=== PATIENT | female | born 1935 | race Caucasian/White ===

== ENCOUNTER 2020-07-26 15:40 | Emergency (ER) | payer MEDICARE, BC, SELFPAY ==
[2020-07-26 15:41] VITALS: BP 140/69; PULSE 85; RESP 18; TEMP 36.4; O2SAT 100
[2020-07-26 16:59] VITALS: BP 120/71; PULSE 76; RESP 20; O2SAT 98
[2020-07-26 17:05] LABS: Basophils Absolute Auto 0.1 K/mm3 (0.0-0.1); Basophils Percent Auto 0.8 % (0.2-1.2); Eosinophils Absolute Auto 0.3 K/mm3 (0-0.3); Eosinophils Percent Auto 4.5 % (0-4.4); Hematocrit 33.3 % (37.0-47.0); Hemoglobin 11.2 g/dL (12.0-15.0); Immature Granulocyte Absolute 0.02 K/mm3 (0.00-0.031); Immature Granulocyte Percent A 0.3 % (0-0.5); Lymphocytes Absolute Auto 1.88 K/mm3 (0.9-3.2); Lymphocytes Percent Auto 29.4 % (18.3-44.2); Mean Corpuscular HGB Conc 33.6 g/dl (32-36); Mean Corpuscular Hemoglobin 30.8 pg (26-34); Mean Corpuscular Volume 91.5 fl (80-100); Mean Platelet Volume 9.1 fl (7.4-10.4); Monocytes Absolute Auto 0.7 K/mm3 (0.1-0.6); Monocytes Percent Auto 11.1 % (2.6-8.5); Neutrophils Absolute Auto 3.4 K/mm3 (1.3-6.7); Neutrophils Percent Auto 53.9 % (45.5-73.1); Platelet Count Result 209 k/mm3 (150-375); Red Blood Count 3.64 M/mm3 (4.2-5.4); Red Cell Distribution Width 12.9 % (11.5-14.5); White Blood Count 6.4 K/mm3 (4.5-10.0)
[2020-07-26 17:15] LABS: INR 1.1; Prothrombin Time 13.5 Seconds (11.1-14.7)
[2020-07-26 17:17] LABS: Alanine Aminotransferase 12 U/L (4-35); Alkaline Phosphatase 44 U/L (38-126); Anion Gap 8 mmol/L (8-16); Aspartate Amino Transferase 20 U/L (14-36); Bilirubin,Total 0.1 mg/dL (0.2-1.3); Blood Urea Nitrogen 26 mg/dL (7-17); Calcium 9.3 mg/dL (8.4-10.2); Carbon Dioxide 27 mmol/L (22-30); Chloride 102 mmol/L (98-107); Estimated CRCL calculation 36 ml/min; Estimated Glomerular Filt Rate 43; Glucose 107 mg/dL (65-105); Potassium 4.4 mmol/L (3.4-5.0); Sodium 137 mmol/L (137-145)
--- NOTE | 2020-07-26 17:49 | ED.GENADULT ---
HPI - General Adult General Chief complaint: Wound/Laceration Stated complaint: RECTAL BLEEDING Time Seen by Provider: 07/26/20 15:53 Source: patient Mode of arrival: ambulatory Limitations: no limitations History of Present Illness HPI narrative: 84-year-old with no major medical problems here with complaints of rectal pain for past 1 week. Patient states that she has been doing Epson salt sitz bath which gives her some relief but however pain got worse this morning so she decided to come to the ER. She denies any fever or chills. Denies any blood in the stool. No history of any abdominal pain. Onset (ago): week(s) (1) Location: buttocks (left) Radiation: non-radiation Severity: moderate Quality: constant Pain Consistency: constant Exacerbating factors: none Associated symptoms: denies other symptoms Related Data Allergies Allergy/AdvReac Type Severity Reaction Status Date / Time chlorpheniramine Allergy Mild Unknown Unverified 07/26/20 16:58 codeine Allergy Mild Unknown Unverified 07/26/20 16:58 phenylephrine Allergy Mild Unknown Unverified 07/26/20 16:58 Review of Systems Review of Systems: All systems reviewed & are unremarkable except as noted in HPI and below Constitutional: Constitutional: Reports no additional constitutional complaints Eyes: Eyes: Reports as per HPI ENT: Reports system reviewed and no additional complaints, except as documented Cardiovascular: Cardiovascular: Reports no additional cardiovascular complaints Respiratory: Respiratory: Reports no additional respiratory complaints Gastrointestinal: Gastrointestinal: Reports as per HPI Musculoskeletal: Musculoskeletal: Reports no additional musculoskeletal complaints PMFSH Past Medical History Medical History H/O fracture of humerus H/O fracture of radius Social History Social History Gender identity (if verbalized by the patient): Female Exam Narrative: Exam Narrative: GENERAL: Well-appearing, well-nourished, and in no acute distress. HEAD: Normocephalic, atraumatic. EYES: PERRLA and EOMI. ENT: Nares clear, no rhinorrhea or epistaxis. Mucous membranes moist. NECK: Supple. CHEST: Clear to auscultation. No respiratory distress. HEART: Regular rate and rhythm. No murmur heard. Normal peripheral pulses. ABDOMEN: Soft, nontender, nondistended, normal active bowel sounds. Rectal A small hard swelling noted on the medial aspect of the buttock , no drainage EXTREMITIES: Normal range of motion. No edema. SKIN: Warm, dry, no rash. NEURO: No focal deficits. Alert and oriented x3. PSYCH: Normal mood and affect. Course Vital Signs Vital signs: Vital Signs Temperature 36.4 C 07/26/20 15:41 Pulse Rate 85 07/26/20 15:41 Respiratory Rate 18 07/26/20 15:41 Blood Pressure 140/69 07/26/20 15:41 Pulse Oximetry 100 07/26/20 15:41 Temperature 36.4 C 07/26/20 15:41 Pulse Rate 76 07/26/20 16:59 Respiratory Rate 20 07/26/20 16:59 Blood Pressure 120/71 07/26/20 16:59 Pulse Oximetry 98 07/26/20 16:59 Medical Decision Making MDM Narrative Medical decision making narrative: informed pt about her findings , advised her to continue sitz bath , take antibiotic as prescribed. Differential Diagnosis Differential Diagnosis: Gluteal abscess, cellulitis, thrombosed hemorrhoid Vital Signs Vital Signs: Vital Signs Temperature 36.4 C 07/26/20 15:41 Pulse Rate 85 07/26/20 15:41 Respiratory Rate 18 07/26/20 15:41 Blood Pressure 140/69 07/26/20 15:41 Pulse Oximetry 100 07/26/20 15:41 Temperature 36.4 C 07/26/20 15:41 Pulse Rate 76 07/26/20 16:59 Respiratory Rate 20 07/26/20 16:59 Blood Pressure 120/71 07/26/20 16:59 Pulse Oximetry 98 07/26/20 16:59 Lab Data Result diagrams: 07/26/20 16:57 07/26/20 16:57 Labs: Lab Results 07/26/20
[2020-07-26 18:36] VITALS: BP 122/72; PULSE 70; RESP 20; O2SAT 99
== END 2020-07-26 18:38 | disposition home or self-care (01) ==
PROVIDERS: Emergency Provider Family Medicine
DX: L03.317 Cellulitis of buttock (principal); L02.31 Cutaneous abscess of buttock
CPT/HCPCS: 36415; 80053; 85025; 85610; 99283

== ENCOUNTER 2020-08-29 14:04 | Emergency (ER) | payer MEDICARE, BC, SELFPAY ==
--- NOTE | ~2020-08-29 | US_ITS ---
EXAMINATION: US venous doppler LE RT EXAM DATE: 08/29/2020 14:35 INDICATION: Right leg swelling. TECHNIQUE: Multiple grayscale, color flow and Doppler images of the right lower extremity deep venous system were obtained and reviewed. There is no prior study for comparison. FINDINGS: The right common femoral, femoral and profunda veins demonstrate normal color flow, respira tory variation, augmentation and compressibility. Compressibility, color flow confirmed within the r ight popliteal, posterior tibial, peroneal, and greater saphenous veins. IMPRESSION: 1. No right lower extremity deep venous thrombosis. Reviewed, dictated and finalized at location A.
[2020-08-29 14:10] VITALS: BP 152/74; PULSE 100; RESP 18; TEMP 36.4; O2SAT 100
--- NOTE | 2020-08-29 14:52 | ED.GENADULT ---
HPI - General Adult General Chief complaint: Extremity Injury, Lower Stated complaint: ankle swelling/hx dvt Time Seen by Provider: 08/29/20 14:14 Source: patient Mode of arrival: ambulatory Limitations: no limitations History of Present Illness HPI narrative: Patient is a 85-year-old presents with right leg pain since noting aching pain with slight swelling with history of DVT denies injury or trauma has not taken anything for symptoms presents in no distress Related Data Home Medications Medication Instructions Recorded Confirmed lisinopril 10 mg tablet 10 mg PO DAILY 07/29/20 07/30/20 rosuvastatin 5 mg tablet 5 mg PO DAILY 07/29/20 07/30/20 Allergies Allergy/AdvReac Type Severity Reaction Status Date / Time chlorpheniramine Allergy Mild Unknown Verified 08/29/20 14:15 codeine Allergy Mild Unknown Verified 08/29/20 14:15 phenylephrine Allergy Mild Unknown Verified 08/29/20 14:15 Review of Systems Review of Systems: All systems reviewed & are unremarkable except as noted in HPI and below PMFSH Past Medical History Medical History H/O fracture of humerus H/O fracture of radius History of blood clots History of kidney stones Hyperlipidemia Hypertension Surgical History Surgical History History of appendectomy History of hysterectomy Social History Social History Smoking status: Never smoker Alcohol intake: never 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 HEAD: Normocephalic, atraumatic. EYES: PERRLA and EOMI. ENT: Nares clear, no rhinorrhea or epistaxis. Mucous membranes moist. CHEST: Clear to auscultation. No respiratory distress. No wheezes rales or rhonchi HEART: Regular rate and rhythm. No murmur heard. EXTREMITIES: Normal range of motion. No edema. SKIN: Warm, dry, no rash. NEURO: No focal deficits. Alert and oriented x3. Cranial nerves II through XII grossly intact. Neurovascularly intact PSYCH: Normal mood and affect. Course Course Emergency Course: Patient in the room in no distress aware of case findings treatment plan Vital Signs Vital signs: Vital Signs Temperature 97.5 F L 08/29/20 14:10 Pulse Rate 100 08/29/20 14:10 Respiratory Rate 18 08/29/20 14:10 Blood Pressure 152/74 H 08/29/20 14:10 Pulse Oximetry 100 08/29/20 14:10 Temperature 97.5 F L 08/29/20 14:10 Pulse Rate 100 08/29/20 14:10 Respiratory Rate 18 08/29/20 14:10 Blood Pressure 152/74 H 08/29/20 14:10 Pulse Oximetry 100 08/29/20 14:10 Medical Decision Making MDM Narrative Medical decision making narrative: Patients injury or pain is consistent with musculoskeletal etiology. No signs of neurological or vascular compromise on exam. Compartments and tisues are soft without signs of compartment syndrome. Pain is felt appropriate for further evaluation on an outpatient basis. Vital Signs Vital Signs: Vital Signs Temperature 97.5 F L 08/29/20 14:10 Pulse Rate 100 08/29/20 14:10 Respiratory Rate 18 08/29/20 14:10 Blood Pressure 152/74 H 08/29/20 14:10 Pulse Oximetry 100 08/29/20 14:10 Temperature 97.5 F L 08/29/20 14:10 Pulse Rate 100 08/29/20 14:10 Respiratory Rate 18 08/29/20 14:10 Blood Pressure 152/74 H 08/29/20 14:10 Pulse Oximetry 100 08/29/20 14:10 Discharge Plan Discharge Clinical Impression: Leg pain, right Patient Disposition: Home, Self-Care Condition: Stable Instructions: Antibiotic Form, Leg Pain (ED) Additional Instructions: Follow up with your primary care doctor in 5-7 days for re-evaluation. Go to ER for worsening pain, vision changes, nausea/vomiting, fever/chill
[2020-08-29 15:15] VITALS: BP 148/68; PULSE 99; RESP 20; O2SAT 100
== END 2020-08-29 15:16 | disposition home or self-care (01) ==
PROVIDERS: Emergency Provider Emergency Medicine; PCP Emergency Medicine
DX: M79.604 Pain in right leg (principal); Z86.718 Personal history of other venous thrombosis and embolism; Z87.442 Personal history of urinary calculi; E78.5 Hyperlipidemia, unspecified; I10 Essential (primary) hypertension
CPT/HCPCS: 93971; 99284

== ENCOUNTER 2021-03-24 13:13 | Outpatient (CLI) | payer MEDICARE, BC, SELFPAY ==
--- NOTE | ~2021-03-24 | US_ITS ---
EXAMINATION: US soft tissue UE LT DATE: 03/24/2021 13:46 INDICATION: Left arm mass TECHNIQUE: Multiple grayscale and Doppler ultrasound images of the region of concern at the medial le ft upper arm were obtained. COMPARISON: None FINDINGS/IMPRESSION: Normal appearance to the subcutaneous fat in the region of concern. No discrete mass or abnormal flui d collections identified. Reviewed, dictated and finalized at location A.
== END 2021-03-24 13:14 | disposition home or self-care (01) ==
PROVIDERS: PCP Emergency Medicine; Visit Provider Emergency Medicine
DX: R22.32 Localized swelling, mass and lump, left upper limb (principal)
CPT/HCPCS: 76882

== ENCOUNTER 2021-04-22 11:00 | Outpatient (RCR) | payer MEDICARE, BC, SELFPAY ==
--- NOTE | 2021-03-29 11:52 | PTOPEVAL ---
PHYSICAL THERAPY EVALUATION Thank you for referring Gianna Amaral to [facility].? Gianna was evaluated for the dx of imbalance. The patient is scheduled to be seen for therapy?2 x/week for 4 weeks. Please review, sign, date and return this plan of care KIRTI. I agree with and certify that the following plan of care is medically necessary. Referring Physician Date Referring Provider: Dr. Gonzalo Mendiola MD *PT Outpatient Evaluation Start: 03/29/21 10:37 Freq: Status: Active Protocol: Document 03/29/21 10:37 MLV (Rec: 03/29/21 11:42 [id number]) Therapy Assessment Status Assessment Status Assessment Status Evaluation Evaluation Information Problem Diagnosis imbalance;falls Onset 1-1.5 years Additional Evaluation Detail The patient reports being active, walking for exercise regularly, prior to changes in her balance. The patient has fallen a few times, with fractures as a consequence over the last 1- 1.5 year. The patient is not exercising due to fear of falling and wants to improve her balance. The patient has right knee OA and needs a TKA, which caused one of her falls. The patient is planning to have her knee replaced soon but wanted to get a little more balanced before the surgery. Previous Treatments Previous Treatments For This Problem had PT after 1st fall about 1 year ago. Pain Assessment Timing of Pain Assessment Timing of Pain Assessment Assessment Pain Scale Pain Scale Used Numeric (1 - 10) Self Report Pain Assessment Right Posterior Knee(s) Reported Pain Level 0 Pain Frequency Chronic Greatest Pain Intensity 9 Pain Aggravating Factors Walking,Weight Bearing/ Standing Pain Behaviors Limping Pain Score Pain Score 0: Self Report Interventions Used Interventions Used By Clinicians Education,Exercise Pain Relief Interventions Used By Inactivity/Rest,Lying Supine, Patient Position Change Cervical and Lumbar ROM Lumbar ROM Reason Not Measured WFL/Left,WFL/Right Lumbar Flexion Active Mid Zarate Query Text:Hands to: Lower Extremity Range of Motion General Lower Extremity Range of Motion Reason Not Measured WFL/Left Gross Lower
--- NOTE | 2021-04-28 09:22 | PCPTNOTE ---
Patient called & cancelled scheduled appointment this date due to increased knee pain today. Patient rescheduled.
--- NOTE | 2021-06-04 10:31 | PCPTNOTE ---
PHYSICAL THERAPY DISCHARGE Attending Provider: Dr. Gonzalo Mendiola MD Patient:Gianna Amaral Date of :1935 Patient has not returned for any further treatments since 04/22/2021, therefore she will be discharged at this time. Patient?s initial visit was on 03/29/2021 10:30 and she had a total of 8 visits. The goals have been partially met. Thank you for referring this patient to [facility]. Please review, sign, date and return this discharge summary KIRTI. I have been updated about the patient's current status and I agree with discharge from the above service at this time. Referring Physician Date
== END 2021-06-10 16:55 | disposition home or self-care (01) ==
LOC: ANHPT 11:00
PROVIDERS: PCP Emergency Medicine
DX: R26.89 Other abnormalities of gait and mobility (principal)
CPT/HCPCS: 97110; 97162

== ENCOUNTER 2021-04-29 09:23 | Emergency (ER) | payer MEDICARE, BC, SELFPAY ==
--- NOTE | ~2021-04-29 | XR_ITS ---
EXAMINATION: XR knee LT 3V DATE: 04/29/2021 11:23 INDICATION: Left knee pain and swelling. TECHNIQUE: 3 views of left knee were obtained. COMPARISON: None. FINDINGS: Bone alignment is normal. No fracture. There is mild osteoarthritis of patellofemoral rico rtment. No knee joint effusion. IMPRESSION: 1. Mild left knee osteoarthritis. Reviewed, dictated and finalized at location A.
--- NOTE | ~2021-04-29 | US_ITS ---
EXAMINATION: US venous doppler [facility] EXAM DATE: 04/29/2021 10:06 INDICATION: Left leg pain. History of DVT. TECHNIQUE: Multiple grayscale, color flow and Doppler images of the left lower extremity deep venous system were obtained and reviewed. Comparison is made to prior examination from 08/05/2019. FINDINGS: The left common femoral, femoral and profunda veins demonstrate normal color flow, respirat ory variation, augmentation and compressibility. Compressibility, color flow confirmed within the le ft popliteal, posterior tibial, peroneal, and greater saphenous veins. There is a Peguero's cyst measu ring 3.8 x 0.8 x 2.7 cm. IMPRESSION: 1. No left lower extremity deep venous thrombosis. 2. 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 Reviewed, dictated and finalized at location B.
[2021-04-29 09:25] VITALS: BP 151/70; PULSE 85; RESP 20; TEMP 36.2; O2SAT 99
--- NOTE | 2021-04-29 09:45 | PC.NURSE ---
Pt off floor at US prior to rooming in ED
--- NOTE | 2021-04-29 10:55 | ED.EXTPRO ---
HPI - Extremity Problem General Chief complaint: Extremity Problem,Nontraumatic Stated complaint: left leg pain Time Seen by Provider: 04/29/21 09:41 Source: patient Mode of arrival: ambulatory Limitations: no limitations History of Present Illness HPI Narrative: Patient is an 85-year-old female who presents complaining of left knee pain and swelling. Patient reports pain started approximately 2 days ago. She denies new numbness or tingling in lower extremity, she denies back pain. She reports pain started suddenly. Reports hx of DVT in RLE. She denies taking otc po meds, reports using topical creams without relief. She denies all other complaints at this time. MD Complaint: joint paint Related Data Home Medications Medication Instructions Recorded Confirmed lisinopril 10 mg tablet 10 mg PO DAILY 07/29/20 07/30/20 rosuvastatin 5 mg tablet 5 mg PO DAILY 07/29/20 07/30/20 Allergies Allergy/AdvReac Type Severity Reaction Status Date / Time chlorpheniramine Allergy Mild Unknown Verified 08/29/20 14:15 codeine Allergy Mild Unknown Verified 08/29/20 14:15 phenylephrine Allergy Mild Unknown Verified 08/29/20 14:15 Review of Systems Review of Systems: Narrative: CONSTITUTIONAL: Denies fever, chills, or sweats. EYES: Denies visual changes, redness, or discharge. ENT: Denies rhinorrhea, congestion, sore throat, or otalgia. CARDIOVASCULAR: Denies chest pain, palpitations, or edema. RESPIRATORY: Denies cough or dyspnea. GASTROINTESTINAL: Denies abdominal pain, nausea, vomiting, or diarrhea. GENITOURINARY: Denies dysuria or hematuria. SKIN: Denies rash or itching. MUSCULOSKELETAL: Reports pain to left knee and leg NEUROLOGIC: Denies headache, numbness, dizziness, or weakness. PSYCHIATRIC: Denies anxiety or depression. 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 Please see nursing chart for further information. There is no relevant family history pertinent to the presenting complaint. Exam Narrative: Exam Narrative: GENERAL: Well-appearing, well-nourished, and in no acute distress. HEAD: Normocephalic, atraumatic. EYES: EOMI. No redness or drainage. ENT: Mucous membranes pink and moist. CHEST: No respiratory distress. Clear to auscultation. HEART: Regular rate and rhythm. No murmur appreciated. Normal peripheral pulses. EXTREMITIES: Normal range of motion. Mild edema noted to left knee, tenderness outpatient to posterior knee, no erythema or warmth noted SKIN: Warm, dry, no rash. NEURO: No focal deficits. Alert and oriented x3. Gait steady. PSYCH: Normal affect. No signs of depression or anxiety. Course Vital Signs Vital signs: Vital Signs Temperature 36.2 C L 04/29/21 09:25 Pulse Rate 85 04/29/21 09:25 Respiratory Rate 20 04/29/21 09:25 Blood Pressure 151/70 H 04/29/21 09:25 Pulse Oximetry 99 04/29/21 09:25 Temperature 36.2 C L 04/29/21 09:25 Pulse Rate 85 04/29/21 09:25 Respiratory Rate 20 04/29/21 09:25
--- NOTE | 2021-04-29 11:10 | PC.NURSE ---
Pt off floor to XR via WC
--- NOTE | 2021-04-29 11:25 | PC.NURSE ---
c/o months of L posterior knee/thigh pain worse x1 day couldn't sleep last night, the pain was too much , has been using icy-hot and Aspercreme with mild relief. Denies recent falls or trauma the last significant fall I had was Oct 2020 . BLE appear equal in size, soft calves. 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 Denies SOB, non-labored respirations, 99% RA
[2021-04-29 12:10] VITALS: BP 102/78; PULSE 78; RESP 14; O2SAT 96
== END 2021-04-29 12:24 | disposition home or self-care (01) ==
PROVIDERS: Emergency Provider Nurse Practitioner
DX: M71.22 Synovial cyst of popliteal space [Baker], left knee (principal); E78.5 Hyperlipidemia, unspecified; I10 Essential (primary) hypertension; Z86.718 Personal history of other venous thrombosis and embolism; Z87.442 Personal history of urinary calculi; M17.12 Unilateral primary osteoarthritis, left knee
CPT/HCPCS: 73562; 93971; 99284

== ENCOUNTER 2021-05-24 13:33 | Outpatient (CLI) | payer MEDICARE, BC, SELFPAY ==
--- NOTE | ~2021-05-24 | DEXA_ITS ---
Bone Density Report Name: Gianna Amaral Age: 85 Sex: Female Ethnicity: White Date of : 1935 Indication: postmenopausal; height loss; prior fracture; hysterectomy; rheumatoid arthritis; Referring Provider: Naldo Toribio Study: Bone densitometry was performed. Exam Date: May 24, 2021 Accession number: [id number] Bone Density: Region BMD T-score Z-score Classification AP Spine (L1-L4) 0.938 -1.0 1.8 Normal Femoral Neck (Left) 0.685 -1.5 1.0 Osteopenia Total Hip (Left) 0.880 -0.5 1.8 Normal Total Hip Bilateral Avg 0.852 -0.8 1.6 Normal Femoral Neck (Right) 0.675 -1.6 0.9 Osteopenia Total Hip (Right) 0.822 -1.0 1.3 Normal World Health Organization criteria for BMD impression classify patients as: Normal (T-score at or above -1.0), Osteopenia (T-score between -1.0 and -2.5), or Osteoporosis (T-score at or below -2.5). 10-year Fracture Risk(1): Major Osteoporotic Fracture 24% Hip Fracture 6.2% Reported Risk Factors: [place] (), Neck BMD=0.675, BMI=32.0, previous fracture, rheumatoid arthritis (1) FRAX(R) Version 3.08. Fracture probability calculated for an untreated patient. Fracture probability may be lower if the patient has received treatment. Clinical Information Provided by Patient: Has had a low trauma fracture Has rheumatoid arthritis Has the following medical conditions: Hysterectomy Patient maximum height was 66 No regular weight bearing exercise Drinks caffeinated beverages Onset of menses at age 15 Number of children 5 Impression: The patient has low bone mass, based on the Right Femoral Neck T-score. The patient has an estimated ten-year risk of hip fracture of 6.2% and an estimated ten-year risk of major fracture of 24%, based on the WHO FRAX algorithm. The patient has risk factors, including: previous fracture. Discussion: BONE DENSITY IS LOW AT ONE OR MORE SKELETAL SITES. THE PATIENT'S BMD AND CLINICAL RISK FACTORS CONTRIBUTE TO THIS PATIENT'S HIGH RISK OF FRACTURE. This patient's lowest T-score is low at one or more skeletal sites. It meets the World Health Organization's (WHO) criteria for ?low bone mass? (T-score between -1.0 and -2.5). The patient's 10-year risk of hip fracture and 10 year risk of a major osteoporotic fracture as calculated by FRAX exceeds the threshold where pharmacological therapy is recommended by the National Osteoporosis Foundation (NOF). However, all treatment decisions require clinical judgment and consideration of individual patient factors, including patient preferences, comorbidities, previous drug use, risk factors not captured in the FRAX model (e.g., frailty, falls, vitamin D deficiency, increased bone turnover, interval significant decline in bone density) and possible under or overestimation of fracture risk by FRAX. The patient should fol
== END 2021-05-24 13:34 | disposition home or self-care (01) ==
LOC: ANHIMG 13:38
PROVIDERS: Visit Provider Emergency Medicine
DX: Z78.0 Asymptomatic menopausal state (principal); M85.89 Other specified disorders of bone density and structure, multiple sites
CPT/HCPCS: 77080

== ENCOUNTER 2021-06-01 10:50 | Emergency (ER) | payer MEDICARE, BC, SELFPAY ==
[2021-06-01 10:55] VITALS: BP 146/71; PULSE 87; RESP 12; TEMP 36.9; O2SAT 98
--- NOTE | 2021-06-01 11:14 | ED.LOWEXIN ---
HPI - Extremity Injury (Lower) General Chief Complaint: Extremity Problem,Nontraumatic Stated Complaint: lt leg pain/redness Source: patient Mode of arrival: ambulatory Limitations: no limitations History of Present Illness HPI Narrative: 85-year-old female presents to [facility] with complaints of area of erythema, swelling and warmth to her left leg. Patient reports that she had her veins to her left lower leg injected approximately 6 days ago. Patient reports that is too long of a drive to follow-up with her vein doctor and decided to come here for evaluation. Patient reports that she has a history of blood clots. Patient denies fever, body aches, chills, nausea, vomiting, diarrhea, chest pain or shortness of breath. Patient reports that she has been applying cool compress to the area which does improve the pain Other symptoms: none Treatments prior to arrival: cold therapy Related Data Home Medications Medication Instructions Recorded Confirmed lisinopril 10 mg tablet 10 mg PO DAILY 07/29/20 07/30/20 rosuvastatin 5 mg tablet 5 mg PO DAILY 07/29/20 07/30/20 Allergies Allergy/AdvReac Type Severity Reaction Status Date / Time chlorpheniramine Allergy Mild Unknown Verified 08/29/20 14:15 codeine Allergy Mild Unknown Verified 08/29/20 14:15 phenylephrine Allergy Mild Unknown Verified 08/29/20 14:15 Review of Systems Constitutional: Constitutional: Denies chills, Denies fatigue, Denies fever(s) and Denies weakness Cardiovascular: Cardiovascular: Denies chest pain, Denies rapid heart rate and Denies slow heart rate Respiratory: Respiratory: Denies cough, Denies dyspnea and Denies wheezing Gastrointestinal: Gastrointestinal: Denies abdominal pain, Denies diarrhea, Denies nausea and Denies vomiting Musculoskeletal: Musculoskeletal: Denies back pain Comments: Redness, pain and swelling to left lower leg Neurologic: Denies dizziness FOR[facility]LY [facility] Past Medical History Medical History (Updated 06/01/21 @ 11:19 by Maria Elena Joyce APRN) H/O fracture of humerus H/O fracture of radius History of blood clots History of kidney stones Hyperlipidemia Hypertension Surgical History Surgical History History of appendectomy History of hysterectomy Family History Family History Mother Polio Sibling , brother Sleep apnea Sibling , Sister Heart disease, Onset Age: 90 after having heart surgery Social History Social History Smoking status: Never smoker Alcohol intake: never 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 There is no relevant family history pertinent to the presenting complaint. Exam Const: General: no acute distress Nutritional Appearance: well nourished Orientation/consciousness: patient oriented x3 Resp: Effort & Inspection: normal respiratory effort Auscultation: clear to auscultation bilaterally Cardio: Rate: regular rate Rhythm: regular rhythm Skin: Wounds: no wounds Neuro: General: patient oriented x3 and moves all extremities Extrem: General: no pedal edema Other: There is an 8 cm area of erythema, warmth and mild swelling noted to left upper welsh just below left knee. There are no open wounds, purulent drainage, necrotic tissue or bruising noted. Psych: Appearance: grossly normal Mental Status: mental status grossly normal Affect: normal affect Attitude: cooperative Thought content: Yes Normal thought content present Course Vital Signs Vital signs: Vital Signs Temperature 36.9 C 06/01/21 10:55 Pulse Rate 87 06/01/21 10:55 Respiratory Rate 12 06/01/21 10:55 Blood Pressure 146
== END 2021-06-01 11:40 | disposition short-term general hospital (02) ==
PROVIDERS: Emergency Provider Nurse Practitioner Family
DX: M79.662 Pain in left lower leg (principal); E78.5 Hyperlipidemia, unspecified; I10 Essential (primary) hypertension; Z86.2 Personal history of diseases of the blood and blood-forming organs and certain disorders involving the immune mechanism
CPT/HCPCS: 99215; G0463

== ENCOUNTER 2021-06-01 11:46 | Emergency (ER) | payer MEDICARE, BC, SELFPAY ==
--- NOTE | ~2021-06-01 | US_ITS ---
EXAMINATION: US venous doppler [facility] DATE: 06/01/2021 14:52 INDICATION: Left lower limb pain and swelling. TECHNIQUE: Grayscale ultrasound images without and with compression and Doppler ultrasound images of the left lower extremity veins were obtained. COMPARISON: Ultrasound 04/29/2021 FINDINGS: The visualized portions of left common femoral vein, profunda (deep) femoral vein, femoral vein, popl iteal vein, peroneal veins, posterior tibial veins, and greater saphenous vein outflow are patent. Th ere is a large Peguero's cyst. IMPRESSION: 1. No deep venous thrombosis. 2. Worsened large Peguero's cyst. Reviewed, dictated and finalized at location A.
--- NOTE | ~2021-06-01 | XR_ITS ---
EXAMINATION: XR knee LT min 4V DATE: 06/01/2021 12:29 INDICATION: Left knee pain and swelling. TECHNIQUE: 4 views of left knee were obtained. COMPARISON: Left knee radiograph 04/29/2021 FINDINGS: Bone alignment is normal. No fracture. There is mild tricompartmental osteoarthritis. No kn ee joint effusion. IMPRESSION: 1. Mild left knee osteoarthritis. Reviewed, dictated and finalized at location A.
[2021-06-01 11:56] VITALS: BP 139/73; PULSE 84; RESP 18; TEMP 36.1; O2SAT 98
--- NOTE | 2021-06-01 14:10 | ED.EXTPRO ---
HPI - Extremity Problem General Chief complaint: Extremity Problem,Nontraumatic Stated complaint: L Knee red and swollen Time Seen by Provider: 06/01/21 13:37 Source: patient Mode of arrival: ambulatory Limitations: no limitations History of Present Illness HPI Narrative: Patient is an 85-year-old female complaining of left leg pain and swelling, right below the knee started last night. Patient states she had a vein procedure done yesterday and, and last night noticed some swelling and warmth right welsh, upper leg, where she had the injections for her veins none. Patient denies any chest pain, shortness of breath, fever or chills. Related Data Home Medications Medication Instructions Recorded Confirmed lisinopril 10 mg tablet 10 mg PO DAILY 07/29/20 07/30/20 rosuvastatin 5 mg tablet 5 mg PO DAILY 07/29/20 07/30/20 Allergies Allergy/AdvReac Type Severity Reaction Status Date / Time chlorpheniramine Allergy Mild Unknown Verified 06/01/21 12:15 codeine Allergy Mild Unknown Verified 06/01/21 12:15 phenylephrine Allergy Mild Unknown Verified 06/01/21 12:15 Review of Systems Review of Systems: All systems reviewed & are unremarkable except as noted in HPI and below Constitutional: Constitutional: Denies body ache(s), Denies chills, Denies excessive sweating, Denies fatigue, Denies fever(s), Denies headache(s), Denies lethargy, Denies malaise, Denies weakness and Denies weight loss Eyes: Eyes: Denies blurry vision, Denies change in vision and Denies loss of vision ENT: Denies dizziness, Denies ear discharge, Denies headache(s), Denies lip swelling, Denies epistaxis, Denies nasal congestion, Denies neck pain, Denies throat swelling and Denies tongue swelling Cardiovascular: Cardiovascular: Denies chest pain, Denies chest pain at rest, Denies chest pain with activity, Denies diaphoresis, Denies rapid heart rate, Denies edema, Denies irregular heart rhythm, Denies lightheadedness, Denies palpitations, Denies dyspnea and Denies dyspnea on exertion Respiratory: Respiratory: Denies chest congestion, Denies cough, Denies hemoptysis, Denies dyspnea and Denies dyspnea on exertion Gastrointestinal: Gastrointestinal: Denies abdominal pain, Denies melena, Denies hematochezia, Denies diarrhea, Denies nausea, Denies vomiting and Denies hematemesis Musculoskeletal: Musculoskeletal: Denies abnormal gait, Denies deformity, Denies joint swelling, Denies limited range of motion, Denies neck pain and Denies numbness Neurologic: Denies Abnormal speech present, Denies abnormal gait, Denies confusion, Denies dizziness, Denies headache(s), Denies focal weakness, Denies loss of vision, Denies numbness, Denies Other visual disturbances, Denies Sensory deficit (Neuro) and Denies weakness Psychiatric: Psychiatric: Denies confusion, Denies depression, Denies auditory hallucinations, Denies homicidal ideation and Denies suicidal ideation Endocrine: Endocrine: Denies cold intolerance, Denies excessive sweating, Denies fatigue, Denies heat intolerance and Denies palpitations Hematologic/Lymphatic: Hematologic/Lymphatic: Denies easy bleeding and Denies easy bruising Allergic/Immunologic: Allergic/Immunologic: Denies lip swelling, Denies throat swelling and Denies tongue swelling PMFSH Past Medical History Medical History (Updated 06/01/21 @ 16:31 by Gonzalo Chapin MD) H/O fracture of humerus H/O fracture of radius History of blood clots History of kidney stones Hyperlipidemia Hypertension Surgical History Surgical History History of appendectomy History of hysterectomy Family History Family History Mother Polio Sibling , brother Sleep apnea Sibling , Sister Heart disease, Onset Age: 90 after having heart surgery Social History Social History (Reviewed 06/01/21 @ 14:14 by Gonzalo
[2021-06-01 15:16] LABS: Basophils Percent Auto 0.5 % (0.2-1.2); Eosinophils Absolute Auto 0.1 K/mm3 (0-0.3); Hematocrit 36.8 % (37.0-47.0); Hemoglobin 12.2 g/dL (12.0-15.0); Immature Granulocyte Absolute 0.04 K/mm3 (0.00-0.031); Immature Granulocyte Percent A 0.5 % (0-0.5); Lymphocytes Absolute Auto 1.57 K/mm3 (0.9-3.2); Lymphocytes Percent Auto 20.2 % (18.3-44.2); Mean Corpuscular HGB Conc 33.2 g/dl (32-36); Mean Corpuscular Hemoglobin 30.7 pg (26-34); Mean Corpuscular Volume 92.5 fl (80-100); Mean Platelet Volume 8.8 fl (7.4-10.4); Monocytes Absolute Auto 0.6 K/mm3 (0.1-0.6); Monocytes Percent Auto 7.5 % (2.6-8.5); Neutrophils Absolute Auto 5.5 K/mm3 (1.3-6.7); Neutrophils Percent Auto 70.3 % (45.5-73.1); Platelet Count Result 243 k/mm3 (150-375); Red Blood Count 3.98 M/mm3 (4.2-5.4); Red Cell Distribution Width 12.6 % (11.5-14.5); White Blood Count 7.8 K/mm3 (4.5-10.0)
[2021-06-01 15:24] LABS: Anion Gap 7 mmol/L (8-16); Blood Urea Nitrogen 27 mg/dL (7-17); Calcium 9.6 mg/dL (8.4-10.2); Carbon Dioxide 31 mmol/L (22-30); Chloride 99 mmol/L (98-107); Estimated CRCL calculation 36 ml/min; Estimated Glomerular Filt Rate 43; Glucose 107 mg/dL (65-105); Potassium 3.9 mmol/L (3.4-5.0); Sodium 137 mmol/L (137-145)
[2021-06-01 16:47] VITALS: BP 136/94; PULSE 85; RESP 18; O2SAT 97
== END 2021-06-01 16:48 | disposition home or self-care (01) ==
PROVIDERS: Emergency Provider Emergency Medicine
DX: M79.662 Pain in left lower leg (principal); E78.5 Hyperlipidemia, unspecified; I10 Essential (primary) hypertension; Z87.442 Personal history of urinary calculi; M17.12 Unilateral primary osteoarthritis, left knee; M71.22 Synovial cyst of popliteal space [Baker], left knee
CPT/HCPCS: 36415; 73564; 80048; 85025; 93971; 99284

== ENCOUNTER 2021-09-24 07:04 | Emergency (ER) | payer MEDICARE, BC, SELFPAY ==
--- NOTE | ~2021-09-24 | CT_ITS ---
EXAMINATION: CT brain wo con INDICATION: Hypertension and headache COMPARISON: None TECHNIQUE: Standard unenhanced head CT. The dose-length product (DLP) was 529.67 mGy-cm. The mA was a djusted according to patient size. Iterative reconstruction technique was employed. FINDINGS: There is no acute intraparenchymal hemorrhage. No evidence of mass lesion. No evidence of a cute infarction. There is mild periventricular and subcortical hypodensity probably related to small vessel ischemic disease. There is mild prominence of the sulci and ventricles related to cerebral atr ophy. Intracranial calcified cerebral atherosclerosis is noted. There are no extra-axial collections. There is no mass effect or midline shift. Changes in the globes are likely from ocular lens surgery. The visualized sinuses and mastoid air cells are well aerated. IMPRESSION: 1. No acute intracranial abnormality. 2. Age related findings. Reviewed, dictated and finalized at location A.
[2021-09-24] MEDS: ACETAMINOPHEN 500 MG TABLET 1000 MG PO (07:51)
[2021-09-24] MEDS: SODIUM CHLORIDE 0.9% IV 1,000 ML 999 ML IV CONT (07:51)
[2021-09-24 07:53] VITALS: BP 139/66; PULSE 71; RESP 20; TEMP 36.8; O2SAT 97
--- NOTE | 2021-09-24 08:38 | ED.HA ---
HPI - Headache General Chief Complaint: Headache Stated Complaint: H/A, HTN Time Seen by Provider: 09/24/21 07:21 Source: patient History of Present Illness HPI Narrative: Patient presents with headache. Patient reports she has headaches when her blood pressure gets high. Reports she woke up with a mild headache her blood pressure was systolics of 160s. She took some home vinegar solution which she normally does when her blood pressure is elevated which helps her symptoms however this morning it did not work so she came to the ER for evaluation. She reports paresthesias to her head denies any changes in vision, focal weakness or numbness. She denies any fevers or neck pain. She denies any nausea or vomiting. Her pain is constant no radiation no clear aggravating or alleviating factors. Related Data Home Medications Medication Instructions Recorded Confirmed lisinopril 10 mg tablet 10 mg PO DAILY 07/29/20 07/30/20 rosuvastatin 5 mg tablet 5 mg PO DAILY 07/29/20 07/30/20 Allergies Allergy/AdvReac Type Severity Reaction Status Date / Time chlorpheniramine Allergy Mild Unknown Verified 09/24/21 07:56 codeine Allergy Mild Unknown Verified 09/24/21 07:56 phenylephrine Allergy Mild Unknown Verified 09/24/21 07:56 Review of Systems Review of Systems: CONSTITUTIONAL: Denies fever, chills, or sweats. EYES: Denies visual changes, redness, or discharge. ENT: Denies rhinorrhea, congestion, sore throat, or otalgia. CARDIOVASCULAR: Denies chest pain, palpitations, or edema. RESPIRATORY: Denies cough or dyspnea. GASTROINTESTINAL: Denies abdominal pain, nausea, vomiting, or diarrhea. GENITOURINARY: Denies dysuria or hematuria. SKIN: Denies rash or itching. MUSCULOSKELETAL: Denies back pain, joint pain, or myalgia. NEUROLOGIC: Denies numbness, dizziness, or weakness. PSYCHIATRIC: Denies anxiety or depression. 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 HEAD: Normocephalic, atraumatic. EYES: PERRLA and EOMI. ENT: Nares clear, no rhinorrhea or epistaxis. Mucous membranes moist. NECK: Supple. No masses. No JVD EXTREMITIES: Normal range of motion. No edema. SKIN: Warm, dry, no rash. NEURO: Cranial nerves II through XII are intact patient has 5 out of 5 strength in all extremities sensation intact to light touch in all extremities alert and oriented x3. PSYCH: Normal mood and affect. Course Reevaluation(s) Reevaluation #1: Patient ports feeling much improved results reviewed with patient. Patient declined supportive therapies as her symptoms improved without intervention. Patient is appropriate for continued outpatient monitoring and follow-up with her primary care doctor. Date: 09/24/21 Time: 08:40 Vital Signs Vital signs: Vital Signs Temperature 36.8 C 09/24/21 07:53 Pulse Rate 71 09/24/21 07:53 Respiratory Rate 20 09/24/21 07:53 Blood Pressure 139/66 09/24/21 07:53 Pulse Oximetry 97 09/24/21 07:53 Temperature 36.8 C
== END 2021-09-24 09:04 | disposition home or self-care (01) ==
PROVIDERS: Emergency Provider Emergency Medicine
DX: R51.9 Headache, unspecified (principal); I10 Essential (primary) hypertension; E78.5 Hyperlipidemia, unspecified; Z87.442 Personal history of urinary calculi
CPT/HCPCS: 70450; 96360; 99284; A9270; J7030

== ENCOUNTER 2021-09-27 09:58 | Outpatient (RCR) | payer MEDICARE, BC, SELFPAY ==
--- NOTE | 2021-09-27 12:54 | PTOPEVAL ---
PHYSICAL THERAPY EVALUATION Thank you for referring Gianna Amaral to [facility].? Gianna was evaluated for the dx of right hip pain/chronic knee pain. The patient is scheduled to be seen for therapy?2 x/week for 4 weeks. Please review, sign, date and return this plan of care KIRTI. I agree with and certify that the following plan of care is medically necessary. Referring Physician Date Attending Provider: Marky Cobian, *PT Outpatient Evaluation Start: 09/27/21 10:09 Freq: Status: Active Protocol: Document 09/27/21 10:09 MLV (Rec: 09/27/21 10:53 MLV [id number]) Therapy Assessment Status Assessment Status Assessment Status Evaluation Evaluation Information Problem Diagnosis right hip pain, chronic knee swelling/pain Onset 08/19/2021 Cause fall Additional Evaluation Detail The patient saw the MD due to having swelling at his knees. The pt reports needing knee replacements but her heart is not stable enough to have surgery. The patient has had multiple falls and the last fall was bad and she hurt her hip. The patient is having pain at the right groin. The patient's goal is to get relief of the right hip pain as she was prior to her last fall. Diagnostic Tests X-Rays For This Problem Yes: right hip not fractured from fall. Pain Assessment Timing of Pain Assessment Timing of Pain Assessment Assessment Pain Scale Pain Scale Used Numeric (1 - 10) Self Report Pain Assessment Right Hip(s) Reported Pain Level 7 Pain Description Aching,Tightness Pain Frequency Acute,Continuous Other Pain Description lateral hip pain and groin Lowest Pain Intensity 5 Greatest Pain Intensity 9 Pain Aggravating Factors Sitting,Walking,Weight Bearing /Standing Other Pain Aggravating Factors right sidelying Pain Score Pain Score 7: Self Report Interventions Used Interventions Used By Clinicians Education Pain Relief Interventions Used By Ice,Inactivity/Rest,Position Patient Change Lower Extremity Range of Motion General Lower Extremity Range of Motion Reason Not Measured WNL/Left,WFL/Right Gross Lower Extremity Range of Motion pain with right hip IR and Comments extension (jr
--- NOTE | 2021-09-29 10:49 | PCPTNOTE ---
Patient called and spoke with table and desk finisher stating to has to cancel appointment due to just being discharged from hospital for a brain aneurysm.
--- NOTE | 2021-10-01 13:31 | PCPTNOTE ---
PHYSICAL THERAPY DISCHARGE Attending Provider: Marky Cobian, Patient:Gianna Amaral Date of :1935 Patient has not returned for any further treatments since 09/27/2021, due to hospitalization then an MD recommendation to stop therapy now. She will be discharged at this time. Patient?s initial visit was on 09/27/2021 10:00 and she had a total of 1 visit. The goals have not been met due to early discharge. Thank you for referring this patient to [facility]. Please review, sign, date and return this discharge summary KIRTI. I have been updated about the patient's current status and I agree with discharge from the above service at this time. Referring Physician Date
== END 2021-10-01 15:42 | disposition home or self-care (01) ==
LOC: ANHPT 09:58
PROVIDERS: Visit Provider Orthopaedic Surgery Adult Reconstructive Orthopaedic Surgery
DX: M25.562 Pain in left knee (principal); M25.551 Pain in right hip; G89.29 Other chronic pain
CPT/HCPCS: 97014; 97162; G0283

== ENCOUNTER 2021-09-28 06:00 | Emergency (ER) | payer MEDICARE, BC, SELFPAY ==
[2021-09-28] VITALS (8 sets, daily range): BP systolic 100–148; BP diastolic 57–74; PULSE 61–77; RESP 15–20; TEMP 36.6–36.8; O2SAT 98–100
--- NOTE | ~2021-09-28 | CT_ITS ---
EXAMINATION: CTA brain carotid EXAM DATE: 09/28/2021 11:07 INDICATION: Blurry vision, dizziness. Aneurysm. TECHNIQUE: Spiral CTA of the carotid arteries was performed with intravenous injection 100 cc of Om nipaque 350. Axial, coronal, sagittal reformatted images reviewed. Additional reformatted images cre ated on dedicated 3-D workstation. NASCET comparable standard used to assess the degree of arterial stenosis. Spiral CT angiogram cerebral arteries performed with the same intravenous injection of con trast. Source images of the brain CTA transferred to dedicated workstation for 3-D rotational image c reation. The dose-length product (DLP) for this examination was 984.79 mGy-cm. The exposure was t ailored according to patient size, and iterative reconstruction (ASIR) was used as additional dose re duction technique. Correlation is made to head CT earlier same date. FINDINGS: There is mild bilateral carotid bulb arterial sclerosis with 0% stenosis bilaterally. The l eft vertebral artery is dominant. There is fusiform dilation of the basilar artery tip up to 6 mm, an d also dilated origins to the posterior cerebral arteries arising from this. Mild bilateral carotid s iphon arterial sclerosis There is no carotid or vertebral basilar arterial dissection or fibromuscula r dysplasia. There is symmetric cerebral artery arborization. The sagittal, transverse and sigmoid si nuses enhance normally, no venous sinus thrombosis. Internal cerebral veins also enhance normally. Incidental Findings: Bilateral cataract surgery. Cervical spondylosis. Chronic brain findings better seen on noncontrast head CT. IMPRESSION: 1. 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 2. Bilateral carotid bulb 0% stenosis. Reviewed, dictated and finalized at location A. IMPRESSION: 1. Dilated basilar tip and origins to the posterior cerebral arteries, appeara nce more consistent with fusiform infundibulum rather than treatable saccular a neurysm. 2. Bilateral carotid bulb 0% stenosis.
--- NOTE | ~2021-09-28 | XR_ITS ---
EXAMINATION: XR chest 1V DATE: 09/28/2021 06:43 INDICATION: Shortness of breath TECHNIQUE: frontal view of the chest was obtained. COMPARISON: Chest radiograph dated 01/11/[address] dated 11/09/2018 FINDINGS: Opacities at the left lung base which partially silhouettes the left hemidiaphragm. On prior CT this appears to correspond to a left paracardial fat pad and adjacent lingular atelectasis. No other airsp viki opacities, pulmonary edema, pleural effusion or pneumothorax. The cardiomediastinal silhouette is normal. Mild lower thoracic levoscoliosis with moderate spondylosis. Old healed fracture deformity a t the proximal left humerus. IMPRESSION: 1. Opacities at the left lower lung zone which appear to correspond to a paracardial fat pad and theresa cent lingular atelectasis/scarring on prior CT. Reviewed, dictated and finalized at location A. IMPRESSION: 1. Opacities at the left lower lung zone which appear to correspond to a paraca rdial fat pad and adjacent lingular atelectasis/scarring on prior CT.
--- NOTE | ~2021-09-28 | XR_ITS ---
EXAMINATION: XR lumbar puncture diagnostic EXAM DATE: 09/28/2021 14:16 INDICATION: eval for xanthochromia. Abnormal head CT. Episodic headaches. TECHNIQUE: Informed consent was obtained from the patient for doing this procedure. I discussed bene fits and risks including bleeding, infection, backache and headache. Alternatives also discussed. Rad iologist Tobias Dempsey M.D. performed the procedure with date of pulsed dose reduction fluoroscopy, wit h fluoroscopic time of 0.1 minutes The DAP for this procedure was 0.3 Gycm2. A total of 10 images obtained for the exam. A timeout procedure was performed. The back was prepped in standard sterile fashion with Betadine. L4-5 entry site was chosen under fluoroscopic guidance and infiltrated with 1% lidocaine. The thecal sac was then accessed from a left paracentral approach using a 3.5 22G needle. Opening pressure determined to be 13 mmHg which is normal. Upon entry, small amount of yellow fluid w as present in the needle hub suspected to be Betadine. A total of 7 mL of clear cerebral spinal fluid were then drained and placed in 4 consecutive vials which were labeled and sent to lab for analysis. There were no immediate complications. IMPRESSION: Status post fluoroscopic guided lumbar puncture. 7 mL clear CSF sent to lab for analysis. Reviewed, dictated and finalized at location A. IMPRESSION: Status post fluoroscopic guided lumbar puncture. 7 mL clear CSF sen t to lab for analysis.
--- NOTE | ~2021-09-28 | CT_ITS ---
EXAMINATION: CT brain wo con DATE: 09/28/2021 06:37 INDICATION: Dizziness TECHNIQUE: Computed tomography (CT) of the head was performed without intravenous contrast. Sagittal and coronal reconstructions were performed. The mA was adjusted according to patient size. Iterative reconstruction technique was employed. The dose-length product was 605.33 mGy-cm. COMPARISON: head CT dated 09/24/2021 FINDINGS: Unchanged small old lacunar infarcts at the bilateral basal ganglia. No acute intracranial hemorrhage , acute infarction or abnormal extra axial fluid collection. There is mild scattered white matter hyp oattenuation consistent with chronic small vessel ischemic disease. Symmetric prominence of the sulci consistent with mild age-appropriate diffuse cerebral volume loss. Ventricles are normal and symmetr ic. No mass/mass effect. Changes of bilateral intraocular lens replacement. The orbits and paranasal sinuses are normal. The right mastoid is developmentally hypopneumatized. Intracranial calcified cere bral atherosclerosis is noted. 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 IMPRESSION: 1. No acute intracranial process. 2. Small old lacunar infarcts at the bilateral basal ganglia. 3. Age-related changes including mild diffuse volume loss and mild scattered white matter hypoattenua tion consistent with chronic small vessel ischemic disease. 4. 7 mm diameter fusiform aneurysm extending between the tip the basilar artery and origin of the lef t posterior cerebral artery. Reviewed, dictated and finalized at location A. IMPRESSION: 1. No acute intracranial process. 2. Small old lacunar infarcts at the bilateral basal ganglia. 3. Age-related changes including mild diffuse volume loss and mild scattered wh ite matter hypoattenuation consistent with chronic small vessel ischemic diseas e. 4. 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
--- NOTE | 2021-09-28 06:26 | ECG_ITS ---
Measurements Intervals [place] Rate: 65 P: 23 SD: 170 QRS: -28 QRSD: 133 T: 60 QT: 442 QTc: 461 Interpretive Statements SINUS RHYTHM LEFT BUNDLE BRANCH BLOCK ABNORMAL ECG Electronically Signed On 09-28-2021 7:56:23 CDT by Hany Santacruz D.O.
--- NOTE | 2021-09-28 06:32 | PC.NURSE ---
pt to ct
[2021-09-28 07:08] LABS: Alanine Aminotransferase 14 U/L (4-35); Albumin Level 4.4 g/dL (3.5-5.1); Alkaline Phosphatase 43 U/L (38-126); Anion Gap 7 mmol/L (8-16); Aspartate Amino Transferase 22 U/L (14-36); Bilirubin,Total 0.5 mg/dL (0.2-1.3); Blood Urea Nitrogen 27 mg/dL (7-17); Calcium 9.8 mg/dL (8.4-10.2); Carbon Dioxide 27 mmol/L (22-30); Chloride 100 mmol/L (98-107); Estimated CRCL calculation 42 ml/min; Estimated Glomerular Filt Rate 53; Glucose 111 mg/dL (65-110); Lipase 224 U/L (23-300); Magnesium 2.1 mg/dL (1.6-2.3); Potassium 4.9 mmol/L (3.4-5.0); Sodium 134 mmol/L (137-145)
--- NOTE | 2021-09-28 07:19 | ED.DIZZY ---
HPI - Dizziness General Chief Complaint: Dizziness Stated Complaint: dizzy, blurred vision Time Seen by Provider: 09/28/21 06:29 Source: patient and EMS Mode of arrival: EMS Limitations: no limitations History of Present Illness HPI Narrative: Patient is an 86 yo female with a history of hypertension, hyperlipidemia presenting to the emergency department for evaluation of an episode of dizziness which has since resolved. Patient states that she sat up from bed, felt as if the room was spinning, felt like her vision was blurry, and was able to locate a phone to call EMS. No fall or injury. No focal weakness or numbness. No chest pain, palpitations or shortness of breath. Patient feels fine currently. Denies any current dizziness. States that has never occurred in the past. She does not feel weak. She denies any chest pain, shortness of breath. She denies recent illnesses, states she has been adequately hydrating. Denies any recent medication changes. Per chart review, patient seen recently at this facility for headache with negative CT head. Patient discharged home after feeling improved in the ER. Patient currently feels well and is requesting some orange juice. Related Data Home Medications Medication Instructions Recorded Confirmed lisinopril 10 mg tablet 10 mg PO DAILY 07/29/20 09/28/21 rosuvastatin 5 mg tablet 5 mg PO DAILY 07/29/20 09/28/21 Allergies Allergy/AdvReac Type Severity Reaction Status Date / Time chlorpheniramine Allergy Mild Unknown Verified 09/28/21 06:20 codeine Allergy Mild Unknown Verified 09/28/21 06:20 phenylephrine Allergy Mild Unknown Verified 09/28/21 06:20 Review of Systems Review of Systems: CONSTITUTIONAL: Denies fever, chills, or sweats. EYES: Denies visual changes, redness, or discharge. ENT: Denies rhinorrhea, congestion, sore throat, or otalgia. CARDIOVASCULAR: Denies chest pain, palpitations, or edema. RESPIRATORY: Denies cough or dyspnea. GASTROINTESTINAL: Denies abdominal pain, nausea, vomiting, or diarrhea. GENITOURINARY: Denies dysuria or hematuria. SKIN: Denies rash or itching. MUSCULOSKELETAL: Denies back pain, joint pain, or myalgia. NEUROLOGIC: Denies headache, numbness, or weakness. Dizziness resolved. 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 EYES: PERRLA and EOMI. ENT: Nares clear, no rhinorrhea or epistaxis. Mucous membranes moist. NECK: Supple. CHEST: No respiratory distress, breathing even and non labored HEART: Regular rate, sinus rhythm ABDOMEN:Non distended, non tender EXTREMITIES: Normal range of motion. No edema. SKIN: Warm, dry, no rash. NEURO:No focal deficits. Alert and oriented x3. Finger to nose intact bilaterally. EOMs intact without nystagmus. No facial droop/asymmetry noted bilaterally. Grimace intact. Intact sensation in face. Hearing intact bilaterally. Shoulder shrug intact. Strength 5/5 bilateral upper extremities. Strength 5/5 bilateral lower extremities. Reflexes 2+ patellar. Heel to welsh intact bilaterally. Ambulatory exam deferred
[2021-09-28 07:20] LABS: Troponin I < 0.012 ng/mL (0.000-0.034)
[2021-09-28 07:33] LABS: Basophils Absolute Auto 0.1 K/mm3 (0.0-0.1); Basophils Percent Auto 0.9 % (0.2-1.2); Eosinophils Absolute Auto 0.1 K/mm3 (0-0.3); Eosinophils Percent Auto 2.1 % (0-4.4); Hematocrit 38.6 % (37.0-47.0); Hemoglobin 12.8 g/dL (12.0-15.0); Immature Granulocyte Absolute 0.06 K/mm3 (0.00-0.031); Immature Granulocyte Percent A 0.9 % (0-0.5); Lymphocytes Absolute Auto 1.81 K/mm3 (0.9-3.2); Lymphocytes Percent Auto 26.5 % (18.3-44.2); Mean Corpuscular HGB Conc 33.2 g/dl (32-36); Mean Corpuscular Hemoglobin 31.2 pg (26-34); Mean Corpuscular Volume 94.1 fl (80-100); Mean Platelet Volume 9.3 fl (7.4-10.4); Monocytes Absolute Auto 0.6 K/mm3 (0.1-0.6); Monocytes Percent Auto 8.2 % (2.6-8.5); Neutrophils Absolute Auto 4.2 K/mm3 (1.3-6.7); Neutrophils Percent Auto 61.4 % (45.5-73.1); Platelet Count Result 285 k/mm3 (150-375); Red Cell Distribution Width 12.8 % (11.5-14.5); White Blood Count 6.8 K/mm3 (4.5-10.0)
[2021-09-28] MEDS: SODIUM CHLORIDE 0.9% IV 1,000 ML 999 ML IV CONT (07:45)
[2021-09-28 07:56] LABS: Prothrombin Time 12.7 Seconds (11.1-14.7)
[2021-09-28 07:57] LABS: Partial Thromboplastin Time 23.9 SECONDS (22.3-36.8)
--- NOTE | 2021-09-28 08:03 | PC.NURSE ---
Pt alerted certified legal secretary specialist she needed to use the restroom, went to patients room with bed phillip, pt repeatedly refused a bed phillip, tech went to find a bedside commode, we offered to assist pt with getting to the commode, pt refused help, I informed her that she came in to the ER d/t dizziness and wanted to insure she was not dizzy or could fall, pt repeatedly wanted to use the restroom alone,pt was put on the bedside commode and I badged out of computer, pt ordered me to get out and informed her I will give her privacy. After pt used bedside commode she began to yell and state that she wet her pants. Trying to soothe patient I informed her I would find her scrub pants she could change in. Pt continued to yell at this nurse, I then apologized and proceeded to ensure her we will keep a bedside commode for her to use
--- NOTE | 2021-09-28 08:05 | PC.NURSE ---
Yakelin Nursing Executive informed that pt is upset she urinated on her pants and helped me find pt blue scrubs to put on patient
[2021-09-28 08:18] LABS: Add Urine Microscopic? NO; Appearance Urine Clear (Clear); Bilirubin Urine Negative (Negative); Blood Urine Negative (Negative); Color Urine Straw (Yellow); Glucose Urine UA Negative (Negative); Ketones Urine Negative (Negative); Leukocyte Esterase Ur Negative LEU/UL (Negative); Nitrate Urine Negative (Negative); Protein Urine Negative (Negative); Specific Grav Ur 1.009 (1.001-1.035); Urobilinogen Urine Negative mg/dL (<2.0)
--- NOTE | 2021-09-28 08:19 | PC.NURSE ---
Arrived in patients room to assist her back in bed and asked if she needed anything and does she feel a little better since she is all cleaned up, pt states I don't feel better about you and I don't want you in here . I informed pt Carrie cortes she had an accident she stated you are a lazy nurse and made me pee my pants and I opened the pts room door, and she stopped verbally assaulting this nurse. I gave call light at bedside and informed her to call us if she need assistance
--- NOTE | 2021-09-28 08:38 | PC.NURSE ---
Pt asks Nayana MCGARRY if we could contact her son Brian to inform him that she is at the hospital, attempted to call x1 from phone number on file, son did not answer will attempt again shortly
--- NOTE | 2021-09-28 08:48 | PC.NURSE ---
Updated pt that son did not answer the phone and does not have a voicemail set up, pt states there is not anyone else she wants to call, doctor at bedside
--- NOTE | 2021-09-28 08:51 | PC.NURSE ---
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 Green will look at options
--- NOTE | 2021-09-28 09:11 | PC.NURSE ---
Pt asked if we could call her granddaughter Francia [phone] and provide her with the plan and update since son is not answering
--- NOTE | 2021-09-28 10:32 | PC.NURSE ---
Spoke with granddaughter Francia, updated her on chain of events and plan for patient, Amirah states she will contact Brian update him and tell him to call
--- NOTE | 2021-09-28 11:36 | PC.NURSE ---
Spoke with son Brian he states he is on his way
--- NOTE | 2021-09-28 12:30 | PC.NURSE ---
Dr. Carrero spoke with son(Sathya) and updated him on plan at the bedside
[2021-09-28 14:11] LABS: Glucose CSF 60 mg/dL (40-70); Total Protein CSF 68 mg/dL (12-60)
[2021-09-28 15:28] LABS: Appearance CSF Clear (Clear); CSF source CSF; Color CSF Colorless (Colorless); Nucleated Cell CSF 32 /uL (0-5); Red Blood Cell CSF 0 (0-2)
[2021-09-28 15:42] LABS: Lymphocytes CSF 40 % (40-80); Monocytes CSF 60 % (15-45); Neutrophils CSF 0 % (0-6)
--- NOTE | 2021-09-28 16:59 | PC.NURSE ---
Pt educated on how to follow up with [facility], pt shows understanding, helped pt to bedside commode,
== END 2021-09-28 16:58 | disposition home or self-care (01) ==
PROVIDERS: Emergency Medicine; Emergency Provider Emergency Medicine
DX: R42 Dizziness and giddiness (principal); R93.0 Abnormal findings on diagnostic imaging of skull and head, not elsewhere classified; I10 Essential (primary) hypertension; E78.5 Hyperlipidemia, unspecified; Z87.442 Personal history of urinary calculi; I44.7 Left bundle-branch block, unspecified
CPT/HCPCS: 36415; 62328; 70450; 70496; 70498; 71045; 80053; 81003; 82945; 83690; 83735; 84157; 84484; 85025; 85610; 85730; 87015; 87070; 87116; 87206; 89051; 93005; 96360; 99284; J7030; Q9967

== ENCOUNTER 2021-12-01 11:00 | Outpatient (RCR) | payer MEDICARE, BC, SELFPAY ==
--- NOTE | 2021-11-03 12:13 | PTOPEVAL ---
PHYSICAL THERAPY EVALUATION Thank you for referring Gianna Amaral to [facility].? Gianna was evaluated for the dx dizziness/balance deficits/falls. The patient is scheduled to be seen for therapy?2 x/week for 4 weeks. Please review, sign, date and return this plan of care KIRTI. I agree with and certify that the following plan of care is medically necessary. Referring Physician Date Attending Provider: Anastasia Christiansen, TWIST PACKER *PT Outpatient Evaluation Start: 11/03/21 10:35 Freq: Status: Active Protocol: Document 11/03/21 10:35 MLV (Rec: 11/03/21 11:27 [facility] [id number]) Therapy Assessment Status Assessment Status Assessment Status Evaluation Evaluation Information Problem Diagnosis dizziness, decreased balance/ falls Cause multiple medical comorbidities Additional Evaluation Detail The patient reports dizziness off and on and has had bad falls due to the dizziness. The patient reports both falls occurred while walking. The patient ambulates w/o a device but has a cane and walker to use on occasions. The patient feels she doesn't need anything most of the time. The pt reports only having 1 event with severe dizziness and has not had dizziness since then. The patient reports she is here to help her balance and feels the dizziness is no longer an issue. Subjective Information The patient lives alone and Query Text:As Reported By Patient/ does her housework, cooks, Family drives and shops occasionally. 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
--- NOTE | 2021-11-18 11:53 | PCPTNOTE ---
Patient called and left a message saying she is cancelling her appt for today.
--- NOTE | 2021-12-01 11:40 | PTOPEVAL ---
PHYSICAL THERAPY DISCHARGE 12-01-21 Refer to the clinical summary below, for her status today, compared to the initial evaluation. The goals were achieved. She will be discharged from PT services and is to continue with her home exercises. Thank you for referring Gianna Amaral to [facility].? Please review, sign, date and return this Discharge report KIRTI. I agree with and certify that the following plan of care is medically necessary. Referring Physician Date Attending Provider: Anastasia Christiansen, HURL SHAKER Document 12/01/21 10:55 TRU (Rec: 12/01/21 11:40 TRU [id number]) Assessment Status Discharge Subjective Information Gianna reports: has not had any Query Text:As Reported By Patient/ falls since starting therapy; Family on stairs is doing OK, using both hand rails- am super cautious and am able to take things down stairs, put on step and move it down after 3 steps; has not had any dizziness; likes the home exercises and is doing them without any problems; feels like she is ready for discharge. Pain Assessment Timing of Pain Assessment Timing of Pain Assessment Assessment Pain Scale Pain Scale Used Numeric (1 - 10) Self Report Pain Assessment Right Leg(s) Reported Pain Level 0 Pain Frequency Intermittent Other Pain Description from the fall----lateral R hip and anterior thigh Lowest Pain Intensity 0 Greatest Pain Intensity 8 Pain Score Pain Score 0: Self Report Interventions Used Interventions Used By Clinicians Education Other Alleviating Interventions when starts hurting, get up and move, walk Lower Extremity Muscle Strength Testing General Lower Extremity Strength Gross Lower Extremity Strength single leg standing R and L 1- 2 seconds without UE use sit to stand without use of UE 's; supine: SLR R & L x 20 reps; bridge x 20 reps side lying hip abduction R and L x 20 reps; --------- reviewed HEP; added side lying hip abduction and bridge; reinforced balance of rest/ activity to avoid fatigue and increase risk for falls; Balance Assessment Angel Balance Assessment
== END 2021-12-02 14:27 | disposition home or self-care (01) ==
LOC: ANHPT 11:00
PROVIDERS: Visit Provider Nurse Practitioner Adult Health
DX: R42 Dizziness and giddiness (principal); R26.89 Other abnormalities of gait and mobility
CPT/HCPCS: 97110; 97140; 97162; 97530

== ENCOUNTER 2023-05-11 18:14 | Emergency (ER) | payer MEDICARE, BC, SELFPAY ==
[2023-05-11 18:18] VITALS: BP 156/106; PULSE 89; RESP 18; TEMP 36.6; O2SAT 99
[2023-05-11] MEDS: predniSONE 20 MG TABLET 60 MG PO (19:10)
[2023-05-11] MEDS: diphenhydrAMINE HCl CAP 25 MG CAPSULE 50 MG PO (19:10)
[2023-05-11] MEDS: FAMOTIDINE 20 MG TABLET PO (19:10)
--- NOTE | 2023-05-11 21:15 | ED.ALLEREA ---
HPI - Allergic Reaction General Chief complaint: Allergic Reaction Stated complaint: allergic reaction Time Seen by Provider: 05/11/23 18:37 History of Present Illness HPI narrative: Patient is an 87-year-old female presenting with an allergic reaction. 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 States that she was eating some shrimp today as she enjoys shellfish. States that then she developed a diffuse itchy rash. States it is all over her face and her chest and her arms. States she is struggling to not scratch them. She denies shortness of breath or wheezing. No lip or throat swelling. No difficulty swallowing or speaking. No voice changes. No nausea or vomiting. Denies any pain. Related Data Home Medications Medication Instructions Recorded Confirmed lisinopril 10 mg tablet 10 mg PO DAILY 07/29/20 09/28/21 rosuvastatin 5 mg tablet 5 mg PO DAILY 07/29/20 09/28/21 Allergies Allergy/AdvReac Type Severity Reaction Status Date / Time chlorpheniramine Allergy Mild Unknown Verified 09/28/21 06:20 codeine Allergy Mild Unknown Verified 09/28/21 06:20 phenylephrine Allergy Mild Unknown Verified 09/28/21 06:20 Review of Systems Review of Systems: All systems reviewed & are unremarkable except as noted in HPI and below PMFSH Past Medical History Medical History (Updated 05/12/23 @ 00:00 by Abril Kumar) H/O fracture of humerus H/O fracture of radius History of blood clots History of kidney stones Hyperlipidemia Hypertension Surgical History Surgical History History of appendectomy History of hysterectomy Family History Family History Mother Polio Sibling , brother Sleep apnea Sibling , Sister Heart disease, Onset Age: 90 after having heart surgery Social History Social History Smoking status: Never smoker Alcohol intake: never Occupation/Education: retired 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 EYES: PERRLA and EOMI. ENT: Nares clear, no rhinorrhea or epistaxis. Mucous membranes moist. No lip or oropharyngeal swelling, handling secretions well NECK: Supple. CHEST: Clear to auscultation. No respiratory distress. No wheezing HEART: Regular rate and rhythm. No murmur heard. Normal peripheral pulses. ABDOMEN: Soft, nontender, nondistended EXTREMITIES: Normal range of motion. No edema. SKIN: Warm, dry, diffuse urticarial rash involving the patient's face, chest, arms NEURO: No focal deficits. Alert and oriented x3. PSYCH: Normal mood and affect. Course Vital Signs Vital signs: Vital Signs Temperature 97.8 F 05/11/23 18:18 Pulse Rate 89 05/11/23 18:18 Respiratory Rate 18 05/11/23 18:18 Blood Pressure 156/106 H 05/11/23 18:18 Pulse Oximetry 99 05/11/23 18:18 Oxygen Delivery Room Air 05/11/23 18:18 Temperature 97.8 F 05/11/23 18:18 Pulse Rate 89 05/11/23 18:18 Respiratory Rate 18 05/11/23 18:18 Blood Pressure 156/106 H 05/11/23 18:18 Pulse Oximetry 99 05/11/23 18:18 Oxygen Delivery Room Air 05/11/23 18:18 MDM - Allergic Reaction MDM Narrative Medical decision making narrative: Patient is an 87-year-old female presenting after an allergic reaction to shellfish. She states that she has a known allergy to shellfish but she really likes them. Patient is hypertensive, otherwise vitals are within normal limits. She is saturating 99% on room air. There is no evidence of anaphylaxis. There is no intraoral swelling, pharyngeal swelling, wheezing, shortness of breath,
== END 2023-05-11 22:15 | disposition home or self-care (01) ==
PROVIDERS: Emergency Provider Emergency Medicine
DX: T78.1XXA Other adverse food reactions, not elsewhere classified, initial encounter (principal); L50.0 Allergic urticaria; E78.5 Hyperlipidemia, unspecified; I10 Essential (primary) hypertension; Z91.013 Allergy to seafood; Z87.442 Personal history of urinary calculi
CPT/HCPCS: 99283; A9270; J7512

== ENCOUNTER 2024-01-30 10:08 | Inpatient (IN) | payer MEDICARE, BC, SELFPAY ==
[2024-01-30] VITALS (11 sets, daily range): BP systolic 123–172; BP diastolic 46–72; PULSE 69–90; RESP 12–18; TEMP 36.2–36.3; O2SAT 95–100
--- NOTE | ~2024-01-30 | CT_ITS ---
EXAMINATION: 1. CT facial & cervical spine wo DATE: 01/30/2024 11:15 INDICATION: Fall with altered mental status TECHNIQUE: 1. Computed tomography (CT) of the maxillofacial region and of the cervical spine were performed with out intravenous contrast. Sagittal and coronal reconstructions of both regions were obtained. Automat ed exposure control and iterative reconstruction technique were employed. The dose-length product was 438.63 mGy-cm. COMPARISON: 09/28/2021 FINDINGS: Maxillofacial CT: No maxillofacial fractures. Specifically the nasal bones, mandible, zygomatic arches and ward of the orbits and paranasal sinuses are all intact. Changes of bilateral intraocular lens replacement. Orbi ts are otherwise normal. Mild mucosal thickening in the bilateral ethmoid and sphenoid sinuses. Bilat eral mastoid air cells and middle ear cavities are clear. Cervical spine CT: Normal alignment. Vertebral body heights are normal. No fracture. Moderate disc height loss at C5-C6 and mild disc height loss at C3-C4, C4-C5 and C6-C7. No central canal stenosis. Moderate multilevel c ervical uncovertebral osteoarthritis and moderate to severe lower cervical and upper thoracic predomi nant facet osteoarthritis. This contributes to mild neural foraminal stenosis at multiple levels in t he cervical and upper thoracic spine. Atherosclerotic calcific a cyst at the bilateral carotid bulbs. Cervical soft tissues are otherwise unremarkable. Multinodular goiter, the largest an unchanged 1.5 similar nodule at the inferior left thyroid lobe.. Minimal biapical pleural-parenchymal scarring. IMPRESSION: 1. No acute maxillofacial or cervical osseous abnormality. 2. Moderate cervical spondylosis. 3. Unchanged multinodular goiter. Reviewed, dictated and finalized at location A. ESSORI LEAD TEACHER
--- NOTE | ~2024-01-30 | XR_ITS ---
EXAMINATION: XR chest 2V DATE: 01/30/2024 13:22 INDICATION: Sepsis TECHNIQUE: AP and lateral views of the chest are obtained. COMPARISON: 09/28/2021 FINDINGS: The lungs are free of acute opacities. No pleural effusion or pneumothorax. The cardiomedia stinal silhouette is normal. There is mild thoracic spondylosis. There is an old healed fracture of t he proximal left humerus. IMPRESSION: 1. No acute cardiopulmonary abnormality. Reviewed, dictated and finalized at location L. [employer]BER
--- NOTE | ~2024-01-30 | CT_ITS ---
EXAMINATION: CTA BRAIN/CAROTID DATE: 01/30/2024 13:02 INDICATION: Brain aneurysm presenting with stroke TECHNIQUE: Computed tomographic angiography (CTA) of the head and neck was performed with 100 mL Omni paque-350 intravenous contrast. Multiplanar reconstructions and maximum intensity projection 3D-recon structions of the carotid arteries and of the intracranial arteries were created by the technologist on a separate workstation. Automated exposure control and iterative reconstruction technique were emp loyed.The dose-length product was 975.81 mGy-cm. COMPARISON: Head CT dated 01/30/2024 and brain and carotid CT angiogram dated 09/28/2021 FINDINGS: Carotid arteries: Small amount of nonhemodynamically significant atherosclerotic plaque at the aortic arch and the inno minate and left subclavian arteries arising from the arch. There is tortuosity at the origin of the d ominant left vertebral artery. No evident stenosis along the cervical portions of the bilateral verte bral arteries. There is minimal atherosclerotic plaque with 0% stenosis of the right and left carotid bulbs relative to normal distal artery lumen diameter (NASCET criteria). Minimal peripheral pleural parenchymal scarring at the visualized upper lungs. Cervical soft tissues are unremarkable. Intracranial arteries Left vertebral artery is dominant. There is no hemodynamically significant stenosis in the vertebral, basilar and internal carotid arteries. Unchanged mild fusiform dilation of the tip of the basilar ar zohra and the origin of the bilateral posterior cerebral arteries consistent with basilar tip aneurysm . No other aneurysms identified. Both A1 and P1 segments are patent. Cerebral arterial arborization appears symmetric. IMPRESSION: 1. Interval change in small amount of atherosclerotic plaque with 0% stenosis of the right and left c arotid bulbs relative to normal distal artery lumen diameter (NASCET criteria). 2. Unchanged 7 mm basilar tip aneurysm. Reviewed, dictated and finalized at location A. HER CUTTING MACHINE FEEDER IMPRESSION: 1. Interval change in small amount of atherosclerotic plaque with 0% stenosis o f the right and left carotid bulbs relative to normal distal artery lumen diame ter (NASCET criteria). 2. Unchanged 7 mm basilar tip aneurysm.
--- NOTE | ~2024-01-30 | XR_ITS ---
EXAMINATION: [id number] DATE: 01/31/2024 13:37 INDICATION: Right knee pain and instability TECHNIQUE: AP and crosstable lateral views of the right knee were obtained. COMPARISON: None. FINDINGS: Bone alignment is normal. No fracture. Marginal osteophytes in all 3 compartments of the ri ght knee. On the lateral projection there is severe joint space narrowing and what appears to be the medial compartment which is not appreciated on the nonweightbearing AP images. However also appears t o be some remodeling of the lateral aspect lateral tibial plateau also suggestive of more severe arth ritis in evident on the nonweightbearing imaging. Subarticular cystlike changes suggesting overlying high-grade chondromalacia at the patellar apical ridge. Soft tissues are unremarkable with no right k nee joint effusion. IMPRESSION: 1. No right knee joint effusion or acute osseous or mild to . 2. 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 Evaluation for severity of joint space narrowing limited on the nonweightbearing imaging . Reviewed, dictated and finalized at location A. MANAGER IMPRESSION: 1. No right knee joint effusion or acute osseous or mild to . 2. 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 Evaluation for severity of joint space narro wing limited on the nonweightbearing imaging.
--- NOTE | ~2024-01-30 | CT_ITS ---
EXAMINATION: CT brain wo con DATE: 01/30/2024 11:15 INDICATION: Altered mental status. Fall. TECHNIQUE: Computed tomography (CT) of the head was performed without intravenous contrast. The mA wa s adjusted according to patient size. Iterative reconstruction technique was employed. The dose-lengt h product was 681.00 mGy-cm. COMPARISON: Head CT 09/28/21 FINDINGS: There are scattered areas of low attenuation in the cerebral white matter. There is no intr acranial hemorrhage, acute infarction, or abnormal intracranial mass lesion. The ventricles are millicent l in size. There is mild mucosal thickening in the paranasal sinuses. There are likely changes of ocu lar lens replacement surgeries. The mastoid air cells are normal. There is a 7 mm aneurysm of the bas ilar tip. IMPRESSION: 1. Stable moderate nonspecific cerebral white matter disease, which likely represents chronic small v essel ischemic disease. 2. Stable 7 mm basilar tip aneurysm. Reviewed, dictated and finalized at location E. STANT OPERATOR IMPRESSION: 1. Stable moderate nonspecific cerebral white matter disease, which likely repr esents chronic small vessel ischemic disease. 2. Stable 7 mm basilar tip aneurysm.
--- NOTE | ~2024-01-30 | US_ITS ---
EXAMINATION: US abdomen limited DATE: 01/30/2024 13:20 INDICATION: Elevated liver function tests TECHNIQUE: Multiple grayscale and Doppler ultrasound images of the abdomen were obtained. COMPARISON: None available FINDINGS: Bowel gas obscures visualization of the pancreas. The visualized portions of the pancreas a re unremarkable. The liver is poorly visualized but appears normal with normal echogenicity and echot exture. No surface nodularity. Normal hepatopetal flow in the main portal vein. Changes of cholecyste ctomy are noted. The normal common bile duct measures 3 mm. IMPRESSION: 1. No sonographic correlate for the patient's symptoms, somewhat limited evaluation of the liver. Reviewed, dictated and finalized at location L. EL REGISTERED NURSE ONCOLOGY IMPRESSION: 1. No sonographic correlate for the patient's symptoms, somewhat limited evalua tion of the liver.
--- NOTE | 2024-01-30 10:18 | ECG_ITS ---
Measurements Intervals [place] Rate: 78 P: SC: 0 QRS: -12 QRSD: 133 T: 74 QT: 436 QTc: 500 Interpretive Statements SINUS RHYTHM ATRIAL PREMATURE COMPLEXES LEFT BUNDLE BRANCH BLOCK BASELINE ARTIFACT- I, II, III, AVR, AVL, AVF, V1-V6 ABNORMAL ECG COMPARED TO ECG 09/28/2021 06:52:05 NO SIGNIFICANT CHANGES Electronically Signed On 01-30-2024 10:53:03 CHECK PILOT by Hany Santacruz D.O.
--- NOTE | 2024-01-30 11:35 | PC.NURSE ---
Eva, pt daughter, called to give more information about patient. She can be reached at [phone]
--- NOTE | 2024-01-30 11:50 | ED.AMS ---
HPI - Altered Mental Status General Chief Complaint: Altered Mental Status Stated Complaint: found on floor Time Seen by Provider: 01/30/24 11:29 History of Present Illness HPI narrative: Patient is an 88-year-old female here with altered mental status. She is unsure of what happened or when her last known normal was, Believes she has felt this way for a couple of days. Patient was reportedly found at home by her son lying face down in her laundry room. She denies cough, congestion, fever, chills. She states that her whole body feels very weak and she feels quite tired and dehydrated. She is unsure of her medical history However per chart she has a history of hypertension, hyperlipidemia, prior brain aneurysm. I was able speak with the patient's son who provided more history. He notes that he last saw her on Monday and she was behaving her normal self. When he went to check on her today it seemed like she had been incontinent on the floor with paper placed over it and multiple things look like they had been Rummage through at the house. He also notes that he found a index card in her purse discussing states where it is legal to have physician assisted suicide performed. He denies evidence of self harm in the house. Related Data Home Medications Medication Instructions Recorded Confirmed lisinopril 10 mg tablet 10 mg PO DAILY 07/29/20 09/28/21 rosuvastatin 5 mg tablet 5 mg PO DAILY 07/29/20 09/28/21 Allergies Allergy/AdvReac Type Severity Reaction Status Date / Time chlorpheniramine Allergy Mild Unknown Verified 09/28/21 06:20 codeine Allergy Mild Unknown Verified 09/28/21 06:20 phenylephrine Allergy Mild Unknown Verified 09/28/21 06:20 Review of Systems Review of Systems: ROS unobtainable: Yes unobtainable due to mental status [facility] Past Medical History Medical History (Updated 01/30/24 @ 14:43 by Jovana Lopez MD) H/O fracture of humerus H/O fracture of radius History of blood clots History of kidney stones Hyperlipidemia Hypertension Surgical History Surgical History History of appendectomy History of hysterectomy Family History Family History Mother Polio Sibling , brother Sleep apnea Sibling , Sister Heart disease, Onset Age: 90 after having heart surgery Social History Social History Smoking status: Never smoker Alcohol intake: never Occupation/Education: 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 HEAD: Normocephalic, atraumatic. EYES: PERRLA and EOMI. ENT: Nares clear. Mucous membranes dry. NECK: Supple. CHEST: Clear to auscultation. No respiratory distress. HEART: Regular rate and rhythm. Normal peripheral pulses. ABDOMEN: Soft, nontender, nondistended. EXTREMITIES: Normal range of motion. No edema. SKIN: Warm, dry, no rash. NEURO: No focal deficits. No upper or lower extremity drift appreciated. Alert and oriented x2. PSYCH: Flat affect Course Course Emergency Course: Chart review performed. Patient here after being found by her son face down in her laundry. Patient seen evaluated, appears to be confused, alert and oriented x2. She is unsure of the events that led her to the emergency department. Unsure of her last known normal a this time. CTA ordered, septic orders placed. Anticipate admission. Lab work and imaging reviewed. White blood cell count of 13.1. Renal function appears to be at her baseline. Mildly elevated AST, ALT, bilirubin. Will do right upper quadrant ultrasound. UA consistent with UTI with greater than 100 white blood cells and 4+ malina
[2024-01-30 12:06] LABS: Basophils Percent Auto 0.3 % (0.2-1.2); Eosinophils Percent Auto 0.2 % (0-4.4); Hematocrit 40.9 % (37.0-47.0); Hemoglobin 13.3 g/dL (12.0-15.0); Immature Granulocyte Absolute 0.07 K/mm3 (0.00-0.031); Immature Granulocyte Percent A 0.5 % (0-0.5); Lymphocytes Absolute Auto 1.11 K/mm3 (0.9-3.2); Lymphocytes Percent Auto 8.5 % (18.3-44.2); Mean Corpuscular HGB Conc 32.5 g/dl (32-36); Mean Corpuscular Volume 92.3 fl (80-100); Mean Platelet Volume 9.4 fl (7.4-10.4); Monocytes Absolute Auto 1.1 K/mm3 (0.1-0.6); Monocytes Percent Auto 8.7 % (2.6-8.5); Neutrophils Absolute Auto 10.7 K/mm3 (1.3-6.7); Neutrophils Percent Auto 81.8 % (45.5-73.1); Platelet Count Result 297 k/mm3 (150-375); Red Blood Count 4.43 M/mm3 (4.2-5.4); Red Cell Distribution Width 13.5 % (11.5-14.5); White Blood Count 13.1 K/mm3 (4.5-10.0)
[2024-01-30 12:17] LABS: INR 1.2; Partial Thromboplastin Time 25.4 SECONDS (22.3-36.8); Prothrombin Time 15.7 Seconds (11.1-14.7)
[2024-01-30 12:19] LABS: Alanine Aminotransferase 121 U/L (6-35); Albumin Level 3.8 g/dL (3.5-5.1); Alkaline Phosphatase 53 U/L (38-126); Anion Gap 6 mmol/L (8-16); Aspartate Amino Transferase 218 U/L (14-36); Bilirubin,Total 1.8 mg/dL (0.2-1.3); Blood Urea Nitrogen 72 mg/dL (7-17); Calcium 9.5 mg/dL (8.4-10.2); Carbon Dioxide 27 mmol/L (22-30); Chloride 109 mmol/L (98-107); Estimated CRCL calculation 35 ml/min; Estimated Glomerular Filt Rate 53; Glucose 122 mg/dL (65-110); Potassium 3.6 mmol/L (3.4-5.0); Sodium 142 mmol/L (137-145)
[2024-01-30 13:01] LABS: Appearance Urine Turbid (Clear); Bacteria Urine 4+ /hpf; Bilirubin Urine 1+ (Negative); Blood Urine 3+ (Negative); Color Urine Dark Yellow (Yellow); Glucose Urine UA Negative (Negative); Hyaline Casts Urine Present /lpf; Ketones Urine 1+ mg/dL (Negative); Leukocyte Esterase Ur 2+ LEU/UL (Negative); Mucus Urine Present /lpf; Nitrate Urine Positive (Negative); Non Pathogenic Casts >20; Protein Urine 1+ mg/dL (Negative); RBC Urine 0-2 /hpf (0-2); Specific Grav Ur 1.026 (1.001-1.035); Squamous Epithelial Cell Urine Few /hpf (Few); WBC Urine >100 /hpf
[2024-01-30 13:02] LABS: Add Urine Microscopic? YES
[2024-01-30 14:06] LABS: INR 1.1; Prothrombin Time 15.2 Seconds (11.1-14.7)
[2024-01-30 14:07] LABS: Partial Thromboplastin Time 24.9 SECONDS (22.3-36.8)
[2024-01-30 14:09] LABS: Lactic Acid Reflex 1.2 mmol/L (0.7-2.0)
[2024-01-30 14:28] LABS: CRP 4.3 mg/dL (<1.0)
[2024-01-30 14:32] LABS: Influenza A QL RT-PCR Negative (Negative); Influenza B QL RT-PCR Negative (Negative); RSV RNA, RT-PCR Negative (Negative); SARS-CoV-2 RNA PCR Negative (Negative)
[2024-01-30 14:52] LABS: Creatine Kinase 3662 U/L (30-135)
--- NOTE | 2024-01-30 15:55 | PM.IMHP ---
H&P: HPI History of Present Illness Date/Time: 01/30/24 15:55 Chief Complaint: Altered mental status Narrative: This is an 88-year-old female with a significant past medical history of brain aneurysm, hyperlipidemia, and hypertension who presents to the hospital with chief complaint of altered mental status. Patient is unable to contribute to her history due to her mental status and most of her history was obtained from the EMR. According to the EMR patient was found lying face down in her laundry room by her son who came to check on her. Patient does live alone however son lives nearby and checks on her. She did state that she has felt weak and tired for the past few days. Son stated that he saw her on Monday and she was behaving normally. When he went to check on her today he found that she had been incontinent on the for paper placed over it and multiple things look like they had been Rummage through at the house he also stated that he found an index carbon her purse discussing where it is illegal to have physician assisted suicide performed. He he denied any evidence of self-harm in the house. She denies any fever, chills, nausea, vomiting, diarrhea, chest pain, shortness a breath, abdominal pain. Workup hospital included head CT which shown stable moderate nonspecific cerebral white matter disease, and a stable 7 mm basilar tip aneurysm. Head/cervical spine/facial bone CT without contrast was negative for any acute abnormality, moderate cervical spondylosis, unchanged multinodular goiter. Head and neck CTA was negative for any stenosis in the right and left carotid bulbs, unchanged 7 mm basilar tip aneurysm. Abdomen ultrasound showed normal hepatopetal flow however was very limited. Chest x-ray was negative for any acute cardiopulmonary disease. Initial labs shown a white blood cell count of 13.1 BUN 7220, creatinine 1.0, total bili 1.8, AST 218, ALT 121, total CK 3662, C reactive protein 4.3. His UA was also performed which showed 1+ urine protein, 1+ urine ketones, 3+ urine blood, positive nitrates, 1+ urine bili, 2+ leukocyte greater than 100 urine wbc's, 4+ urine bacteria. Respiratory panel was negative for influenza a and B, RSV, COVID. Blood and urine cultures were obtained and are pending. Patient was given 2.4 L of IV fluids and started on Rocephin in the ED. Review of Systems Review of Systems: All systems reviewed & are unremarkable except as noted in HPI and below Constitutional: Constitutional: Reports as per HPI and Reports no additional constitutional complaints Eyes: Eyes: Reports as per HPI and Reports no additional eye complaints ENT: Reports system reviewed and no additional complaints, except as documented and Reports as per HPI Cardiovascular: Cardiovascular: Reports as per HPI and Reports no additional cardiovascular complaints Respiratory: Respiratory: Reports as per HPI and Reports no additional respiratory complaints Gastrointestinal: Gastrointestinal: Reports as per HPI and Reports no additional gastrointestinal complaints Genitourinary: Genitourinary: Reports no additional female genitourinary complaints and Reports as per HPI Musculoskeletal: Musculoskeletal: Reports no additional musculoskeletal complaints and Reports as per HPI Integumentary/Breasts: Skin/Breast: Reports system reviewed and no additional complaints, except as docu and Reports as per HPI Neurologic: Reports system reviewed and no additional complaints, except as documented and Reports as per HPI Psychiatric: Psychiatric: Reports no additional psychiatric complaints and Reports as per HPI PMFSH Past Medical History Medical History H/O fracture of humerus H/O fracture of radius History of blood clots History of kidney stones Hyperlipidemia Hypertension Surgical History Surgical History History of appendectomy History
--- NOTE | 2024-01-30 16:03 | ADMGEN ---
This patient, Gianna Amaral, was admitted to Medical Room 259-. Patient/family oriented to hospital policies and general routines including ID bracelet, bed and alarms, visiting hours, pain management, procedures, bathroom and other care routines, personal items, smoking policy, room service/diet, and visiting hours. Information on how to activate the Rapid Response Team has been discussed. Patient/Family are encouraged to report perceived risks to care and to ask questions if they do not understand what they are told or what they should do.
[2024-01-30 16:17] LABS: Acetaminophen < 10 ug/mL (10-30); Ethanol < 10 mg/dL (<10); Salicylate < 1.0 mg/dL (2-20)
[2024-01-30] MEDS: LACTATED RINGERS 1,000 ML 100 ML IV CONT (16:40)
--- NOTE | 2024-01-30 18:03 | PC.NURSE ---
On 01/30/24, license pending nurse provided care and completed [employer] documentation on this patient. I have reviewed the license pending nurse documentation and agree with the findings.
[2024-01-31 05:07] VITALS: BP 127/51; PULSE 79; RESP 18; TEMP 36.2; O2SAT 95
[2024-01-31 05:29] LABS: Basophils Absolute Auto 0.1 K/mm3 (0.0-0.1); Basophils Percent Auto 0.7 % (0.2-1.2); Eosinophils Absolute Auto 0.3 K/mm3 (0-0.3); Eosinophils Percent Auto 3.4 % (0-4.4); Hematocrit 34.8 % (37.0-47.0); Hemoglobin 10.8 g/dL (12.0-15.0); Immature Granulocyte Absolute 0.07 K/mm3 (0.00-0.031); Immature Granulocyte Percent A 0.7 % (0-0.5); Lymphocytes Absolute Auto 1.89 K/mm3 (0.9-3.2); Lymphocytes Percent Auto 19.4 % (18.3-44.2); Mean Corpuscular Hemoglobin 30.1 pg (26-34); Mean Corpuscular Volume 96.9 fl (80-100); Mean Platelet Volume 9.6 fl (7.4-10.4); Monocytes Percent Auto 9.8 % (2.6-8.5); Neutrophils Absolute Auto 6.4 K/mm3 (1.3-6.7); Platelet Count Result 221 k/mm3 (150-375); Red Blood Count 3.59 M/mm3 (4.2-5.4); Red Cell Distribution Width 13.8 % (11.5-14.5); White Blood Count 9.7 K/mm3 (4.5-10.0)
[2024-01-31 05:39] LABS: Alanine Aminotransferase 90 U/L (6-35); Albumin Level 2.9 g/dL (3.5-5.1); Alkaline Phosphatase 46 U/L (38-126); Anion Gap 3 mmol/L (8-16); Aspartate Amino Transferase 140 U/L (14-36); Bilirubin,Total 1.1 mg/dL (0.2-1.3); Blood Urea Nitrogen 57 mg/dL (7-17); Calcium 8.7 mg/dL (8.4-10.2); Carbon Dioxide 26 mmol/L (22-30); Chloride 109 mmol/L (98-107); Creatine Kinase 1428 U/L (30-135); Estimated CRCL calculation 38 ml/min; Estimated Glomerular Filt Rate 59; Glucose 100 mg/dL (65-110); Potassium 3.5 mmol/L (3.4-5.0); Sodium 138 mmol/L (137-145)
[2024-01-31] MEDS: LACTATED RINGERS 1,000 ML 100 ML IV CONT ×2 (06:13→20:09)
[2024-01-31 06:50] LABS: Hepatitis B Surface Antigen Negative (Negative)
[2024-01-31 07:08] LABS: Hepatitis C Virus Antibody Negative (Negative)
[2024-01-31 08:00] VITALS: O2SAT 95
[2024-01-31] MEDS: FERROUS SULFATE 325 MG TABLET DR PO (08:17)
[2024-01-31] MEDS: lisinopriL 20 MG TABLET PO (08:17)
[2024-01-31] MEDS: ENOXAPARIN 40 MG/0.4 ML SYRINGE SUB-Q (08:18)
[2024-01-31 08:23] LABS: HAV RESULT Negative (Negative)
[2024-01-31] MEDS: PANTOPRAZOLE SODIUM IV 40 MG VIAL IV PUSH (09:43)
--- NOTE | 2024-01-31 13:11 | P.PNIM_ITS ---
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, and a stable 7 mm basilar tip aneurysm * Head/cervical spine/facial bone CT was not negative for any acute maxil lofacial or cervical osseous abnormality, moderate cervical spondylosis, unchanged multinodular goiter noted * Head and neck CTA was negative for any stenosis, showed an unchanged 7 mm basilar tip aneurysm * PT and OT ordered 01/31/2024: * Continue with current treatment plan * Patient reporting right knee pain, will get x-ray of the right knee today * PT and OT to eval today (2) Acute UTI: Code(s): N39.0 - Urinary tract infection, site not specified Status: Acute Assessment and Plan: 01/30/2024: * UA showing 1+ urine protein, 1+ urine ketone, 3+ urine blood, positive nitrate, 1+ urine bili, 2+ leukocyte, greater than 100 urine wbc's, 4+ urine bacteria. * Urine culture was obtained and is pending * Patient started on Rocephin * WBC 13.1, lactic acid 1.2 01/31/2024: * Continue Rocephin * Urine culture still pending (3) Rhabdomyolysis: Code(s): M62.82 - Rhabdomyolysis Status: Acute Assessment and Plan: 01/30/2024: * Patient was found down by her son in her laundry room, unknown how long she was lying there * Total CK 3662 * We will continue to trend CK * BUN 72, creatinine 1.0, EGFR 53 01/31/2024: * Total CK today 1428 * BUN 57, creatinine 0 point, EGFR 59 (4) Altered mental status: Code(s): R41.82 - Altered mental status, unspecified Status: Acute Assessment and Plan: 01/30/2024: * Likely secondary to urinary tract infection * Currently alert and oriented x2 * Last known well was on Monday per son 01/31/2024: * Currently alert and oriented x 2-3, she is confused on what year and what m onth it is (5) Transaminitis: Code(s): R74.01 - Elevation of levels of liver transaminase levels Status: Acute Assessment and Plan: 01/30/2024: * Total bili 1.8, AST 218, ALT 121 * Will check hepatitis panel in the morning 01/31/2024: * Total bili done 1.1, AST 140, ALT 90 * Continue to trend (6) Total bilirubin, elevated: Code(s): R17 - Unspecified jaundice Status: Acute Assessment and Plan: 01/30/2024: * Total bili 1.8 * Ultrasound of abdomen was limited however shown normal hepatopetal flow in the main portal vein 01/31/2024: * Total bili down to 1.1 (7) Hypertension: Code(s): I10 - Essential (primary) hypertension Status: Chronic Assessment and Plan: 01/30/2024: * Blood pressure ranging 123/52 to 164/64 * Continue lisinopril 01/31/2024: * No change to current treatment plan (8) Hyperlipidemia: Code(s): E78.5 - Hyperlipidemia, unspecified Status: Chronic Assessment and Plan: 01/29/2025: * Hold rosuvastatin due to rhabdomyolysis 01/31/2024: * No change to current treatment plan Time Spent With Patient Time with patient: 25 - 35 minutes Subjective Date/time seen: 01/31/24 13:11 Interval history: 01/30/24: This is an 88-year-old female with a significant past medical history of brain aneurysm, hyperlipidemia, and hypertension who presents to the hospital with aida
--- NOTE | 2024-01-31 13:11 | PM.IMPN ---
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, and a stable 7 mm basilar tip aneurysm Head/cervical spine/facial bone CT was not negative for any acute maxillofacial or cervical osseous abnormality, moderate cervical spondylosis, unchanged multinodular goiter noted Head and neck CTA was negative for any stenosis, showed an unchanged 7 mm basilar tip aneurysm PT and OT ordered 01/31/2024: Continue with current treatment plan Patient reporting right knee pain, will get x-ray of the right knee today PT and OT to eval today (2) Acute UTI: Code(s): N39.0 - Urinary tract infection, site not specified Status: Acute Assessment and Plan: 01/30/2024: UA showing 1+ urine protein, 1+ urine ketone, 3+ urine blood, positive nitrate, 1+ urine bili, 2+ leukocyte, greater than 100 urine wbc's, 4+ urine bacteria. Urine culture was obtained and is pending Patient started on Rocephin WBC 13.1, lactic acid 1.2 01/31/2024: Continue Rocephin Urine culture still pending (3) Rhabdomyolysis: Code(s): M62.82 - Rhabdomyolysis Status: Acute Assessment and Plan: 01/30/2024: Patient was found down by her son in her laundry room, unknown how long she was lying there Total CK 3662 We will continue to trend CK BUN 72, creatinine 1.0, EGFR 53 01/31/2024: Total CK today 1428 BUN 57, creatinine 0 point, EGFR 59 (4) Altered mental status: Code(s): R41.82 - Altered mental status, unspecified Status: Acute Assessment and Plan: 01/30/2024: Likely secondary to urinary tract infection Currently alert and oriented x2 Last known well was on Monday per son 01/31/2024: Currently alert and oriented x 2-3, she is confused on what year and what month it is (5) Transaminitis: Code(s): R74.01 - Elevation of levels of liver transaminase levels Status: Acute Assessment and Plan: 01/30/2024: Total bili 1.8, AST 218, ALT 121 Will check hepatitis panel in the morning 01/31/2024: Total bili done 1.1, AST 140, ALT 90 Continue to trend (6) Total bilirubin, elevated: Code(s): R17 - Unspecified jaundice Status: Acute Assessment and Plan: 01/30/2024: Total bili 1.8 Ultrasound of abdomen was limited however shown normal hepatopetal flow in the main portal vein 01/31/2024: Total bili down to 1.1 (7) Hypertension: Code(s): I10 - Essential (primary) hypertension Status: Chronic Assessment and Plan: 01/30/2024: Blood pressure ranging 123/52 to 164/64 Continue lisinopril 01/31/2024: No change to current treatment plan (8) Hyperlipidemia: Code(s): E78.5 - Hyperlipidemia, unspecified Status: Chronic Assessment and Plan: 01/29/2025: Hold rosuvastatin due to rhabdomyolysis 01/31/2024: No change to current treatment plan Time Spent With Patient Time with patient: 25 - 35 minutes Subjective Date/time seen: 01/31/24 13:11 Interval history: 01/30/24: This is an 88-year-old female with a significant past medical history of brain aneurysm, hyperlipidemia, and hypertension who presents to the hospital with chief complaint of altered mental status.? Patient is unable to contribute to her history due to her mental status and most of her history was obtained from the EMR.? According to the EMR patient was found lying face down in her laundry room by her son who came to check on her.? Patient does live alone however son lives nearby and checks on her.? She did state that she has felt weak and tired for the past few days.? Son stated that he saw her on Monday and she was behaving normally.? When he went to check on her today he found that she had
[2024-01-31 14:07] VITALS: BP 110/52; PULSE 87; RESP 20; TEMP 36.6; O2SAT 98
[2024-01-31 14:24] LABS: Hepatitis B Core IgM Result Negative (Negative)
[2024-01-31 20:34] VITALS: BP 117/44; PULSE 81; RESP 18; TEMP 36.9; O2SAT 95
[2024-02-01 05:30] VITALS: BP 134/54; PULSE 73; RESP 17; TEMP 36.6; O2SAT 97
[2024-02-01 05:52] LABS: Basophils Percent Auto 0.5 % (0.2-1.2); Eosinophils Absolute Auto 0.2 K/mm3 (0-0.3); Eosinophils Percent Auto 3.1 % (0-4.4); Hematocrit 32.4 % (37.0-47.0); Hemoglobin 10.4 g/dL (12.0-15.0); Immature Granulocyte Absolute 0.04 K/mm3 (0.00-0.031); Immature Granulocyte Percent A 0.5 % (0-0.5); Lymphocytes Absolute Auto 1.71 K/mm3 (0.9-3.2); Lymphocytes Percent Auto 21.8 % (18.3-44.2); Mean Corpuscular HGB Conc 32.1 g/dl (32-36); Mean Corpuscular Hemoglobin 29.8 pg (26-34); Mean Corpuscular Volume 92.8 fl (80-100); Mean Platelet Volume 9.6 fl (7.4-10.4); Monocytes Absolute Auto 0.8 K/mm3 (0.1-0.6); Monocytes Percent Auto 10.7 % (2.6-8.5); Neutrophils Percent Auto 63.4 % (45.5-73.1); Platelet Count Result 196 k/mm3 (150-375); Red Blood Count 3.49 M/mm3 (4.2-5.4); Red Cell Distribution Width 13.7 % (11.5-14.5); White Blood Count 7.8 K/mm3 (4.5-10.0)
[2024-02-01 06:12] LABS: Alanine Aminotransferase 76 U/L (6-35); Albumin Level 2.9 g/dL (3.5-5.1); Alkaline Phosphatase 44 U/L (38-126); Anion Gap 3 mmol/L (8-16); Aspartate Amino Transferase 93 U/L (14-36); Bilirubin,Total 0.8 mg/dL (0.2-1.3); Blood Urea Nitrogen 41 mg/dL (7-17); Calcium 8.6 mg/dL (8.4-10.2); Carbon Dioxide 25 mmol/L (22-30); Chloride 108 mmol/L (98-107); Estimated CRCL calculation 35 ml/min; Estimated Glomerular Filt Rate 53; Glucose 113 mg/dL (65-110); Potassium 3.6 mmol/L (3.4-5.0); Sodium 136 mmol/L (137-145)
[2024-02-01] MEDS: LACTATED RINGERS 1,000 ML 100 ML IV CONT (06:45)
--- NOTE | 2024-02-01 07:23 | P.PNIM_ITS ---
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, and a stable 7 mm basilar tip aneurysm * Head/cervical spine/facial bone CT was not negative for any acute maxil lofacial or cervical osseous abnormality, moderate cervical spondylosis, unchanged multinodular goiter noted * Head and neck CTA was negative for any stenosis, showed an unchanged 7 mm basilar tip aneurysm * PT and OT ordered 01/31/2024: * Continue with current treatment plan * Patient reporting right knee pain, will get x-ray of the right knee today * PT and OT to eval today 02/01/24: * Right knee x-ray showing arthritis * PT and OT with SNF placement * Case coordination consulted (2) Acute UTI: Code(s): N39.0 - Urinary tract infection, site not specified Status: Acute Assessment and Plan: 01/30/2024: * UA showing 1+ urine protein, 1+ urine ketone, 3+ urine blood, positive nitrate, 1+ urine bili, 2+ leukocyte, greater than 100 urine wbc's, 4+ urine bacteria. * Urine culture was obtained and is pending * Patient started on Rocephin * WBC 13.1, lactic acid 1.2 01/31/2024: * Continue Rocephin * Urine culture still pending 02/01/24: * Continue Rocephin * Urine culture showing E coli on preliminary read * Blood culture showing no growth to date on preliminary read (3) Rhabdomyolysis: Code(s): M62.82 - Rhabdomyolysis Status: Acute Assessment and Plan: 01/30/2024: * Patient was found down by her son in her laundry room, unknown how long she was lying there * Total CK 3662 * We will continue to trend CK * BUN 72, creatinine 1.0, EGFR 53 01/31/2024: * Total CK today 1428 * BUN 57, creatinine 0.9 , EGFR 59 02/01/24: * Total CK down to 727 * Continue to trend (4) Altered mental status: Code(s): R41.82 - Altered mental status, unspecified Status: Acute Assessment and Plan: 01/30/2024: * Likely secondary to urinary tract infection * Currently alert and oriented x2 * Last known well was on Monday per son 01/31/2024: * Currently alert and oriented x 2-3, she is confused on what year and what month it is 02/01/24: * More confused today and forgetful, alert and oriented 1-2 (5) Transaminitis: Code(s): R74.01 - Elevation of levels of liver transaminase levels Status: Acute Assessment and Plan: 01/30/2024: * Total bili 1.8, AST 218, ALT 121 * Will check hepatitis panel in the morning 01/31/2024: * Total bili done 1.1, AST 140, ALT 90 * Continue to trend 02/01/24: * Total bili 0.8, AST 93, ALT 76 * Continue to trend (6) Hypertension: Code(s): I10 - Essential (primary) hypertension Status: Chronic Assessment and Plan: 01/30/2024: * Blood pressure ranging 123/52 to 164/64 * Continue lisinopril 01/31/2024: * No change to current treatment plan (7) Hyperlipidemia: Code(s): E78.5 - Hyperlipidemia, unspecified Status: Chronic Assessment and Plan: 01/29/2025: * Hold rosuvastatin due to rhabdomyolysis 01/31/2024: * No change to current treatment plan Time Spent With Patient Time with patient: 25 - 35 minutes Subjective Date/time seen: 02/01/24 07:23 Interv
--- NOTE | 2024-02-01 07:23 | PM.IMPN ---
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, and a stable 7 mm basilar tip aneurysm Head/cervical spine/facial bone CT was not negative for any acute maxillofacial or cervical osseous abnormality, moderate cervical spondylosis, unchanged multinodular goiter noted Head and neck CTA was negative for any stenosis, showed an unchanged 7 mm basilar tip aneurysm PT and OT ordered 01/31/2024: Continue with current treatment plan Patient reporting right knee pain, will get x-ray of the right knee today PT and OT to eval today 02/01/24: Right knee x-ray showing arthritis PT and OT with SNF placement Case coordination consulted (2) Acute UTI: Code(s): N39.0 - Urinary tract infection, site not specified Status: Acute Assessment and Plan: 01/30/2024: UA showing 1+ urine protein, 1+ urine ketone, 3+ urine blood, positive nitrate, 1+ urine bili, 2+ leukocyte, greater than 100 urine wbc's, 4+ urine bacteria. Urine culture was obtained and is pending Patient started on Rocephin WBC 13.1, lactic acid 1.2 01/31/2024: Continue Rocephin Urine culture still pending 02/01/24: Continue Rocephin Urine culture showing E coli on preliminary read Blood culture showing no growth to date on preliminary read (3) Rhabdomyolysis: Code(s): M62.82 - Rhabdomyolysis Status: Acute Assessment and Plan: 01/30/2024: Patient was found down by her son in her laundry room, unknown how long she was lying there Total CK 3662 We will continue to trend CK BUN 72, creatinine 1.0, EGFR 53 01/31/2024: Total CK today 1428 BUN 57, creatinine 0.9 , EGFR 59 02/01/24: Total CK down to 727 Continue to trend (4) Altered mental status: Code(s): R41.82 - Altered mental status, unspecified Status: Acute Assessment and Plan: 01/30/2024: Likely secondary to urinary tract infection Currently alert and oriented x2 Last known well was on Monday per son 01/31/2024: Currently alert and oriented x 2-3, she is confused on what year and what month it is 02/01/24: More confused today and forgetful, alert and oriented 1-2 (5) Transaminitis: Code(s): R74.01 - Elevation of levels of liver transaminase levels Status: Acute Assessment and Plan: 01/30/2024: Total bili 1.8, AST 218, ALT 121 Will check hepatitis panel in the morning 01/31/2024: Total bili done 1.1, AST 140, ALT 90 Continue to trend 02/01/24: Total bili 0.8, AST 93, ALT 76 Continue to trend (6) Hypertension: Code(s): I10 - Essential (primary) hypertension Status: Chronic Assessment and Plan: 01/30/2024: Blood pressure ranging 123/52 to 164/64 Continue lisinopril 01/31/2024: No change to current treatment plan (7) Hyperlipidemia: Code(s): E78.5 - Hyperlipidemia, unspecified Status: Chronic Assessment and Plan: 01/29/2025: Hold rosuvastatin due to rhabdomyolysis 01/31/2024: No change to current treatment plan Time Spent With Patient Time with patient: 25 - 35 minutes Subjective Date/time seen: 02/01/24 07:23 Interval history: 01/30/24: This is an 88-year-old female with a significant past medical history of brain aneurysm, hyperlipidemia, and hypertension who presents to the hospital with chief complaint of altered mental status.? Patient is unable to contribute to her history due to her mental status and most of her history was obtained from the EMR.? According to the EMR patient was found lying face down in her laundry room by her son who came to check on her.? Patient does live alone however son lives nearby and checks on her.? She did state that she has felt weak and tired f
[2024-02-01 07:35] LABS: Creatine Kinase 727 U/L (30-135)
[2024-02-01 08:00] VITALS: BP 130/58; PULSE 70; RESP 16; TEMP 36.5; O2SAT 96
[2024-02-01] MEDS: lisinopriL 20 MG TABLET PO (10:49)
[2024-02-01] MEDS: ENOXAPARIN 40 MG/0.4 ML SYRINGE SUB-Q (10:49)
[2024-02-01] MEDS: PANTOPRAZOLE SODIUM IV 40 MG VIAL IV PUSH (10:49)
--- NOTE | 2024-02-01 11:47 | P.CDI_ITS ---
Traumatic CDI Query Clarification Request Documentation in the medical record indicates that this patient has been diagnosed with rhabdomyolysis. (3) Rhabdomyolysis: ?Code(s): M62.82 - Rhabdomyolysis ?Status:?Acute ?Assessment and Plan: 01/30/2024: * Patient was found down by her son in her laundry room, unknown how long she was lying there * Total CK 3662 * We will continue to trend CK * BUN 72, creatinine 1.0, EGFR 53 01/31/2024: * Total CK today 1428 * BUN 57, creatinine 0 point, EGFR 59 Please clarify in the progress notes the type of rhabdomyolysis if known: * Traumatic * Non Traumatic * Unknown
--- NOTE | 2024-02-01 11:47 | WPDCDIQUERY2 ---
CDI Query Clarification Request Documentation in the medical record indicates that this patient has been diagnosed with rhabdomyolysis. (3) Rhabdomyolysis: ?Code(s): M62.82 - Rhabdomyolysis ?Status:?Acute ?Assessment and Plan: 01/30/2024: Patient was found down by her son in her laundry room, unknown how long she was lying there Total CK 3662 We will continue to trend CK BUN 72, creatinine 1.0, EGFR 53 01/31/2024: Total CK today 1428 BUN 57, creatinine 0 point, EGFR 59 Please clarify in the progress notes the type of rhabdomyolysis if known: Traumatic Non Traumatic Unknown
--- NOTE | 2024-02-01 11:57 | P.CDI_ITS ---
CDI Query Clarification Request Documentation in the medical record indicates that this patient has been diagnosed as having the symptoms of ALTERED MENTAL STATUS. Additional findings also documented in the medical record include: * Infection: UTI * Patient started on Rocephin 1 GM Q 24hrs. * 01/30/24 Urine Culture notes > 100,000 E. Coli (2) Acute UTI: ?Code(s): N39.0 - Urinary tract infection, site not specified ?Status:?Acute ?Assessment and Plan: 01/30/2024: * UA showing 1+ urine protein, 1+ urine ketone, 3+ urine blood, positive nitrate, 1+ urine bili, 2+ leukocyte, greater than 100 urine wbc's, 4+ urine bacteria. * Urine culture was obtained and is pending * Patient started on Rocephin * WBC 13.1, lactic acid 1.2 (4) Altered mental status: ?Code(s): R41.82 - Altered mental status, unspecified ?Status:?Acute ?Assessment and Plan: 01/30/2024: * Likely secondary to urinary tract infection * Currently alert and oriented x2 * Last known well was on Monday per son Based on your medical judgement , can you further clarify in the progress notes if theses findings associated with altered mental status are due to a definite or suspected underlying neurologic cause such as: * Metabolic Encephalopathy * Toxic Encephalopathy * Altered Mental status without encephalopathy * Other condition (please specify) * None of the above / Not applicable.
--- NOTE | 2024-02-01 11:57 | WPDCDIQUERY2 ---
CDI Query Clarification Request Documentation in the medical record indicates that this patient has been diagnosed as having the symptoms of ALTERED MENTAL STATUS. Additional findings also documented in the medical record include: Infection: UTI Patient started on Rocephin 1 GM Q 24hrs. 01/30/24 Urine Culture notes > 100,000 E. Coli (2) Acute UTI: ?Code(s): N39.0 - Urinary tract infection, site not specified ?Status:?Acute ?Assessment and Plan: 01/30/2024: UA showing 1+ urine protein, 1+ urine ketone, 3+ urine blood, positive nitrate, 1+ urine bili, 2+ leukocyte, greater than 100 urine wbc's, 4+ urine bacteria. Urine culture was obtained and is pending Patient started on Rocephin WBC 13.1, lactic acid 1.2 (4) Altered mental status: ?Code(s): R41.82 - Altered mental status, unspecified ?Status:?Acute ?Assessment and Plan: 01/30/2024: Likely secondary to urinary tract infection Currently alert and oriented x2 Last known well was on Monday per son Based on your medical judgement , can you further clarify in the progress notes if theses findings associated with altered mental status are due to a definite or suspected underlying neurologic cause such as: Metabolic Encephalopathy Toxic Encephalopathy Altered Mental status without encephalopathy Other condition (please specify) None of the above / Not applicable.
[2024-02-01 14:32] VITALS: O2SAT 94
[2024-02-01 16:00] VITALS: BP 132/60; PULSE 78; RESP 16; TEMP 36.4; O2SAT 95
[2024-02-01 20:15] VITALS: BP 126/53; PULSE 80; RESP 18; TEMP 36.8; O2SAT 94
[2024-02-02 00:15] VITALS: O2SAT 94
--- NOTE | 2024-02-02 01:41 | PC.NURSE ---
Pt has exhibited confusion and disorganized thought processes all night, pt has been exhibiting worsening paranoia and becoming more suspicious of staff. Pt has stated multiple times that hospital staff are working for the [employer] and are stealing from her, pt frequently attempting to leave bed and becoming verbally aggressive towards staff. Order received for one time dose of Haldol 5mg IM
[2024-02-02] MEDS: HALOPERIDOL LACTATE 5 MG/ML VIAL IM (02:23)
[2024-02-02 05:26] LABS: Basophils Percent Auto 0.5 % (0.2-1.2); Eosinophils Absolute Auto 0.2 K/mm3 (0-0.3); Eosinophils Percent Auto 2.5 % (0-4.4); Hematocrit 31.7 % (37.0-47.0); Hemoglobin 10.4 g/dL (12.0-15.0); Immature Granulocyte Absolute 0.05 K/mm3 (0.00-0.031); Immature Granulocyte Percent A 0.6 % (0-0.5); Lymphocytes Absolute Auto 1.39 K/mm3 (0.9-3.2); Lymphocytes Percent Auto 17.4 % (18.3-44.2); Mean Corpuscular HGB Conc 32.8 g/dl (32-36); Mean Corpuscular Hemoglobin 30.2 pg (26-34); Mean Corpuscular Volume 92.2 fl (80-100); Mean Platelet Volume 9.7 fl (7.4-10.4); Monocytes Absolute Auto 0.9 K/mm3 (0.1-0.6); Neutrophils Absolute Auto 5.4 K/mm3 (1.3-6.7); Platelet Count Result 187 k/mm3 (150-375); Red Blood Count 3.44 M/mm3 (4.2-5.4); Red Cell Distribution Width 13.3 % (11.5-14.5)
[2024-02-02 05:40] LABS: Alanine Aminotransferase 73 U/L (6-35); Albumin Level 2.9 g/dL (3.5-5.1); Alkaline Phosphatase 45 U/L (38-126); Anion Gap 3 mmol/L (8-16); Aspartate Amino Transferase 77 U/L (14-36); Bilirubin,Total 0.7 mg/dL (0.2-1.3); Blood Urea Nitrogen 24 mg/dL (7-17); Calcium 8.7 mg/dL (8.4-10.2); Carbon Dioxide 25 mmol/L (22-30); Chloride 108 mmol/L (98-107); Estimated CRCL calculation 43 ml/min; Estimated Glomerular Filt Rate > 60; Glucose 119 mg/dL (65-110); Potassium 3.4 mmol/L (3.4-5.0); Sodium 136 mmol/L (137-145)
[2024-02-02 08:37] VITALS: O2SAT 94
[2024-02-02] MEDS: FERROUS SULFATE 325 MG TABLET DR PO (09:14)
[2024-02-02] MEDS: ENOXAPARIN 40 MG/0.4 ML SYRINGE SUB-Q (09:14)
[2024-02-02] MEDS: lisinopriL 20 MG TABLET PO (09:14)
[2024-02-02] MEDS: PANTOPRAZOLE SODIUM IV 40 MG VIAL IV PUSH (09:14)
--- NOTE | 2024-02-02 10:15 | P.PNIM_ITS ---
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, and a stable 7 mm basilar tip aneurysm * Head/cervical spine/facial bone CT was not negative for any acute maxil lofacial or cervical osseous abnormality, moderate cervical spondylosis, unchanged multinodular goiter noted * Head and neck CTA was negative for any stenosis, showed an unchanged 7 mm basilar tip aneurysm * PT and OT ordered 01/31/2024: * Continue with current treatment plan * Patient reporting right knee pain, will get x-ray of the right knee today * PT and OT to eval today 02/01/24: * Right knee x-ray showing arthritis * PT and OT with SNF placement * Case coordination consulted 02/02/24: * Continue PT and OT * Case coordination working on placement (2) Acute UTI: Code(s): N39.0 - Urinary tract infection, site not specified Status: Acute Assessment and Plan: 01/30/2024: * UA showing 1+ urine protein, 1+ urine ketone, 3+ urine blood, positive nitrate, 1+ urine bili, 2+ leukocyte, greater than 100 urine wbc's, 4+ urine bacteria. * Urine culture was obtained and is pending * Patient started on Rocephin * WBC 13.1, lactic acid 1.2 01/31/2024: * Continue Rocephin * Urine culture still pending 02/01/24: * Continue Rocephin * Urine culture showing E coli on preliminary read * Blood culture showing no growth to date on preliminary read 02/02/24: * Switch to Cefdinir * Culture showing E coli on final read * Blood cultures showing no growth on preliminary read (3) Rhabdomyolysis: Code(s): M62.82 - Rhabdomyolysis Status: Acute Assessment and Plan: 01/30/2024: * Patient was found down by her son in her laundry room, unknown how long she was lying there * Total CK 3662 * We will continue to trend CK * BUN 72, creatinine 1.0, EGFR 53 01/31/2024: * Total CK today 1428 * BUN 57, creatinine 0.9 , EGFR 59 3/7/24: * Total CK down to 727 * Continue to trend 02/02/24: * CK trending downward * Continue to trend (4) Altered mental status: Code(s): R41.82 - Altered mental status, unspecified Status: Acute Assessment and Plan: 01/30/2024: * Likely secondary to urinary tract infection * Currently alert and oriented x2 * Last known well was on Monday per son 01/31/2024: * Currently alert and oriented x 2-3, she is confused on what year and what month it is 02/01/24: * More confused today and forgetful, alert and oriented 1-2 02/02/24: * still very confused and combative with staff, received Haldol last night for agitation. * suspect owning or hospitalized delirium. (5) Transaminitis: Code(s): R74.01 - Elevation of levels of liver transaminase levels Status: Acute Assessment and Plan: 01/30/2024: * Total bili 1.8, AST 218, ALT 121 * Will check hepatitis panel in the morning 01/31/2024: * Total bili done 1.1, AST 140, ALT 90 * Continue to trend 02/01/24: * Total bili 0.8, AST 93, ALT 76 * Continue to trend 02/02/24: * AST 77, ALT 73 * Continue to trend (6) Hypertension: Code(s): I10 - Essential (primary) hypertension Status: Chronic Assessment and Plan: 01/30/2024: * Blood pressure vipin
--- NOTE | 2024-02-02 10:15 | PM.IMPN ---
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, and a stable 7 mm basilar tip aneurysm Head/cervical spine/facial bone CT was not negative for any acute maxillofacial or cervical osseous abnormality, moderate cervical spondylosis, unchanged multinodular goiter noted Head and neck CTA was negative for any stenosis, showed an unchanged 7 mm basilar tip aneurysm PT and OT ordered 01/31/2024: Continue with current treatment plan Patient reporting right knee pain, will get x-ray of the right knee today PT and OT to eval today 02/01/24: Right knee x-ray showing arthritis PT and OT with SNF placement Case coordination consulted 02/02/24: Continue PT and OT Case coordination working on placement (2) Acute UTI: Code(s): N39.0 - Urinary tract infection, site not specified Status: Acute Assessment and Plan: 01/30/2024: UA showing 1+ urine protein, 1+ urine ketone, 3+ urine blood, positive nitrate, 1+ urine bili, 2+ leukocyte, greater than 100 urine wbc's, 4+ urine bacteria. Urine culture was obtained and is pending Patient started on Rocephin WBC 13.1, lactic acid 1.2 01/31/2024: Continue Rocephin Urine culture still pending 02/01/24: Continue Rocephin Urine culture showing E coli on preliminary read Blood culture showing no growth to date on preliminary read 02/02/24: Switch to Cefdinir Culture showing E coli on final read Blood cultures showing no growth on preliminary read (3) Rhabdomyolysis: Code(s): M62.82 - Rhabdomyolysis Status: Acute Assessment and Plan: 01/30/2024: Patient was found down by her son in her laundry room, unknown how long she was lying there Total CK 3662 We will continue to trend CK BUN 72, creatinine 1.0, EGFR 53 01/31/2024: Total CK today 1428 BUN 57, creatinine 0.9 , EGFR 59 02/01/24: Total CK down to 727 Continue to trend 02/02/24: CK trending downward Continue to trend (4) Altered mental status: Code(s): R41.82 - Altered mental status, unspecified Status: Acute Assessment and Plan: 01/30/2024: Likely secondary to urinary tract infection Currently alert and oriented x2 Last known well was on Monday per son 01/31/2024: Currently alert and oriented x 2-3, she is confused on what year and what month it is 02/01/24: More confused today and forgetful, alert and oriented 1-2 02/02/24: still very confused and combative with staff, received Haldol last night for agitation. suspect sundowning or hospitalized delirium. (5) Transaminitis: Code(s): R74.01 - Elevation of levels of liver transaminase levels Status: Acute Assessment and Plan: 01/30/2024: Total bili 1.8, AST 218, ALT 121 Will check hepatitis panel in the morning 01/31/2024: Total bili done 1.1, AST 140, ALT 90 Continue to trend 02/01/24: Total bili 0.8, AST 93, ALT 76 Continue to trend 02/02/24: AST 77, ALT 73 Continue to trend (6) Hypertension: Code(s): I10 - Essential (primary) hypertension Status: Chronic Assessment and Plan: 01/30/2024: Blood pressure ranging 123/52 to 164/64 Continue lisinopril 01/31/2024: No change to current treatment plan (7) Hyperlipidemia: Code(s): E78.5 - Hyperlipidemia, unspecified Status: Chronic Assessment and Plan: 01/29/2025: Hold rosuvastatin due to rhabdomyolysis 01/31/2024: No change to current treatment plan Time Spent With Patient Time with patient: 25 - 35 minutes Subjective Date/time seen: 02/02/24 10:15 Interval history: 01/30/24: This is an 88-year-old female with a significant past medical history of brain aneurysm, hyperlipidemia,
[2024-02-02 11:28] LABS: Creatine Kinase 678 U/L (30-135)
[2024-02-02 13:57] VITALS: BP 131/58; PULSE 87; RESP 18; TEMP 36.9; O2SAT 99
[2024-02-02] MEDS: CEFDINIR 300 MG CAPSULE PO (18:19)
[2024-02-02 23:48] VITALS: O2SAT 96
[2024-02-03] VITALS: BP 146/59; PULSE 83; RESP 16; TEMP 36.8; O2SAT 96
[2024-02-03 03:44] VITALS: BP 151/63; PULSE 82; RESP 16; TEMP 36.4; O2SAT 96
[2024-02-03 05:29] LABS: Basophils Percent Auto 0.6 % (0.2-1.2); Eosinophils Absolute Auto 0.4 K/mm3 (0-0.3); Eosinophils Percent Auto 6.3 % (0-4.4); Hemoglobin 10.6 g/dL (12.0-15.0); Immature Granulocyte Absolute 0.06 K/mm3 (0.00-0.031); Immature Granulocyte Percent A 0.9 % (0-0.5); Lymphocytes Absolute Auto 1.66 K/mm3 (0.9-3.2); Lymphocytes Percent Auto 24.2 % (18.3-44.2); Mean Corpuscular HGB Conc 33.1 g/dl (32-36); Mean Corpuscular Hemoglobin 30.2 pg (26-34); Mean Corpuscular Volume 91.2 fl (80-100); Mean Platelet Volume 9.6 fl (7.4-10.4); Monocytes Absolute Auto 0.7 K/mm3 (0.1-0.6); Monocytes Percent Auto 10.3 % (2.6-8.5); Neutrophils Percent Auto 57.7 % (45.5-73.1); Platelet Count Result 194 k/mm3 (150-375); Red Blood Count 3.51 M/mm3 (4.2-5.4); Red Cell Distribution Width 13.6 % (11.5-14.5); White Blood Count 6.9 K/mm3 (4.5-10.0)
[2024-02-03 05:46] LABS: Alanine Aminotransferase 73 U/L (6-35); Albumin Level 3.1 g/dL (3.5-5.1); Alkaline Phosphatase 49 U/L (38-126); Anion Gap 2 mmol/L (8-16); Aspartate Amino Transferase 63 U/L (14-36); Bilirubin,Total 0.4 mg/dL (0.2-1.3); Blood Urea Nitrogen 24 mg/dL (7-17); Calcium 8.8 mg/dL (8.4-10.2); Carbon Dioxide 28 mmol/L (22-30); Chloride 107 mmol/L (98-107); Estimated CRCL calculation 38 ml/min; Estimated Glomerular Filt Rate 59; Glucose 116 mg/dL (65-110); Potassium 3.5 mmol/L (3.4-5.0); Sodium 137 mmol/L (137-145)
--- NOTE | 2024-02-03 09:14 | P.PNIM_ITS ---
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, and a stable 7 mm basilar tip aneurysm * Head/cervical spine/facial bone CT was not negative for any acute maxil lofacial or cervical osseous abnormality, moderate cervical spondylosis, unchanged multinodular goiter noted * Head and neck CTA was negative for any stenosis, showed an unchanged 7 mm basilar tip aneurysm * PT and OT ordered 01/31/2024: * Continue with current treatment plan * Patient reporting right knee pain, will get x-ray of the right knee today * PT and OT to eval today 02/01/24: * Right knee x-ray showing arthritis * PT and OT with SNF placement * Case coordination consulted 02/02/24: * Continue PT and OT * Case coordination working on placement 02/03/24: * Continue with current treatment plan. (2) Acute UTI: Code(s): N39.0 - Urinary tract infection, site not specified Status: Acute Assessment and Plan: 01/30/2024: * UA showing 1+ urine protein, 1+ urine ketone, 3+ urine blood, positive nitrate, 1+ urine bili, 2+ leukocyte, greater than 100 urine wbc's, 4+ urine bacteria. * Urine culture was obtained and is pending * Patient started on Rocephin * WBC 13.1, lactic acid 1.2 01/31/2024: * Continue Rocephin * Urine culture still pending 02/01/24: * Continue Rocephin * Urine culture showing E coli on preliminary read * Blood culture showing no growth to date on preliminary read 02/02/24: * Switch to Cefdinir * Culture showing E coli on final read * Blood cultures showing no growth on preliminary read 02/03/24: * Continue with current treatment plan * Blood cultures are still showing no growth to date on preliminary (3) Rhabdomyolysis: Code(s): M62.82 - Rhabdomyolysis Status: Acute Assessment and Plan: 01/30/2024: * Patient was found down by her son in her laundry room, unknown how long she was lying there * Total CK 3662 * We will continue to trend CK * BUN 72, creatinine 1.0, EGFR 53 01/31/2024: * Total CK today 1428 * BUN 57, creatinine 0.9 , EGFR 59 02/01/24: * Total CK down to 727 * Continue to trend 02/02/24: * CK trending downward * Continue to trend 02/03/24: * CK 402 this morning * continue to trend (4) Altered mental status: Code(s): R41.82 - Altered mental status, unspecified Status: Acute Assessment and Plan: 01/30/2024: * Likely secondary to urinary tract infection * Currently alert and oriented x2 * Last known well was on Monday per son 01/31/2024: * Currently alert and oriented x 2-3, she is confused on what year and what month it is 02/01/24: * More confused today and forgetful, alert and oriented 1-2 02/02/24: * still very confused and combative with staff, received Haldol last night for agitation. * suspect sundowning or hospitalized delirium. 02/03/24: * (5) Transaminitis: Code(s): R74.01 - Elevation of levels of liver transaminase levels Status: Acute Assessment and Plan: 01/30/2024: * Total bili 1.8, AST 218, ALT 121 * Will check hepatitis panel in the morning 01/31/2024: * Total bili done 1.1, AST 140, ALT 90 * Continue to trend 02/01/24: * Total bili 0.8,
--- NOTE | 2024-02-03 09:14 | PM.IMPN ---
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, and a stable 7 mm basilar tip aneurysm Head/cervical spine/facial bone CT was not negative for any acute maxillofacial or cervical osseous abnormality, moderate cervical spondylosis, unchanged multinodular goiter noted Head and neck CTA was negative for any stenosis, showed an unchanged 7 mm basilar tip aneurysm PT and OT ordered 01/31/2024: Continue with current treatment plan Patient reporting right knee pain, will get x-ray of the right knee today PT and OT to eval today 02/01/24: Right knee x-ray showing arthritis PT and OT with SNF placement Case coordination consulted 02/02/24: Continue PT and OT Case coordination working on placement 02/03/24: Continue with current treatment plan. (2) Acute UTI: Code(s): N39.0 - Urinary tract infection, site not specified Status: Acute Assessment and Plan: 01/30/2024: UA showing 1+ urine protein, 1+ urine ketone, 3+ urine blood, positive nitrate, 1+ urine bili, 2+ leukocyte, greater than 100 urine wbc's, 4+ urine bacteria. Urine culture was obtained and is pending Patient started on Rocephin WBC 13.1, lactic acid 1.2 01/31/2024: Continue Rocephin Urine culture still pending 02/01/24: Continue Rocephin Urine culture showing E coli on preliminary read Blood culture showing no growth to date on preliminary read 02/02/24: Switch to Cefdinir Culture showing E coli on final read Blood cultures showing no growth on preliminary read 02/03/24: Continue with current treatment plan Blood cultures are still showing no growth to date on preliminary (3) Rhabdomyolysis: Code(s): M62.82 - Rhabdomyolysis Status: Acute Assessment and Plan: 01/30/2024: Patient was found down by her son in her laundry room, unknown how long she was lying there Total CK 3662 We will continue to trend CK BUN 72, creatinine 1.0, EGFR 53 01/31/2024: Total CK today 1428 BUN 57, creatinine 0.9 , EGFR 59 02/01/24: Total CK down to 727 Continue to trend 02/02/24: CK trending downward Continue to trend 02/03/24: CK 402 this morning continue to trend (4) Altered mental status: Code(s): R41.82 - Altered mental status, unspecified Status: Acute Assessment and Plan: 01/30/2024: Likely secondary to urinary tract infection Currently alert and oriented x2 Last known well was on Monday per son 01/31/2024: Currently alert and oriented x 2-3, she is confused on what year and what month it is 02/01/24: More confused today and forgetful, alert and oriented 1-2 02/02/24: still very confused and combative with staff, received Haldol last night for agitation. suspect owning or hospitalized delirium. 02/03/24: (5) Transaminitis: Code(s): R74.01 - Elevation of levels of liver transaminase levels Status: Acute Assessment and Plan: 01/30/2024: Total bili 1.8, AST 218, ALT 121 Will check hepatitis panel in the morning 01/31/2024: Total bili done 1.1, AST 140, ALT 90 Continue to trend 02/01/24: Total bili 0.8, AST 93, ALT 76 Continue to trend 02/02/24: AST 77, ALT 73 Continue to trend 02/03/24: AST 63, ALT 73 Continue to trend (6) Hypertension: Code(s): I10 - Essential (primary) hypertension Status: Chronic Assessment and Plan: 01/30/2024: Blood pressure ranging 123/52 to 164/64 Continue lisinopril 01/31/2024: No change to current treatment plan (7) Hyperlipidemia: Code(s): E78.5 - Hyperlipidemia, unspecified Status: Chronic Assessment and Plan: 01/29/2025: Hold rosuvastatin due to rhabdomyolysis 01/31/2024:
[2024-02-03 09:20] VITALS: BP 150/64; PULSE 82; RESP 16; O2SAT 96
[2024-02-03] MEDS: ENOXAPARIN 40 MG/0.4 ML SYRINGE SUB-Q (09:22)
[2024-02-03] MEDS: CEFDINIR 300 MG CAPSULE PO (09:22)
[2024-02-03] MEDS: lisinopriL 20 MG TABLET PO (09:22)
[2024-02-03] MEDS: PANTOPRAZOLE SODIUM IV 40 MG VIAL IV PUSH (09:22)
[2024-02-03 09:55] LABS: Creatine Kinase 402 U/L (30-135)
--- NOTE | 2024-02-03 13:52 | PM.DS ---
DS: Admitting Diagnosis Discharge Date 02/03/24 Admitting Diagnosis Fall Acute UTI Rhabdomyolysis Altered mental status Transaminitis hypertension hyperlipidemia DS: Discharge Diagnosis Discharge Diagnosis (1) Fall: Code(s): W19.XXXA - Unspecified fall, initial encounter Status: Acute (2) Acute UTI: Code(s): N39.0 - Urinary tract infection, site not specified Status: Acute (3) Rhabdomyolysis: Code(s): M62.82 - Rhabdomyolysis Status: Acute (4) Altered mental status: Code(s): R41.82 - Altered mental status, unspecified Status: Acute (5) Transaminitis: Code(s): R74.01 - Elevation of levels of liver transaminase levels Status: Acute (6) Hypertension: Code(s): I10 - Essential (primary) hypertension Status: Chronic (7) Hyperlipidemia: Code(s): E78.5 - Hyperlipidemia, unspecified Status: Chronic DS: Summary Hospital Course Reason for hospitalization: Fall Acute UTI Rhabdomyolysis Altered mental status Transaminitis hypertension hyperlipidemia Hospital Course: 01/30/24: This is an 88-year-old female with a significant past medical history of brain aneurysm, hyperlipidemia, and hypertension who presents to the hospital with chief complaint of altered mental status.? Patient is unable to contribute to her history due to her mental status and most of her history was obtained from the EMR.? According to the EMR patient was found lying face down in her laundry room by her son who came to check on her.? Patient does live alone however son lives nearby and checks on her.? She did state that she has felt weak and tired for the past few days.? Son stated that he saw her on Monday and she was behaving normally.? When he went to check on her today he found that she had been incontinent on the for paper placed over it and multiple things look like they had been Rummage through at the house he also stated that he found an index carbon her purse discussing where it is illegal to have physician assisted suicide performed.? He he denied any evidence of self-harm in the house.? She denies any fever, chills, nausea, vomiting, diarrhea, chest pain, shortness a breath, abdominal pain.? Workup hospital included head CT which shown stable moderate nonspecific cerebral white matter disease, and a stable 7 mm basilar tip aneurysm.? Head/cervical spine/facial bone CT without contrast was negative for any acute abnormality, moderate cervical spondylosis, unchanged multinodular goiter.? Head and neck CTA was negative for any stenosis in the right and left carotid bulbs, unchanged 7 mm basilar tip aneurysm.? Abdomen ultrasound showed normal hepatopetal flow however was very limited.? Chest x-ray was negative for any acute cardiopulmonary disease.? Initial labs shown a white blood cell count of 13.1 BUN 7220, creatinine 1.0, total bili 1.8, AST 218, ALT 121, total CK 3662, C reactive protein 4.3.? His UA was also performed which showed 1+ urine protein, 1+ urine ketones, 3+ urine blood, positive nitrates, 1+ urine bili, 2+ leukocyte greater than 100 urine wbc's, 4+ urine bacteria.? Respiratory panel was negative for influenza a and B, RSV, COVID.? Blood and urine cultures were obtained and are pending.? Patient was given 2.4 L of IV fluids and started on Rocephin in the ED. 01/31/24: On examination today patient is alert and oriented times 2-3, lying in the bed. Son is at the bedside. She denies any new complaints today. Son reports that she has been having trouble with her right knee at home which could contribute to her fall. We will go ahead and get knee x-ray today. Labs today show white blood cell count 9 hemoglobin 10 total bili down to 1.1, AST 140, ALT, total CK 1428. Blood and urine cultures are still pending. 02/01/24: On examination today patient is alert x1-2 sitting up in the chair. She denies any new complaints today. She is a bit more confused and forgetful today. Labs t
[2024-02-03 15:10] VITALS: PULSE 77; RESP 16; TEMP 36.9; O2SAT 95
== END 2024-02-03 16:25 | DRG 690 ==
LOC: ANHED 14:43 → ANH2MED 15:22
PROVIDERS: Nurse Practitioner Acute Care; Nurse Practitioner Family; Admitting Provider Internal Medicine; Emergency Provider Student in an Organized Health Care Education/Training Program; Visit Provider Internal Medicine
DX: N39.0 Urinary tract infection, site not specified (principal); R17 Unspecified jaundice; G93.40 Encephalopathy, unspecified; T79.6XXA Traumatic ischemia of muscle, initial encounter; I10 Essential (primary) hypertension; E78.5 Hyperlipidemia, unspecified; I67.1 Cerebral aneurysm, nonruptured; R74.01 Elevation of levels of liver transaminase levels; M17.11 Unilateral primary osteoarthritis, right knee; B96.20 Unspecified Escherichia coli [E. coli] as the cause of diseases classified elsewhere; W19.XXXA Unspecified fall, initial encounter; Z20.822 Contact with and (suspected) exposure to COVID-19
CPT/HCPCS: 36415; 70450; 70486; 70496; 70498; 71046; 72125; 73560; 76705; 80053; 80074; 80307; 81001; 82550; 83605; 84443; 85025; 85610; 85730; 86140; 87040; 87086; 87186; 87637; 93005; 97110; 97161; 97166; 97530; 97535; 99285; A9270; C9113; J0696; J1630; J1650; J7120; Q9967

== ENCOUNTER 2024-06-16 06:55 | Inpatient (IN) | payer MEDICARE, BC, SELFPAY ==
--- NOTE | ~2024-06-16 | CT_ITS ---
EXAMINATION: CT brain wo con DATE: 06/19/2024 17:33 INDICATION: AMS . TECHNIQUE: Computed tomography (CT) of the head was performed without intravenous contrast. The mA wa s adjusted according to patient size. Iterative reconstruction technique was employed. The dose-lengt h product was 605.33 mGy-cm. COMPARISON: 01/30/2024. FINDINGS: No acute intracranial hemorrhage or extra-axial fluid collection. No hydrocephalus, mass, or herniation. No acute ischemic infarct. Unremarkable dural venous sinus attenuation. No acute osseous abnormality. The aerated spaces are clear. Mild atrophy and chronic white matter change. Atherosclerotic intracranial calcification. Bilateral l ens replacements. Basilar tip aneurysm. IMPRESSION: No acute intracranial process. Reviewed, dictated and finalized at location K.
--- NOTE | ~2024-06-16 | XR_ITS ---
EXAM: XR abdomen/kub 1V DATE: 06/18/2024 17:39 HISTORY: abd pain . COMPARISON: CT abdomen pelvis 01/02/2019. FINDINGS: Cholecystomy clips. Left common iliac stent. Paucity of small bowel gas. Mildly dilated pr oximal large bowel with moderate volume of fecal material in the distal large bowel. Lumbar degenerat cali disc disease. Bilateral hip osteoarthritis. IMPRESSION: Prominent fecal loading in the distal large bowel with mild upstream mild large bowel dil ation, may reflect a component of constipation or fecal impaction. Paucity of small bowel gas limits evaluation for obstruction/ileus. Reviewed, dictated and finalized at location K. IMPRESSION: Prominent fecal loading in the distal large bowel with mild upstrea m mild large bowel dilation, may reflect a component of constipation or fecal i mpaction. Paucity of small bowel gas limits evaluation for obstruction/ileus.
--- NOTE | ~2024-06-16 | XR_ITS ---
XR ankle RT 2V DATE: 06/16/2024 07:50 INDICATION: Fall. Right ankle injury, pain TECHNIQUE: 3 views COMPARISON: None FINDINGS: Linear oblique fracture with mild comminution at the distal fibular shaft with posterior la teral displacement. Transverse laterally displaced fracture at the base of the medial malleolus. Suggestion of posterior malleolar fracture. There is posterolateral dislocation at the tibiotalar joint. Mild plantar and posterior calcaneal enthesopathy. Osteopenia. IMPRESSION: Medial and lateral malleolar fractures, possible posterior malleolar fracture Posterolateral dislocation at the ankle joint Reviewed, dictated and finalized at location A. IMPRESSION: Medial and lateral malleolar fractures, possible posterior malleola r fracture Posterolateral dislocation at the ankle joint
--- NOTE | ~2024-06-16 | XR_ITS ---
XR ankle RT min 3V DATE: 06/16/2024 08:45 INDICATION: Post reduction examination TECHNIQUE: 4 views COMPARISON: 06/16/2024 prereduction right ankle FINDINGS: Soft tissue wrap of the right ankle and lower leg. There is minimal residual lateral displacement of the distal fibular shaft and medial malleolar fract ures, with minimal lateral subluxation at the tibiotalar joint. Subtle slightly superiorly displaced posterior malleolar fracture is suggested. CT examination would be more definitive. IMPRESSION: Minimal residual lateral displacement of the lateral and medial malleolar fractures and m inimal lateral residual tibiotalar subluxation Suspected slightly superiorly displaced subtle posterior malleolar fracture Reviewed, dictated and finalized at location A. IMPRESSION: Minimal residual lateral displacement of the lateral and medial mal leolar fractures and minimal lateral residual tibiotalar subluxation Suspected slightly superiorly displaced subtle posterior malleolar fracture
--- NOTE | ~2024-06-16 | XR_ITS ---
EXAMINATION: XR surgery orthopedic DATE: 06/17/2024 10:19 INDICATION: ORIF right ankle TECHNIQUE: 3 fluoroscopic images of the right ankle were obtained during procedure performed by Dr. Dorothy mitchell. Radiologist was not present for the imaging or procedure. The amount of fluoroscopy time used during this procedure was 2.4 minutes. COMPARISON: 06/16/2024 FINDINGS: Interval open reduction internal fixation of the trimalleolar fracture of the right ankle. The medial malleolar fracture is fixed with a pair of lag screws. The distal fibular fracture is fixed with a r etrograde intramedullary anival with pair of distal interlocking screws. There are also metallic buttons at both medial and lateral margins of a pair of lucent tunnels likely for a tightrope type syndesmot ic fixation. The posterior malleolar fracture remains without fixation. Alignment appears near-anatom ic with a congruent ankle mortise. Joint spaces are relatively preserved. No new fractures identified . IMPRESSION: 1. Near-anatomic alignment post open reduction internal fixation of a trimalleolar fracture of the ri ght ankle. Reviewed, dictated and finalized at location A. IMPRESSION: 1. Near-anatomic alignment post open reduction internal fixation of a trimalleo lar fracture of the right ankle.
[2024-06-16 06:53] VITALS: BP 157/85; PULSE 87; RESP 16; TEMP 36.6; O2SAT 98
--- NOTE | 2024-06-16 07:27 | PC.NURSE ---
Pt refuses care, said she does not want to be here. Pt requested many time to be sent to [facility] where all of doctors are.
--- NOTE | 2024-06-16 07:45 | ED.FALL ---
HPI - Fall General Chief Complaint: Fall Stated Complaint: fall Time Seen by Provider: 06/16/24 07:00 History of Present Illness HPI Narrative: Patient is an 88-year-old female who presents ER with right ankle pain. She had just turned the shower on and was stepping in to clean herself when she slipped and twisted her ankle resulting in what she believes to be a fracture. Denies hitting her head or losing consciousness. No numbness or tingling to the foot. She does have pain at the ankle. There is a superficial scratch but no tunneling wound to the medial right ankle. Related Data Home Medications Medication Instructions Recorded Confirmed lisinopril 10 mg tablet 20 mg PO DAILY 07/29/20 03/07/24 rosuvastatin 5 mg tablet 5 mg PO DAILY 07/29/20 03/07/24 Allergies Allergy/AdvReac Type Severity Reaction Status Date / Time chlorpheniramine Allergy Mild Unknown Verified 06/16/24 06:59 codeine Allergy Mild Unknown Verified 06/16/24 06:59 phenylephrine Allergy Mild Unknown Verified 06/16/24 06:59 shellfish derived Allergy Hives Verified 06/16/24 06:59 Review of Systems Review of Systems: All systems reviewed & are unremarkable except as noted in HPI and below Constitutional: Constitutional: Reports no additional constitutional complaints ENT: Reports system reviewed and no additional complaints, except as documented Cardiovascular: Cardiovascular: Reports no additional cardiovascular complaints Respiratory: Respiratory: Reports no additional respiratory complaints Musculoskeletal: Musculoskeletal: Denies back pain, Reports arthralgias, Reports joint swelling and Denies muscle cramps Neurologic: Reports system reviewed and no additional complaints, except as documented [facility] Past Medical History Medical History (Updated 06/16/24 @ 08:55 by Harry Alarcon MD) H/O fracture of humerus H/O fracture of radius History of blood clots History of kidney stones Hyperlipidemia Hypertension Surgical History Surgical History (Updated 06/16/24 @ 07:47 by Harry Alarcon MD) History of appendectomy History of cholecystectomy History of hysterectomy Family History Family History Mother Polio Sibling , brother Sleep apnea Sibling , Sister Heart disease, Onset Age: 90 after having heart surgery Social History Social History (Reviewed 02/03/24 @ 21:00 by ORI Bryson Smoking status: Never smoker Second hand tobacco smoke exposure: No Alcohol intake: never Substance use: never Substance use type: does not use Do You Feel Safe in your Home?: Yes Lack of Transportation: No Lack of Food: Never True Current Housing: I Have Housing Concerned About Future Housing: No Difficulty Paying Gas/Electric Bills: No Difficulty Paying for Meds: No Currently Unemployed: No Education: Don't Know Difficulty w/ Childcare or Family Care: No Occupation/Education: retired Additional occupation/education comments: [employer] Gender identity (if verbalized by the patient): Female Spiritual care concerns: No Exam Narrative: GENERAL: Well-appearing, well-nourished, and in no acute distress. HEAD: Normocephalic, atraumatic. EYES: PERRL and EOMI. ENT: Mucous membranes moist. CHEST: Clear to auscultation. No respiratory distress. HEART: Regular rate and rhythm. Normal peripheral pulses. ABDOMEN: Soft, nontender, nondistended. EXTREMITIES: And a right ankle deformity with tenderness to palpation. Bruising medially. 1 cm superficial abrasion anterior medially of the ankle. Neurovascular intact. No left lower extremity or upper extremity injury. SKIN: Warm, dry, no rash. NEURO:Alert and oriented x3. PSYCH: Normal mood and affect. Course Course Emergency Course: Patient initially wanting to go to [facility], but after speaking with her felipe
[2024-06-16] MEDS: MORPHINE SULFATE (*CRX) 4 MG/ML INJ IV PUSH (08:25)
[2024-06-16 08:28] VITALS: BP 137/79; PULSE 84; RESP 14; O2SAT 95
[2024-06-16 08:52] LABS: Basophils Absolute Auto 0.1 K/mm3 (0.0-0.1); Basophils Percent Auto 0.5 % (0.2-1.2); Eosinophils Absolute Auto 0.2 K/mm3 (0-0.3); Eosinophils Percent Auto 1.7 % (0-4.4); Hematocrit 36.5 % (37.0-47.0); Hemoglobin 12.3 g/dL (12.0-15.0); Immature Granulocyte Absolute 0.05 K/mm3 (0.00-0.031); Immature Granulocyte Percent A 0.5 % (0-0.5); Lymphocytes Absolute Auto 0.96 K/mm3 (0.9-3.2); Lymphocytes Percent Auto 9.6 % (18.3-44.2); Mean Corpuscular HGB Conc 33.7 g/dl (32-36); Mean Corpuscular Hemoglobin 30.3 pg (26-34); Mean Corpuscular Volume 89.9 fl (80-100); Mean Platelet Volume 8.8 fl (7.4-10.4); Monocytes Absolute Auto 0.6 K/mm3 (0.1-0.6); Monocytes Percent Auto 6.2 % (2.6-8.5); Neutrophils Absolute Auto 8.2 K/mm3 (1.3-6.7); Neutrophils Percent Auto 81.5 % (45.5-73.1); Platelet Count Result 243 k/mm3 (150-375); Red Blood Count 4.06 M/mm3 (4.2-5.4)
[2024-06-16 09:02] LABS: Alanine Aminotransferase 13 U/L (6-35); Albumin Level 3.9 g/dL (3.5-5.1); Alkaline Phosphatase 50 U/L (38-126); Anion Gap 6 mmol/L (4-12); Aspartate Amino Transferase 23 U/L (14-36); Bilirubin,Total 0.5 mg/dL (0.2-1.3); Blood Urea Nitrogen 24 mg/dL (7-17); Calcium 9.2 mg/dL (8.4-10.2); Carbon Dioxide 28 mmol/L (22-30); Chloride 104 mmol/L (98-107); Estimated CRCL calculation 38 ml/min; Estimated Glomerular Filt Rate 53; Glucose 120 mg/dL (65-110); Sodium 138 mmol/L (137-145)
[2024-06-16 09:03] LABS: Partial Thromboplastin Time 25.3 Seconds (22.3-36.8); Prothrombin Time 13.9 Seconds (11.1-14.7)
--- NOTE | 2024-06-16 09:05 | PC.NURSE ---
verbal received by EDP for right leg posterior, stirrup short leg splint.
[2024-06-16 09:59] VITALS: BP 139/59; PULSE 73; RESP 20; O2SAT 97
--- NOTE | 2024-06-16 10:20 | ADMGEN ---
This patient, Gianna Amaral, was admitted to [facility]. Patient/family oriented to hospital policies and general routines including ID bracelet, bed and alarms, visiting hours, pain management, procedures, bathroom and other care routines, personal items, smoking policy, room service/diet, and visiting hours. Information on how to activate the Rapid Response Team has been discussed. Patient/Family are encouraged to report perceived risks to care and to ask questions if they do not understand what they are told or what they should do.
--- NOTE | 2024-06-16 10:35 | PM.CNOR ---
Assessment and Plan Assessment and plan (1) Closed trimalleolar fracture of ankle: Qualifiers: Encounter type: initial encounter Laterality: right Qualified Code(s): S82.851A - Displaced trimalleolar fracture of right lower leg, initial encounter for closed fracture Code(s): S82.853A - Displaced trimalleolar fracture of unspecified lower leg, initial encounter for closed fracture Status: Acute Assessment and Plan: New patient evaluation for chief complaint Fall with right ankle fracture. History, physical exam and radiographs reviewed with the patient And family. Right ankle trimalleolar fracture. Discussed the condition, nature, etiology and course of natural history with the patient and her family. Treatment options including surgical and nonoperative treatment were reviewed. Risks and benefits of each as well as alternatives reviewed. The patient's questions were answered. Conservative treatment ice, compression and elevation. Pain control. Patient and family desire operative treatment. Plan Discussed nonoperative and operative treatment options with the patient as well as her decision maker/family members. Risks and benefits of each as well as alternatives were reviewed. All of the patient's and family's questions were answered. The risks of surgery reviewed including but not limited to: Neurovascular damage, wound complication, infection, blood clot, pulmonary embolus, stroke, myocardial infarction, and anesthetic risks up to and including . Continued pain and possible dysfunction were explained. Specific risks of the procedure including later recurrence of deformity. No guarantees were offered. If hardware used, discussed risk of failure/ breakage and possible need for removal. If complications occur, the patient understands the need for further treatment, possible further surgery. Patient and family verbalize understanding and wish to proceed. PLAN: Open reduction internal fixation right ankle fracture reviewed with daughter once again. She is in agreement with proceeding with surgery for right ankle fracture. History of Present Illness HPI Consult date: 06/17/24 Requesting physician: Harry Alarcon MD Chief complaint: Trimalleolar Ankle Fracture Narrative: 88-year-old woman who lives at home fell getting into the shower this morning. Sustained injury to the right ankle. Found to have fracture dislocation of the right ankle. Closed reduced by emergency room. Admitted for further care. Review of Systems Constitutional: Constitutional: Denies fever(s) Eyes: Eyes: Denies blurry vision ENT: Reports Normal hearing present Cardiovascular: Cardiovascular: Denies chest pain and Denies dyspnea Respiratory: Respiratory: Denies dyspnea and Denies wheezing Gastrointestinal: Gastrointestinal: Denies abdominal pain Genitourinary: Genitourinary: Denies urinary urgency Musculoskeletal: Musculoskeletal: Reports as per HPI and Denies numbness Integumentary/Breasts: Skin/Breast: Denies changing lesions and Denies sores Neurologic: Reports Normal hearing present, Denies behavioral changes, Denies confusion, Denies numbness and Denies convulsions Psychiatric: Psychiatric: Denies behavioral changes, Denies confusion and Denies hallucinations Endocrine: Endocrine: Denies heat intolerance Hematologic/Lymphatic: Hematologic/Lymphatic: Denies easy bleeding Allergic/Immunologic: Allergic/Immunologic: Denies wheezing [facility] Past Medical History Medical History (Updated 06/16/24 @ 12:26 by Filomena Avery, POWER HAIR CLIPPER) H/O fracture of humerus H/O fracture of radius History of blood clots History of kidney stones Hyperlipidemia Hypertension Surgical History Surgical History History of appendectomy History of cholecystectomy History of hysterectomy Family History Family History (Reviewed 06/16/24 @ 12:26 by Filomena Astorga
[2024-06-16 10:36] VITALS: O2SAT 97
[2024-06-16 11:14] VITALS: BMI 28.3
--- NOTE | 2024-06-16 12:09 | PM.IMHP ---
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 The patient presents here via EMS from home for further evaluation of right ankle pain post ground-level fall. She reports that she was in the bathroom getting ready to shower. She was grabbing a towel when she slipped on a wet spot in her bathroom. She then twisted her right ankle. Immediately felt something go wrong in her ankle and had obvious deformity after fall. Fell onto her right hip. Patient was unable to ambulate or bear weight on the right ankle post-fall. Denies head strike or LOC. Denies numbness or tingling to affected foot. Patient is not on anticoagulation. Utilizes an assistive device at baseline - utilizes different levels of canes dependent on where she is and occasionally uses a walker dependent on where she is going. Initial VS at presentation: 97.8? F, HR 87, RR 16, 157/85, and 98% on RA. ED workup showed: No leukocytosis, no anemia, normal coags, significant electrolyte derangements, creatinine 1.0 and GFR 53, glucose 120. XR of the ankle showed a medial and lateral malleolar fractures, possible posterior malleolar fracture, posterior lateral dislocation of the ankle joint. Post reduction showed minimal residual lateral space in the lateral and medial malleolar fractures and minimal lateral residual tibiotalar subluxation and suspected slightly superiorly displaced subtle posterior malleolar fracture. Review of Systems Review of Systems: All systems reviewed & are unremarkable except as noted in HPI and below [facility] Past Medical History Medical History (Updated 06/16/24 @ 12:26 by Filomena Avery APRN) H/O fracture of humerus H/O fracture of radius History of blood clots History of kidney stones Hyperlipidemia Hypertension Surgical History Surgical History History of appendectomy History of cholecystectomy History of hysterectomy Family History Family History Mother Polio Sibling , brother Sleep apnea Sibling , Sister Heart disease, Onset Age: 90 after having heart surgery Social History Social History Smoking status: Never smoker Second hand tobacco smoke exposure: No Alcohol intake: never Substance use: never Substance use type: does not use Do You Feel Safe in your Home?: Yes Lack of Transportation: No Lack of Food: Never True Current Housing: I Have Housing Concerned About Future Housing: No Difficulty Paying Gas/Electric Bills: No Difficulty Paying for Meds: No Currently Unemployed: No Education: Don't Know Difficulty w/ Childcare or Family Care: No Occupation/Education: retired 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 Gender identity (if verbalized by the patient): Female Spiritual care concerns: No Meds Home Medications and Allergies Home Medications Medication Instructions Recorded Confirmed Type rosuvastatin 5 mg tablet 5 mg PO DAILY 07/29/20 06/16/24 History acetaminophen 325 mg tablet 650 mg PO Q6H PRN Mild Pain (1-3) 02/14/24 06/16/24 Rx Or Fever #0 tabs lisinopril 20 mg tablet 20 mg PO DAILY #30 tabs 02/14/24 06/16/24 Rx polyethylene glycol 3350 17 gram 17 g PO QAM PRN Constipation - 1st 02/14/24 06/16/24 Rx oral powder packet (Miralax) Line #0 ea sennosides 8.6 mg-docusate sodium 1 tab PO BID #0 tabs 02/14/24 06/16/24 Rx 50 mg tablet (Senokot-S) mirabegron 50 mg tablet,extended 50 mg PO HS 06/16/24 06/16/24 History release 24 hr (Myrbetriq) Allergies Allergy/AdvReac Type Severity Reaction Status Date / Time chlorpheniramine Allergy Mild Unknown
[2024-06-16] MEDS: SODIUM CHLORIDE 0.9% IV 1,000 ML 75 ML IV CONT (13:10)
[2024-06-16 14:00] VITALS: BP 115/44; PULSE 84; RESP 18; TEMP 36.5; O2SAT 98
[2024-06-16] MEDS: SENNA/DOCUSATE SODIUM TABLET 1 TAB PO (17:41)
[2024-06-16] MEDS: ACETAMINOPHEN 325 MG TABLET 650 MG PO (20:41)
[2024-06-16] MEDS: MIRABEGRON 50 MG ER TABLET PO (20:41)
[2024-06-16 22:00] VITALS: BP 124/76; PULSE 75; RESP 16; TEMP 36.7; O2SAT 94
[2024-06-17] VITALS (13 sets, daily range): BP systolic 109–162; BP diastolic 61–81; PULSE 66–95; RESP 11–20; TEMP 36.4–37.1; O2SAT 93–100
--- NOTE | 2024-06-17 03:14 | PC.NURSE ---
2230- Patient rang call light and asked for help. This RN entered the room patient stated I'm not in the OR room? Where am I? why are you all keeping me here, I am supposed to go to [facility], you people are keeping here, who are you She refused care insisting that this RN was trying to hide what was really going on states I have government clearance and has never been involved in anything like this . When this RN left the room to notify MD of confusion and behaviors, Patient called 911 twice. This RN walked into room during 2nd call, patient states to the power barker operator they are keeping me hostage, please send help, I want to go to [facility] and please call my daughter . The lens gauger and House Sup made aware. MD and DIRECTOR DIGITAL aware, continuing to check on patient, Zyprexa ordered if needed. Patient's son who is listed as contact not answering phone, called 3 times. 2330- Patient yelling Help, help attempted to reorientate. States she has a brain aneurysm and cannot take aspirin Endured patient she was not given aspirin 0010- Patient told this RN she wanted to call her daughter, asked for the number, Patient could not provide it. Patient fidgety and restless, refusing oral medication. From [phone] patient remains awake and insisting upon leaving in the morning. Reorientated to situation and time. Patient remains in bed with alarm on.
--- NOTE | 2024-06-17 06:01 | PC.NURSE ---
Addendum entered by Miracle Koch RN 06/17/24 06:09: Patient refused labs at 0500. 0545- Called daughter Eva at [phone], patient able to speak to her, when this RN went out to desk to place follow up call at 0605 and phone goes to voicemail, unable to speak with daughter about consent for surgery. Original Note: Patient confused, yelling for help, unable to answer orientation questions , does not no hospital name , cannot name president. Charge Nurse, Bruna called in for help because patient is accusing staff of being incompetent, stating she wants to leave, that staff is clling her names, that staff hasn't checked on her all night, that no one has looked at her leg.
[2024-06-17 06:36] LABS: Basophils Percent Auto 0.5 % (0.2-1.2); Eosinophils Absolute Auto 0.2 K/mm3 (0-0.3); Eosinophils Percent Auto 2.7 % (0-4.4); Hematocrit 36.4 % (37.0-47.0); Hemoglobin 12.1 g/dL (12.0-15.0); Immature Granulocyte Absolute 0.04 K/mm3 (0.00-0.031); Immature Granulocyte Percent A 0.5 % (0-0.5); Lymphocytes Absolute Auto 1.71 K/mm3 (0.9-3.2); Lymphocytes Percent Auto 23.5 % (18.3-44.2); Mean Corpuscular HGB Conc 33.2 g/dl (32-36); Mean Corpuscular Hemoglobin 29.8 pg (26-34); Mean Corpuscular Volume 89.7 fl (80-100); Mean Platelet Volume 9.3 fl (7.4-10.4); Monocytes Absolute Auto 0.8 K/mm3 (0.1-0.6); Monocytes Percent Auto 10.3 % (2.6-8.5); Neutrophils Absolute Auto 4.5 K/mm3 (1.3-6.7); Neutrophils Percent Auto 62.5 % (45.5-73.1); Platelet Count Result 237 k/mm3 (150-375); Red Blood Count 4.06 M/mm3 (4.2-5.4); Red Cell Distribution Width 13.1 % (11.5-14.5); White Blood Count 7.3 K/mm3 (4.5-10.0)
[2024-06-17 06:52] LABS: Anion Gap 8 mmol/L (4-12); Blood Urea Nitrogen 18 mg/dL (7-17); Calcium 9.3 mg/dL (8.4-10.2); Carbon Dioxide 26 mmol/L (22-30); Chloride 104 mmol/L (98-107); Estimated CRCL calculation 42 ml/min; Estimated Glomerular Filt Rate 59; Glucose 127 mg/dL (65-110); Potassium 3.5 mmol/L (3.4-5.0); Sodium 138 mmol/L (137-145)
--- NOTE | 2024-06-17 07:58 | WPDHPUPDATE1 ---
History and Physical Update Update Date/Time: 06/17/24 07:58 History and Physical has been reviewed, including an updated exam of the patient. There are NO changes in the patient's condition. Risks, benefits, and alternatives have been discussed and questions answered. Discussed once again with her daughter and reviewed plan for surgery and treatment for ankle fracture. reviewed via telephone this morning 7:45 a.m.. Questions answered. Agrees with proceeding with surgical fixation right ankle fracture. Patient And family agree to proceed with procedure.
[2024-06-17] MEDS: ACETAMINOPHEN 500 MG TABLET 1000 MG PO (08:05)
[2024-06-17] MEDS: LACTATED RINGERS 1,000 ML 30 ML IV CONT ×2 (08:05→10:36)
[2024-06-17] MEDS: KETOROLAC 15 MG/ML VIAL (*BKC) IV PUSH (08:21)
--- NOTE | 2024-06-17 08:28 | WPDANESEPPF ---
Anes - Initial Pre Proc Eval Procedure: Operation Date: 06/17/24 09:00 Proposed Procedures p Open Reduction Internal Fixation Right Ankle - Gregg Henriquez MD Date/Time: 06/17/24 08:28 Surgeon: George Sheldon MD Pre Op Diagnosis: Trimalleolar Ankle Fracture Patient Data Age: 88 Gender: F Height: 1.68 m Weight: 79.5 kg Last Vital Signs Temp 97.5 F L 06/17/24 08:11 Pulse 88 06/17/24 08:11 Resp 16 06/17/24 08:11 BP 162/67 H 06/17/24 08:11 Pulse Ox 96 06/17/24 08:11 O2 Del Method Room Air 06/17/24 08:11 Allergies Allergy/AdvReac Type Severity Reaction Status Date / Time chlorpheniramine Allergy Mild Unknown Verified 06/17/24 08:08 codeine Allergy Mild Unknown Verified 06/17/24 08:08 phenylephrine Allergy Mild Unknown Verified 06/17/24 08:08 shellfish derived Allergy Hives Verified 06/17/24 08:08 Home Medications Medication Instructions Recorded Confirmed Type rosuvastatin 5 mg tablet 5 mg PO DAILY 07/29/20 06/16/24 History acetaminophen 325 mg tablet 650 mg PO Q6H PRN Mild Pain (1-3) 02/14/24 06/16/24 Rx Or Fever #0 tabs lisinopril 20 mg tablet 20 mg PO DAILY #30 tabs 02/14/24 06/16/24 Rx polyethylene glycol 3350 17 gram 17 g PO QAM PRN Constipation - 1st 02/14/24 06/16/24 Rx oral powder packet (Miralax) Line #0 ea sennosides 8.6 mg-docusate sodium 1 tab PO BID #0 tabs 02/14/24 06/16/24 Rx 50 mg tablet (Senokot-S) mirabegron 50 mg tablet,extended 50 mg PO HS 06/16/24 06/16/24 History release 24 hr (Myrbetriq) Laboratory Tests 06/16/24 06/17/24 08:46 06:10 WBC 10.0 K/mm3 7.3 K/mm3 (4.5-10.0) (4.5-10.0) RBC 4.06 L M/mm3 4.06 L M/mm3 (4.2-5.4) (4.2-5.4) Hgb 12.3 g/dL 12.1 g/dL (12.0-15.0) (12.0-15.0) Hct 36.5 L % 36.4 L % (37.0-47.0) (37.0-47.0) MCV 89.9 fl 89.7 fl (80-100) (80-100) MCH 30.3 pg 29.8 pg (26-34) (26-34) MCHC 33.7 g/dl 33.2 g/dl (32-36) (32-36) RDW 13.0 % 13.1 % (11.5-14.5) (11.5-14.5) Plt Count 243 k/mm3 237 k/mm3 (150-375) (150-375) MPV 8.8 fl 9.3 fl (7.4-10.4) (7.4-10.4) Immature Gran % (Auto) 0.5 % 0.5 % (0-0.5) (0-0.5) Neut % (Auto) 81.5 H % 62.5 % (45.5-73.1) (45.5-73.1) Lymph % (Auto) 9.6 L % 23.5 % (18.3-44.2) (18.3-44.2) Clare % (Auto) 6.2 % 10.3 H % (2.6-8.5) (2.6-8.5) Eos % (Auto) 1.7 % 2.7 % (0-4.4) (0-4.4) Baso % (Auto) 0.5 % 0.5 % (0.2-1.2) (0.2-1.2) Lymph # (Auto) 0.96 K/mm3 1.71 K/mm3 (0.9-3.2) (0.9-3.2) Clare # (Auto) 0.6 K/mm3 0.8 H K/mm3 (0.1-0.6) (0.1-0.6) Eos # (Auto) 0.2 K/mm3 0.2 K/mm3 (0-0.3) (0-0.3) Baso # (Auto) 0.1 K/mm3 0.0 K/mm3 (0.0-0.1) (0.0-0.1) Abs Immat Gran (auto) 0.05 H K/mm3 0.04 H K/mm3 (0.00-0.031) (0.00-0.031) Absolute Neuts (auto) 8.2 H K/mm3 4.5 K/mm3 (1.3-6.7) (1.3-6.7) Absolute Nucleated RBC 0.000 K/mm3 0.000 K/mm3 (0.0-0.012) (0.0-0.012) Nucleated RBC % 0.0 % 0.0 % (0.0-0.2) (0.0-0.2) PT 13.9 Seconds (11.1-14.7) INR 1.0 APTT 25.3 Seconds (22.3-36.8) Sodium 138 mmol/L 138 mmol/L (137-145) (137-145) Potassium 4.0 mmol/L 3.5 mmol/L (3.4-5.0) (3.4-5.0) Chloride 104 mmol/L 104 mmol/L (98-107) (98-107) Carbon Dioxide 28 mmol/L 26 mmol/L (22-30) (22-30) Anion Gap 6 mmol/L 8 mmol/L (4-12) (4-12) BUN 24 H mg/dL 18 H mg/dL (7-17) (7-17) Creatinine 1.00 mg/dL 0.90 mg/dL (0.7-1.0) (0.7-1.0) Estim Creat Clear Calc 38 ml/min 42 ml/min Estimated GFR 53 L 59 (59 - ) (59 - ) Glucose 120 H mg/dL 127 H mg/dL (65-110) (65-110) Calcium 9.2 mg/dL 9.3 mg/dL (8.4-10.2) (8.4-10.2) Total Bilirubin 0.5 mg/dL (0.2-1.3) AST 23 U/L (14-36) ALT 13 U/L (6-35) Alkaline Phosphatase 50 U/L (38-126) Total Protein 7.0 g/dL (6.3-8.2) Albumin 3.9 g/dL (3.5-5.1)
[2024-06-17] MEDS: ceFAZolin 2 GM/D5W 50 ML 2 GM/50 ML BAG IVPB (08:57)
[2024-06-17] MEDS: BUPIVACAINE/EPINEPHRINE 0.5% 50 ML VIAL 20 ML INFILTRATE (09:18)
--- NOTE | 2024-06-17 10:59 | W.PM.PROC2 ---
Procedure Note - Detailed Date of Procedure 06/17/24 Pre-op Diagnosis Trimalleolar Ankle Fracture Post-op Diagnosis Same Procedure Performed Open reduction internal fixation of lateral and medial malleolus portion of trimalleolar ankle fracture, open reduction internal fixation distal tib-fib syndesmosis. Surgeon Gregg Henriquez MD Cattle Dealer 1st assistant track coach Anesthesia General Indications 88-year-old woman who fell at home and sustained right ankle fracture dislocation. Presents for operative treatment. Description of Procedure After informed consent, the operative extremity was marked in the preoperative holding area. Patient received intravenous antibiotics. Patient was then taken to the operating room and underwent general anesthesia by the anesthesia team. Positioned supine on the operating room table with a soft bump under the ipsilateral hip. A time-out was performed confirming the patient, site of the surgery, operative plan. Lower extremity then prepped and draped in the usual sterile surgical fashion using ChloraPrep skin solution. Foot and ankle exsanguinated and a thigh tourniquet inflated to 250 mmHg. Longitudinal incision made over the lateral ankle distal fibula with a 15 blade knife. Hemostasis controlled with electrocautery. Full-thickness soft tissue flaps developed and the fascia was incised in line with the skin incision. Fracture identified and cleared with a dental pick, irrigation and rongeur. Fracture reduced and held with bone-holding clamp. Image intensification confirmed reduction of the fracture and the ankle mortise. Fixation achieved with 3.8 mm fibula lock intramedullary fibular nail. Guide anival placed from the distal fibula into the intramedullary canal and verified with image intensification. Reaming done over the guide anival. Nail then placed to the correct depth and secured with the proximal deployment device. 3.0 mm screws used distally to lock the nail into the distal fragment. Good alignment and stability of the fracture noted. Image intensification used to confirm reduction of the fracture and placement of the hardware. Medial side then addressed. Longitudinal incision made with a 15 blade knife over the medial malleolus fracture. Hemostasis controlled with electrocautery. Fascia incised in line with skin incision. Periosteum cleared from the medial malleolus fracture. Medial side of the joint inspected and noted to have mild amount of trauma to the chondral surface. Thorough irrigation of the ankle joint and suctioned out. Fracture reduced and provisionally pinned. Fixation achieved with 4.0 mm partially threaded cancellous screws x2 placed in cannulated screw fashion. Image intensification confirmed reduction of the fracture and placement of the hardware. Stress of the ankle performed And instability of the syndesmosis noted. Indicated for syndesmosis fixation. exposure over the anterior fibula allowed visualization of the syndesmosis. Fibular reduced to the tibia and fixed with the tight rope system. 4.0 mm drill used to drill the fibula and tibia and verified with image intensification. Tight rope devices passed and deployed with good fixation. Image intensification confirmed good all alignment and stability of the ankle mortise and syndesmosis. Posterior malleolus fracture noted to be reduced and stable. Wounds thoroughly irrigated with antibiotic solution. Fascia repaired with 00 Vicryl interrupted suture. Subcutaneous tissue repaired with 000 Monocryl interrupted suture and Skin approximated with rubi. Sterile dressings applied followed by bulky dressing and splint. Patient awoken from anesthesia, extubated and taken to the recovery room in stable condition. All sponge, needle and instrument counts correct at the end of the case. Palpable dorsalis pedis pulse noted prior to dressing. Implants Arthrex fibular locked nail, syndesmosis fixation x2, medial malleolus fixation 4.0 mm screw x2
[2024-06-17 13:03] LABS: Appearance Urine Cloudy (Clear); Bacteria Urine 1+ /hpf; Bilirubin Urine Negative (Negative); Blood Urine 1+ (Negative); Color Urine Yellow (Yellow); Glucose Urine UA Negative (Negative); Ketones Urine Negative (Negative); Leukocyte Esterase Ur 3+ LEU/UL (Negative); Nitrate Urine Positive (Negative); Protein Urine Negative (Negative); Specific Grav Ur 1.012 (1.001-1.035); Squamous Epithelial Cell Urine None Seen /hpf (Few); Urobilinogen Urine 0.2 mg/dL (<2.0); WBC Urine 51-100 /hpf (0-3); pH Urine 7.5 (5.0-9.0)
[2024-06-17 13:04] LABS: Add Urine Microscopic? YES
--- NOTE | 2024-06-17 14:20 | PM.IMPN ---
Progress Note: A&P Assessment and Plan (1) Closed trimalleolar fracture of ankle: Qualifiers: Encounter type: initial encounter Laterality: right Qualified Code(s): S82.851A - Displaced trimalleolar fracture of right lower leg, initial encounter for closed fracture Code(s): S82.853A - Displaced trimalleolar fracture of unspecified lower leg, initial encounter for closed fracture Status: Acute (2) Hypertension: Qualifiers: Hypertension type: primary hypertension Qualified Code(s): I10 - Essential (primary) hypertension Code(s): I10 - Essential (primary) hypertension Status: Chronic Plan H&P via Filomena Avery DRIVER TRAINEE 88 y/o F presents here with fall with PMH of HTN, HLD, kidney stones, dementia, sleep apnea, aneurysm (?? 2021), and heart disease. The patient presents here via EMS from home for further evaluation of right ankle pain post ground-level fall. She reports that she was in the bathroom getting ready to shower. She was grabbing a towel when she slipped on a wet spot in her bathroom. She then twisted her right ankle. Immediately felt something go wrong in her ankle and had obvious deformity after fall. Fell onto her right hip. Patient was unable to ambulate or bear weight on the right ankle post-fall. Denies head strike or LOC. Denies numbness or tingling to affected foot. Patient is not on anticoagulation. Utilizes an assistive device at baseline - utilizes different levels of canes dependent on where she is and occasionally uses a walker dependent on where she is going. Initial VS at presentation: 97.8? F, HR 87, RR 16, 157/85, and 98% on RA. ED workup showed: No leukocytosis, no anemia, normal coags, significant electrolyte derangements, creatinine 1.0 and GFR 53, glucose 120. XR of the ankle showed a medial and lateral malleolar fractures, possible posterior malleolar fracture, posterior lateral dislocation of the ankle joint. Post reduction showed minimal residual lateral space in the lateral and medial malleolar fractures and minimal lateral residual tibiotalar subluxation and suspected slightly superiorly displaced subtle posterior malleolar fracture. ----- s/p repair by Dr. 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 Receive Zyprexa per JAN. patient denies complaints today. Review of Systems Review of Systems: All systems reviewed & are unremarkable except as noted in HPI and below (Subjective) Exam Const: General: comfortable and no acute distress Eyes: Pupils: Equal, round and reactive pupils present Neck: Neck: supple Resp: Effort & Inspection: normal respiratory effort Auscultation: clear to auscultation bilaterally Cardio: Rate: regular rate Rhythm: regular rhythm GI: Inspection: non-distended GI Palp: Yes Soft to palpation and No Tenderness to palpation present (GI) Auscultation: normal bowel sounds Extrem: General: no edema Other: Neurovascular exam intact bilateral feet Objective Data Vital Signs Vital Signs: Vital Signs - 24 hr 06/16/24 22:00 06/16/24 20:00 06/17/24 05:59 Temperature 98.1 F 98.8 F Pulse Rate 75 88 Respiratory Rate 16 18 Blood Pressure 124/76 130/75 Pulse Oximetry 94 96 Oxygen Delivery Room Air Oxygen Flow Rate 06/17/24 08:11 06/17/24 10:36 06/17/24 10:50 Temperature 97.5 F L 97.7 F Pulse Rate 88 66 73 Respiratory Rate 16 11 L 20 Blood Pressure 162/67 H 143/65 H 155/75 H Pulse Oximetry 96 100 100 Oxygen Delivery Room Air Simple Face Mask Simple Face Mask Oxygen Flow Rate 8 8 06/17/24 10:59 06/17/24 11:05 06/17/24 11:20 Temperature Pulse Rate 71 69 Respiratory Rate 18 14 Blood Pressure 125/73 140/62 Pulse Oximetry 93 93 95 Oxygen Delivery Room Air Room Air Juliana
--- NOTE | 2024-06-17 16:03 | PCPTNOTE ---
On 06/17/24, the student, [Cindi Kwon], provided care and completed [facility] documentation on this patient. I have reviewed the student's documentation and agree with the findings.
[2024-06-17] MEDS: SENNA/DOCUSATE SODIUM TABLET 1 TAB PO (17:49)
[2024-06-17] MEDS: MIRABEGRON 50 MG ER TABLET PO (20:48)
[2024-06-17] MEDS: ASPIRIN 81 MG ENTERIC TABLET PO (20:48)
--- NOTE | 2024-06-18 01:28 | PC.NURSE ---
Patient remains confused and uncooperative with sitter at bedside. Patient is throwing broken ankle over side rail trying to climb out of bed. Patient states I need to go get my hair done also that she is going to [employer] to get a fish sandwich . Patient refusing care and yelling at staff. Diversional activities and redirection attempted, patient did fold some towels, then refused. She is refusing to sleep as she needs to go home , she is Setting off bed alarm trying to get up, she is moving sideways in bed and hitting her broken casted ankle against the bed rails or throwing it off the side. Attempted to pad rails, patient removes them. Notified Dr. Gomez, see orders
[2024-06-18] MEDS: OLANZapine 10 MG INJ VIAL 5 MG IM (02:03)
[2024-06-18 05:28] VITALS: BP 149/65; PULSE 82; TEMP 36.5; O2SAT 97
--- NOTE | 2024-06-18 06:13 | PC.NURSE ---
Addendum entered by Miracle Koch RN 06/18/24 06:23: 0130 patient helper removed from bed for safety of staff and patient, attempting to grab and swing at anything with in reach. Original Note: 0115 Patient combative with staff, swinging at this RN and sitter. Patient screaming HELP kicking , biting and hitting at staff. Patient kicking her right ankle with cast against the bed and staff, Medication given to patient and monitored, sitter remains bedside. Post medication admin- Patient talkative but calm. 0530 patient asleep in room, equal rise chest and fall, sitter remains bedside.
[2024-06-18 06:22] LABS: Hematocrit 34.4 % (37.0-47.0); Hemoglobin 11.5 g/dL (12.0-15.0); Mean Corpuscular HGB Conc 33.4 g/dl (32-36); Mean Corpuscular Hemoglobin 29.9 pg (26-34); Mean Corpuscular Volume 89.4 fl (80-100); Mean Platelet Volume 9.4 fl (7.4-10.4); Platelet Count Result 218 k/mm3 (150-375); Red Blood Count 3.85 M/mm3 (4.2-5.4); White Blood Count 8.5 K/mm3 (4.5-10.0)
[2024-06-18 06:35] LABS: Anion Gap 9 mmol/L (4-12); Blood Urea Nitrogen 17 mg/dL (7-17); Carbon Dioxide 28 mmol/L (22-30); Chloride 103 mmol/L (98-107); Estimated CRCL calculation 42 ml/min; Estimated Glomerular Filt Rate 59; Glucose 97 mg/dL (65-110); Potassium 3.5 mmol/L (3.4-5.0); Sodium 140 mmol/L (137-145)
[2024-06-18] MEDS: HYDROcodone/acetaminophen (*CRX) 5-325 MG TABLET 1 TAB PO (06:40)
[2024-06-18 08:00] VITALS: O2SAT 97
--- NOTE | 2024-06-18 08:04 | PCPTNOTE ---
Attempted to see patient for PT, patient unable to be seen at this time. Per RN patient was up all night and is finally sleeping and asked PT to come back later to let patient sleep.
--- NOTE | 2024-06-18 09:32 | PM.PNORT ---
Progress Note: A&P Assessment and Plan (1) Closed trimalleolar fracture of ankle: Qualifiers: Encounter type: initial encounter Laterality: right Qualified Code(s): S82.851A - Displaced trimalleolar fracture of right lower leg, initial encounter for closed fracture Code(s): S82.853A - Displaced trimalleolar fracture of unspecified lower leg, initial encounter for closed fracture Status: Acute Assessment and Plan: POD #1: Open reduction internal fixation of lateral and medial malleolus portion of trimalleolar ankle fracture, open reduction internal fixation distal tib-fib syndesmosis. Continue PT/OT. NWB. Walker. HIGH FALL RISK. Continue pain control. Ice RLE. Protect skin. DVT prophylaxis with Aspirin. . Monitor cast. Keep c/d/i. Bowel Regimen. Dispo: SE vs. SNF pending progress with PT/OT when medically stable 2 week f/u appt scheduled in the outpatient setting. Plan Reviewed history, exam, radiographs and current labs with attending MD and covering surgeon, Dr. Henriquez, who agrees with current plan as indicated above. No further recommendations from Dr. Henriquez at this time. Subjective Subjective Date/Time Seen: 06/18/24 09:32 Post Op day: 1 Interval history: POD #1: Open reduction internal fixation of lateral and medial malleolus portion of trimalleolar ankle fracture, open reduction internal fixation distal tib-fib syndesmosis. Patient resting comfortably. Restless overnight per RN. Patient walking on her cast. Review of Systems Review of Systems: All systems reviewed & are unremarkable except as noted in HPI and below ROS unobtainable: Yes unobtainable due to mental status Exam Const: General: comfortable and no acute distress Resp: Effort & Inspection: normal respiratory effort Cardio: Rate: regular rate Rhythm: regular rhythm GI: GI Palp: Yes Soft to palpation Extrem: Right lower extremity: knee Details: normal to inspection and normal ROM; no tenderness and no swelling, lower leg (cast in place ), ankle (cast in place ) and foot (cast in place) Details: normal capillary refill Objective Data Vital Signs Vital Signs: Vital Signs - 24 hr 06/17/24 10:36 06/17/24 10:50 06/17/24 10:59 Temperature 36.5 C Pulse Rate 66 73 Respiratory Rate 11 L 20 Blood Pressure 143/65 H 155/75 H Pulse Oximetry 100 100 93 Oxygen Delivery Simple Face Mask Simple Face Mask Room Air Oxygen Flow Rate 8 8 06/17/24 11:05 06/17/24 11:20 06/17/24 11:40 Temperature 37.0 C Pulse Rate 71 69 69 Respiratory Rate 18 14 16 Blood Pressure 125/73 140/62 112/77 Pulse Oximetry 93 95 94 Oxygen Delivery Room Air Room Air Oxygen Flow Rate 06/17/24 12:10 06/17/24 14:21 06/17/24 14:00 Temperature 36.8 C 36.6 C Pulse Rate 70 70 Respiratory Rate 16 18 Blood Pressure 132/70 140/81 Pulse Oximetry 93 95 Oxygen Delivery Room Air Oxygen Flow Rate 06/17/24 17:13 06/17/24 19:26 06/17/24 20:00 Temperature 36.6 C 37.1 C Pulse Rate 89 95 95 Respiratory Rate 16 14 14 Blood Pressure 109/69 155/61 H Pulse Oximetry 93 94 94 Oxygen Delivery Room Air Oxygen Flow Rate 06/18/24 05:28 Temperature 36.5 C Pulse Rate 82 Respiratory Rate Blood Pressure 149/65 H Pulse Oximetry 97 Oxygen Delivery Oxygen Flow Rate Intake/Output Intake/Output: Intake & Output 06/15/24 06/16/24 06/17/24 06/18/24 23:59 23:59 23:59 23:59 Intake Total 1388 1010 200 Output Total 400 Balance 1388 610 200 Meds/Results Medications: Active Medications Generic Name Dose Route Start Last Admin Trade Name Freq PRN Reason Stop Dose Admin Acetaminophen 650 mg 06/16/24 09:00 06/16/24 20:41 Acetaminophen 325 Mg Tablet PO 650 mg Q4H PRN Administration Mild Pain (1-3) or Fever Hydrocodone Bitart/Acetaminophen 1 tab 06/16/24 09:00 06/18/24 06:40 Hydrocodone/Acetaminophen (*Crx) 5-325 Mg Tablet PO 1 tab Q4H PRN Administration Pain Rated 4
[2024-06-18] MEDS: SODIUM CHLORIDE 0.9% IV 1,000 ML 75 ML IV CONT (11:24)
--- NOTE | 2024-06-18 11:26 | PM.IMPN ---
Progress Note: A&P Assessment and Plan (1) Closed trimalleolar fracture of ankle: Qualifiers: Encounter type: initial encounter Laterality: right Qualified Code(s): S82.851A - Displaced trimalleolar fracture of right lower leg, initial encounter for closed fracture Code(s): S82.853A - Displaced trimalleolar fracture of unspecified lower leg, initial encounter for closed fracture Status: Acute (2) Hypertension: Qualifiers: Hypertension type: primary hypertension Qualified Code(s): I10 - Essential (primary) hypertension Code(s): I10 - Essential (primary) hypertension Status: Chronic (3) Abnormal urinalysis: Code(s): R82.90 - Unspecified abnormal findings in urine Status: Acute Plan H&P via Filomena Avery DIRECTOR OF PRIMARY 88 y/o F presents here with fall with PMH of HTN, HLD, kidney stones, dementia, sleep apnea, aneurysm (?? 2021), and heart disease. The patient presents here via EMS from home for further evaluation of right ankle pain post ground-level fall. She reports that she was in the bathroom getting ready to shower. She was grabbing a towel when she slipped on a wet spot in her bathroom. She then twisted her right ankle. Immediately felt something go wrong in her ankle and had obvious deformity after fall. Fell onto her right hip. Patient was unable to ambulate or bear weight on the right ankle post-fall. Denies head strike or LOC. Denies numbness or tingling to affected foot. Patient is not on anticoagulation. Utilizes an assistive device at baseline - utilizes different levels of canes dependent on where she is and occasionally uses a walker dependent on where she is going. Initial VS at presentation: 97.8? F, HR 87, RR 16, 157/85, and 98% on RA. ED workup showed: No leukocytosis, no anemia, normal coags, significant electrolyte derangements, creatinine 1.0 and GFR 53, glucose 120. XR of the ankle showed a medial and lateral malleolar fractures, possible posterior malleolar fracture, posterior lateral dislocation of the ankle joint. Post reduction showed minimal residual lateral space in the lateral and medial malleolar fractures and minimal lateral residual tibiotalar subluxation and suspected slightly superiorly displaced subtle posterior malleolar fracture. ----- s/p repair by Dr. Henriquez on 06/17 appreciate ortho recs, aspirin bid PT/OT History of hypertension. Blood pressure at goal. 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 q.day Underlying dementia. Patient had episode of sundowning night of 06/17. Receive Zyprexa 5 mg IM x1. DDX also includes acute toxic encephalopathy from UTI and postanesthesia delirium. Received cefazolin preoperatively. Start ceftriaxone daily 1 g IV on 06/18. Follow-up urine culture -Attempt to minimize nocturnal disturbances (avoid unnecessary lab draws, vital signs, nighttime medications). Promote regular sleep-wake cycle. Provide orienting stimuli including clock, calendar, lights on during the day and off at nighttime, and minimal staff changes. First line treatment to help control behavior disturbances is a sitter (family or staff). Avoid physical restraints as they tend to worsen agitation. However, use if absolutely necessary as second line. Pharmacological prophylaxis only to be used as third line treatment. Narcotics and benzodiazepines are not indicated. Antipsychotics to be used p.r.n. at the discretion of the customer records division supervisor physician at the time of behavioral disturbance. Minimize the use of tubes and drains. Address sensory deficits including vision and hearing. Ensure no bowel or bladder retention and call with concerns. Mobilize as possible, ideally out of bed for meals if able. full code aspirin bid saline lock when eating adequately dispo per ortho Subjective Date/time seen: 06/18/24 11:26 Interval history: Patient received Zyprexa 5 mg IM x1 overnight. This morning she is drowsy. Review of Systems Review of Systems: All syste
[2024-06-18] MEDS: lisinopriL 20 MG TABLET PO (13:04)
[2024-06-18] MEDS: ROSUVASTATIN 5 MG TABLET PO (13:04)
--- NOTE | 2024-06-18 13:31 | PCPTNOTE ---
Attempted to see patient for PT, however patient was very agitated and refused PT. Patient stated please leave me alone, and was asking for her clothes. Attempted to reassure patient and encourage patient for participation. Patient reported she did not want help from this therapist or anyone else in this hospital, and stated again please leave me alone. RN notified.
[2024-06-18] MEDS: ONDANSETRON INJ 4 MG/2 ML VIAL IV PUSH (15:36)
[2024-06-18 15:52] LABS: Glucose Point of Care 130 mg/dl (65-105)
--- NOTE | 2024-06-18 16:46 | PC.NURSE ---
Patient c/o of nausea and became diaphoretic when turing to get on bedpan. She stated that her stomach hurt. Abdomen soft to touch. Zofran given and glucose checked and WNL. BP 113/86, HR 84, 93% on RA resp [address] Gautam notified and new orders recieved.
[2024-06-18 21:56] VITALS: BP 106/70; PULSE 116; RESP 18; O2SAT 95
--- NOTE | 2024-06-19 05:10 | PC.NURSE ---
Patient was axo 1 since technical writer assumed care at 1900. Patient refused scheduled medications and stated numerous times get away from me, all you are doing is drugging me and keeping me away from my family . Patient had several large stools overnight. Food Production Worker and PRESS OPERATOR were able to provide hygiene and clean linens, but patient refused most other care.
[2024-06-19 06:50] VITALS: PULSE 106; RESP 18; TEMP 36.6; O2SAT 94
[2024-06-19] MEDS: SODIUM CHLORIDE 0.9% IV 1,000 ML 75 ML IV CONT (06:57)
--- NOTE | 2024-06-19 09:06 | PCPTNOTE ---
Attempted to see patient for PT, however patient too drowsy to participate with therapy at this time.
[2024-06-19 09:20] VITALS: O2SAT 92
[2024-06-19] MEDS: ROSUVASTATIN 5 MG TABLET PO (09:30)
[2024-06-19] MEDS: ASPIRIN 81 MG ENTERIC TABLET PO ×2 (09:30→20:12)
[2024-06-19] MEDS: SENNA/DOCUSATE SODIUM TABLET 2 TAB PO (09:30)
[2024-06-19] MEDS: lisinopriL 20 MG TABLET PO (09:30)
[2024-06-19 14:00] VITALS: BP 146/124; PULSE 62; RESP 16; TEMP 36.3; O2SAT 95
--- NOTE | 2024-06-19 16:07 | ECG_ITS ---
Test Date: 2024-06-19 16:15:09 Measurements Intervals [place] Rate: 102 P: 23 NC: 146 QRS: -29 QRSD: 123 T: 99 QT: 379 QTc: 494 Interpretive Statements SINUS TACHYCARDIA LEFT BUNDLE BRANCH BLOCK BASELINE ARTIFACT- I, II, III, V3-V4 ABNORMAL ECG No previous ECG available for comparison Electronically Signed On 06-19-2024 18:25:15 CDT by Hany Santacruz D.O.
--- NOTE | 2024-06-19 17:26 | PM.IMPN ---
Progress Note: A&P Assessment and Plan (1) Closed trimalleolar fracture of ankle: Qualifiers: Encounter type: initial encounter Laterality: right Qualified Code(s): S82.851A - Displaced trimalleolar fracture of right lower leg, initial encounter for closed fracture Code(s): S82.853A - Displaced trimalleolar fracture of unspecified lower leg, initial encounter for closed fracture Status: Acute (2) Hypertension: Qualifiers: Hypertension type: primary hypertension Qualified Code(s): I10 - Essential (primary) hypertension Code(s): I10 - Essential (primary) hypertension Status: Chronic (3) Abnormal urinalysis: Code(s): R82.90 - Unspecified abnormal findings in urine Status: Acute (4) 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 2021), PAD s/p iliac stent and heart disease. The patient presents here via EMS from home for further evaluation of right ankle pain post ground-level fall. She reports that she was in the bathroom getting ready to shower. She was grabbing a towel when she slipped on a wet spot in her bathroom. She then twisted her right ankle. Immediately felt something go wrong in her ankle and had obvious deformity after fall. Fell onto her right hip. Patient was unable to ambulate or bear weight on the right ankle post-fall. Denies head strike or LOC. Denies numbness or tingling to affected foot. Patient is not on anticoagulation. Utilizes an assistive device at baseline - utilizes different levels of canes dependent on where she is and occasionally uses a walker dependent on where she is going. Initial VS at presentation: 97.8? F, HR 87, RR 16, 157/85, and 98% on RA. ED workup showed: No leukocytosis, no anemia, normal coags, significant electrolyte derangements, creatinine 1.0 and GFR 53, glucose 120. XR of the ankle showed a medial and lateral malleolar fractures, possible posterior malleolar fracture, posterior lateral dislocation of the ankle joint. Post reduction showed minimal residual lateral space in the lateral and medial malleolar fractures and minimal lateral residual tibiotalar subluxation and suspected slightly superiorly displaced subtle posterior malleolar fracture. ----- s/p repair by Dr. Henriquez on 06/17 She is currently on aspirin b.i.d. for DVT prophylaxis. Continue PT OT. Nonweightbearing. Walker. High fall risk. Continue pain control, ice right lower extremity, protect skin. Monitor cast keep clean dry and intact Bowel regimen Dispo is SE versus SNF when medically stable with 2 week follow-up appointment scheduled in outpatient setting. Concerning the patient's bowel regimen, the patient had not had bowel movement for 2-3 days prior to admission. KUB demonstrated a large stool burden. A soapsuds enema was ordered but just prior to the that being given the patient had 2 large evacuations. Unfortunately, this did not improve the patient's psychosis. Continue Senokot 2 tabs twice per day. History of hypertension. Blood pressure at goal. 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 q.day. Urinalysis abnormal on admission. Urine culture negative. Discontinue ceftriaxone. Patient does not have symptomatology consistent with UTI. Concerning the patient's psychosis/delirium: Talked with the daughter Cathy. Nazario reports the patient has been living on her own but they were planning to move her to assisted living as she has undiagnosed likely dementia. The patient had been forgetting things even hallucinating, thinking her granddaughter was in her house when in fact she was not. The patient has been very cantankerous and slightly aggre
[2024-06-19 19:36] VITALS: BP 106/51; PULSE 89; RESP 20; TEMP 36.1; O2SAT 93
[2024-06-19] MEDS: CITALOPRAM HYDROBROMIDE 10 MG TABLET PO (20:12)
[2024-06-20] MEDS: SODIUM CHLORIDE 0.9% IV 1,000 ML 75 ML IV CONT (01:21)
[2024-06-20 05:47] VITALS: BP 130/58; PULSE 83; RESP 18; TEMP 36.2; O2SAT 95
[2024-06-20 08:40] VITALS: BP 118/57
[2024-06-20] MEDS: CITALOPRAM HYDROBROMIDE 10 MG TABLET PO (08:43)
[2024-06-20] MEDS: ASPIRIN 81 MG ENTERIC TABLET PO (08:43)
[2024-06-20] MEDS: ROSUVASTATIN 5 MG TABLET PO (08:43)
[2024-06-20] MEDS: SENNA/DOCUSATE SODIUM TABLET 2 TAB PO (08:43)
[2024-06-20] MEDS: lisinopriL 20 MG TABLET PO (08:43)
--- NOTE | 2024-06-20 13:42 | PM.DS ---
DS: Admitting Diagnosis Discharge Date 06/20/2024 Admitting Diagnosis Fall DS: Discharge Diagnosis Discharge Diagnosis (1) Closed trimalleolar fracture of ankle: Qualifiers: Encounter type: initial encounter Laterality: right Qualified Code(s): S82.851A - Displaced trimalleolar fracture of right lower leg, initial encounter for closed fracture Code(s): S82.853A - Displaced trimalleolar fracture of unspecified lower leg, initial encounter for closed fracture Status: Acute (2) Hypertension: Qualifiers: Hypertension type: primary hypertension Qualified Code(s): I10 - Essential (primary) hypertension Code(s): I10 - Essential (primary) hypertension Status: Chronic (3) Abnormal urinalysis: Code(s): R82.90 - Unspecified abnormal findings in urine Status: Acute (4) Acute psychosis: Code(s): F23 - Brief psychotic disorder Status: Acute (5) Neurocognitive disorder: Code(s): R41.9 - Unspecified symptoms and signs involving cognitive functions and awareness Status: Acute DS: Summary Hospital Course Hospital Course: 88 y/o F presents here with fall with PMH of HTN, HLD, kidney stones, dementia, sleep apnea, aneurysm (?? 2021), PAD s/p iliac stent and heart disease. The patient presents here via EMS from home for further evaluation of right ankle pain post ground-level fall. She reports that she was in the bathroom getting ready to shower. She was grabbing a towel when she slipped on a wet spot in her bathroom. She then twisted her right ankle. Immediately felt something go wrong in her ankle and had obvious deformity after fall. Fell onto her right hip. Patient was unable to ambulate or bear weight on the right ankle post-fall. Denies head strike or LOC. Denies numbness or tingling to affected foot. Patient is not on anticoagulation. Utilizes an assistive device at baseline - utilizes different levels of canes dependent on where she is and occasionally uses a walker dependent on where she is going. Initial VS at presentation: 97.8? F, HR 87, RR 16, 157/85, and 98% on RA. ED workup showed: No leukocytosis, no anemia, normal coags, significant electrolyte derangements, creatinine 1.0 and GFR 53, glucose 120. XR of the ankle showed a medial and lateral malleolar fractures, possible posterior malleolar fracture, posterior lateral dislocation of the ankle joint. Post reduction showed minimal residual lateral space in the lateral and medial malleolar fractures and minimal lateral residual tibiotalar subluxation and suspected slightly superiorly displaced subtle posterior malleolar fracture. Orthopedics has been consulted since admission and she is s/p repair by Dr. Henriquez on 06/17 She is currently on aspirin b.i.d. for DVT prophylaxis. Continue PT OT. Nonweightbearing. Walker. High fall risk. She will follow-up with Dr. Contreras in 2 weeks Continue pain control, ice right lower extremity, protect skin. Monitor cast keep clean dry and intact Bowel regimen for constipation to continue Post operative confusion/delirium. Possible dementia prior to admission. Reported hallucinations which worsened considering long-term use of med appt back Herann has had etiology which has been stopped. History of stable 7 mm basilar tip aneurysm. MRI been unable to be obtained due to previous iliac stents. Will need neuropsychiatric evaluation as an outpatient basis. CT brain without contrast with no acute findings. SSRI was started with Celexa which will be continued. History of hypertension: Continue lisinopril Disposition: SNF placement Time Spent with Patient Time attestation: Total time spent providing and/or coordinating discharge services: 40 mins DS: Data Imaging Radiologist's impression: ITS Impressions Ankle X-Ray 06/16/24 07:55 IMPRESSION: Medial and lateral malleolar fractures, possible posterior malleolar fracture Posterolateral dislocation at the an
--- NOTE | 2024-06-20 14:11 | PM.PNORT ---
Progress Note: A&P Assessment and Plan (1) Closed trimalleolar fracture of ankle: Qualifiers: Encounter type: initial encounter Laterality: right Qualified Code(s): S82.851A - Displaced trimalleolar fracture of right lower leg, initial encounter for closed fracture Code(s): S82.853A - Displaced trimalleolar fracture of unspecified lower leg, initial encounter for closed fracture Status: Acute Assessment and Plan: POD #3: Open reduction internal fixation of lateral and medial malleolus portion of trimalleolar ankle fracture, open reduction internal fixation distal tib-fib syndesmosis. Continue PT/OT. NWB. Walker. HIGH FALL RISK. Continue pain control. Ice RLE. Protect skin. DVT prophylaxis with Aspirin. . Monitor cast. Keep c/d/i. Bowel Regimen. Dispo: SE pending progress with PT/OT when medically stable 2 week f/u appt scheduled in the outpatient setting. May discharge when cleared. Subjective Subjective Date/Time Seen: 06/20/24 14:11 Post Op day: 3 Principal diagnosis: Right ankle fracture Interval history: patient awake, on side of bed doing therapy. No complaints. Pain well controlled. Exam Const: General: comfortable and no acute distress Resp: Effort & Inspection: normal respiratory effort Cardio: Rate: regular rate Rhythm: regular rhythm GI: GI Palp: Yes Soft to palpation Extrem: Right lower extremity: knee Details: normal to inspection and normal ROM; no tenderness and no swelling, lower leg (cast in place ), ankle (cast in place ) and foot (cast in place) Details: normal capillary refill Objective Data Vital Signs Vital Signs: Vital Signs - 24 hr 06/19/24 19:36 06/19/24 20:00 06/20/24 05:47 Temperature 97 F L 97.1 F L Pulse Rate 89 83 Respiratory Rate 20 18 Blood Pressure 106/51 L 130/58 L Pulse Oximetry 93 95 Oxygen Delivery Room Air 06/20/24 08:40 06/20/24 08:45 Temperature Pulse Rate Respiratory Rate Blood Pressure 118/57 L Pulse Oximetry Oxygen Delivery Room Air Intake/Output Intake/Output: Intake & Output 06/17/24 06/18/24 06/19/24 06/20/24 23:59 23:59 23:59 23:59 Intake Total 9254 693 0923 890 Output Total 400 Balance 612 151 3012 890 Meds/Results Medications: Active Medications Generic Name Dose Route Start Last Admin Trade Name Freq PRN Reason Stop Dose Admin Acetaminophen 650 mg 06/16/24 09:00 06/16/24 20:41 Acetaminophen 325 Mg Tablet PO 650 mg Q4H PRN Administration Mild Pain (1-3) or Fever Aspirin 81 mg 06/17/24 21:00 06/20/24 08:43 Aspirin 81 Mg Enteric Tablet PO 81 mg Q12HR NOEL Administration Citalopram Hydrobromide 10 mg 06/19/24 17:25 06/20/24 08:43 Citalopram Hydrobromide 10 Mg Tablet PO 10 mg QAM NOEL Administration Hydralazine HCl 10 mg 06/16/24 12:32 Hydralazine Hcl 20 Mg/Ml Vial IV PUSH Q8H PRN Blood Pressure - High Ibuprofen 800 mg in 200 mls @ 400 mls/hr 06/17/24 11:28 Caldolor 800 Mg/200 Ml IVPB Q6H PRN Breakthrough Pain Rated 1-3 or NPO Lisinopril 20 mg 06/18/24 09:00 06/20/24 08:43 Lisinopril 20 Mg Tablet PO 20 mg DAILY NOEL Administration Magnesium Hydroxide 30 ml 06/16/24 13:30 Magnesium Hydroxide Susp 30 Ml Udc PO QAM PRN Constipation Naloxone HCl 0.1 mg 06/17/24 11:28 Naloxone Hcl 0.4 Mg/Ml Vial IV PUSH Q2M PRN Opiate Reversal Polyethylene Glycol 17 gm 06/16/24 12:30 Polyethylene Glycol 3350 17 Gm Powd.Pack PO QAM PRN Constipation - 1st Line Rosuvastatin Calcium 5 mg 06/17/24 09:00 06/20/24 08:43 Rosuvastatin 5 Mg Tablet PO 5 mg DAILY NOEL Administration Senna/Docusate Sodium 2 tab 06/19/24 09:00 06/20/24 08:43 Senna/Docusate Sodium Tablet PO 2 tab BID NOEL Administration Radiology Results: ITS Impressions Ankle X-Ray 06/16/24 08:46 IMPRESSION: Minimal residual lateral displacement of the lateral and
[2024-06-20 14:55] LABS: SARS-CoV-2 RNA PCR Negative (Negative)
== END 2024-06-20 14:30 | DRG 493 ==
LOC: ANHED 08:55 → ANH3MED 10:46
PROVIDERS: General Practice; Orthopaedic Surgery; Student in an Organized Health Care Education/Training Program; Admitting Provider Internal Medicine; Emergency Provider Emergency Medicine; Visit Provider Internal Medicine
PROC: 0QSG04Z Reposition Right Tibia with Internal Fixation Device, Open Approach (ICD-10-PCS; principal; 2024-06-17 09:00)
DX: S82.851A Displaced trimalleolar fracture of right lower leg, initial encounter for closed fracture (principal); F23 Brief psychotic disorder; I10 Essential (primary) hypertension; E78.5 Hyperlipidemia, unspecified; R82.90 Unspecified abnormal findings in urine; R41.9 Unspecified symptoms and signs involving cognitive functions and awareness; F03.90 Unspecified dementia, unspecified severity, without behavioral disturbance, psychotic disturbance, mood disturbance, and anxiety; W18.2XXA Fall in (into) shower or empty bathtub, initial encounter; Z11.52 Encounter for screening for COVID-19
CPT/HCPCS: 27818; 36415; 70450; 73600; 73610; 74018; 80048; 80053; 81001; 82948; 83735; 85025; 85027; 85610; 85730; 87086; 87088; 87635; 93005; 96374; 97110; 97161; 97166; 97530; 97535; 99199; 99285; A9270; C1713; C1769; G0378; J0690; J0696; J1100; J1885; J2270; J2359; J2405; J2704; J3010; J7030; J7120

== ENCOUNTER 2025-01-12 03:21 | Emergency (ER) | payer MEDICARE, BC, SELFPAY ==
--- NOTE | ~2025-01-12 | XR_ITS ---
HISTORY: Left hip pain after fall COMPARISON: None TECHNIQUE: 2 views of the left hip along with an AP view of the pelvis FINDINGS: No acute fracture or dislocation is identified. Superior lateral sclerosis of the femoral acetabular joint space is present consistent with osteoarth ritis. Venous stent detected within the left common iliac vein. Mineralization is age-appropriate. IMPRESSION: Degenerative disease without acute fracture or dislocation Reviewed, dictated and finalized at location [facility]
[2025-01-12 03:20] VITALS: BP 131/67; PULSE 78; RESP 16; TEMP 36.9; O2SAT 100
--- OUTSIDE RECORDS SUMMARY | 2025-01-12 03:46 | XMS_ITS | Encounter Summary ---
Author Organization [employer] [facility] Address 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 Gender Identity Not on file Sexual Orientation Not on file documented as of this encounter Plan of Treatment Not on file documented as of this encounter Procedures Procedure Name Priority Date/Time Associated Diagnosis Comments CKMB W/REFLEX CK Routine 08/10/2006 12:1 5 PM CDT TROPONIN (W/REFLEX CKMB/CK) Routine 08/10/2006 12:15 PM CDT CBC WITH DIFFERENTIAL Routine 08/10/2006 12:15 PM CDT CBC WITH DIFFERENTIAL Routine 08/10/2006 12:15 PM CDT PTT Routine 08/10/2006 12:15 PM CDT PROTIME-INR Routine 08/10/2006 12:15 PM CDT PHOSPHORUS Routine 08/10/2006 12:15 PM CDT MAGNESIUM LEVEL Routine 08/10/2006 12:15 PM CDT COMPREHENSIVE METABOLIC PANEL Routine 08/10/2006 12:15 PM CDT documented in this encounter Results * TROPONIN (W/REFLEX CKMB/CK) (08/10/2006 12:15 PM CDT) TROPONIN T <0.01 <=0.03 ng/mL INTERFACE SYSTEM TROPONIN T INTERP Negative INTERFACE SYSTEM 08/10/2006 12:1 5 PM CDT Rafy Albarado MD CHEMISTRY ORDERABLES Final Resul t Performing Organization Address City/[facility]/ZIP Co de Phone Number INTERFACE SYSTEM Refer to clinic/hospital department * CKMB W/REFLEX CK (08/10/2006 12:15 PM CDT) CKMB 3.7 <=3.8 ng/mL INTERFACE SYSTEM CKMB INTERP Negative INTERFAC E SYSTEM 08/10/2006 12:1 5 PM CDT Rafy Albarado MD CHEMISTRY ORDERABLES Final Resul t Performing Organization Address [facility]/ZIP Co de Phone Number INTERFACE SYSTEM Refer to clinic/hospital department * CBC WITH DIFFERENTIAL (08/10/2006 12:15 PM CDT) NEUTROPHILS 62 45 - 70 % INTERFAC E SYSTEM LYMPHOCYTES 25 16 - 45 % INTERFAC E SYSTEM MONOCYTES 9 3 - 13 % INTERFACE SYSTEM EOSINOPHILS 3 0 - 7 % INTERFAC E SYSTEM BASOPHILS 1 0 - 2 % INTERFACE SYSTEM NEUTROPHIL ABSOLUTE 3.07 1.90 - 7.00 K/uL INTERFACE SYSTEM LYMPHOCYTE ABSOLUTE 1.26 0.70 - 4.50 K/uL INTERFACE SYSTEM MONOCYTE ABSOLUTE 0.45 0.10 - 1.30 K/uL INTERFACE SYSTEM EOSINOPHIL ABSOLUTE 0.15 0.00 - 0.70 K/uL INTERFACE SYSTEM BASOPHILS ABSOLUTE 0.04 0.00 - 0.20 K/uL INTERFACE SYSTEM 08/10/2006 12:1 5 PM CDT Rafy Albarado MD HEMATOLOGY ORDERABLES Final Resu lt Performing Organization Address [facility] Phone Number INTERFACE SYSTEM Refer to clinic/hospital department * CBC WITH DIFFERENTIAL (08/10/2006 12:15 PM CDT) WBC 5.0 4.0 - 9.8 K/uL INTERFACE SYSTEM RBC 4.37 3.90 - 4.90 M/uL INTERFACE SYSTEM HEMOGLOBIN 12.9 11.8 - 14.8 g/dL INTERFACE SYSTEM HEMATOCRIT 38.1 35.5 - 44.0 % INTERFACE SYSTEM MCV 87.2 82.0 - 99.0 fL INTERFACE SYSTEM MCH 29.5 27.2 - 32.6 pg INTERFACE SYSTEM MCHC 33.9 31.5 - 35.5 % INTERFACE SYSTEM RDW 13.5 11.5 - 14.5 % INTERFACE SYSTEM RDW-STDEV 43.3 37.1 - 48.7 fL INTERFACE SYSTEM PLATELETS 229 140 - 350 K/uL INTERFACE SYSTEM MPV 9.7 9.3 - 12.4 fL INTERFACE SYSTEM 08/10/2006 12:1 5 PM CDT Rafy Albarado MD HEMATOLOGY ORDERABLES Final Resu lt Performing Organization Address [facility] Number INTERFACE SYSTEM Refer to clinic/hospital department * PHOSPHORUS (08/10/2006 12:15 PM CDT) PHOSPHORUS 4.2 2.5 - 4.5 mg/dL INTERFACE SYSTEM 08/10/2006 12:1 5 PM CDT Rafy Albarado MD CHEMISTRY ORDERABLES Final Resul t Performing Organization Address [facility] Phone Number INTERFACE SYSTEM Refer to clinic/hospital department * MAGNESIUM LEVEL (08/10/2006 12:15 PM CDT) MAGNESIUM 2.1 1.5 - 2.5 mg/dL INTERFACE SYSTEM 08/10/2006 12:1 5 PM CDT Result [facility] Rafy Albarado MD CHEMISTRY ORDERABLES Final Resul t Performing Organization Address City/[facility] Phone Number INTERFACE SYSTEM Refer to clinic/hospital department * (ABNORMAL) COMPREHENSIVE METABOLIC PANEL (08/10/2006 12:15 PM CDT) GLUCOSE 96 65 - 99 mg/dL INTERFACE SYSTEM CREATININE 1.0 0.4 - 1.2 mg/dL INTERFACE SYSTEM CALCIUM 9.0 8.4 - 10.2 mg/dL INTERFACE SYSTEM ALKALINE PHOSPHATASE 74 35 - 104 U/L INTERFACE SYSTEM AST 34(H) 12 - 32 U/L INTERFACE SYSTEM ALT 48(H) 0 - 31 U/L INTERFACE SYSTEM TOTAL PROTEIN 6.8 6.3 - 8.6 g/dL INTERFACE SYSTEM ALBUMIN 3.7 3.4 - 4.8 g/dL INTERFACE SYSTEM BILIRUBIN TOTAL 0.6 0.2 - 1.0 mg/dL INTERFACE SYSTEM BUN 17 6 - 20 mg/dL INTERFACE SYSTEM SODIUM 140 135 - 145 mmol/L INTERFACE SYSTEM POTASSIUM 3.9 3.5 - 4.9 mmol/L INTERFACE SYSTEM CHLORIDE 102 96 - 108 mmol/L INTERFACE SYSTEM CO2 26 22 - 30 mmol/L INTERFACE SYSTEM 08/10/2006 12:1 5 PM CDT Result [facility] Rafy Albarado MD CHEMISTRY ORDERABLES Final Resul t Performing Organization Address [facility] Phone Number INTERFACE SYSTEM Refer to clinic/hospital department * (ABNORMAL) PTT (08/10/2006 12:15 PM CDT) PTT 23.9(L) 24.4 - 36.4 Seconds INTERFACE SYSTEM Comment: PTT Therapeutic Range: Heparin Level PTT (seconds) <0.10 units/mL <53 0.10 - 0.30 units/mL 53 - 67 0.30 - 0.70 units/mL* 67 - 95* 0.70 - 1.00 units/mL 95 - 116 *corresponds to therapeutic range for unfractionated heparin 08/10/2006 12:1 5 PM CDT Result [facility] Rafy Albarado MD HEMATOLOGY ORDERABLES Final Resu lt Performing Organization Address City/State/[facility] Co de Phone Number INTERFACE SYSTEM Refer to clinic/hospital department * PROTIME-INR (08/10/2006 12:15 PM CDT) PROTIME 14.4 12.7 - 15.1 Seconds INTERFACE SYSTEM INR 1.0 0.9 - 1.1 INTERFACE SYSTEM Comment: INR Therapeutic Range: Adult: 2.0 - 3.0 for pulmonary embolism or prophylaxis against venous thrombosis or systemic embolization. 2.0 - 3.0 for patients with tissue heart valves. 2.5 - 3.5 for patients with mechanical heart valves or post MS. Pediatric (12 years and under): 1.5 - 3.0 Although the target range in children is not well established , INR values of 1.5 - 3.0 are recommended for most patients. Higher values have been used in children with prosthetic cardiac valves and hereditary clotting disorders. (<3 days) therapeutic ranges have not been established. 08/10/2006 12:1 5 PM CDT Rafy Albarado MD HEMATOLOGY ORDERABLES Final Resu lt Performing Organization Address City/[facility] Co de Phone Number INTERFACE SYSTEM Refer to clinic/hospital department documented in this encounter Visit Diagnoses Diagnosis Coronary atherosclerosis of unspecified type of vessel, [place] or graft- Primary documented in this encounter Care Teams Pre Sales Network Engineer Relationship Specialty Start Date End Date Brian Day DO PCP - General 03/07/08 documented as of this encounter
--- OUTSIDE RECORDS SUMMARY | 2025-01-12 03:46 | XMS_ITS | Encounter Summary ---
Author Organization [facility] Address 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
--- OUTSIDE RECORDS SUMMARY | 2025-01-12 03:46 | XMS_ITS | Clinical Summary ---
Author Organization [facility] Address [address] [facility] [address] [place] [address] Phone Care Team Providers Care High Pressure Boiler Operator Name Role Phone Unavailable Primary Care Provider Unavailabl e Social History Tobacco Use Types Packs/Day Years Used Date Smoking Tobacco: Never Assessed Comments Unknown Sex and Gender Information Value Date Recorded Sex Assigned at Not on file Legal Sex Female 8:14 AM CDT Gender Identity Not on file Sexual Orientation Not on file Plan of Treatment Health Maintenance Due Date Last Done Comments DEXA Bone Density 1935 Hepatitis C Virus (HCV) Screening 1935 Pneumococcal Immunization (50+ years) (1 of 1 - PCV) 1987 Zoster Immunization (1 of 2) 1987 Respiratory Syncytial Virus (RSV) Immunization (Adult) (1 - 1-dose 75+ series) 2012 Influenza Immunization (#1) 07/28/202406/29, 08/24/2019 SARS-COV-2 Immunization ( season) 2024 10/18/2021, 02/14/2021, 01/24/2021 DTaP/Tdap/Td Immunization Discontinued 03/19/2019 TdaP Immunization Completed 03/19/2019 Hepatitis B Immunization Aged Out No longer eligible based on patient's age to complete this topic Meningococcal Immunization (ACWY) Aged Out No longer eligible based on patient's age to complete this topic Rotavirus Immunization Aged Out No lo nger eligible based on patient's age to complete [place] [address] [place] [address] MEDICARE [facility]
--- OUTSIDE RECORDS SUMMARY | 2025-01-12 03:46 | XMS_ITS | Encounter Summary ---
Author Organization [facility] Address 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
--- OUTSIDE RECORDS SUMMARY | 2025-01-12 03:46 | XMS_ITS | Encounter Summary ---
Author Organization [facility] Address [address] [place] [address] Care Team Providers Care Glue Size Machine Operator Name Role Phone Brian Day DO Primary Care Provider Encounter Details Date Type Department Care Team (Latest Contact Info) Description 01/04/2007 Outpatient Historical HIS [facility] MICHAEL Navarro, Fernie Walden MD NO ADDRESS ON FILE Other and Unspecified Hyperlipidemia (Primary Dx) Social History Tobacco Use Types Packs/Day Years Used Date Smoking Tobacco: Never Assessed Comments Unknown Sex and Gender Information Value Date Recorded Sex Assigned at Not on file Legal Sex Female 3:34 AM INFANTRY UNIT LEADER Gender Identity Not on file Sexual Orientation Not on file documented as of this encounter Plan of Treatment Not on file documented as of this encounter Procedures Procedure Name Priority Date/Time Associated Diagnosis Comments URINALYSIS W/REFLEX MICROSCOPIC Routine 01/04/2007 12:15 PM INFANTRY UNIT LEADER HEPATIC FUNCTION PANEL Routine 01/04/2007 12:15 PM INFANTRY UNIT LEADER LIPID PANEL Routine 01/04/2007 12:15 PM INFANTRY UNIT LEADER documented in this encounter Results * URINALYSIS (01/04/2007 12:15 PM INFANTRY UNIT LEADER) COLOR UA Yellow INTERFACE SYSTEM CLARITY UA Clear Clear INTERFACE SYSTEM SPECIFIC GRAVITY UA 1.020 1.001 - 1.035 INTERFACE SYSTEM PH UA 5.0 5.0 - 8.0 INTERFACE SYSTEM LEUKOCYTE ESTERASE UA Negative Negative INTERFACE SYSTEM NITRITE UA Negative Negative INTERFACE SYSTEM PROTEIN UA Negative Negative INTERFACE SYSTEM GLUCOSE UA Negative Negative INTERFACE SYSTEM KETONES UA Negative Negative INTERFACE SYSTEM UROBILINOGEN UA <1 <=1 mg/dL INTE RFACE SYSTEM BILIRUBIN UA Negative Negative INTERFA CE SYSTEM BLOOD UA Negative Negative INTERFACE SYSTEM 01/04/2007 12:1 5 PM INFANTRY UNIT LEADER Fernie Navarro MD URINE ORDERABLES Edited Performing Organization Address [facility] de Phone Number INTERFACE SYSTEM Refer to clinic/hospital department * HEPATIC FUNCTION PANEL (01/04/2007 12:15 PM INFANTRY UNIT LEADER) ALKALINE PHOSPHATASE 57 35 - 104 U/L INTERFACE SYSTEM AST 24 12 - 32 U/L INTERFACE SYSTEM ALT 26 0 - 31 U/L INTERFACE SYSTEM TOTAL PROTEIN 7.8 6.3 - 8.6 g/dL INTERFACE SYSTEM ALBUMIN 4.3 3.4 - 4.8 g/dL INTERFACE SYSTEM BILIRUBIN TOTAL 0.4 0.2 - 1.0 mg/dL INTERFACE SYSTEM BILIRUBIN DIRECT 0.1 0.0 - 0.3 mg/dL INTERFACE SYSTEM 01/04/2007 12:1 5 PM INFANTRY UNIT LEADER Fernie Navarro MD CHEMISTRY ORDERABLES Edited Performing Organization Address [facility] Phone Number INTERFACE SYSTEM Refer to clinic/hospital department * (ABNORMAL) LIPID PANEL (01/04/2007 12:15 PM INFANTRY UNIT LEADER) CHOLESTEROL 178 100 - 199 mg/dL INTERFACE SYSTEM TRIGLYCERIDE 76 10 - 149 mg/dL INTERFACE SYSTEM HDL 61(H) 40 - 59 mg/dL INTERFACE SYSTEM CHOL/HDL RATIO 2.9 2.0 - 5.0 INTER FACE SYSTEM LDL CALCULATED 102(H) <=99 mg/dL INTERFACE SYSTEM LIPID PANEL COMMENT See Below INTERFACE SYSTEM Comment: The adult ATP and pediatric NCEP classifications for lipids are available on the [facility] Intranet at: [email or web address] Select: Lab Policies and Procedures Select: Reference Ranges - Lipids 01/04/2007 12:1 5 PM INFANTRY UNIT LEADER us Fernie Navarro MD CHEMISTRY ORDERABLES Edited Performing Organization Address City/[facility] Co de Phone Number INTERFACE SYSTEM Refer to clinic/hospital department documented in this encounter Visit Diagnoses Diagnosis Other and unspecified hyperlipidemia- Primary documented in this encounter Care Teams Glue Size Machine Operator Relationship Specialty Start Date End Date Brian Day DO PCP - General 03/07/08 documented as of this encounter
--- OUTSIDE RECORDS SUMMARY | 2025-01-12 03:46 | XMS_ITS | Encounter Summary ---
Author Organization [facility] Address 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
--- OUTSIDE RECORDS SUMMARY | 2025-01-12 03:46 | XMS_ITS | Data Portability ---
Author Organization [facility], [employer] Address [address] [address] Care Team Providers Care Automobile Salesman Name Role Phone TAD VENTURA Freight Trucker BRENDON ESPINAL Sleep Medicine Assessment Encounter Date Assessment Date Assessment LastModified by Organization Details LastModified Time 10/31/2017 10/31/2017 Patient presented for follow up. Studies ordered as below. Discussed plan with patient/careg duong, who expressed understanding . Follow up as noted below. [email or web address] Not available 10/31/2017 16:50:25 07/16/2018 07/16/2018 Patient presented for follow up. Studies ordered as below. Discussed plan with patient/careg duong, who expressed understanding . Follow up as noted below. Not available 07/16/2018 14:15:03 Plan of Treatment Reminders Order Date Submit Date Provider Last Modified By Organization Details Last Modified Time Details Appointments None recorded. Lab CK (creatine kinase), total, serum 2017 018 lcallison [facility], [address], [place], [address], 8 08:41:28 ALT (alanine aminotrans ferase), serum or plasma 2017 018 lcallison [facility], [address], [place], [address], 8 08:41:28 lipid panel, serum 2017 018 lcallison [facility], [address], [place], [address], 8 08:41:28 fecal occult blood, immunoassa y, stool 2017 018 [facility] [employer] [facility] [place], [address], [place], [address], 8 08:41:27 BMP, serum or plasma 2017 018 [employer]caBe[place] [employer] [facility], [address], [place], [address], 8 08:41:28 microalbum in/creatin ine, mass ratio, urine 2017 018 lcaBeijing [employer] [facility], [address], [place], [address], 8 08:41:28 vitamin B12, serum 2017 [address] [facility], [address], [place], [address], 8 11:54:21 BMP, serum or plasma 2017 [address] [facility], [address], [place], [address], 8 11:54:19 microalbum in/creatin ine, mass ratio, urine 2017 [address] [facility], [address], [place], [address], 8 11:54:20 CK (creatine kinase), total, serum 2017 [address] [facility], [address], [place], [address], 8 11:54:20 ALT (alanine aminotrans ferase), serum or plasma 2017 [address] [facility], [address], [place], [address], 8 11:54:19 lipid panel, serum 2017 [address] [facility], [address], [place], [address], 8 11:54:19 HbA1c (hemoglobi n A1c), blood 2017 018 [facility], [address], [place], [address], 8 11:54:21 fecal occult blood, immunoassa y, stool 2017 [address] [facility] [place], [address], [place], [address], 8 15:19:30 vitamin B6 (pyridoxin e), plasma 2017 018 [facility], [address], [place], [address], 8 11:54:21 vitamin B1 (thiamine) , blood 2016 [address] [facility], [address], [place], [address], 7 18:14:34 vitamin B6 (pyridoxin e), plasma 2016 017 [facility], [address], [place], [address], 7 18:14:33 vitamin B12 + folate, serum or blood 2016 017 [facility], [address], [place], [address], 7 18:14:32 CMP, serum or plasma 2016 017 [facility], [address], [place], [address], 7 18:14:30 microalbum in/creatin ine, mass ratio, urine 2016 017 [facility], [address], [place], [address], 7 18:14:31 HSV 1+2 IgG Ab, CSF 2016 017 [facility], [address], [place], [address], 08:46:55 lipid panel, serum 2016 017 [facility], [address], [place], [address], 18:14:29 CK (creatine kinase), total, serum 2016 017 [facility], [address], [place], [address], 18:14:30 CBC w/ auto diff 2016 017 [facility], [address], [place], [address], 7 18:14:31 fecal occult blood, immunoassa y, stool 2016 017 [facility], [address], [place], [address], 7 17:53:25 TSH + free T4, serum 2016 017 [facility], [address], [place], [address], 18:14:33 T3, free, serum or plasma 2016 017 [facility], [address], [place], [address], 18:14:33 vitamin B1 (thiamine) , blood 2016 017 [facility], [address], [place], [address], 7 10:25:32 vitamin B6 (pyridoxin e), plasma 2016 017 [facility], [address], [place], [address], 10:25:32 vitamin B12 + folate, serum or blood 2016 017 [facility], [address], [place], [address], 10:25:32 CMP, serum or plasma [address] [facility] [place], [address], [place], [address], 7 14:28:19 microalbum in/creatin ine, mass ratio, urine 2016 017 [facility], [address], [place], [address], 7 10:25:30 HSV 1+2 IgG Ab, CSF 2016 017 [facility], [address], [place], [address], 7 10:25:31 lipid panel, serum 2016 017 [facility], [address], [place], [address], 7 10:25:30 CK (creatine kinase), total, serum 2016 017 [facility], [address], [place], [address], 7 10:25:31 CBC w/ auto diff 2016 017 [facility], [address], [place], [address], 7 14:17:18 fecal occult blood, immunoassa y, stool 2016 017 [facility], [address], [place], [address], 7 12:49:14 TSH + free T4, serum 2016 017 [facility], [address], [place], [address], 7 10:25:31 T3, free, serum or plasma 2016 017 [employer], [address], [place], [address], 7 10:25:[address] referral 2017 018 irais De MD, [address], [address], 8 08:59:21 gastroente rologist referral 2017 018 ROSA Romo MD, [address] [place], [address], 8 14:25:12 application services manager referral 2017 018 irais Smith DPM, [address] [facility], [address], [place], [address], 8 08:59:[address] referral 2017 018 irais De MD, [address], [place], [address], 8 09:12:[address] referral 2017 018 irais Rodgers MD [facility], [address] [place] [address], [address], 8 09:12:43 gastroente rologist referral 2017 018 ROSA Romo MD, [address] [place], [address], 8 15:30:[address] referral 2016 017 irais De MD, [address], [place], [address], 8 08:57:56 gastroente rologist referral 2016 017 ROSA Romo MD, [address] [place], [address], 7 18:05:[address] referral 2016 017 irais De MD, [address], [place], [address], 7 08:33:[address] referral 2016 017 ELY Ventura MD, [address] [place], [address], 7 10:02:20 gastroente rologist referral 2016 017 ATHENADEON Romo MD, [address] [facility], [place], [address], 7 13:07:06 Procedures None recorded. Surgeries None recorded. Imaging XR, knee, 3 view 2017 018 [facility] (Imaging), [facility] [address], [place], [address], 8 02:59:50 US, doppler, venous - STAT 2017 018 [facility] (Imaging), [facility]0 [facility] [address], [place], [address], 8 08:43:14 XR, ankle 2017 018 [facility] (Imaging), [address] [place] [address] [address], [place], [address], 8 02:59:50 electrocar diogram 2016 017 [facility] [email or web address] [facility], [facility], [address], [place], [address], 7 18:00:11 US, duplex, venous, lower extremity 2016 017 [facility] (Imaging), [address] [place] [address] [address], [place], [address], 7 08:39:49 bone density 2016 017 [facility] [email or web address] [facility], [facility], [address], [place], [address], 7 13:02:42 electrocar diogram 2016 017 [facility] [email or web address] [facility], [facility], [address], [place], [address], 7 16:16:21 US, duplex, venous, lower extremity 2016 017 [facility] ([facility]), [address], [place], [address], 08:38:10 Medication Orders None recorded. Patient TargetsNo targets recorded. Patient Instructions Encounter Date Encounter Id Patient Instructions Last Modified By Organization Details Last Modified Time 09/19/2017 [id number] rosacea: care instructions ELY Not available 09/21/2017 12:46:06 high blood pressure: care instructions ELY Not available 09/21/2017 12:46:16 learning about high blood pressure ELY Not available 09/21/2017 12:46:16 high cholesterol : care instructions ELY Not available 09/21/2017 12:46:03 heart-healthy diet: care instructions ELY Not available 09/21/2017 12:45:58 advised to lose weight ELY Not available 09/21/2017 12:46:02 -- need to get hold of old records from PCP Dr Brian Dietrich in [facility] Not available 09/19/2017 12:53:05 I spent 45 minut e face to face time with this patient (> 50% spent on counseling), explaining the test result and counseling patient on pt's medical conditions. Not available 09/19/2017 12:58:07 10/31/2017 [id number] rosacea: care instructions ELY Not available 11/03/2017 19:09:13 Peripheral Arterial Disease (PAD): Care Instructions ELY Not available 11/03/2017 19:09:25 high blood pressure: care instructions ELY Not available 11/03/2017 19:09:13 learning about high blood pressure ELY Not available 11/03/2017 19:09:13 high cholesterol : care instructions ELY Not available 11/03/2017 19:09:13 heart-healthy diet: care instructions ELY Not available 11/03/2017 19:09:14 advised to lose weight ELY Not available 11/03/2017 19:09:14 04/30/2018 [id number] rosacea: care instructions Not available 04/30/2018 15:18:59 high blood pressure: care instructions Not available 04/30/2018 15:18:59 learning about high blood pressure Not available 04/30/2018 15:18:59 advised to lose weight Not available 04/30/2018 15:18:59 07/16/2018 [id number] rosacea: care instructions Not available 07/16/2018 14:18:36 advised to lose weight Not available 07/16/2018 14:18:36 ankle: exercises Not available 07/16/2018 14:18:36 Reason for Referral Pickling Grader Referral for Sc reening for malignant neoplasm of cervix Referring Physician: Zhanna Stoll, Encounter Date: 09/19/2017 Referring Physician: Zhanna Stoll, Encounter Date: 09/19/2017 Freight Trucker Referral for El ectrocardiogram abnormal Referring Physician: Zhanna Stoll, Encounter Date: 09/19/2017 Pickling Grader Referral for Sc reening for malignant neoplasm of cervix Referring Physician: Zhanna Stoll, Encounter Date: 10/31/2017 Referring Physician: Zhanna Stoll, Encounter Date: 10/31/2017 Pickling Grader Referral for Sc reening for malignant neoplasm of cervix Referring Physician: Zhanna Stoll, Encounter Date: 04/30/2018 Remote Sensing Analyst Referral for Screening for malignant neoplasm of colon Referring Physician: Zhanna Stoll, Encounter Date: 04/30/2018 Referring Physician: Zhanna Stoll, Encounter Date: 04/30/2018 Manager Student Services Referral for Inju ry of ankle Referring Physician: Zhanna Stoll, Encounter Date: 07/16/2018 Pickling Grader Referral for Sc reening for malignant neoplasm of cervix Referring Physician: Zhanna Stoll, Encounter Date: 07/16/2018 Remote Sensing Analyst Referral for Screening for malignant neoplasm of colon Referring Physician: Zhanna Stoll, Encounter Date: 07/16/2018 Results Created Date Observation Date Name Description Value Unit Range Abnormal Flag Note LastModifiedBy Organization Detail LastModifiedTime 11/01/20 17 11/04/2017 fecal occul t blood , stool fecal globin by immunochemis try SEE NOTE FECAL GLOBI N BY IMMUN OCHEM ISTRY MICRO NUMBE R: [id number] TEST STATU S: FINAL SPECI MEN SOURC E: INSUR E (TM) FOBT TEST CARD SPECI MEN QUALI TY: ADEQU ATE RESUL T: Not Detec virgil Not Available [facility] [address], [address], 11/04/2017 14:04:07 11/01/20 17 11/05/2017 lipid panel , serum cholesterol, total 124 mg/dL <200 normal Not Available [address], [address], 11/05/2017 18:14:29 11/01/20 17 11/05/2017 lipid panel , serum HDL cholesterol 50 mg/dL >50 low Not Available [facility] [employer] [address], [address], 11/05/2017 18:14:29 11/01/20 17 11/05/2017 lipid panel , serum triglyceride s 103 mg/dL <150 normal Not Available [facility] [address], [address], 11/05/2017 18:14:29 11/01/20 17 11/05/2017 lipid panel , serum LDL-choleste rol 55 mg/dL _(justus c) normal Refer ence range : <100 Trupti able range <100 mg/dL for patie nts with CHD or diabe kanu and <70 mg/dL for diabe tic patie nts with known heart disea se. LDL-C is now calcu lated using the Sharlene n-Hop kins tho martin, which is a valid ated novel piero lopez accur acy than the Fried amy equat ion in the estim ation of LDL-C . Sharlene martin SS et al. PANKAJ. 2013; 310(1 3): 2061- 2068 (http ://ed ucati on.Qu estDi agnos tics. com/f aq/FA Q164) Not Available [address] [address] [place], [address], 11/05/2017 18:14:29 11/01/20 17 11/05/2017 lipid panel , serum chol/HDLC ratio 2.5 (calc ) <5.0 normal Not Available [address] [address] [place], [address], 11/05/2017 18:14:29 11/01/20 17 11/05/2017 lipid panel , serum non HDL cholesterol 74 mg/dL _(justus c) <130 normal For patie nts with diabe kanu plus 1 major ASCVD risk facto r, treat ing to a non-H DL-C goal of <100 mg/dL (LDL- C of <70 mg/dL ) is consi dered a thera peuti c optio n. Not Available [address] [place], [address], 11/05/2017 18:14:29 11/01/20 17 11/05/2017 CMP, serum or plasm a glucose 124 mg/dL 65-99 high Fasti ng refer ence inter daquan For someo ne witho ut known diabe kanu, a gluco se value betwe en 100 and 125 mg/dL is consi stent with predi abete s and shoul d be confi rmed with a follo w-up test. Not Available [address] [address], [place], [address], 11/05/2017 18:14:30 11/01/20 17 11/05/2017 CMP, serum or plasm a urea nitrogen (BUN) 21 mg/dL 7-25 normal Not Available [address] [address] [place], [address], 11/05/2017 18:14:30 11/01/20 17 11/05/2017 CMP, serum or plasm a creatinine 1.19 mg/dL 0.60-0 .88 high For patie nts >49 years of age, the refer ence limit for Creat inine is appro xiayet yelitza 13% highe r for peopl e ident ified as Afric an-Am dale n. Not Available [address], [address], 11/05/2017 18:14:30 11/01/20 17 11/05/2017 CMP, serum or plasm a eGFR non-afr. pakistani 43 mL/mi n/1.7 3m2 > or = 60 low Not Available [address] [address] [place], [address], 11/05/2017 18:14:30 11/01/20 17 11/05/2017 CMP, serum or plasm a eGFR 50 mL/mi n/1.7 3m2 > or = 60 low Not Available [facility] [address], [address], 11/05/2017 18:14:30 11/01/20 17 11/05/2017 CMP, serum or plasm a BUN/creatini ne ratio 18 (calc ) 6-22 normal Not Available [facility] [address], [address], 11/05/2017 18:14:30 11/01/20 17 11/05/2017 CMP, serum or plasm a sodium 138 mmol/ L 135-14 6 normal Not Available [facility] [address], [address], 11/05/2017 18:14:30 11/01/20 17 11/05/2017 CMP, serum or plasm a potassium 4.6 mmol/ L 3.5-5. 3 normal Not Available [facility] [address], [address], 11/05/2017 18:14:30 11/01/20 17 11/05/2017 CMP, serum or plasm a chloride 104 mmol/ L 98-110 normal Not Available [facility] [address], [address], 11/05/2017 18:14:30 11/01/20 17 11/05/2017 CMP, serum or plasm a carbon dioxide 26 mmol/ L 20-31 normal Not Available [address], [address], 11/05/2017 18:14:30 11/01/20 17 11/05/2017 CMP, serum or plasm a calcium 9.9 mg/dL 8.6-10 .4 normal Not Available [address], [address], 11/05/2017 18:14:30 11/01/20 17 11/05/2017 CMP, serum or plasm a protein, total 7.0 g/dL 6.1-8. 1 normal Not Available [address], [address], 11/05/2017 18:14:30 11/01/20 17 11/05/2017 CMP, serum or plasm a albumin 4.3 g/dL 3.6-5. 1 normal Not Available [address], [address], 11/05/2017 18:14:30 11/01/20 17 11/05/2017 CMP, serum or plasm a globulin 2.7 g/dL_ (calc ) 1.9-3. 7 normal Not Available [address], [address], 11/05/2017 18:14:30 11/01/20 17 11/05/2017 CMP, serum or plasm a albumin/glob ulin ratio 1.6 (calc ) 1.0-2. 5 normal Not Available [address], [address], 11/05/2017 18:14:30 11/01/20 17 11/05/2017 CMP, serum or plasm a bilirubin, total 0.7 mg/dL 0.2-1. 2 normal Not Available [address] [address] [place], [address], 11/05/2017 18:14:30 11/01/20 17 11/05/2017 CMP, serum or plasm a alkaline phosphatase 37 U/L 33-130 normal Not Available [address] [address] [place], [address], 11/05/2017 18:14:30 11/01/20 17 11/05/2017 CMP, serum or plasm a AST 16 U/L 10-35 normal Not Available [address] [address] [place], [address], 11/05/2017 18:14:30 11/01/20 17 11/05/2017 CMP, serum or plasm a ALT 11 U/L 6-29 normal Not Available [address], [address], 11/05/2017 18:14:30 11/01/20 17 11/05/2017 CK (crea dena kinas e), total , serum creatine kinase, total 150 U/L 29-143 high Not Available [address], [address], 11/05/2017 18:14:30 11/01/20 17 11/05/2017 micro album in/cr eatin ine, mass ratio , urine creatinine, random urine 261 mg/dL 20-320 normal Not Available [address] [address] [place], [address], 11/05/2017 18:14:31 11/01/20 17 11/05/2017 micro album in/cr eatin ine, mass ratio , urine microalbumin 1.4 mg/dL see note: normal Refer ence Range : Refer ence Range Not estab lishe d Not Available [address] [address] [place], [address], 11/05/2017 18:14:31 11/01/20 17 11/05/2017 micro album in/cr eatin ine, mass ratio , urine microalbumin /creatinine ratio, random urine 5 mcg/m g_cre at <30 normal The ADA defin es abnor malit ies in album in excre tion as follo ws: Categ ory Resul t (mcg/ mg creat inine ) Maria Isabel l <30 Micro album inuri a 30-29 9 Clini justus album inuri a > OR = 300 The ADA recom mends that at least two of three speci mens colle cted withi n a 3-6 month perio d be abnor mal befor e consi sudhakar g a patie nt to be withi n a diagn ostic categ ory. Not Available [address], [address], 11/05/2017 18:14:31 11/01/20 17 11/05/2017 CBC w/ auto diff white blood cell count 5.0 thous and/u L 3.8-10 .8 normal Not Available [address], [address], 11/05/2017 18:14:31 11/01/20 17 11/05/2017 CBC w/ auto diff red blood cell count 3.90 lani on/uL 3.80-5 .10 normal Not Available [address], [address], 11/05/2017 18:14:31 11/01/20 17 11/05/2017 CBC w/ auto diff hemoglobin 12.2 g/dL 11.7-1 5.5 normal Not Available [facility] [address] [place], [address], 11/05/2017 18:14:31 11/01/20 17 11/05/2017 CBC w/ auto diff hematocrit 36.3 % 35.0-4 5.0 normal Not Available [facility] [address], [address], 11/05/2017 18:14:31 11/01/20 17 11/05/2017 CBC w/ auto diff MCV 93.1 fL 80.0-1 00.0 normal Not Available [address], [address], 11/05/2017 18:14:31 11/01/20 17 11/05/2017 CBC w/ auto diff MCH 31.3 pg 27.0-3 3.0 normal Not Available [address], [address], 11/05/2017 18:14:31 11/01/20 17 11/05/2017 CBC w/ auto diff MCHC 33.6 g/dL 32.0-3 6.0 normal Not Available [address], [address], 11/05/2017 18:14:31 11/01/20 17 11/05/2017 CBC w/ auto diff RDW 12.6 % 11.0-1 5.0 normal Not Available [address], [address], 11/05/2017 18:14:31 11/01/20 17 11/05/2017 CBC w/ auto diff platelet count 262 thous and/u L 140-40 0 normal Not Available [address], [address], 11/05/2017 18:14:31 11/01/20 17 11/05/2017 CBC w/ auto diff MPV 9.5 fL 7.5-12 .5 normal Not Available [address], [address], 11/05/2017 18:14:31 11/01/20 17 11/05/2017 CBC w/ auto diff absolute neutrophils 2980 cells /uL 1500-7 800 normal Not Available [address], [address], 11/05/2017 18:14:31 11/01/20 17 11/05/2017 CBC w/ auto diff absolute lymphocytes 1160 cells /uL 850-39 00 normal Not Available [address] [place], [address], 11/05/2017 18:14:31 11/01/20 17 11/05/2017 CBC w/ auto diff absolute monocytes 405 cells /uL 200-95 0 normal Not Available [address] [place], [address], 11/05/2017 18:14:31 11/01/20 17 11/05/2017 CBC w/ auto diff absolute eosinophils 405 cells /uL 15-500 normal Not Available [address], [address], 11/05/2017 18:14:31 11/01/20 17 11/05/2017 CBC w/ auto diff absolute basophils 50 cells /uL 0-200 normal Not Available [address], [address], 11/05/2017 18:14:31 11/01/20 17 11/05/2017 CBC w/ auto diff neutrophils 59.6 % normal Not Available [address], [address], 11/05/2017 18:14:31 11/01/20 17 11/05/2017 CBC w/ auto diff lymphocytes 23.2 % normal Not Available [address] [place], [address], 11/05/2017 18:14:31 11/01/20 17 11/05/2017 CBC w/ auto diff monocytes 8.1 % normal Not Available [address], [address], 11/05/2017 18:14:31 11/01/20 17 11/05/2017 CBC w/ auto diff eosinophils 8.1 % normal Not Available [address] [address] [place], [address], 11/05/2017 18:14:31 11/01/20 17 11/05/2017 CBC w/ auto diff basophils 1.0 % normal Not Available [address], [address], 11/05/2017 18:14:31 11/01/20 17 11/05/2017 hsv (1+2) igg, serum hsv 1 IgG, type specific Ab 5.59 index high Not Available [facility] [employer] [address] [address] [place], [address], 11/05/2017 18:14:32 11/01/20 17 11/05/2017 hsv (1+2) igg, serum hsv 2 IgG, type specific Ab <0.90 index normal Index Inter preta tion ----- ----- ----- ---- <0.90 Negat cali 0.90- 1.09 Equiv ocal >1.09 Posit cali This assay utili zes recom binan t type- speci fic antig ens to diffe renti ate HSV-1 from HSV-2 infec tions . A posit cali resul t canno t disti nguis h betwe en recen t and past infec tion. If recen t HSV infec tion is suspe cted but the resul ts are negat cali or equiv ocal, the assay shoul d be repea virgil in 4-6 weeks . The perfo rmanc e zuleika cteri stics of the assay have not been estab lishe d for pedia tric popul ation s, immun ocomp romis ed patie nts, or neona adrianne scree genna. Not Available [employer] [address] [address] [place], [address], 11/05/2017 18:14:32 11/01/20 17 11/05/2017 vitam in B12 + folat e, serum or blood vitamin B12 179 pg/mL 200-11 00 low Not Available [employer] [address] [address] [place], [address], 11/05/2017 18:14:32 11/01/20 17 11/05/2017 vitam in B12 + folat e, serum or blood folate, serum >24.0 NG/mL normal Refer ence Range Low: <3.4 Borde rline : 3.4-5 .4 Maria Isabel l: >5.4 Not Available [employer] [address] [address] [place], [address], 11/05/2017 18:14:32 11/01/20 17 11/05/2017 T3, free, serum or plasm a T3, free 3.2 pg/mL 2.3-4. 2 normal Not Available [facility] [address] [address] [place], [address], 11/05/2017 18:14:33 11/01/20 17 11/05/2017 TSH + free T4, serum TSH 2.23 mIU/L 0.40-4 .50 normal Not Available [facility] [place] [address] [place], [address], 11/05/2017 18:14:33 11/01/20 17 11/05/2017 TSH + free T4, serum T4, free 1.1 NG/dL 0.8-1. 8 normal Not Available [facility] [place] [address] [place], [address], 11/05/2017 18:14:33 11/01/20 17 11/05/2017 vitam in B6 (pyri doxin e), plasm a vitamin B6, plasma 32.7 NG/mL 2.1-21 .7 high Vitam in suppl ement ation withi n 24 hours prior to blood draw may affec t the accur acy of resul ts. This test was devel oped and its daniel tical perfo rmanc e zuleika cteri stics have been deter mined by [facility] Reynold Grahami emily Xavier cia. It has not been clear ed or appro janine by the US Food and Drug Admin istra tion. This assay has been valid ated pursu ant to the CLIA regul ation s and is used for clini justus purpo ses. Not Available [facility] [place] [address] [place], [address], 11/05/2017 18:14:33 11/01/20 17 11/05/2017 vitam in B1 (thia mine) , blood vitamin B1 (thiamine), serum/plasma , lc/MS/MS 17 nmol/ L 8-30 Vitam in suppl ement ation withi n 24 hours prior to blood draw may affec t the accur acy of [facility] ts. This test was devel oped and its daniel tical perfo rmanc e zuleika cteri stics have been deter mined by [facility] jaems Xavier cia. It has not been clear ed or appro janine by FDA. This assay has been valid ated pursu ant to the CLIA regul ation s and is used for clini justus purpo ses. Not Available [facility] [place] [address] [place], [address], 11/05/2017 18:14:34 05/02/20 18 05/06/2018 lipid panel , serum cholesterol, total 132 mg/dL <200 normal Not Available [facility] [address] [place], [address], 05/06/2018 11:54:18 05/02/20 18 05/06/2018 lipid panel , serum HDL cholesterol 43 mg/dL >50 low Not Available [facility] [address] [place], [address], 05/06/2018 11:54:18 05/02/2005/06/2018 lipid panel , serum triglyceride s 141 mg/dL <150 normal Not Available [facility] [place] [address] [place], [address], 05/06/2018 11:54:18 05/02/2005/06/2018 lipid panel , serum LDL-choleste rol 67 mg/dL _(justus c) normal Refer ence range : <100 Trupti able range <100 mg/dL for prima ry preve ntion ; <70 mg/dL for patie nts with CHD or diabe tic patie nts with > or = 2 CHD risk facto rs. LDL-C is now calcu lated using the Sharlene n-[facility] kins tho friedman n, which is a valid ated novel piero lopez accur acy than the Fried amy equat ion in the estim ation of LDL-C . Sharlene martin SS et al. PANKAJ. 2013; 310(1 5): 2061- 2068 (http ://ed ucati on.Qu estDi SENSIMEDs. com/f aq/FA Q164) Not Available [facility] [place] [address] [place], [address], 05/06/2018 11:54:18 05/02/20 18 05/06/2018 lipid panel , serum chol/HDLC ratio 3.1 (calc ) <5.0 normal Not Available [facility] [place] [address] [address] [facility] [place], [address], 05/06/2018 11:54:18 05/02/2005/06/2018 lipid panel , serum non HDL cholesterol 89 mg/dL _(justus c) <130 normal For patie nts with diabe kanu plus 1 major ASCVD risk facto r, treat ing to a non-H DL-C goal of <100 mg/dL (LDL- C of <70 mg/dL ) is consi dered a thera peoksana c optio n. Not Available [facility] [place] [address] [place], [address], 05/06/2018 11:54:18 05/02/2005/06/2018 ALT (annette ine amino trans feras e), serum or plasm a ALT 12 U/L 6-29 normal Not Available [facility] [place] [address] [place], [address], 05/06/2018 11:54:19 05/02/20 18 05/06/2018 BMP, serum or plasm a glucose 117 mg/dL 65-99 high Fasti ng refer ence inter daquan For someo ne witho ut known diabe kanu, a gluco se value betwe en 100 and 125 mg/dL is consi stent with predi abete s and shoul d be confi rmed with a follo w-up test. Not Available [facility] [address], [address], 05/06/2018 11:54:19 05/02/20 18 05/06/2018 BMP, serum or plasm a urea nitrogen (BUN) 25 mg/dL 7-25 normal Not Available [facility] [address], [address], 05/06/2018 11:54:19 05/02/2005/06/2018 BMP, serum or plasm a creatinine 1.06 mg/dL 0.60-0 .88 high For patie nts >49 years of age, the refer ence limit for Creat inine is appro ximat yelitza 13% highe r for peopl e ident ified as Afric an-Am dale n. Not Available [facility] [address], [address], 05/06/2018 11:54:19 05/02/2005/06/2018 BMP, serum or plasm a eGFR non-afr. pakistani 50 mL/mi n/1.7 3m2 > or = 60 low Not Available [facility] [place] [address] [place], [address], 05/06/2018 11:54:19 05/02/2005/06/2018 BMP, serum or plasm a eGFR 57 mL/mi n/1.7 3m2 > or = 60 low Not Available [facility] [place] [address] [place], [address], 05/06/2018 11:54:19 05/02/2005/06/2018 BMP, serum or plasm a BUN/creatini ne ratio 24 (calc ) 6-22 high Not Available [facility] [address], [address], 05/06/2018 11:54:19 05/02/20 18 05/06/2018 BMP, serum or plasm a sodium 138 mmol/ L 135-14 6 normal Not Available [address], [address], 05/06/2018 11:54:19 05/02/20 18 05/06/2018 BMP, serum or plasm a potassium 5.0 mmol/ L 3.5-5. 3 normal Not Available [address], [address], 05/06/2018 11:54:19 05/02/20 18 05/06/2018 BMP, serum or plasm a chloride 103 mmol/ L 98-110 normal Not Available [address], [address], 05/06/2018 11:54:19 05/02/20 18 05/06/2018 BMP, serum or plasm a carbon dioxide 26 mmol/ L 20-31 normal Not Available [address], [address], 05/06/2018 11:54:19 05/02/20 18 05/06/2018 BMP, serum or plasm a calcium 9.7 mg/dL 8.6-10 .4 normal Not Available [address], [address], 05/06/2018 11:54:19 05/02/20 18 05/06/2018 CK (crea dena kinas e), total , serum creatine kinase, total 193 U/L 29-143 high Not Available [address], [address], 05/06/2018 11:54:20 05/02/20 18 05/06/2018 micro album in/cr eatin ine, mass ratio , urine creatinine, random urine 41 mg/dL 20-320 normal Not Available [address], [address], 05/06/2018 11:54:20 05/02/20 18 05/06/2018 micro album in/cr eatin ine, mass ratio , urine microalbumin <0.2 mg/dL see note: normal Refer ence Range : Refer ence Range Not estab lishe d Not Available [facility] [address] [address], [place], [address], 05/06/2018 11:54:20 05/02/20 18 05/06/2018 micro album in/cr eatin ine, mass ratio , urine microalbumin /creatinine ratio, random urine NOTE mcg/m g_cre at <30 normal The micro album in value is less than 0.2 mg/dL there fore we are unabl e to calcu late excre tion and/o r creat inine ratio . The ADA defin es abnor malit ies in album in excre tion as follo ws: Categ ory Resul t (mcg/ mg creat inine ) Maria Isabel l <30 Micro album inuri a 30-29 9 Clini justus album inuri a > OR = 300 The ADA recom mends that at least two of three speci mens colle cted withi n a 3-6 month perio d be abnor mal befor e consi sudhakar g a patie nt to be withi n a diagn ostic categ ory. Not Available [facility] [address] [address], [place], [address], 05/06/2018 11:54:20 05/02/20 18 05/06/2018 vitam in B12, serum vitamin B12 1436 pg/mL 200-11 00 high Not Available [facility] [address] [address], [place], [address], 05/06/2018 11:54:21 05/02/20 18 05/06/2018 HbA1c (hemo globi n A1c), blood hemoglobin A1C 5.4 %_of_ total _HGB <5.7 normal For the purpo se of scree genna for the prese nce of diabe kanu: <5.7% Consi stent with the absen ce of diabe kanu 5.7-6 .4% Consi stent with incre ased risk for diabe kanu (pred iabet es) > or =6.5% Consi stent with diabe kanu This assay resul t is consi stent with a decre ased risk of diabe kanu. Curre ntly, no conse nsus exist s jill markham use of hemog lobin A1c for diagn osis of diabe kanu in child manju. Accor ding to Ameri can Diabe kanu Assoc iatio n (ADA) guide lines , hemog lobin A1c <7.0% repre sents optim al contr ol in non-p regna nt diabe tic patie nts. Diffe rent metri cs may apply to speci fic patie nt popul ation s. Stand ards of Medic al Care in Diabe kanu(A DA). Not Available [facility] [address] [place], [address], 05/06/2018 11:54:21 05/02/20 18 05/06/2018 vitam in B6 (pyri doxin e), plasm a vitamin B6, plasma 13.4 NG/mL 2.1-21 .7 Vitam in suppl ement ation withi n 24 hours prior to blood draw may affec t the accur acy of resul ts. This test was devel oped and its daniel tical perfo rmanc e zuleika cteri stics have been deter mined by [facility] emily Xavier cia. It has not been clear ed or appro janine by the US Food and Drug Admin istra tion. This assay has been valid ated pursu ant to the CLIA regul ation s and is used for clini justus purpo ses. Not Available [facility] [address] [place], [address], 05/06/2018 11:54:21 09/19/20 17 06/28/2017 NM, myoca rdial perfu forrest scan No observ ation record ed. Not Available 2016 17:29:14 09/19/20 17 elect katy castrejon am No observ ation record ed. Not Available 2016 17:29:14 07/16/20 18 07/16/2018 US, doppl er, venou s No observ ation record ed. [address] (Imaging) [address] [place] [address] [facility], [place], [address], 07/18/2018 00:48:10 07/17/20 18 07/16/2018 XR, ankle No observ ation record ed. [address] (Imaging) [address] [place] [address] [facility], [place], [address], 07/18/2018 00:48:10 07/17/20 18 07/16/2018 XR, knee, 3 view No observ ation record ed. [address] (Imaging) [address] [place] [address] [facility], [place], [address], 07/18/2018 00:48:10 07/27/20 18 07/27/2018 MAMMO , diagn ostic , bilat eral No observ ation record ed. [address] [facility] [place] [address], [place], [address], 07/27/2018 10:45:24 Result Notes None recorded. Problems Name Problem SNOMED Code Status Onset Date Resolution Date Notes Provider Name and Address Organization Details Recorded Time Hypertensi ve disorder 56754355 Active 2016 Linda casillas [facility] 7 11:45:23 Immunizati on refused Active 2016 Alfreda casillas [facility] 7 18:33:38 Deep venous thrombosis of lower extremity 345331052 Active 2013 -- [facility] Isidoro Chairez MD [address], [place], [address], [place] [facility] 8 15:07:52 History of pulmonary embolus 503125566 Active 2017 -- [facility] Isidoro Chairez MD [address], [place], [address], [facility] 8 15:08:11 Atypical chest pain 912060172 Active 2017 improved- HAd angiogram on 09/27/2017 - was ok wiht mild coronary artery dz Isidoro Chairez MD [address], [place], [address], [facility] 8 11:08:06 Peripheral venous insufficie ncy 71355330 Active 2017 improved swelling and varicose veins Had iliac stent placed 09/2017 Had procedure done in 04/02/2018 showed LLE multiple phlebectom ies with no complicati ons Isidoro Chairez MD [address], [place], [address], [facility] 8 11:09:29 Problem Notes None recorded. Procedures Surgical History Date Name Laterality Status Provider Name and Address Organization Details Recorded Time 11/27/19 17 Date of Last Mammogram completed Linda Johnson [facility] 09/19/2017 11:44:05 09/05/20 01 Colonoscopy completed Isidoro Chairez MD [address], [place], [address], [facility] 09/23/2017 11:55:24 Eye Surgery completed Isidoro Chairez MD [address], [place], [address], [facility] 04/30/2018 15:09:10 Unlisted px vascular surgery completed Isidoro Chairez MD [address], [place], [address], [facility] 04/30/2018 15:06:25 Cholecystectomy completed Isidoro nicholson MD [address], [place], [address], [facility] 04/30/2018 15:00:30 Appendectomy completed Isidoro Chairez MD [address], [place], [address], [facility] 04/30/2018 14:59:19 Tonsillectomy completed Isidoro Chairez MD [address], [place], [address], [facility] 04/30/2018 15:00:49 Orthopedic Surgery completed Isidoro Chairez MD [address], [place], [address], [facility] 04/30/2018 15:05:25 Total Hysterectomy completed Isidoro Chairez MD [address], [place], [address], [facility] 04/30/2018 14:58:35 Cardiac Surgery completed Isidoro nicholson MD [address], [place], [address], [facility] 04/30/2018 15:03:55 Imaging Results Imaging Date Name Status LastModified by Organization Details LastModified Time 06/28/2017 NM, myocardial perfusion scan completed [facility] Information not available 10/31/2017 17:29:14 09/19/2017 electrocardiogram completed [facility] Informa tion not available 10/31/2017 17:29:14 07/16/2018 US, doppler, venous completed [address] (Imaging) [address] [place] [address], [address], 07/18/2018 00:48:10 07/16/2018 XR, ankle completed [address] (Imaging) [address] [place] [address], [address], 07/18/2018 00:48:10 07/16/2018 XR, knee, 3 view completed [address] (Imaging) [address] [place] [address], [address], 07/18/2018 00:48:10 07/27/2018 MAMMO, diagnostic, bilateral completed [address] [place], [address], 07/27/2018 10:45:24 Procedure Notes None recorded. Medical Equipment None Reported. Allergies Allergen ID Allergen Name Allergen Category Reaction Reaction Severity Criticality Documentation Date Start Date Code Code System Note Provider Name and Address Organization Details Recorded Time 1182 crab allergeni c extract food hives rash Not available Not available Not available 09/19/2017 17103 0 [facility] 11:42:41 6309 codeine medicatio n hives rash Not available Not available Not available 09/19/2017 2670 RxNorm Linda casillas [facility] 7 11:42:55 Medications Name Sig Start Date Stop Date Status Note LastModified by Organization Details LastModified Time valacyclo vir 1 gram tablet active Not Available Not Available Not Available lisinopri l 20 mg tablet 11/05 completed pt last filled Lisinopr il 10 mg Rx on 10/04/17 Not Available Not Available Not Available valacyclo vir 500 mg tablet 09/19 completed On 1g Not Available Not Available Not Available cyanocoba wilfred (vit B-12) 1,000 mcg/mL injection solution Inject 1 mL every month by intramus cular route. 2016 active Not Available Not Available Not Avai lable lisinopri l 10 mg tablet active Not Available Not Available Not Available Restasis 0.05 % eye drops in a dropperet te active Not Available Not Available Not Available rosuvasta tin 5 mg tablet Take 1 tablet every day by oral route. active Not Available Not Available No t Available aspirin 11/05 completed -- currentl y on eliquis Not Available Not Available Not Available Prevnar 13 (PF) 0.5 mL intramusc ular syringe active Not Available Not Available Not Available Eliquis 5 mg tablet active Not Available Not Available No t Available Restasis MultiDose 0.05 % eye drops INSTILL 1 DROP INTO AFFECTED EYE(S) BY OPHTHALM IC ROUTE EVERY 12 HOURS active Not Available Not Available No t Available Vitals Date Recorded Body height Body mass index (BMI) Body weight Heart rate Respiratory rate Provider Name and Address Organization Details Last Updated DateTime 09/19/2017 167.64 cm 34.1 kg/m2 68316.99 g 77 /min 16 /min Linda Johnson [facility] 7 11:58:29 Date Recorded Systolic blood pressure Diastolic blood pressure Provider Name and Address Organization Details Last Updated DateTime 09/19/2017 137 mm[Hg] 80 mm[Hg] Isidoro Chairez MD [address], [place], [address] 09/19/2017 12:46:06 Date Recorded Body height Respiratory rate Heart rate Body mass index (BMI) Body weight Provider Name and Address Organization Details Last Updated DateTime 10/31/2017 167.64 cm 16 /min 84 /min 32.9 kg/m2 85602.84 g Linda Alex [facility] 7 16:58:45 Date Recorded Systolic blood pressure Diastolic blood pressure Provider Name and Address Organization Details Last Updated DateTime 10/31/2017 116 mm[Hg] 73 mm[Hg] Isidoro Chairez MD [address], [place], [address] [place] [address] 10/31/2017 17:52:09 Date Recorded Body height Heart rate Respiratory rate Body temperature Body mass index (BMI) Body weight Provider Name and Address Organization Details Last Updated DateTime 8 167.64 cm 71 /min 16 /min 97.2 [degF] 34.1 kg/m2 82925.9 9 g Serena [facility] 8 14:19:55 Date Recorded Systolic blood pressure Diastolic blood pressure Provider Name and Address Organization Details Last Updated DateTime 04/30/2018 129 mm[Hg] 70 mm[Hg] Isidoro Chairez MD [address], [place], [address] [place] [address] 04/30/2018 15:17:10 Date Recorded Body height Respiratory rate Heart rate Provider Name and Address Organization Details Last Updated DateTime 07/16/2018 167.64 cm 16 /min 71 /min [facility] 07/16/2018 13:44:05 Date Recorded Systolic blood pressure Diastolic blood pressure Provider Name and Address Organization Details Last Updated DateTime 07/16/2018 131 mm[Hg] 73 mm[Hg] Isidoro Chairez MD [address], [place], [address] [place] [address] 07/16/2018 14:17:07 Social History Question Answer Notes LastModified by Organizat ion Details LastModified Time Tobacco Smoking Status Never Smoker Linda Alex [facility] 09/19/2017 11:45:59 Do You Have An Advance Directive? No Information not available 09/19/2017 What Is Your Level Of Alcohol Consumption? None Information not available 09/19/2017 What Is Your Level Of Caffeine Consumption? None Information not available 09/19/2017 How Much Tobacco Do You Chew? None Information not available 09/19/2017 What Is Your Code Status? Full Code Information not available 09/19/2017 What Type Of Diet Are You Following? REGULAR Information not available 09/19/2017 Which Illicit Or Recreational Drugs Have You Used? 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 07/16/2018 Information not available 06/19/2019 How Much Tobacco Do You Smoke? No Information not available 09/19/2017 How Many Years Have You Smoked Tobacco? 0 Information not available 09/19/2017 Sex: Unknown Functional Status Question Answer Note LastModified by Organizat ion Details LastModified Time What is your exercise level? Occasional Information not available 09/19/2017 Mental Status None recorded. Family History Relationship Description Onset Age of this Age Resolved Age Notes LastModified by Organization Details LastModified Time Sister Myocardial infarction 78 76 Not available 09/19 12:21:57 Mother Acute poliomyeliti s 52 52 Not available 2016 12:23:06 Notes:-- no FH for DM or can cers Medical History No medical history recorded. Gynecological History Statement/Question Response Date of Last Mammogram 11/27/2016 Date of Last Colonoscopy Obstetrics History GPAL:G 0 P 0 0 0 0 Past Encounters Encounter ID Performer Location Encounter Start Date Encounter Closed Date Diagnosis/Indication Diagnosis SNOMED-CT Code Diagnosis ICD10 Code Diagnosis Note [id number] Isidoro Chairez MD [facility], [facility] [address] [place] [address] 09/19/2017 10:25:16 09/19/2017 13:02:41 Benign essential hypertension 2428671 I10 Hyperlipidemia 58103087 E78.5 Rosacea 612291560 L71.9 -- following w/ Dermatolog ist Nimco Causeyk Herpes simplex 82798054 B00.9 Body mass index 30+ - obesity 142362385 Z68.34 -- will advise weight loss-- pt's BMI today is 34.1 (ideal is between 20-25) Active or passive immunization 188153004 Z23 -- Patient does not want to be shots; but she will let me know if she changes her mind. Screening for malignant neoplasm of colon 150998204 Z12.11 -- Patient reports a last colonoscop y was about 15 years ago around 2001 Screening for malignant neoplasm of breast 229604213 Z12.31 -- Patient reports she had a normal mammogram at [facility] this year Summer 2016 Screening for malignant neoplasm of cervix 715598894 Z12.4 Deep venou s thrombosis of lower extremity 050990395 I82.543 (x 2; last episode was at [facility] around 2013) -- refer to Hematologi st by previous PCP Dr Robles Menopause 205019908 Z78. 0 -- last BONE density was around 2000 & pt reports it was good Antiplatel et agent therapy 856488654 Z79.02 -- currently on otc aspirin 81 mg daily Fatigue 83225963 R53.83 (x since Nov 2016) Electrocar diogram abnormal 082974750 R94.31 (asymptoma tic) -- refer pt to Cardiologi st Dr Ventura [id number] Isidoro Chairez MD [facility], [facility] [address] [facility] [address] [place] [address] 10/31/2017 15:40:03 10/31/2017 18:00:10 Benign essential hypertension 4579866 I10 Hyperlipidemia 08647388 E78.5 Fatigue 57521669 R53.83 (x since Nov 2016) Rosacea 946744383 L71.9 -- following w/ Dermatolog ist Nimco Foster Herpes simplex 75785234 B00.9 Body mass index 30+ - obesity 208732448 Z68.32 -- will advise weight loss; pt lost 7 # since her last visit-- pt's BMI today is 32.9 (ideal is between 20-25) Deep venou s thrombosis of lower extremity 104280277 I82.543 (x 2; last episode was at [facility] around 2013) -- refer to Hematologi st by previous PCP Dr Robles Active or passive immunization 601250154 Z23 -- Patient does not want to be shots; but she will let me know if she changes her mind. Screening for malignant neoplasm of colon 999862214 Z12.11 -- Patient reports a last colonoscop y was about 15 years ago around 2001 Screening for malignant neoplasm of breast 320866995 Z12.31 -- Patient reports she had a normal mammogram at [facility] this year Summer 2016 Screening for malignant neoplasm of cervix 464099606 Z12.4 Menopause 742418114 Z78. 0 -- last BONE density was around 2000 & pt reports it was good-- will schedule DEXA for next visit Antiplatel et agent therapy 707162543 Z79.02 -- currently on Eliquis but Dr Ventura will switch to otc aspirin 325 mg daily in 4-6 weeks (per pt). 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33 -- on CPAP about 7 hours nightly Rosacea 313679563 L71.9 -- following w/ Dermatolog ist Nimco Cristian Herpes simplex 38157599 B00.9 (type 1; dx'd on 11/01/17) Body mass index 30+ - obesity 047544909 Z68.32 -- will advise weight loss; pt gained 7 # since her last visit-- pt's BMI today is 34.1 (ideal is between 20-25) Deep venou s thrombosis of lower extremity 983836004 I82.543 (x 2; last episode was at [facility] around 2013) -- refer to Hematologi st by previous PCP Dr Robles Occlusion of iliac vein [id number] 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 Screening for malignant neoplasm of colon 382190876 Z12.11 -- Patient reports a last colonoscop y was about 15 years ago around 2001 Screening for malignant neoplasm of breast 543998389 Z12.31 -- Patient reports she had a normal mammogram at [facility] this year Summer 2016 Screening for malignant neoplasm of cervix 367759661 Z12.4 Menopause 584810591 Z78. 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 -- Avoid any multi-alex min or any supplement s containing vit B6 (also known as Pyridoxine ). -- Also avoid Liver (from any animal), Wittmann seeds, Pistachios , or Prunes, any Energy drinks which may contain Vit B6 (aka Pyridoxine ).-- recheck lab on within 5 days from 04/30/18 Vitamin B1 2 deficiency (non anemic) 46462867 E53.8 -- schedule nursing visit for Vit B12 injections (1,000 mg IM once a week x 3 weeks). -- also start otc sublingual Vit B12 2,500 mcg every morning (1 tab under tongue for 5 min then swallow).- - recheck lab on within 5 days from 04/30/18 Hyperglycemia 54270913 R 73.9 -- recheck lab on within 5 days from 04/30/18 Renal impairment 0710180 03 N28.9 ^Creatinin e (renal impairment ) -- informed pt to avoid any otc pain meds: like Ibuprofen /motrin /advil /Aleve /Naproxen /etc.-- increase and maintain fluids to over 64 fluid ounces daily; -- recheck lab on within 5 days from 04/30/18 23728 Isidoro Chairez MD [facility] [address] [place] [address] 07/16/2018 11:29:21 07/16/2018 14:23:12 Injury of ankle 801415790 S99.911A (right ankle) -- sprained right ankle last Monday07/13/18 (pt denies falling to the ground). Renal impairment 4358706 03 N28.9 ^Creatinin e (renal impairment ) -- informed pt to avoid any otc pain meds: like Ibuprofen /motrin /advil /Aleve /Naproxen /etc.-- increase and maintain fluids to over 64 fluid ounces daily-- last Cr wa stable at 1.06 on 05/02/18 Hyperglycemia 07337967 R 73.9 -- A1c level of 5.4 on 05/02/18 Hypervitaminosis B6 2381 56548 E67.2 Excess vit B6 can cause nerve damage with neuropathi c sx like numbness and tingling. -- Avoid any multi-alex min or any supplement s containing vit B6 (also known as Pyridoxine ). -- Also avoid Liver (from any animal), Wittmann seeds, Pistachios , or Prunes, any Energy drinks which may contain Vit B6 (aka Pyridoxine ).-- resolved on lab testing on 05/02/18 Vitamin B1 2 deficiency (non anemic) 47053252 E53.8 --last B12 level of 1436 on 05/02/18 Benign ess ential hypertension 2360781 I10 -- last EKG was done on 05/01/[address] Ventura 's office-- recheck lab(s) on 11/01/18 Hyperlipidemia 40190402 E78.5 -- LDL well controlled at 67 on from 05/02/18 Obstructiv e sleep apnea of adult 7225141969 103 G47.33 -- on CPAP about 7 hours nightly (following w/ Dr Brendon Espinal) [place] 103298562 L71.9 -- following w/ Dermatolog ist Nimco Cristian Herpes simplex 19964434 B00.9 (type 1; dx'd on 11/01/17) Body mass index 30+ - obesity 204933137 Z68.32 -- will advise weight loss; pt gained 7 # since her last visit-- pt's BMI today is 34.1 (ideal is between 20-25) Deep venou s thrombosis of lower extremity 208203681 I82.543 (x 2; last episode was at [facility] around 2013)-- referred to Hematologi st & pt saw Dr Phu Rodgers in May 2018-- had vein ablation on 04/02/18 Occlusion of iliac vein 865608127 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 0 -- last BONE density was around 2000 & pt reports it was good-- DEXA scheduled for 05/01/18 Antiplatel et agent therapy 673019781 Z79.02 -- currently on aspirin [address] Ventura Active or passive immunization 200158485 Z23 -- Patient does not want to be shots; but she will let me know if she changes her mind. Screening for malignant neoplasm of colon 940673187 Z12.11 -- Patient reports a last colonoscop y was about 15 years ago around 2001 Screening for malignant neoplasm of breast 186203847 Z12.31 -- Patient reports she had a normal mammogram at [facility] around Aug 2017 Screening for malignant neoplasm of cervix 778797688 Z12.4 Pain in right knee 09020 35857 69257 M25.561 Health Concerns Section Related Observation LastModified by Organization Detai ls LastModified Time None Recorded Concern Status LastModified by Organization Details LastModified Time None Recorded Advance Directives Directive N: Payers Encounter Date Sequence Insurance Name Policy Number Policy Sullivan Covered Member ID Sullivan Member ID Guarantor Name 09/19/2017 2 [place] (PP[place]) [id number] Gianna Be [id number] Gianna Boedeker 10/31/2017 2 [place] 104 Gianna Lcokettyer [id number] Gianna Boedeker 04/30/2018 2 [place] 104 Gianna Lockettyer [id number] Gianna Boedeker 04/30/2018 1 [place] Gianna Lockettyer [id number] Gianna Boedeker 07/16/2018 2 [place] ([place] 104 Gianna Be [id number] Gianna Boedeker 07/16/2018 1 [place] Gianna Lockettyer [id number] Gianna Boedeker Notes Date Note Type Note Provider Name and Address Organization Details Recorded Time 09/19/2017 text/html Transferred care from Dr Robles Patient denies any headache/chest discomfort or pain/diaphoresis/b reathing problems/nausea/vo miting/any angina equivalent symptoms/visual changes Isidoro Chairez MD [address], [place], [address], [facility] 09/19/2017 12:58:16 10/31/2017 text/html Patient denies a ny headache/chest discomfort or pain/diaphoresis/b reathing problems/nausea/vo miting/any angina equivalent symptoms/visual changes Isidoro Chairez MD [address], [place], [address], [facility] 10/31/2017 17:56:10 04/30/2018 text/html Patient denies a ny headache/chest discomfort or pain/diaphoresis/b reathing problems/nausea/vo miting/any angina equivalent symptoms/visual changes Isidoro Chairez MD [address], [place], [address], [facility] 04/30/2018 15:21:08 07/16/2018 text/html Patient denies a ny headache/chest discomfort or pain/diaphoresis/b reathing problems/nausea/vo miting/any angina equivalent symptoms/visual changes Isidoro Chairez MD [address], [place], [address], [facility] 07/16/2018 14:20:58 OBGyn Episode No OBEpisode recorded.
--- OUTSIDE RECORDS SUMMARY | 2025-01-12 03:46 | XMS_ITS | Encounter Summary ---
Author Organization [facility] Address [address] [place] [address] Care Team Providers Care Sock Boarder Name Role Phone ShayBrian Primary Care Provider Encounter Details Date Type Department Care Team (Latest Contact Info) Description 11/08/2006 Outpatient Historical HIS [facility] Navarro, Fernie Walden MD NO ADDRESS ON FILE Edema (Primary Dx) Social History Tobacco Use Types Packs/Day Years Used Date Smoking Tobacco: Never Assessed Comments Unknown Sex and Gender Information Value Date Recorded Sex Assigned at Not on file Legal Sex Female 3:34 AM PIPE CUTTER Gender Identity Not on file Sexual Orientation Not on file documented as of this encounter Plan of Treatment Not on file documented as of this encounter Procedures Procedure Name Priority Date/Time Associated Diagnosis Comments URINALYSIS W/REFLEX MICROSCOPIC Routine 11/08/2006 9:26 AM PIPE CUTTER TSH Routine 11/08/2006 9:16 AM PIPE CUTTER HEPATIC FUNCTION PANEL Routine 11/08/2006 9:16 AM PIPE CUTTER LIPID PANEL Routine 11/08/2006 9:16 AM PIPE CUTTER documented in this encounter Results * (ABNORMAL) URINALYSIS (11/08/2006 9:26 AM PIPE CUTTER) COLOR UA Yellow INTERFACE SYSTEM CLARITY UA Clear Clear INTERFACE SYSTEM SPECIFIC GRAVITY UA 1.022 1.001 - 1.035 INTERFACE SYSTEM PH UA 5.5 5.0 - 8.0 INTERFACE SYSTEM LEUKOCYTE ESTERASE UA Negative Negative INTERFACE SYSTEM NITRITE UA Negative Negative INTERFACE SYSTEM PROTEIN UA Trace(A) Negative INTERFACE SYSTEM GLUCOSE UA Negative Negative INTERFACE SYSTEM KETONES UA Negative Negative INTERFACE SYSTEM UROBILINOGEN UA <1 <=1 mg/dL INTE RFACE SYSTEM BILIRUBIN UA Negative Negative INTERFA CE SYSTEM BLOOD UA Negative Negative INTERFACE SYSTEM WBC UA 1 0 - 5 /HPF INTERFACE SYSTEM RBC UA 2 0 - 4 /HPF INTERFACE SYSTEM EPITHELIAL CELLS, URINE 2-5 /HPF INTERFACE SYSTEM 11/08/2006 9:26 AM PIPE CUTTER Fernie Navarro MD URINE ORDERABLES Final Result Performing Organization Address City/[facility]/ZIP Co de Phone Number INTERFACE SYSTEM Refer to clinic/hospital department * (ABNORMAL) HEPATIC FUNCTION PANEL (11/08/2006 9:16 AM PIPE CUTTER) ALKALINE PHOSPHATASE 56 35 - 104 U/L INTERFACE SYSTEM AST 40(H) 12 - 32 U/L INTERFACE SYSTEM ALT 56(H) 0 - 31 U/L INTERFACE SYSTEM TOTAL PROTEIN 7.3 6.3 - 8.6 g/dL INTERFACE SYSTEM ALBUMIN 3.6 3.4 - 4.8 g/dL INTERFACE SYSTEM BILIRUBIN TOTAL 0.4 0.2 - 1.0 mg/dL INTERFACE SYSTEM BILIRUBIN DIRECT 0.1 0.0 - 0.3 mg/dL INTERFACE SYSTEM 11/08/2006 9:16 AM PIPE CUTTER Fernie Navarro MD CHEMISTRY ORDERABLES Final Re sult Performing Organization Address [facility]/ZIP Co de Phone Number INTERFACE SYSTEM Refer to clinic/hospital department * (ABNORMAL) LIPID PANEL (11/08/2006 9:16 AM PIPE CUTTER) CHOLESTEROL 110 100 - 199 mg/dL INTERFACE SYSTEM TRIGLYCERIDE 99 10 - 149 mg/dL INTERFACE SYSTEM HDL 36(L) 40 - 59 mg/dL INTERFACE SYSTEM CHOL/HDL RATIO 3.1 2.0 - 5.0 INTER FACE SYSTEM LDL CALCULATED 54 <=99 mg/dL INTERFACE SYSTEM LIPID PANEL COMMENT See Below INTERFACE SYSTEM Comment: The adult ATP and pediatric NCEP classifications for lipids are available on the [facility] Intranet at: [email or web address] Select: Lab Policies and Procedures Select: Reference Ranges - Lipids 11/08/2006 9:16 AM PIPE CUTTER us Fernie Navarro MD CHEMISTRY ORDERABLES Final Re marita Performing Organization Address [facility] de Phone Number INTERFACE SYSTEM Refer to clinic/hospital department * TSH (11/08/2006 9:16 AM PIPE CUTTER) TSH 2.53 0.27 - 4.20 uU/mL INTERFACE SYSTEM 11/08/2006 9:16 AM PIPE CUTTER us Fernie Navarro MD CHEMISTRY ORDERABLES Final Re henryt Performing Organization Address [facility] Phone Number INTERFACE SYSTEM Refer to clinic/hospital department documented in this encounter Visit Diagnoses Diagnosis Edema- Primary documented in this encounter Care Teams Sock Boarder Relationship Specialty Start Date End Date Brian Day DO PCP - General 03/07/08 documented as of this encounter
--- OUTSIDE RECORDS SUMMARY | 2025-01-12 03:46 | XMS_ITS | Encounter Summary ---
Author Organization [facility] Address [address] [place] [address] Care Team Providers Care Seam Sewer Name Role Phone Brian Day DO Primary Care Provider Encounter Details Date Type Department Care Team (Late st Contact Info) Description 02/01/2008 Outpatient Historical [facility] Internal Medicine [address] [place] [address] Brian Day DO [address] [place] [phone] Social History Tobacco Use Types Packs/Day Years Used Date Smoking Tobacco: Never Assessed Comments Unknown Sex and Gender Information Value Date Recorded Sex Assigned at Not on file Legal Sex Female 3:34 AM MECHANIC HELPER Gender Identity Not on file Sexual Orientation Not on file documented as of this encounter Last Filed Vital Signs Vital Sign Reading Time Taken Comments Blood Pressure 120/70 02/01/2008 10:15 AM MECHANIC HELPER Pulse - - Temperature - - Respiratory Rate - - Oxygen Saturation - - Inhaled Oxygen Concentration - - Weight 90.7 kg (200 lb) 02/01/2008 10:15 AM MECHANIC HELPER Height - - Body Mass Index - - documented in this encounter Plan of Treatment Not on file documented as of this encounter Visit Diagnoses Not on filedocumented in this encounter Care Teams Seam Sewer Relationship Specialty Start Date End Date Brian Day DO PCP - General 03/07/08 documented as of this encounter
--- OUTSIDE RECORDS SUMMARY | 2025-01-12 03:47 | XMS_ITS | Encounter Summary ---
Author Organization [facility] Address [address] [facility] [facility] Attn: Epic Prelude ADT DERECK AREVALO [address] Care Team Providers Care Roving Teller Name Role Phone Brian Day DO Primary Care Provider Encounter Details Date Type Department Care Team (Late st Contact Info) Description 11/06/1995 Outpatient Historical Fernie Navarro MD NO ADDRESS ON FILE Social History Tobacco Use Types Packs/Day Years Used Date Smoking Tobacco: Never Assessed Comments Unknown Sex and Gender Information Value Date Recorded Sex Assigned at Not on file Legal Sex Female 3:34 AM FURNITURE PACKER Gender Identity Not on file Sexual Orientation Not on file documented as of this encounter Plan of Treatment Not on file documented as of this encounter Visit Diagnoses Not on filedocumented in this encounter Care Teams Roving Teller Relationship Specialty Start Date End Date Brian Day DO PCP - General 03/07/08 documented as of this encounter
--- OUTSIDE RECORDS SUMMARY | 2025-01-12 03:47 | XMS_ITS | Encounter Summary ---
Author Organization [facility] Address [address] [place] [address] Care Team Providers Care Emergency Preparedness Manager Name Role Phone Brian Day DO Primary Care Provider Encounter Details Date Type Department Care Team (Latest Contact Info) Description 10/28/2004 Outpatient Historical HIS [facility] MIC[facility] Navarro, Fernie Walden MD NO ADDRESS ON FILE HYPERLIPIDEMIA NEC/NOS (Primary Dx) Social History Tobacco Use Types Packs/Day Years Used Date Smoking Tobacco: Never Assessed Comments Unknown Sex and Gender Information Value Date Recorded Sex Assigned at Not on file Legal Sex Female 3:34 AM BRANCH MAKER Gender Identity Not on file Sexual Orientation Not on file documented as of this encounter Plan of Treatment Not on file documented as of this encounter Visit Diagnoses Diagnosis Other and unspecified hyperlipidemia- Primary documented in this encounter Care Teams Emergency Preparedness Manager Relationship Specialty Start Date End Date Brian Day DO PCP - General 03/07/08 documented as of this encounter
--- OUTSIDE RECORDS SUMMARY | 2025-01-12 03:47 | XMS_ITS | Encounter Summary ---
Author Organization [facility] Address [address] [place] [address] Care Team Providers Care Fence Erector Supervisor Name Role Phone Brian Day DO Primary Care Provider Encounter Details Date Type Department Care Team (Latest Contact Info) Description 10/04/2002 Outpatient Historical HIS [facility] DIRECT CHILL CASTER Aamir Gonzalez MD NO ADDRESS ON FILE CORON ATHEROSCL [place] CORON VESSEL (Primary Dx) Social History Tobacco Use Types Packs/Day Years Used Date Smoking Tobacco: Never Assessed Comments Unknown Sex and Gender Information Value Date Recorded Sex Assigned at Not on file Legal Sex Female 3:34 AM SCRIPT ARTIST Gender Identity Not on file Sexual Orientation Not on file documented as of this encounter Plan of Treatment Not on file documented as of this encounter Visit Diagnoses Diagnosis Coronary atherosclerosis of [place] coronary artery- Primary documented in this encounter Care Teams Fence Erector Supervisor Relationship Specialty Start Date End Date Brian Day DO PCP - General 03/07/08 documented as of this encounter
--- OUTSIDE RECORDS SUMMARY | 2025-01-12 03:47 | XMS_ITS | Encounter Summary ---
Author Organization [facility] Address [address] [place] [address] Care Team Providers Care Corporate Claims Examiner Name Role Phone Brian Day DO Primary Care Provider Encounter Details Date Type Department Care Team (Late st Contact Info) Description 07/15/2002 Outpatient Historical HIS [facility] Fernie Navarro MD NO ADDRESS ON FILE Social History Tobacco Use Types Packs/Day Years Used Date Smoking Tobacco: Never Assessed Comments Unknown Sex and Gender Information Value Date Recorded Sex Assigned at Not on file Legal Sex Female 3:34 AM RESEARCH ARCHAEOLOGIST Gender Identity Not on file Sexual Orientation Not on file documented as of this encounter Plan of Treatment Not on file documented as of this encounter Visit Diagnoses Not on filedocumented in this encounter Care Teams Corporate Claims Examiner Relationship Specialty Start Date End Date Brian Day DO PCP - General 03/07/08 documented as of this encounter
--- OUTSIDE RECORDS SUMMARY | 2025-01-12 03:47 | XMS_ITS | Encounter Summary ---
Author Organization [facility] Address [address] [place] [address] Care Team Providers Care Marketing Instructor Name Role Phone Brian Day DO Primary Care Provider Encounter Details Date Type Department Care Team (Latest Contact Info) Description 05/07/2004 Outpatient Historical HIS [facility] MIC[facility] Navarro, Fernie Walden MD NO ADDRESS ON FILE SCREENING MAMM-MAILG NEOPL-OTHER (Primary Dx) Social History Tobacco Use Types Packs/Day Years Used Date Smoking Tobacco: Never Assessed Comments Unknown Sex and Gender Information Value Date Recorded Sex Assigned at Not on file Legal Sex Female 3:34 AM COMPLIANCE DIRECTOR Gender Identity Not on file Sexual Orientation Not on file documented as of this encounter Plan of Treatment Not on file documented as of this encounter Visit Diagnoses Diagnosis Other screening mammogram- Primary documented in this encounter Care Teams Marketing Instructor Relationship Specialty Start Date End Date Brian Day DO PCP - General 03/07/08 documented as of this encounter
--- OUTSIDE RECORDS SUMMARY | 2025-01-12 03:47 | XMS_ITS | Encounter Summary ---
Author Organization [facility] Address [address] [place] [address] Care Team Providers Care Pest Control Supervisor Name Role Phone Brian Day DO Primary Care Provider Encounter Details Date Type Department Care Team (Latest Contact Info) Description 05/07/2004 Outpatient Historical HIS [place] [facility] MICHAEL Navarro, Fernie Walden MD NO ADDRESS ON FILE HYPERLIPIDEMIA NEC/NOS (Primary Dx) Social History Tobacco Use Types Packs/Day Years Used Date Smoking Tobacco: Never Assessed Comments Unknown Sex and Gender Information Value Date Recorded Sex Assigned at Not on file Legal Sex Female 3:34 AM SPECIALIST PHYSICIAN Gender Identity Not on file Sexual Orientation Not on file documented as of this encounter Plan of Treatment Not on file documented as of this encounter Visit Diagnoses Diagnosis Other and unspecified hyperlipidemia- Primary documented in this encounter Care Teams Pest Control Supervisor Relationship Specialty Start Date End Date Brian Day DO PCP - General 03/07/08 documented as of this encounter
--- OUTSIDE RECORDS SUMMARY | 2025-01-12 03:47 | XMS_ITS | Encounter Summary ---
Author Organization [facility] Address [address] [place] [address] Care Team Providers Care Data Entry Associate Name Role Phone Brian Day DO Primary Care Provider Encounter Details Date Type Department Care Team (Latest Contact Info) Description 08/08/2005 Outpatient Historical [facility] MICHAEL Navarro, Fernie Walden MD NO ADDRESS ON FILE ABNORMAL WEIGHT GAIN (Primary Dx) Social History Tobacco Use Types Packs/Day Years Used Date Smoking Tobacco: Never Assessed Comments Unknown Sex and Gender Information Value Date Recorded Sex Assigned at Not on file Legal Sex Female 3:34 AM RODENT CONTROL WORKER Gender Identity Not on file Sexual Orientation Not on file documented as of this encounter Plan of Treatment Not on file documented as of this encounter Procedures Procedure Name Priority Date/Time Associated Diagnosis Comments CBC WITH DIFFERENTIAL Routine 08/08/2005 2:55 PM CDT CBC WITH DIFFERENTIAL Routine 08/08/2005 2:55 PM CDT TSH Routine 08/08/2005 2:55 PM CDT COMPREHENSIVE METABOLIC PANEL Routine 08/08/2005 2:55 PM CDT URINALYSIS W/REFLEX MICROSCOPIC Routine 08/08/2005 2:42 PM CDT documented in this encounter Results * CBC WITH DIFFERENTIAL (08/08/2005 2:55 PM CDT) NEUTROPHILS 56 45 - 70 % INTERFAC E SYSTEM LYMPHOCYTES 31 16 - 45 % INTERFAC E SYSTEM MONOCYTES 9 3 - 13 % INTERFACE SYSTEM EOSINOPHILS 4 0 - 7 % INTERFAC E SYSTEM BASOPHILS 1 0 - 2 % INTERFACE SYSTEM NEUTROPHIL ABSOLUTE 3.60 1.90 - 7.00 K/uL INTERFACE SYSTEM LYMPHOCYTE ABSOLUTE 1.98 0.70 - 4.50 K/uL INTERFACE SYSTEM MONOCYTE ABSOLUTE 0.56 0.10 - 1.30 K/uL INTERFACE SYSTEM EOSINOPHIL ABSOLUTE 0.24 0.00 - 0.70 K/uL INTERFACE SYSTEM BASOPHILS ABSOLUTE 0.03 0.00 - 0.20 K/uL INTERFACE SYSTEM 08/08/2005 2:55 PM CDT Fernie Navarro MD HEMATOLOGY ORDERABLES Final R esult Performing Organization Address City/[facility] de Phone Number INTERFACE SYSTEM Refer to clinic/hospital department * CBC WITH DIFFERENTIAL (08/08/2005 2:55 PM CDT) WBC 6.4 4.0 - 9.8 K/uL INTERFACE SYSTEM RBC 4.25 3.90 - 4.90 M/uL INTERFACE SYSTEM HEMOGLOBIN 12.5 11.8 - 14.8 g/dL INTERFACE SYSTEM HEMATOCRIT 37.2 35.5 - 44.0 % INTERFACE SYSTEM MCV 87.5 82.0 - 99.0 fL INTERFACE SYSTEM MCH 29.4 27.2 - 32.6 pg INTERFACE SYSTEM MCHC 33.6 31.5 - 35.5 % INTERFACE SYSTEM RDW 13.6 11.5 - 14.5 % INTERFACE SYSTEM RDW-STDEV 43.4 37.1 - 48.7 fL INTERFACE SYSTEM PLATELETS 232 140 - 350 K/uL INTERFACE SYSTEM MPV 9.4 9.3 - 12.4 fL INTERFACE SYSTEM 08/08/2005 2:55 PM CDT Fernie Navarro MD HEMATOLOGY ORDERABLES Final R esult Performing Organization Address City/[facility] Co de Phone Number INTERFACE SYSTEM Refer to clinic/hospital department * TSH (08/08/2005 2:55 PM CDT) TSH 2.36 0.27 - 4.20 uU/mL INTERFACE SYSTEM 08/08/2005 2:55 PM CDT Fernie Navarro MD CHEMISTRY ORDERABLES Final Re sult Performing Organization Address City/[facility] Co pa Phone Number INTERFACE SYSTEM Refer to clinic/hospital department * COMPREHENSIVE METABOLIC PANEL (08/08/2005 2:55 PM CDT) GLUCOSE 103 65 - 109 mg/dL INTERFACE SYSTEM CREATININE 1.1 0.4 - 1.2 mg/dL INTERFACE SYSTEM CALCIUM 9.0 8.6 - 10.2 mg/dL INTERFACE SYSTEM AST 17 12 - 32 U/L INTERFACE SYSTEM ALKALINE PHOSPHATASE 58 35 - 104 U/L INTERFACE SYSTEM BUN 17 6 - 20 mg/dL INTERFACE SYSTEM BILIRUBIN TOTAL 0.3 0.2 - 1.0 mg/dL INTERFACE SYSTEM ALBUMIN 4.1 3.4 - 4.8 g/dL INTERFACE SYSTEM TOTAL PROTEIN 6.9 6.3 - 8.6 g/dL INTERFACE SYSTEM ALT 14 0 - 31 U/L INTERFACE SYSTEM SODIUM 141 135 - 145 mmol/L INTERFACE SYSTEM POTASSIUM 3.6 3.5 - 4.9 mmol/L INTERFACE SYSTEM CHLORIDE 106 96 - 108 mmol/L INTERFACE SYSTEM CO2 28 22 - 30 mmol/L INTERFACE SYSTEM 08/08/2005 2:55 PM CDT Fernie Navarro MD CHEMISTRY ORDERABLES Final Re sult Performing Organization Address [facility] Phone Number INTERFACE SYSTEM Refer to clinic/hospital department * (ABNORMAL) URINALYSIS (08/08/2005 2:42 PM CDT) COLOR UA Yellow INTERFACE SYSTEM CLARITY UA Clear Clear INTERFACE SYSTEM SPECIFIC GRAVITY UA 1.020 1.001 - 1.035 INTERFACE SYSTEM PH UA 6.0 5.0 - 8.0 INTERFACE SYSTEM LEUKOCYTE ESTERASE UA Negative Negative INTERFACE SYSTEM NITRITE UA Negative Negative INTERFACE SYSTEM PROTEIN UA Negative Negative INTERFACE SYSTEM GLUCOSE UA Negative Negative INTERFACE SYSTEM KETONES UA Negative Negative INTERFACE SYSTEM UROBILINOGEN UA <1 <1 mg/dL INTE RFACE SYSTEM BILIRUBIN UA Negative Negative INTERFA CE SYSTEM BLOOD UA 1+(A) Negative INTERFACE SYSTEM RBC UA 4 0 - 4 /HPF INTERFACE SYSTEM EPITHELIAL CELLS, URINE 0-2 /HPF INTERFACE SYSTEM 08/08/2005 2:42 PM CDT us Fernie Navarro MD URINE ORDERABLES Final Result INTERFACE SYSTEM Refer to clinic/hospital department documented in this encounter Visit Diagnoses Diagnosis Abnormal weight gain- Primary documented in this encounter Care Teams Data Entry Associate Relationship Specialty Start Date End Date Brian Day DO PCP - General 03/07/08 documented as of this encounter
--- OUTSIDE RECORDS SUMMARY | 2025-01-12 03:47 | XMS_ITS | Encounter Summary ---
Author Organization [facility] Address [address] [place] [address] Care Team Providers Care Diesel Truck Driver Name Role Phone Brian Day DO Primary Care Provider Encounter Details Date Type Department Care Team (Latest Contact Info) Description 07/10/2001 Inpatient Historical [facility] PATIENT IN A BED Reynaldo Graham MD NO ADDRESS ON FILE Mickie Peña MD NO ADDRESS ON FILE Other chest pain (Primary Dx) Social History Tobacco Use Types Packs/Day Years Used Date Smoking Tobacco: Never Assessed Comments Unknown Sex and Gender Information Value Date Recorded Sex Assigned at Not on file Legal Sex Female 3:34 AM HERPETOLOGY TEACHER Gender Identity Not on file Sexual Orientation Not on file documented as of this encounter Plan of Treatment Not on file documented as of this encounter Visit Diagnoses Diagnosis Other chest pain- Primary documented in this encounter Care Teams Diesel Truck Driver Relationship Specialty Start Date End Date Brian Day DO PCP - General 03/07/08 documented as of this encounter
--- OUTSIDE RECORDS SUMMARY | 2025-01-12 03:47 | XMS_ITS | Encounter Summary ---
Author Organization [facility] Address [address] [place] [address] Attn: Epic Prelude ADT DERECK AREVALO [address] Care Team Providers Care Firewall Administrator Name Role Phone Brian Day DO Primary Care Provider Encounter Details Date Type Department Care Team (Late st Contact Info) Description 12/07/1991 Outpatient Historical [facility] Juan C HAYWARD MD [address] [place] [id number] Social History Tobacco Use Types Packs/Day Years Used Date Smoking Tobacco: Never Assessed Comments Unknown Sex and Gender Information Value Date Recorded Sex Assigned at Not on file Legal Sex Female 3:34 AM SATURATOR Gender Identity Not on file Sexual Orientation Not on file documented as of this encounter Plan of Treatment Not on file documented as of this encounter Visit Diagnoses Not on filedocumented in this encounter Care Teams Firewall Administrator Relationship Specialty Start Date End Date Brian Day DO PCP - General 03/07/08 documented as of this encounter
--- OUTSIDE RECORDS SUMMARY | 2025-01-12 03:47 | XMS_ITS | Continuity of Care Document ---
Author Organization [facility] Address [address] [place] [address] [address] [place] [address] Phone Care Team Providers Care Farmworker Livestock Name Role Phone Brian Mendez MD, MD Unavailable Unavailab le Allergies, Adverse Reactions, Alerts Substance Reaction Status Criticality codeine Active No Information Medications Medication Instructions Dosage Effective Dates (start - stop) Status Comments Vitamins & Minerals Tab - Active Aspir-81 81 mg Tab take 1 tablet (81MG) by ORAL route every day - Active Vitamin D 50,000 unit Cap take 1 capsule ([id number]) by ORAL route every week - Active Procedures Procedure Date POSTOP FOLLOW-UP VISIT POSTOP FOLLOW-UP VISIT POSTOP FOLLOW-UP VISIT POSTOP FOLLOW-UP VISIT CATARACT SURG W/IOL, 1 STAGE DILATED FUNDUS EVAL DONE PRE-SURG EYE MEASURES DOC'D INTERNAL EYE PHOTOGRAPHY EYE EXAM, NEW PATIENT SPECIAL EYE EXAM, INITIAL SPECIAL EYE EXAM, INITIAL Presbyopia-correct function Presbyopia-correct function Advance Directives Directive Yes / No Effective Date File Name Resuscitation Not Answered N/A N/A Life Support Not Answered N/A N/A Intubation Not Answered N/A N/A Antibiotics Not Answered N/A N/A IV Fluid Support Not Answered N/A N/A Tube Feed Not Answered N/A N/A Other Directive N/A N/A WARNING:The information contained in this section is historical and is provided for information only and does not constitute a legal document or any assurance that the information is still accurate. Please verify the information with the sanders of the legal document before using it for clinical purposes. Encounters Encounter Description Practice Location Reason(s) For Visit Diagnoses Date Provider Providers Copied on Encounter [facility], [address] [place] [address], [id number], tel:[phone] OPH CONSULT RORY WOLF Discomfort and redness (chief complaint) No Information 0 Vanessa Torres. [address] , [address], [place], [id number] , [place]. tel:[phone] Referring Provider: [place], [address] [facility] [address], [place], [address]. tel:[phone] [facility], [address] [place] [address], [id number], tel:[phone] Oph Consult [facility] No Information 0 Vanessa Torres. [address] , [address], [place], [place], [id number] , [place]. tel:[phone] Referring Provider: [place], [address] [facility] [address], [place], [address]. tel:[phone] [facility], [address] [place] [address], [id number], tel:[phone] Oph Consult [facility] No Information 0 Vanessa Torres. [address], [address], [place], [place], [id number] , [place]. tel:[phone] Referring Provider: [place], [address] [facility] [address], [place], [address]. tel:[phone] [facility], [address] [place] [address], [id number], tel:[phone] OPH CONSULT RORY WOLF No Information 0 Vanessa Torres. [address], [address], [place], [place], [id number] , . tel:[phone] [place]erring [place]: [place], [address], [place], [address]. tel:[phone] [facility], [address] [place] [address], [id number], tel:[phone] [facility] [place] No Information 0 Vanessa Torres. [address], [place], [place], [id number] , [place]. [phone] [place]: [place], [address] [address], [place], [address]. tel:[phone] [facility], [address] [place] [address], [id number], tel:[phone] OPH CONSULT [facility] No Information 0 Salvatore Ortiz. [address] , [address], [place], [place], [id number] , [place]. tel:[phone] Referring Provider: [place], [address] [address], [place], [address]. tel:[phone] [facility], [address] [place] [address], [id number], tel:[phone] Oph Consult [facility] No Information 0 Vanessa Torres. [address], [place], [place], [id number] , [place]. tel:[phone] Referring [place]: [place], [address] [address], [place], [address]. tel:[phone] Family History Family Member Type Diagnosis Age At Onset No Information Payers Payer name Insurance type Covered democrat ID Authoriza tion(s) [place]IC[place] OF [place] [id number] [employer] [facility] [id number] Social History Type Description Quantity Date Captured Comments Alcohol Use Details No Caffeine Use Details Tobacco Use Status No Information Smoking Status No Information Sex Female Chief Complaint And Reason For Visit From encounter dated '08/20/2010 13:10'. Discomfort and redness (chief complaint) Plan Of Treatment Date Type Action Status No Information History Of Present Illness Encounter Date Complaint History Of Prese nt Illness No Information Instructions Date Instruction Additional Infor tito Post Op Exam - Pt qu estioned whether or not [facility] had preformed sx, as she said she could hear two male voices on the day of her surgery. [facility] reassured pt that he had indeed preformed her surgery. Pt also complained that she didn't know she had an astigmatism despite the fact that she admitted that [facility] did explain to her before her sx that she was not a [facility] pt due to the astigmatism. Assessments Type Assessment Date No Information
--- OUTSIDE RECORDS SUMMARY | 2025-01-12 03:47 | XMS_ITS | Encounter Summary ---
Author Organization [facility] Address 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
--- OUTSIDE RECORDS SUMMARY | 2025-01-12 03:47 | XMS_ITS | Encounter Summary ---
Author Organization [employer] Address 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
--- OUTSIDE RECORDS SUMMARY | 2025-01-12 03:47 | XMS_ITS | Encounter Summary ---
Author Organization [facility] Address [address] [facility] Attn: Epic Prelude ADT DERECK AREVALO [address] Care Team Providers Care Gerontology Aide Name Role Phone Brian Day DO Primary Care Provider Encounter Details Date Type Department Care Team (Late st Contact Info) Description 06/24/1997 Outpatient Historical Conversion, History Fernie Navarro MD NO ADDRESS ON FILE Social History Tobacco Use Types Packs/Day Years Used Date Smoking Tobacco: Never Assessed Comments Unknown Sex and Gender Information Value Date Recorded Sex Assigned at Not on file Legal Sex Female 3:34 AM OFFC SPEC Gender Identity Not on file Sexual Orientation Not on file documented as of this encounter Plan of Treatment Not on file documented as of this encounter Visit Diagnoses Not on filedocumented in this encounter Care Teams Gerontology Aide Relationship Specialty Start Date End Date Brian Day DO PCP - General 03/07/08 documented as of this encounter
--- OUTSIDE RECORDS SUMMARY | 2025-01-12 03:47 | XMS_ITS | Clinical Summary ---
Author Organization [facility] Address [address] [facility] [place] [address] Phone Care Team Providers Care Podiatric Foot And Ankle Specialist Name Role Phone Brian Day Jessica Primary Care Provider Allergies Active Allergy Reactions Criticality Noted Date Comments Codeine 02/01/2008 Medications 0mega-3 fatty acids-vitamin E (FISH OIL) 1,000 mg Oral Cap Take 1,000 mg by mouth. 1 po qd Active aspirin (TLEMA) 81 mg Oral Tab Take 81 mg by mouth daily. 1 po qhs Active VITAMIN E, BULK, MISCIndications :Back pain,Hip pain by Misc.(Non-Tano g; Combo Route) route. qd Active valacyclovir (VALTREX) 1 g Oral tabletIndicatio ns:Back pain,Hip pain Take 1 Tab by mouth daily. 30 Tab 11 11/11/2011 Active Cholecalciferol , Vitamin D3, (VITAMIN D-3) 5,000 unit Oral Tab Take by mouth. 1 po qd Active Azelaic Acid (FINACEA) 15 % Topical Gel Apply to affected area. As directed Active lisinopril (PRINIVIL) 10 mg Oral tablet Take 10 mg by mouth daily. 1 po qd Active cycloSPORINE (RESTASIS) 0.05 % OP emulsion 1 Drop 2 times daily. As directed Active OTHER Nasal spray Active metroNIDAZOLE (METROGEL) 1 % Topical GlwP Apply to affected area. Active RED YEAST RICE ORAL Take by mouth. Active Active Problems Patient Care Coordination No te Formatting of this note migh t be different from the original. 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 03/20/2013 Malaise and fatigue 11/11/2011 Special screening for malignant neoplasms, colon 11/11/2011 Osteopenia 04/19/2010 Allergic rhinitis 04/13/2010 Edema 04/13/2010 Sleep apnea 12/05/2008 Overview (04/13/2010): On CPAP Hyperlipidemia 12/05/2008 Incontinence 12/05/2008 Vitamin D deficiency GERD (gastroesophageal reflux disease) HTN (hypertension) Resolved Problems Problem Noted Date Diagnosed Date Resolved Date Essential hypertension, benign 02/29/2008 04/13/2010 Chest pain, unspecified 02/29/200805/27 Acute bronchitis 02/01/2008 08/19/2008 Nonspecific abnormal electro cardiogram (ECG) (EKG) 02/01/2008 08/19/2008 Sleep apnea 11/11/2011 Overview (11/11/2011): on cpap Immunizations Immunization Administration Dates Next Due (PNEUMOVAX 23)(50 YRS UP) PN EUMOCOCCAL POLYSACCHARIDE (PPV23) 0.5 ML, IM 11/27/2003 Family History Medical History Relation Name Comments Healthy Father Healthy Mother Relation Name Status Comments Father Mother Social History Tobacco Use Types Packs/Day Years Used Date Smoking Tobacco: Never Alcohol Use Standard Drinks/Week Comments No 0 (1 standard drink = 0.6 oz pur e alcohol) Comments No Sex and Gender Information Value Date Recorded Sex Assigned at Not on file 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 Gender Identity Not on file Sexual Orientation Not on file Last Filed Vital Signs Vital Sign Reading Time Taken Comments Blood Pressure 125/65 07/17/2013 9:22 AM CDT Pulse 106 05/20/2013 11:55 AM CDT Temperature 36.8 C (98.2 F) 04/06/2009 8:43 AM CDT Respiratory Rate - - Oxygen Saturation 95% 09/11/2008 12:37 PM CDT Inhaled Oxygen Concentration - - Weight 90.7 kg (200 lb) 07/17/2013 9:22 AM CDT Height 167.6 cm (5' 6 ) 07/17/2013 9:22 AM CDT Body Mass Index 32.28 07/17/2013 9:22 AM CDT Plan of Treatment Health Maintenance Due Date Last Done Comments DTAP/TDAP/TD VACCINES (1 - Tdap) 1956 ZOSTER VACCINE (1 of 2) 1987 PNEUMOCOCCAL VACCINE 65+ YEA RS (2 of 2 - PCV) 11/27/2004 11/27/2003, 08/06/2000 RSV VACCINE (60+ or ) (1 - 1-dose 75+ series) 2012 INFLUENZA VACCINE (#1) 2024 09/04/2014 OSTEOPOROSIS SCREENING Completed 09/19/2017, 2009 Procedures Procedure Name Priority Date/Time Associated Diagnosis Comments XR DEXA BONE DENSITY AXIAL 1 OR MORE SITES Routine 04/19/2010 9:04 AM CDT Screening for Osteoporosis from Last 3 Months or Most Recently Relevant to Health Maintenance Results * XR DEXA BONE DENSITY AXIAL 1 OR MORE SITES (04/19/2010 9:04 AM CDT) Anatomical Region Laterality Modality Digital Radiogra phy 04/19/2010 9:02 AM CDT Impressions 04/19/2010 9:22 AM CDT IMPRESSION: Lumbar spine: This patient's bone mineral density of the spine is mildly osteopenic but normal for age when compared to the normal range of young adults and present fracture risk is considered to be low. Hips: This patient's bone mineral density of the hip is mildly osteopenic but normal for age when compared to the normal range of young adults and present fracture risk is considered to be very low. Comments: None. Detailed report to follow. Dictated by Dr. Tree Jeong MD [facility] Narrative 04/19/2010 9:22 AM CDT Examination: Bone Density Study (DEXA) Clinical History: 74 year-old postmenopausal female. Evaluate for current bone density. Compared to the prior bone density performed 2005. Findings: Comparison values to prior exams: Lumbar Spine ( L 1-4 ) bone mineral density is 1.05 g/sq cm and corresponds to a T-score of -1.1. The prior spine bone mineral density was 1.08 g/sq cm and represents a decrease of 0.029 g/sq cm or -2.7 %. Left femoral neck bone mineral density is 0.88 g/sq cm and corresponds to a T-score of -1.2. The prior femoral neck bone mineral density was 0.89 g/sq cm and represents a decrease of 0.016 g/sq cm or -1.8 %. Right femoral neck bone mineral density is 0.91 g/sq cm and corresponds to a T-score of -0.9. Average femoral neck bone mineral density is 0.89 g/sq cm and corresponds to a T-score of -1.1. Procedure Note Tree Jeong MD - 04/19/2010 Examination: Bone Density Study (DEXA) Clinical History: 74 year-old postmenopausal female. Evaluate for current bone density. Compared to the prior bone density performed 2005. Findings: Comparison values to prior exams: Lumbar Spine ( L 1-4 ) bone mineral density is 1.05 g/sq cm and corresponds to a T-score of -1.1. The prior spine bone mineral density was 1.08 g/sq cm and represents a decrease of 0.029 g/sq cm or -2.7 %. Left femoral neck bone mineral density is 0.88 g/sq cm and corresponds to a T-score of -1.2. The prior femoral neck bone mineral density was 0.89 g/sq cm and represents a decrease of 0.016 g/sq cm or -1.8 %. Right femoral neck bone mineral density is 0.91 g/sq cm and corresponds to a T-score of -0.9. Average femoral neck bone mineral density is 0.89 g/sq cm and corresponds to a T-score of -1.1. IMPRESSION IMPRESSION: Lumbar spine: This patient's bone mineral density of the spine is mildly osteopenic but normal for age when compared to the normal range of young adults and present fracture risk is considered to be low. Hips: This patient's bone mineral density of the hip is mildly osteopenic but normal for age when compared to the normal range of young adults and present fracture risk is considered to be very low. Comments: None. Detailed report to follow. Dictated by Dr. Tree Jeong MD [facility] Brian Day DO DIAGNOSTIC IMAGING ORD ERABLES Final Result from Last 3 Months or Most Recently Relevant to Health Maintenance Insurance MEDICARE PART A AND B [facility] Care Teams Podiatric Foot And Ankle Specialist Relationship Specialty Start Date End Date Brian Day DO PCP - General 03/07/08
--- OUTSIDE RECORDS SUMMARY | 2025-01-12 03:47 | XMS_ITS | Encounter Summary ---
Author Organization [facility] Address 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
--- OUTSIDE RECORDS SUMMARY | 2025-01-12 03:47 | XMS_ITS | Encounter Summary ---
Author Organization [facility] Address [address] [place] [address] Care Team Providers Care Urology Nurse Name Role Phone Brian Day DO Primary Care Provider Encounter Details Date Type Department Care Team (Late st Contact Info) Description 08/10/2006 Outpatient Historical [facility] [address] [place] [address] Duncan Robert MD [address] [place] [address] Social History Tobacco Use Types Packs/Day Years Used Date Smoking Tobacco: Never Assessed Comments Unknown Sex and Gender Information Value Date Recorded Sex Assigned at Not on file Legal Sex Female 3:34 AM JANITOR Gender Identity Not on file Sexual Orientation Not on file documented as of this encounter Plan of Treatment Not on file documented as of this encounter Visit Diagnoses Not on filedocumented in this encounter Care Teams Urology Nurse Relationship Specialty Start Date End Date Brian Day DO PCP - General 03/07/08 documented as of this encounter
--- OUTSIDE RECORDS SUMMARY | 2025-01-12 03:47 | XMS_ITS | Encounter Summary ---
Author Organization [facility] Address 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
--- OUTSIDE RECORDS SUMMARY | 2025-01-12 03:47 | XMS_ITS | Encounter Summary ---
Author Organization [facility] Address [address] [place] [address] Attn: Epic Prelude ADT DERECK [place]VAL[place] [address] Care Team Providers Care Cereal Supervisor Name Role Phone Brian Day DO Primary Care Provider Encounter Details Date Type Department Care Team (Late st Contact Info) Description 06/16/1989 Outpatient Historical [facility] Juan C HAYWARD MD [address] [place] [id number] Social History Tobacco Use Types Packs/Day Years Used Date Smoking Tobacco: Never Assessed Comments Unknown Sex and Gender Information Value Date Recorded Sex Assigned at Not on file Legal Sex Female 3:34 AM TAX AGENT Gender Identity Not on file Sexual Orientation Not on file documented as of this encounter Plan of Treatment Not on file documented as of this encounter Visit Diagnoses Not on filedocumented in this encounter Care Teams Cereal Supervisor Relationship Specialty Start Date End Date Brian Day DO PCP - General 03/07/08 documented as of this encounter
--- OUTSIDE RECORDS SUMMARY | 2025-01-12 03:47 | XMS_ITS | Encounter Summary ---
Author Organization [facility] Address [address] [place] [address] Care Team Providers Care Fisher Clam Name Role Phone Brian Day DO Primary Care Provider Encounter Details Date Type Department Care Team (Late st Contact Info) Description 07/15/2002 Outpatient Historical [facility] Fernie Navarro MD NO ADDRESS ON FILE Social History Tobacco Use Types Packs/Day Years Used Date Smoking Tobacco: Never Assessed Comments Unknown Sex and Gender Information Value Date Recorded Sex Assigned at Not on file Legal Sex Female 3:34 AM CARE WORKER Gender Identity Not on file Sexual Orientation Not on file documented as of this encounter Plan of Treatment Not on file documented as of this encounter Visit Diagnoses Not on filedocumented in this encounter Care Teams Fisher Clam Relationship Specialty Start Date End Date Brian Day DO PCP - General 03/07/08 documented as of this encounter
--- OUTSIDE RECORDS SUMMARY | 2025-01-12 03:47 | XMS_ITS | Encounter Summary ---
Author Organization [facility] Address 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
--- OUTSIDE RECORDS SUMMARY | 2025-01-12 03:47 | XMS_ITS | Encounter Summary ---
Author Organization [facility] Address 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
--- OUTSIDE RECORDS SUMMARY | 2025-01-12 03:47 | XMS_ITS | Encounter Summary ---
Author Organization [facility] Address 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 Gender Identity Not on file Sexual Orientation Not on file documented as of this encounter Plan of Treatment Not on file documented as of this encounter Procedures Procedure Name Priority Date/Time Associated Diagnosis Comments HEPATIC FUNCTION PANEL Routine 10/25/2005 2:54 PM SPIKE MACHINE OPERATOR LIPID PANEL Routine 10/25/2005 2:54 PM SPIKE MACHINE OPERATOR documented in this encounter Results * HEPATIC FUNCTION PANEL (10/25/2005 2:54 PM SPIKE MACHINE OPERATOR) AST 19 12 - 32 U/L INTERFACE SYSTEM ALKALINE PHOSPHATASE 60 35 - 104 U/L INTERFACE SYSTEM BILIRUBIN TOTAL 0.3 0.2 - 1.0 mg/dL INTERFACE SYSTEM ALBUMIN 4.5 3.4 - 4.8 g/dL INTERFACE SYSTEM TOTAL PROTEIN 7.5 6.3 - 8.6 g/dL INTERFACE SYSTEM ALT 19 0 - 31 U/L INTERFACE SYSTEM BILIRUBIN DIRECT 0.1 0.0 - 0.3 mg/dL INTERFACE SYSTEM 10/25/2005 2:54 PM SPIKE MACHINE OPERATOR Fernie Navarro MD CHEMISTRY ORDERABLES Final Coral kirkland Performing Organization Address City/[facility] Co de Phone Number INTERFACE SYSTEM Refer to clinic/hospital department * (ABNORMAL) LIPID PANEL (10/25/2005 2:54 PM SPIKE MACHINE OPERATOR) LIPID PANEL COMMENT See below INTERFACE SYSTEM Comment: Adult ATP III Classifications: Cholesterol (mg/dL) Triglyceride (mg/dL) Desirable <200 Normal <150 Borderline 200 - 239 Borderline High 150 - 199 High >=240 High 200 - 499 Very High >=500 HDL Cholesterol (mg/dL) LDL (mg/dL) Low (increased risk) <40 Optimal <100 High (reduced risk) >=60 Near or above optimal 100 - 129 Borderline 130 - 159 High 160 - 189 Very High >=190 LDL calculation is not accurate if Triglycerides are greater than 400 mg /dL Pediatric NCEP Classifications: Cholesterol(<20 years),(mg/dL) Triglyceride Desirable <170 Pediatric classification Borderline 170 - 199 not defined. High >=200 HDL (<5 years) LDL (mg/dL) No Reference Range Established Desirable <110 Borderline 110 - 129 High >=130 CHOLESTEROL 204(H) 100 - 199 mg/dL INTERFACE SYSTEM TRIGLYCERIDE 230(H) 10 - 149 mg/dL INTERFACE SYSTEM HDL 63(H) 40 - 59 mg/dL INTERFACE SYSTEM LDL CALCULATED 95 <=99 mg/dL INTERFACE SYSTEM CHOL/HDL RATIO 3.2 2.0 - 5.0 INTER FACE SYSTEM Comment:See interpretive xiao a section for risk classifications. 10/25/2005 2:54 PM SPIKE MACHINE OPERATOR Fernie Navarro MD CHEMISTRY ORDERABLES Final Coral kirkland Performing Organization Address City/[facility] Co de Phone Number INTERFACE SYSTEM Refer to clinic/hospital department documented in this encounter Visit Diagnoses Diagnosis Other and unspecified hyperlipidemia- Primary documented in this encounter Care Teams Pet Adoption Counselor Relationship Specialty Start Date End Date Brian Day DO PCP - General 03/07/08 documented as of this encounter
--- OUTSIDE RECORDS SUMMARY | 2025-01-12 03:47 | XMS_ITS | Encounter Summary ---
Author Organization [facility] Address 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
--- OUTSIDE RECORDS SUMMARY | 2025-01-12 03:47 | XMS_ITS | Encounter Summary ---
Author Organization [facility] Address 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
--- OUTSIDE RECORDS SUMMARY | 2025-01-12 03:47 | XMS_ITS | Encounter Summary ---
Author Organization [facility] Address [address] [place] [address] Care Team Providers Care Director Heart Name Role Phone Brian Day DO Primary Care Provider Encounter Details Date Type Department Care Team (Late st Contact Info) Description 08/23/2005 Outpatient Historical [facility] (Adt Cardiology[facility]) [address] [place] [address] Jonathan Majano Social History Tobacco Use Types Packs/Day Years Used Date Smoking Tobacco: Never Assessed Comments Unknown Sex and Gender Information Value Date Recorded Sex Assigned at Not on file Legal Sex Female 3:34 AM PIPE WELDER Gender Identity Not on file Sexual Orientation Not on file documented as of this encounter Plan of Treatment Not on file documented as of this encounter Visit Diagnoses Not on filedocumented in this encounter Care Teams Director Heart Relationship Specialty Start Date End Date Brian Day DO PCP - General 03/07/08 documented as of this encounter
--- OUTSIDE RECORDS SUMMARY | 2025-01-12 03:47 | XMS_ITS | Encounter Summary ---
Author Organization [facility] Address [address] [place] [address] Care Team Providers Care Automotive Specialty Technician Name Role Phone Brian Day DO Primary Care Provider Encounter Details Date Type Department Care Team (Late st Contact Info) Description 04/22/2004 Outpatient Historical HIS [facility] Fernie Navarro MD NO ADDRESS ON FILE Social History Tobacco Use Types Packs/Day Years Used Date Smoking Tobacco: Never Assessed Comments Unknown Sex and Gender Information Value Date Recorded Sex Assigned at Not on file Legal Sex Female 3:34 AM CORK TIPPER Gender Identity Not on file Sexual Orientation Not on file documented as of this encounter Plan of Treatment Not on file documented as of this encounter Visit Diagnoses Not on filedocumented in this encounter Care Teams Automotive Specialty Technician Relationship Specialty Start Date End Date Brian Day DO PCP - General 03/07/08 documented as of this encounter
--- OUTSIDE RECORDS SUMMARY | 2025-01-12 03:47 | XMS_ITS | Encounter Summary ---
Author Organization [employer] [facility] Address [address] [place] [address] Care Team Providers Care Parent Partner Name Role Phone Brian Day DO Primary Care Provider Encounter Details Date Type Department Care Team (Latest Contact Info) Description 12/13/2001 Outpatient Historical HIS [facility] Fernie Navarro MD NO ADDRESS ON FILE EDEMA (Primary Dx) Social History Tobacco Use Types Packs/Day Years Used Date Smoking Tobacco: Never Assessed Comments Unknown Sex and Gender Information Value Date Recorded Sex Assigned at Not on file Legal Sex Female 3:34 AM COLOR EXPERT Gender Identity Not on file Sexual Orientation Not on file documented as of this encounter Plan of Treatment Not on file documented as of this encounter Visit Diagnoses Diagnosis Edema- Primary documented in this encounter Care Teams Parent Partner Relationship Specialty Start Date End Date Brian Day DO PCP - General 03/07/08 documented as of this encounter
--- OUTSIDE RECORDS SUMMARY | 2025-01-12 03:47 | XMS_ITS | Encounter Summary ---
Author Organization [facility] Address 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
--- OUTSIDE RECORDS SUMMARY | 2025-01-12 03:47 | XMS_ITS | Encounter Summary ---
Author Organization [facility] Address [address] [place] [address] Care Team Providers Care Assistant Professor Of Sociology Name Role Phone Brian Day DO Primary Care Provider Encounter Details Date Type Department Care Team (Late st Contact Info) Description 06/15/2001 Outpatient Historical HIS [facility] MICHAEL Navarro, Fernie Walden MD NO ADDRESS ON FILE Social History Tobacco Use Types Packs/Day Years Used Date Smoking Tobacco: Never Assessed Comments Unknown Sex and Gender Information Value Date Recorded Sex Assigned at Not on file Legal Sex Female 3:34 AM TRAFFIC RATE ANALYST Gender Identity Not on file Sexual Orientation Not on file documented as of this encounter Plan of Treatment Not on file documented as of this encounter Visit Diagnoses Not on filedocumented in this encounter Care Teams Assistant Professor Of Sociology Relationship Specialty Start Date End Date Brian Day DO PCP - General 03/07/08 documented as of this encounter
--- OUTSIDE RECORDS SUMMARY | 2025-01-12 03:47 | XMS_ITS | Encounter Summary ---
Author Organization [facility] Address [address] [place] [address] Care Team Providers Care Finished Yarn Examiner Name Role Phone Brian Day DO Primary Care Provider Encounter Details Date Type Department Care Team (Late st Contact Info) Description 12/13/2001 Outpatient Historical HIS [facility] Fernie Navarro MD NO ADDRESS ON FILE Social History Tobacco Use Types Packs/Day Years Used Date Smoking Tobacco: Never Assessed Comments Unknown Sex and Gender Information Value Date Recorded Sex Assigned at Not on file Legal Sex Female 3:34 AM NATIONAL ACCOUNT MANAGER Gender Identity Not on file Sexual Orientation Not on file documented as of this encounter Plan of Treatment Not on file documented as of this encounter Visit Diagnoses Not on filedocumented in this encounter Care Teams Finished Yarn Examiner Relationship Specialty Start Date End Date Brian Day DO PCP - General 03/07/08 documented as of this encounter
--- OUTSIDE RECORDS SUMMARY | 2025-01-12 03:47 | XMS_ITS | Encounter Summary ---
Author Organization [facility] [facility] Address [address] [place] [address] Care Team Providers Care Improvement Spec Name Role Phone Brian Day DO Primary Care Provider Encounter Details Date Type Department Care Team (Latest Contact Info) Description 12/23/2005 Outpatient Historical HIS [facility] Aamir Gonzalez MD NO ADDRESS ON FILE DIVERTICULOSIS OF COLON W/O BLEED (Primary Dx) Social History Tobacco Use Types Packs/Day Years Used Date Smoking Tobacco: Never Assessed Comments Unknown Sex and Gender Information Value Date Recorded Sex Assigned at Not on file Legal Sex Female 3:34 AM EXHAUST EMISSIONS INSPECTOR Gender Identity Not on file Sexual Orientation Not on file documented as of this encounter Plan of Treatment Not on file documented as of this encounter Visit Diagnoses Diagnosis Diverticulosis of colon (without mention of hemorrhage)- Primary documented in this encounter Care Teams Improvement Spec Relationship Specialty Start Date End Date Brian Day DO PCP - General 03/07/08 documented as of this encounter
--- OUTSIDE RECORDS SUMMARY | 2025-01-12 03:47 | XMS_ITS | Encounter Summary ---
Author Organization [facility] Address [address] Attn: Epic Prelude ADT DERECK AREVALO [address] Care Team Providers Care District Customs Director Name Role Phone Brian Day DO Primary Care Provider Encounter Details Date Type Department Care Team (Late st Contact Info) Description 02/01/1999 Outpatient Historical Fernie Navarro MD NO ADDRESS ON FILE Social History Tobacco Use Types Packs/Day Years Used Date Smoking Tobacco: Never Assessed Comments Unknown Sex and Gender Information Value Date Recorded Sex Assigned at Not on file Legal Sex Female 3:34 AM MOTOR CHECKER Gender Identity Not on file Sexual Orientation Not on file documented as of this encounter Plan of Treatment Not on file documented as of this encounter Visit Diagnoses Not on filedocumented in this encounter Care Teams District Customs Director Relationship Specialty Start Date End Date Brian Day DO PCP - General 03/07/08 documented as of this encounter
--- OUTSIDE RECORDS SUMMARY | 2025-01-12 03:47 | XMS_ITS | Encounter Summary ---
Author Organization [facility] Address [address] [place] [address] Care Team Providers Care Business Solution Analyst Name Role Phone Brian Day DO Primary Care Provider Encounter Details Date Type Department Care Team (Late st Contact Info) Description 06/02/2006 Outpatient Historical HIS [facility] Fernie Navarro MD NO ADDRESS ON FILE Social History Tobacco Use Types Packs/Day Years Used Date Smoking Tobacco: Never Assessed Comments Unknown Sex and Gender Information Value Date Recorded Sex Assigned at Not on file Legal Sex Female 3:34 AM STOCK TRANSFER CLERK Gender Identity Not on file Sexual Orientation Not on file documented as of this encounter Plan of Treatment Not on file documented as of this encounter Visit Diagnoses Not on filedocumented in this encounter Care Teams Business Solution Analyst Relationship Specialty Start Date End Date Brian Day DO PCP - General 03/07/08 documented as of this encounter
--- OUTSIDE RECORDS SUMMARY | 2025-01-12 03:47 | XMS_ITS | Clinical Summary ---
Author Organization [facility] Address [address] [place] [address] Care Team Providers Care Tubular Products Fabricator Name Role Phone Duncan Dobbs MD Primary Care Provider Nayeli Bell NP Unavailable [phone] Allergies Active Allergy Reactions Criticality Noted Date Comments Chlorpheniramine Other (See comments) Low 3 Codeine Angioedema,Hives,Hamlet h,O ther (See comments) Medium 08/27/2019 Reaction: facial swelling, , Crab Swelling,Hives,Other (See comments),Rash Medium 08/07/2023 Phenylephrine Other (See comments) Low 08/07/2023 Medications valACYclovir (VALTREX) 1 gram tablet take 1 Tablet by oral route as needed 0 0 4 Active rosuvastatin (CRESTOR) 5 mg tabletIndications :hyperlipidemia TAKE 1 TABLET BY MOUTH EVERY DAY 90 tablet 1 4 Active cyanocobalamin (Vitamin B-12) 1,000 mcg tabletIndications :Prevention of Vitamin B12 Deficiency Take 1 tablet (1,000 mcg total) by mouth daily 90 tablet 3 4 03/11/20 25 Active cholecalciferol (VITAMIN D-3) 1,000 unit Take 1 tablet/caps ule (1,000 Units total) by mouth daily 4 Active mirabegron ER (Myrbetriq) 50 mg tablet extended release 24 hrIndications:Uri nary Urge Incontinence Take 1 tablet (50 mg total) by mouth nightly 90 tablet 1 4 Active lisinopriL (PRINIVIL,ZESTRIL ) 20 mg tabletIndications :hypertension Take 1 tablet (20 mg total) by mouth daily 30 tablet 11 4 Active apixaban (ELIQUIS) 5 mg tabletIndications :VTE Prophylaxis Take 1 tablet (5 mg total) by mouth 2 (two) times a day 180 tablet 1 4 Active nitrofurantoin monohydrate (MACROBID) 100 mg capsuleIndication s:Urinary Tract/Genitourina ry Infection Take 1 capsule (100 mg total) by mouth 2 (two) times a day 14 capsule 5 Active cyanocobalamin (Vitamin B-12) 1,000 mcg tabletIndications :Prevention of Vitamin B12 Deficiency Take 1 tablet (1,000 mcg total) by mouth daily 90 tablet 4 5 12/23/19 26 Active citalopram (CeleXA) 10 mg tabletIndications :Anxiety Take 1 tablet (10 mg total) by mouth daily 90 tablet 1 4 12/19/19 25 Discontinu ed(Therapy completed) traMADoL (ULTRAM) 50 mg tablet 0 4 12/19/19 25 Discontinu ed(Therapy completed) Active Problems Problem Noted Date Diagnosed Date Urinary tract infection without hematuria 2023 Assessment & Plan (11/12/2024 1:45 PM ASSEMBLY LINE MACHINE OPERATOR): POCT urine with UTI, added Macrobid. Encouraged to use cranberry extract daily and D-Mannose for prevention. Good genital /perineal hygiene, change depends more often. Status post fall 03/11/2024 Assessment & Plan (03/11/2024 12:36 PM CDT): Discussed fall precautions including adequate lighting to the bathroom, creating a clear path, changing positions slowly, getting rid of throw rugs, croatian chi/ working on balance, avoiding alcohol or other substances that can precipitate falling. Recommend Life Alert system. Home PT/ OT recommended. She was given information on [facility] driving assessment. Avoid driving until formal evaluation. Vitamin B12 deficiency 03/11/2024 Assessment & Plan (03/11/2024 12:35 PM CDT): Will check B12 today. Continue vitamin b12 1,000 mcg once daily. 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 Assessment & Plan (07/28/2023 3:26 PM CDT): Follow-up with Neurosurgery. Continue tight blood pressure control. Would touch base with them again prior to any surgical intervention. BMI 22.0-22.9, adult 04/18/2023 Assessment & Plan (12/19/2024 9:57 AM ASSEMBLY LINE MACHINE OPERATOR): BMI Follow-up includes: nutrition counseling, exercise counseling, and education provided. Assessment & Plan (12/09/2024 3:10 PM ASSEMBLY LINE MACHINE OPERATOR): BMI Follow-up includes: nutrition counseling, exercise counseling, and education provided. Assessment & Plan (05/01/2024 2:23 PM CDT): BMI Follow-up includes: nutrition counseling, exercise counseling, and education provided. Assessment & Plan (03/11/2024 9:15 AM CDT): BMI Follow-up includes: nutrition counseling, exercise counseling, and education provided. Assessment & Plan (12/07/2023 8:09 AM ASSEMBLY LINE MACHINE OPERATOR): BMI Follow-up includes: nutrition counseling, exercise counseling, and education provided. Assessment & Plan (10/25/2023 3:20 PM ASSEMBLY LINE MACHINE OPERATOR): BMI Follow-up includes: nutrition counseling, exercise counseling, and education provided. Assessment & Plan (07/26/2023 2:33 PM CDT): BMI Follow-up includes: nutrition counseling, exercise counseling, and education provided. Assessment & Plan (05/04/2023 1:11 PM CDT): BMI Follow-up includes: nutrition counseling, exercise counseling and education provided. Assessment & Plan (04/18/2023 2:13 PM CDT): BMI Follow-up includes: nutrition counseling, exercise counseling and education provided. Encounter for Medicare annual wellness exam 06/29 Assessment & Plan (07/28/2023 3:25 PM CDT): A Medicare Annual Wellness Visit (AWV) was done today as well. The patient filled out a depression screen, functional assessment screen, health risk assessment, and other physicians list. All the elements of this exam were completed as outlined by CMS. The patient was screened for opioid use. Assessment & Plan (07/26/2022 3:19 PM CDT): A Medicare Annual Wellness Visit (AWV) was done today as well. The patient filled out a depression screen, functional assessment screen, health risk assessment, and other physicians list. All the elements of this exam were completed as outlined by CMS. The patient was screened for opioid use. Pseudophakia of both eyes 07/18/2022 Overview (07/18/2022): 2009- phaco/ intraocular lens (IOL) both eyes (OU)- ? surgeon Yag cap both eyes (OU)- ? Surgeon bad outcome- right eye Assessment & Plan (07/18/2022 11:50 AM CDT): 2010- phaco/ intraocular lens (IOL) both eyes (OU)- ? surgeon Yag cap both eyes (OU)- ? Surgeon bad outcome- right eye Feels worse after cataract extraction (cataract extraction (CE),however pt agrees with testing today that right eye (OD) is better than left eye (OS) in current glasses. Some inconsistency with history Subjective visual disturbance of both eyes 07/18 Assessment & Plan (12/07/2023 8:45 AM ASSEMBLY LINE MACHINE OPERATOR): Recurrent symptoms. Identical to symptoms prompting exam by Dr. Dejesus in 2021. Reviewed more recent CTA neck and head. No significant carotid disease. Stable small aneursym. Unclear etiology; question ocular migraine? Recommend repeat eye exam given 2 year duration. Number provided to schedule. Given mild memory impairment and vision changes she is no longer driving and I agree. Assessment & Plan (07/18/2022 11:49 AM CDT): Pt somewhat inconsistent. States the loss of vision is bilateral when it happens and only last seconds. Has chronic dry eye (on restasis). Does not sound like amaurosis. Normal eye exam. Current HTN is out of control. Being adjusted with meds. Keratoconjunctivitis sicca 07/18/2022 Assessment & Plan (07/26/2022 3:18 PM CDT): Follow up with Dr. Dejesus. Doing well with symptomatic treatment. Assessment & Plan (07/18/2022 11:51 AM CDT): On restasis and AFTs Add hot compresses. May be contributory to episodic blurred vision. Abnormality of gait and mobility 05/05/2022 Assessment & Plan (11/12/2024 1:17 PM ASSEMBLY LINE MACHINE OPERATOR): Fall precautions Use walker. She os on anticoagulation which put her at risk. Daughter stated she has 24 hours wound care nurse now Assessment & Plan (04/18/2023 2:45 PM CDT): Stable. Patient has a form from [facility] requesting local owner operator truck driver's assessment. Patient is referred to [facility] occupational therapy or [facility] local owner operator truck driver's evaluation center. Memory difficulties 05/05/2022 Assessment & Plan (05/01/2024 4:10 PM CDT): No longer driving secondary to poor vision. Intermittent short-term memory issues. Is able to take care of home reportedly but does have difficulties eating regular meals. Frequently orders take out. She has been considering assisted living facilities Assessment & Plan (10/26/2023 12:24 PM ASSEMBLY LINE MACHINE OPERATOR): Repeated herself a few times during visit. Screen with [facility] next visit. Likely has symptoms of mild concussion presently Fall 09/16/2021 Assessment & Plan (10/26/2023 12:25 PM ASSEMBLY LINE MACHINE OPERATOR): Slipped [place] and hit left side of face/head. Significant bruising. CT head and neck negative. Pain controlled. Assessment & Plan (09/16/2021 1:43 PM CDT): Recurrent mechanical fall in her garage a few weeks ago. Landed on her pelvis and right hip hit back of head on the floor. Has lingering pain in her right hip and pelvis. Given issues with her current falls over the years will refer for to PT as she has found this helpful for her gait and balance previously. Nocturia more than twice per night 08/10/2021 Assessment & Plan (05/01/2024 4:11 PM CDT): Resume Motegrity. May need to follow-up with urology Chronic pain of left knee 05/18/2021 Primary osteoarthritis of right knee 01/05/2021 Overview (01/05/2021): Added automatically from request for surgery [id number] Poor sleep hygiene 10/13/2020 Vitamin D deficiency 11/14/2019 Assessment & Plan (07/26/2022 3:17 PM CDT): Continue supplementation Open fracture of nasal bones 11/14/2019 GERD (gastroesophageal reflux disease) 9 Fracture of right wrist 11/14/2019 Fracture of bone of left shoulder 11/14/2019 Fall involving ice skates 11/14/2019 Fx humeral neck, left, closed, initial encounter 08/29/2019 Assessment & Plan (08/29/2019 4:59 PM CDT): By report the patient has a comminuted fracture of the left humeral neck. We do not have access to have x-rays at [facility] so the patient plans on retrieving the films hand bring him to the office for review. The patient was placed in a shoulder immobilizer and lieu of the sling. She was encouraged to work on hand stretching exercises and avoid any tight jewelry on her upper extremities. Ice packs may be helpful for her shoulder pain. Closed nondisplaced fracture of head of right ra dius 08/29/2019 Assessment & Plan (08/29/2019 4:58 PM CDT): By report the patient has a nondisplaced fracture of the right radial head. The patient generally was would be treated in a splint for approximately 10 days. Patient plans on obtaining her x-rays for review and will follow through with any other change in her treatment accordingly Arthritis of right knee 07/04/2019 Assessment & Plan (07/28/2023 3:25 PM CDT): Follow-up with orthopedics Assessment & Plan (05/04/2023 4:02 PM CDT): Major life limiting symptom. Will touch base with Dr. Cobian regarding surgical candidacy. Assessment & Plan (07/04/2019 9:22 AM CDT): Patient has moderate arthritic changes of the knee with reactive synovitis. She is a poor candidate for anti-inflammatories being on aspirin and blood thinners. We today. She tolerated the procedure well. Trochanteric bursitis of left hip 07/04/2019 Assessment & Plan (07/04/2019 9:12 AM CDT): Patient's history and clinical exam is consistent with trochanteric bursitis of the left hip. After reviewing the treatment options and not getting response to physical therapy the patient elected undergo cortisone injection. She tolerated the procedure well. She should continue with stretching exercise long-term weight loss would likely be beneficial. Lymphedema of both lower extremities 07/04/2019 Assessment & Plan (07/04/2019 9:23 AM CDT): Patient has moderate lymphedema both lower extremities. She has venous stasis disease as well. She would likely benefit from the use of her support hose as well as intermittent elevation. She currently has no calf tenderness or cords with negative Wade's and no evidence of a deep vein thrombosis Hoarseness 06/27/2019 History of deep vein thrombosis (DVT) of lower e xtremity 01/10/2019 Assessment & Plan (11/12/2024 1:16 PM ASSEMBLY LINE MACHINE OPERATOR): [place] in [place] admitted to rehab for ankle fracture. She is on Apixaban 5 mg bid and most recently got a 90 day supply. I discussed with Dr. Dobbs given the new doppler findings to continue after 3 months. She has a remote h/o PE in 1996, At her age, she is very active per daughter. She has a walker. One fall last month resulting ankle fracture. I advised her to complete current supply of eliquis Atypical chest pain 07/16/2018 Overview (08/07/2023): improved- HAd angiogram on 09/27/2017 - was ok wiht mild coronary artery dz Peripheral venous insufficiency 07/16/2018 Overview (08/07/2023): improved swelling and varicose veins Had iliac stent placed 09/2017 Had procedure done in 04/02/2018 showed LLE multiple phlebectomies with no complications History of pulmonary embolus (PE) 04/30/2018 Overview (08/07/2023): -- 1996 Assessment & Plan (11/12/2024 1:48 PM ASSEMBLY LINE MACHINE OPERATOR): I discussed with Dr. Dobbs ;She has a remote h/o PE in 1996, At her age, she is very active per daughter. She has a walker. One fall last month resulting ankle fracture. I advised her to complete current supply of eliquis. Dyslipidemia 10/29/2017 Immunization contraindicated 09/23/2017 Encounter for other screenin g for malignant neoplasm of breast 09/23/2017 Swelling of lower extremity 03/02/2016 Overview (03/04/2017): Swelling of lower limb Obstructive sleep apnea 10/02/2015 Overview (03/04/2017): Obstructive sleep apnea Assessment & Plan (07/28/2023 3:24 PM CDT): Encourage CPAP use Assessment & Plan (07/26/2022 3:15 PM CDT): Encouraged consistent CPAP use. Fatigue 10/02/2015 Overview (03/04/2017): Fatigue, unspecified type Biological clock disturbance 10/02/2015 Overview (03/04/2017): Circadian dysregulation Repetitive intrusions of sleep 10/02/2015 Overview (03/04/2017): Repetitive intrusions of sleep Hypertension 07/20/2015 Overview (03/04/2017): Hypertension Assessment & Plan (07/28/2023 3:24 PM CDT): Reasonable control, no changes Assessment & Plan (07/26/2022 3:15 PM CDT): Her remains well controlled, no changes were made to the regimen today. Assessment & Plan (09/16/2021 1:43 PM CDT): well controlled and at goal increase exercise, limit salt intake Recommend DASH diet, Mediterranean diet, plant forward diet Continue current regimen Assessment & Plan (09/03/2021 11:48 AM CDT): Well controlled today. She is currently on lisinopril 10 mg. Trial of hydrochlorothiazide resulted in PEDRO LUIS. Repeat BMP next week Sciatica 09/08/2014 Overview (03/04/2017): Sciatica Urinary incontinence 09/08/2014 Overview (03/04/2017): Urinary incontinence Assessment & Plan (11/12/2024 1:47 PM ASSEMBLY LINE MACHINE OPERATOR): Uses depends, changes 3 x day. Has frequency of urine Continue Myrbetriq Assessment & Plan (07/28/2023 3:25 PM CDT): Continue mirabegron Assessment & Plan (09/03/2021 11:48 AM CDT): Following with urology Rosacea 09/08/2014 Overview (03/04/2017): Rosacea Constipation 09/08/2014 Overview (03/04/2017): Constipation Edema 09/08/2014 Overview (03/04/2017): Edema Varicose veins of bilateral lower extremities with other complications 03/20/2013 Assessment & Plan (11/12/2024 1:17 PM ASSEMBLY LINE MACHINE OPERATOR): Recommended to buy compression stockings and keep it on for 12 hours and off for 12 hours, legs elevated as much as possible. Assessment & Plan (09/16/2021 1:44 PM CDT): Elevate legs at night, order for compression stockings given Hyperlipidemia 03/12/2013 Overview (08/07/2023): Hyperlipidemia LDL goal < 100 Assessment & Plan (07/28/2023 3:24 PM CDT): Continue rosuvastatin Assessment & Plan (09/03/2021 11:47 AM CDT): Refilled rosuvastatin Left bundle branch block (LBBB) 10/08/2012 Overview (03/04/2017): Left bundle branch block History of pulmonary embolus (PE) 10/08/2012 Overview (03/03/2017): History of pulmonary embolism Assessment & Plan (09/03/2021 11:47 AM CDT): History of pulmonary embolism greater than 10 years ago. Off anticoagulation. Has had multiple falls in the last few years, notably. Has done some PT for balance Special screening for malignant neoplasms, colon 11/11/2011 Malaise and fatigue 11/11/2011 Osteopenia 04/19/2010 Allergic rhinitis 04/13/2010 Incontinence 12/05/2008 Resolved Problems Problem Noted Date Diagnosed Date Resolved Date Non-compliant behavior 05/05/202207/26 Noncompliance with CPAP treatment 05/05/2022 07/26/2022 Current moderate episode of major depressive disorder without prior episode 05/05/2022 Persistent insomnia 10/02/2015 05/05/20 Overview (03/04/2017): Persistent disorder of initiating or maintaining sleep Deep vein thrombosis (DVT) o f lower extremity ([facility]/HCC) 10/30/2014 09/03/2021 Overview (06/30/2021): Deep vein thrombosis Class 1 obesity due to exces s calories with serious comorbidity and body mass index (BMI) of 30.0 to 30.9 in adult 10/08/2012 04/18/2023 Overview (03/04/2017): Increased BMI (body mass index) Assessment & Plan (07/26/2022 2:45 PM CDT): BMI Follow-up includes: nutrition counseling, exercise counseling and education provided. Assessment & Plan (09/16/2021 1:07 PM CDT): BMI Follow-up includes: nutrition counseling, exercise counseling and education provided. Assessment & Plan (09/03/2021 10:34 AM CDT): BMI Follow-up includes: nutrition counseling, exercise counseling and education provided. Back pain 10/08/2012 11/12/2024 Overview (03/04/2017): Back pain Sore throat 12/08/2011 07/28/2023 Encounters Date Type Department Care Team Description 01/07/2025 11:15 AM ASSEMBLY LINE MACHINE OPERATOR Home Care Visit [address] [place] [address] Nova Jones PTA PT HOME VISIT 01/06/2025 10:00 AM ASSEMBLY LINE MACHINE OPERATOR Home Care Visit [address] [place] [address] Steven Gibson TACTICAL RESPONSE GROUP OFFICER SUPERVISOR [employer] INITIAL EVAL 01/05/2025 Home Care Visit [address] [place] [address] Steven Gibson LCSW CASE COMMUNICATION 12/31/2024 1:30 PM ASSEMBLY LINE MACHINE OPERATOR Home Care Visit [address] [place] [address] Nvoa Jones, TRACKMOBILE OPERATOR PT HOME VISIT 12/31/2024 Home Care Visit [address] [place] [address] Bruna Brewer, PT CARE CONFERENCE 12/27/2024 9:00 AM ASSEMBLY LINE MACHINE OPERATOR Home Care Visit [address] [place] [address] Bruna Brewer, PT PT INITIAL EVALUATION 12/26/2024 Plan of Care Documentation [address] [place] [address] 12/25/2024 12:00 PM ASSEMBLY LINE MACHINE OPERATOR Home Care Visit [address] [place] [address] Maria R Barboza OASIS START OF CARE 12/23/2024 Home Care Visit [address] [address] [address] [place] [address] Leona Durbin, RN TELEPHONE ENCOUNTER 12/23/2024 Telephone [facility] [address] [facility] [address] [place] [address] Duncan Dobbs MD Medical Question/Miscellaneou s 12/22/[address] [address] Mela Lal RN 12/22/2024 Travel 12/21/2024 Home Care Visit [address] [place] [address] Brett Zamora RN SN TRIAGE ENCOUNTER 12/19/2024 3:33 PM ASSEMBLY LINE MACHINE OPERATOR - 12/19/2024 11:59 PM ASSEMBLY LINE MACHINE OPERATOR Hospital Encounter [address] [address] [place] [address] Discharge Disposition: Discharge to home or self care 12/19/2024 10:00 AM ASSEMBLY LINE MACHINE OPERATOR Office Visit [facility] [address] [place] [address] [address] [place] [address] Nayeli Bell NP Medicare annual wellness visit, subsequent (Primary Dx); BMI 22.0-22.9, adult; Primary hypertension; Hyperlipidemia, unspecified hyperlipidemia type; History of pulmonary embolus (PE); Vitamin D deficiency; Vitamin B12 deficiency; Gastroesophageal reflux disease without esophagitis; Mixed stress and urge urinary incontinence; Basilar artery aneurysm (CMS/HCC) (HCC); Memory difficulties; Obstructive sleep apnea; Poor sleep hygiene; Urinary frequency; At risk for falling; Abnormality of gait and mobility; Need for pneumococcal 20-valent conjugate vaccination 12/11/2024 Telephone [facility] [address] [place] [address] [place] [phone] Duncan Dobbs MD Lab Results 12/09/2024 6:05 PM ASSEMBLY LINE MACHINE OPERATOR - 12/09/2024 11:59 PM ASSEMBLY LINE MACHINE OPERATOR Hospital Encounter [address] [place] [address] [address] [facility] [place] [address] Discharge Disposition: Discharge to home or self care 12/09/2024 2:00 PM ASSEMBLY LINE MACHINE OPERATOR Office Visit [facility] [address] [place] [address] [address] [place] [address] Nayeli Bell NP Dysuria (Primary Dx); Needs flu shot; BMI 23.0-23.9, adult 12/09/2024 Nurse Triage [facility] [address] [place] [address] [address] [place] [address] Duncan Dobbs MD 11/12/2024 4:59 PM ASSEMBLY LINE MACHINE OPERATOR - 11/12/2024 11:59 PM ASSEMBLY LINE MACHINE OPERATOR Hospital Encounter [facility] [address] [address] [address] Discharge Disposition: Discharge to home or self care 11/12/2024 11:00 AM ASSEMBLY LINE MACHINE OPERATOR Office Visit [facility] [address] [place] [address] [place] [phone] Salbador Monroe NP Urinary tract infection without hematuria, site unspecified (Primary Dx); Urge incontinence of urine; History of deep vein thrombosis (DVT) of lower extremity; History of pulmonary embolus (PE); Basilar artery aneurysm (CMS/HCC) (HCC); Varicose veins of bilateral lower extremities with other complications; Abnormality of gait and mobility 11/06/2024 Telephone [facility] [address] [facility] [address] [place] [address] Duncan Dobbs MD Med Refill from Last 3 Months Immunizations Immunization Administration Dates Next Due Influenza, Quad, Adjuvantate d, Intramuscular 10/18/2021 Influenza, Quadrivalent, Hig h Dose, Preservative Free, Intrr 10/25/2023,08/27/2022,07/27/2020 Influenza, Trivalent, High D ose, Split, Preservative Free, Intramuscular 12/09/2024,08/24/2019 Influenza, Unspecified 11/27/2022(Deferr ed: Patient Refused),08/27/2021 Pneumococcal Conjugate Pcv20 12/19/2024 Pneumococcal Polysaccharide PPV23 09/05/2018 Tdap 10/20/2023,11/08/2022,03/19/2019 Surgical History Surgery Date Site/Laterality Comments ADENOIDECTOMY Adenoidectomy TONSILLECTOMY Tonsillectomy CATARACT EXTRACTION 11/27/2009 - 11/26/2010 Cataract Surgery TOTAL ABDOMINAL HYSTERECTOMY Hysterectomy, total CATARACT EXTRACTION 11/27/2009 - 11/26/2010 Cataract extraction APPENDECTOMY Appendectomy CARDIAC CATHETERIZATION CHOLECYSTECTOMY OOPHORECTOMY COLONOSCOPY Medical History Medical History Date Comments Hx Other Medical Sleep Apnea, CP AP Hypertension Hypertension Hyperlipidemia Hyperlipidemia Hx Other Medical Arrhythmias Hx Other Medical Pulmonary Embol us Hx Other Medical DVT Hx Other Medical Cataracts Hx Other Medical Back Pain Hx Other Medical 2013 vein stripping with ablation; Comments: LM 09/08/2014 - Hx Other Medical 2013 left cataract s urgery; Comments: LM 09/08/2014 - Hx Other Medical 1996 right knee arth roscopy; Comments[place] [facility] [place] - Hx Other Medical 1996 right LE DVT wi th acute PE and syncope; Comments: LM 09/08/2014 - Hx Other Medical 1978 cholecystectomy ; Comments: LM 09/08/2014 - Hx Other Medical Hx of Pulmonary Embolism; Comments: [facility] 09/30/2015 - Hx Other Medical Shortness of br eath; Comments: [facility] 09/30/2015 - Hx Other Medical Rosacea; Commen ts: [facility] 09/30/2015 - Hx Other Medical Head injury; Co mments: [facility] 09/30/2015 - Hx Other Medical GERD; Comments: [facility] 09/30/2015 - Hx Other Medical Left bundle bra nch block; Comments: [facility] 09/30/2015 - Hx Other Medical Blot clot leg; Comments: [facility] [facility] 10/02/2015 -; Laterality: left Tear film insufficiency Dry eye; Comments: [facility] 10/02/2015 - Herpes labialis Fever blister; C omments: [facility] 10/02/2015 - Herpes simplex Anxiety Arthritis Family History Medical History Relation Name Comments Alzheimer's disease Brother Other Brother sleep problems; Glaucoma Other Macular degeneration Other Skin cancer Other Coronary artery disease Sister 2 Kay nary Artery Bypass Graft; Cause of : Coronary Artery Bypass Graft Melanoma Son 1 Melanoma; Cancer Son 2 Relation Name Status Comments Brother Other Sister 1 Sister 2 Son 1 Son 2 Social History Tobacco Use Types Packs/Day Years Used Date Smoking Tobacco: Never Smokeless Tobacco: Never Tobacco Cessation:Counseling Given: Not Answered Alcohol Use Standard Drinks/Week Comments Yes 0 (1 standard drink = 0.6 oz pur e alcohol) once or twice a year OASIS D0700: Social Isolation Answer Da te Recorded Frequency of experiencing loneliness or isolatio n Never 12/25/2024 OASIS A1250: Transportation Answer Date Recorded Lack of Transportation (Medical) No 12/25/2024 Lack of Transportation (Non-Medical) No 12/25/2024 Patient Unable or Declines to Respond No 12/25/2024 OASIS B1300: Health Literacy Answer Devonte e Recorded Frequency of needing help to read materials from doctor or pharmacy Never 12/25/2024 [facility] Utilities Answer Date Recorded In the past 12 months has th e electric, gas, oil, or water company threatened to shut off services in your home? No 05/06/2024 Social Connection and Isolat ion Panel [NHANES] Answer Date Recorded In a typical week, how many times do you talk on the phone with family, friends, or neighbors? More than three times a week 05/06/2024 How often do you get togethe r with friends or relatives? Twice a week 05/06/2024 How often do you attend chur ch or scientology services? 1 to 4 times per year 05/06/2024 Do you belong to any clubs o r organizations such as mormon groups, unions, fraternal or athletic groups, or school groups? No 05/06/2024 How often do you attend meet ings of the clubs or organizations you belong to? Never 05/06/2024 Are you , , di vorced, , never , or living with a partner? 05/06/2024 AUDIT-C Answer Date Recorded Q1: How often do you have a drink containing alc ohol? Never 04/14/2022 Average Number of Drinks Not on file 022 Q3: How often do you have si x or more drinks on one occasion? Never 04/14/2022 Overall Financial Resource Strain (CARDIA) Answe r Date Recorded How hard is it for you to pa y for the very basics like food, housing, medical care, and heating? Not hard at all 05/06/2024 PHQ-2 Answer Date Recorded PHQ-2 Total Score (If total score is 3 or more points, staff should administer the PHQ-9) 0 12/19/2024 Hunger Vital Sign Answer Date Recorded Within the past 12 months, y ou worried that your food would run out before you got the money to buy more. Never true 05/06/20 24 Within the past 12 months, t he food you bought just didn't last and you didn't have money to get more. Never true 05/06/2024 PRAPARE - Transportation Answer Date Re corded In the past 12 months, has l ack of transportation kept you from medical appointments or from getting medications? No 04/27 In the past 12 months, has l ack of transportation kept you from meetings, work, or from getting things needed for daily living? No 05/06/2024 Housing Stability Vital Sign Answer Devonte e Recorded In the last 12 months, was t here a time when you were not able to pay the mortgage or rent on time? No 05/06/2024 In the past 12 months, how m any times have you moved where you were living? 0 05/06/2024 At any time in the past 12 m [facility], were you homeless or living in a usp (including now)? No 05/06/2024 Personal Safety Answer Date Recorded Have you ever been in or are you currently in a harmful physical or emotional relationship or is someone making you feel afraid or unsafe? Denies 10/20/2023 Comments No Sex and Gender Information Value Date Recorded Sex Assigned at Not on file Legal Sex Female 8:40 AM ASSEMBLY LINE MACHINE OPERATOR Gender Identity Female 10/20/2023 2:21 PM ASSEMBLY LINE MACHINE OPERATOR Sexual Orientation Not on file Obstetrics History Last Filed Vital Signs Vital Sign Reading Time Taken Comments Blood Pressure 110/58 01/07/2025 11:22 AM ASSEMBLY LINE MACHINE OPERATOR Pulse 87 01/07/2025 11:22 AM ASSEMBLY LINE MACHINE OPERATOR Temperature 36.7 C (98 F) 01/07/2025 11:22 AM ASSEMBLY LINE MACHINE OPERATOR Respiratory Rate 18 01/07/2025 11:22 AM ASSEMBLY LINE MACHINE OPERATOR Oxygen Saturation 97% 01/07/2025 11:22 AM ASSEMBLY LINE MACHINE OPERATOR Inhaled Oxygen Concentration - - Weight 66.2 kg (146 lb) 12/25/2024 12:56 PM ASSEMBLY LINE MACHINE OPERATOR Height 167.6 cm (5' 6 ) 12/25/2024 12:56 PM ASSEMBLY LINE MACHINE OPERATOR Body Mass Index 23.57 12/25/2024 12:56 PM ASSEMBLY LINE MACHINE OPERATOR Plan of Treatment Health Maintenance Due Date Last Done Comments Hepatitis B Screening 1953 Zoster Vaccine (1 of 2) 1987 Covid-19 Vaccine (2023-2 5 season) 2024 10/18/2021, 02/14/2021, 01/24/2021 Depression Screening 12/19/2025 12/19/2024, 11/12/2024, 05/01/2024, Additional history exists Fall Risk Assessment 12/19/2025 12/19/2024, 11/12/2024, 05/01/2024, Additional history exists Well Visit 65+ 12/19/2025 12/19/2024, 08/, 07/26/2022 DTaP/Tdap/Td Vaccine (4 - Td or Tdap) 10/20/2033 10/20/2023, 11/08/2022, 03/19/2019 Influenza Vaccine Completed 12/09/2024, , 08/27/2022, Additional history exists Pneumococcal vaccine 65+ Completed 12/19/2024, 08/27 Procedures Procedure Name Priority Date/Time Associated Diagnosis Comments EGFR Routine 12/19/2024 11:09 AM ASSEMBLY LINE MACHINE OPERATOR Medicare annual wellness visit, subsequent Primary hypertension IRON PROFILE W/ IBC Routine 12/19/2024 1 1:09 AM ASSEMBLY LINE MACHINE OPERATOR Medicare annual wellness visit, subsequent VITAMIN B12 Routine 12/19/2024 11:09 AM ASSEMBLY LINE MACHINE OPERATOR Medicare annual wellness visit, subsequent Memory difficulties COMPREHENSIVE METABOLIC PANEL Routine 12/19/2024 11:09 AM ASSEMBLY LINE MACHINE OPERATOR Medicare annual wellness visit, subsequent Primary hypertension VITAMIN D 25 HYDROXY Routine 12/19/2024 11:09 AM ASSEMBLY LINE MACHINE OPERATOR Medicare annual wellness visit, subsequent Vitamin D deficiency LIPID PANEL Routine 12/19/2024 11:09 AM ASSEMBLY LINE MACHINE OPERATOR Medicare annual wellness visit, subsequent Primary hypertension Hyperlipidemia, unspecified hyperlipidemia type THYROID FUNCTION CASCADE Routine 12/19/2024 11:09 AM ASSEMBLY LINE MACHINE OPERATOR Medicare annual wellness visit, subsequent Memory difficulties CBC WITHOUT DIFFERENTIAL Routine 12/19/2024 11:01 AM ASSEMBLY LINE MACHINE OPERATOR Medicare annual wellness visit, subsequent URINALYSIS, MICROSCOPIC ONLY Routine 12/19/2024 10:15 AM [facility] Medicare annual wellness visit, subsequent Urinary frequency URINE CULTURE Routine 12/19/2024 10:15 AM ASSEMBLY LINE MACHINE OPERATOR URINALYSIS AND REFLEX TO MICROSCOPIC AND CULTURE Routine 12/19/2024 10:15 AM ASSEMBLY LINE MACHINE OPERATOR Medicare annual wellness visit, subsequent Urinary frequency URINALYSIS, MICROSCOPIC ONLY Routine 11/12/2024 12:19 PM ASSEMBLY LINE MACHINE OPERATOR Urge incontinence of urine URINE CULTURE Routine 11/12/2024 12:19 PM ASSEMBLY LINE MACHINE OPERATOR URINALYSIS AND REFLEX TO MICROSCOPIC AND CULTURE Routine 11/12/2024 12:19 PM ASSEMBLY LINE MACHINE OPERATOR Urge incontinence of urine POCT URINALYSIS DIPSTICK Routine 11/12/2024 11:20 AM ASSEMBLY LINE MACHINE OPERATOR Urge incontinence of urine from Last 3 Months Results * (ABNORMAL) eGFR (12/19/2024 11:09 AM ASSEMBLY LINE MACHINE OPERATOR) eGFR 49(L) >=60 mL/min/1. 73 m2 Comment: Interpretive Data Reference Interval Normal >/= 90 mL/min/1.73m2 Mildly decreased* 60 - 89 mL/min/1.73m2 Mildly to moderately decreased 45 - 59 mL/min/1.73m2 Moderately to severely decreased 30 - 44 mL/min/1.73m2 Severely decreased 15 - 29 mL/min/1.73m2 Kidney Failure < 15 mL/min/1.73m2 *Relative to young adult level Estimated glomerular filtration rate is determined by the 2020 CKD-EPI equation recommended by the National Kidney Foundation (A Unifying Approach to GFR Estimation: Recommendations of the NKF-ASK Task Force on Reassessing the Inclusion of Race in Diagnosing Kidney Disease, JASN 2020). The CKD-EPI equation should not be used for patients with unstable renal function and has not been validated in children and those over 70. Current interpretive data was last reviewed 2021. Blood 12/19/2024 11:0 9 AM ASSEMBLY LINE MACHINE OPERATOR 12/19/2024 12:42 PM ASSEMBLY LINE MACHINE OPERATOR us Nayeli Bell NP LAB BLOOD ORDERABLES Final Resu lt [facility] [id number] [facility]. [place] [place] [address] * Thyroid Function [place] (12/19/2024 11:09 AM ASSEMBLY LINE MACHINE OPERATOR) Pathologist [facility] TSH 2.71 0.30 - 4.20 mcIUnit/mL Blood 12/19/2024 11:0 9 AM ASSEMBLY LINE MACHINE OPERATOR 12/19/2024 12:42 PM ASSEMBLY LINE MACHINE OPERATOR Nayeli Bell WEB PORTAL DEVELOPER LAB BLOOD ORDERABLES Final Resu lt [facility] [address] [place] [employer] [place] [address] * (ABNORMAL) Iron profile w/ IBC (12/19/2024 11:09 AM ASSEMBLY LINE MACHINE OPERATOR) [facility] Iron 84 35 - 145 mcg/dL Comment:Testing performed by : [facility], [address] [place] [address]., [id number] TIBC 234(L) 250 - 400 mcg/dL [facility] Comment:Testing performed by : [facility], [address] [place] [address]., [id number] Transferrin saturation 36 20 - 50 % [facility] RAMSE[facility] Comment:Testing performed by : [facility], [address] [place] [address]., [id number] Blood 12/19/2024 11:0 9 AM ASSEMBLY LINE MACHINE OPERATOR 12/19/2024 2:41 PM ASSEMBLY LINE MACHINE OPERATOR Nayeli Bell WEB PORTAL DEVELOPER LAB BLOOD ORDERABLES Final Resu lt [facility] [address] [employer]. [facility] [place] [employer] [place] [address] * Vitamin D 25 hydroxy (12/19/2024 11:09 AM ASSEMBLY LINE MACHINE OPERATOR) [facility] Vitamin D 25-OH 59 30 - 80 ng/mL Blood 12/19/2024 11:0 9 AM ASSEMBLY LINE MACHINE OPERATOR 12/19/2024 12:42 PM ASSEMBLY LINE MACHINE OPERATOR Nayeli Valverdeon WEB PORTAL DEVELOPER LAB BLOOD ORDERABLES Final Resu lt Performing Organization Address City/[facility]/ZIP Co de Phone Number [facility] [address] [facility]. [facility] [place] [employer] [place] [address] * Vitamin B12 (12/19/2024 11:09 AM ASSEMBLY LINE MACHINE OPERATOR) Vitamin B12 363 230 - 1,250 pg/mL Comment:Testing performed by : [facility], [address] [place] [address]., [id number] Blood 12/19/2024 11:0 9 AM ASSEMBLY LINE MACHINE OPERATOR 12/19/2024 2:41 PM ASSEMBLY LINE MACHINE OPERATOR [facility] WEB PORTAL DEVELOPER LAB BLOOD ORDERABLES Final Resu lt Performing Organization Address [facility] de Phone Number [facility] [address] [facility]. [facility] [place] [employer] [place] [address] * Lipid panel (12/19/2024 11:09 AM ASSEMBLY LINE MACHINE OPERATOR) Cholesterol 134 30 - 199 mg/dL Comment: Interpretive Data Ages < or = 19 years Acceptable: <170 mg/dL Borderline high: 170-199 mg/dL High: >or= 200 mg/dL Ages > or = 20 years Desirable: <200 mg/dL Borderline high: 200-239 mg/dL High: >or= 240 mg/dL Literature References: 1. Expert Panel on Integrated Guidelines for Cardiovascular Health and Risk Reduction in Children and Adolescents. Pediatrics 2011;128:S213 2. NCEP Expert Panel. Circulation 2004;110:227 Current Interpretive Data was last revised on 2018. Triglycerides 74 <=149 mg/dL [facility] Comment: Interpretive Data Ages < or = 9 years Acceptable: <75 mg/dL Borderline high: 75-99 mg/dL High: >or= 100 mg/dL Ages 10 to 20 years Acceptable: <90 mg/dL Borderline high: 90-129 mg/dL High: >or= 130 mg/dL Ages > or = 20 years Desirable: <150 mg/dL Borderline high: 150-199 mg/dL High: 200-499 mg/dL Very high: >or= 499 mg/dL Literature References: 1. Expert Panel on Integrated Guidelines for Cardiovascular Health and Risk Reduction in Children and Adolescents. Pediatrics 2011;128:S213 2. NCEP Expert Panel. Circulation 2004;110:227 Current Interpretive Data was last revised on 2018. HDL 62 >=40 mg/dL [facility] Comment: Interpretive Data Ages < or = 19 years Acceptable: >45 mg/dL Borderline low: 40-45 mg/dL Low: <40 mg/dL Ages > or = 20 years Desirable: >or= 60 mg/dL Low: <40 mg/dL Literature References: 1. Expert Panel on Integrated Guidelines for Cardiovascular Health and Risk Reduction in Children and Adolescents. Pediatrics 2011;128:S213 2. NCEP Expert Panel. Circulation 2004;110:227 Current Interpretive Data was last revised on 2018. LDL, calculated 57 <=129 mg/dL [facility] Comment: Interpretive Data Ages < or = 19 years Acceptable: <110 mg/dL Borderline high: 110-129 mg/dL High: >or= 130 mg/dL Ages > or = 20 years Optimal: <100 mg/dL Near optimal: 100-129 mg/dL Borderline high: 130-159 mg/dL High: >160 mg/dL Calculated using the Brayden LDL-C estimating equation. This equation was implemented on 2024. Prior to this date LDL-C was estimated using the Friedewald equation. Literature References: 1. Expert Panel on Integrated Guidelines for Cardiovascular Health and Risk Reduction in Children and Adolescents. Pediatrics 2011;128:S213 2. NCEP Expert Panel. Circulation 2004;110:227 3. Brayden Gaxiola et al. PANKAJ Cardiol. 2020 March 27;5(5):540-548. doi: 10.1001/jamacardio.2020.0013 Current Interpretive Data was last revised on 2024. Non-HDL Cholesterol 72 mg/dL [facility] Comment: Interpretive Data Ages < or = 19 years Acceptable: <120 mg/dL Borderline high: 120-144 mg/dL High: >145 mg/dL Ages > or = 20 years When triglycerides are >200 mg/dL, Non-HDL cholesterol is a secondary target of therapy with treatment goals that are 30 mg/dL greater than the LDL cholesterol target. Literature References: 1. Expert Panel on Integrated Guidelines for Cardiovascular Health and Risk Reduction in Children and Adolescents. Pediatrics 2011;128:S213 2. NCEP Expert Panel. Circulation 2004;110:227 Current Interpretive Data was last revised on 2018. Chol/HDL ratio 2 [facility] Blood 12/19/2024 11:0 9 AM ASSEMBLY LINE MACHINE OPERATOR 12/19/2024 12:42 PM ASSEMBLY LINE MACHINE OPERATOR Nayeli Bell WEB PORTAL DEVELOPER LAB BLOOD ORDERABLES Final Resu lt [facility] [address] [facility]. [place] [address] * Comprehensive metabolic panel (12/19/2024 11:09 AM ASSEMBLY LINE MACHINE OPERATOR) Sodium 139 135 - 145 mmol/L Potassium, pl 4.5 3.3 - 4.9 mmol/L [facility] Chloride 102 97 - 110 mmol/L [facility] CO2 28 22 - 32 mmol/L [facility] Anion gap 9 2 - 15 mmol/L [facility] BUN 23 6 - 25 mg/dL [facility] Creatinine 1.10 0.60 - 1.10 mg/dL [facility] Glucose 111 70 - 199 mg/dL [facility] Comment: Interpretive Data Fasting glucose >/= 126 mg/dl is diagnostic for diabetes. Fasting is defined as no caloric intake for at least 8 hours. Fasting glucose between 100 mg/dl to 125 mg/dl is diagnostic of prediabetes. In a patient with classic symptoms of hyperglycemia or hyperglycemic crisis, a random glucose >/= 200 mg/dl is diagnostic for diabetes. In the absence of unequivocal hyperglycemia, results should be confirmed by repeat testing. The classification and Diagnosis of Diabetes Diabetes Care 202; 46: S19-S40. Current interpretive data was last revised 2022. Calcium 10.1 8.5 - 10.3 mg/dL [facility] Bilirubin, total 0.5 0.1 - 1.2 mg/dL [facility] Protein, pl 7.1 6.5 - 8.5 g/dL [facility] Albumin 4.1 3.5 - 5.0 g/dL [facility] Alk phos 48 40 - 130 Units/L [facility] ALT 9 7 - 45 Units/L [facility] AST 17 10 - 45 Units/L [facility] Blood 12/19/2024 11:0 9 AM ASSEMBLY LINE MACHINE OPERATOR 12/19/2024 12:42 PM ASSEMBLY LINE MACHINE OPERATOR Nayeli Bell NP LAB BLOOD ORDERABLES Final Resu lt [facility] [address] [facility]. [place] [place] [address] * (ABNORMAL) CBC without differential (12/19/2024 11:01 AM ASSEMBLY LINE MACHINE OPERATOR) WBC 5.6 3.8 - 9.9 K/cumm Hgb 11.3(L) 11.9 - 15.5 g/dL [facility] Hct 34.2(L) 35.6 - 45.5 % [facility] Plt 245 150 - 400 K/cumm [facility] MPV 9.8 9.1 - 12.3 fL [facility] RBC 3.68(L) 3.90 - 5.20 M/cumm [facility] MCV 92.9 81.3 - 96.4 fL [facility] MCH 30.7 27.1 - 33.3 pg [facility] MCHC 33.0 32.3 - 35.7 g/dL [facility] RDW CV 13.6 11.1 - 14.9 % [facility] RDW SD 47.0 35.7 - 48.1 fL [facility] NRBC abs 0.00 0.00 - 0.01 K/cumm [facility] Blood 12/19/2024 11:0 1 AM ASSEMBLY LINE MACHINE OPERATOR 12/19/2024 12:42 PM ASSEMBLY LINE MACHINE OPERATOR Nayeli Bell NP LAB BLOOD ORDERABLES Final Resu lt Performing Organization Address [facility]/ZIP Co de Phone Number [facility] [phone] [employer]. [place] [address] * (ABNORMAL) Urinalysis reflex to microscopic and culture Urine, clean voided (12/19/2024 10:15 AM ASSEMBLY LINE MACHINE OPERATOR) Color, ur Straw Yellow Clarity, ur Turbid(A) Clear [facility] Specific gravity, ur 1.013 1.003 - 1.030 [facility] pH, urine 7.0 [facility] Comment: Interpretive Data U rine pH is affected by diet, medications, systemic acid-base disturbances, and renal tubular function. pH may affect urinary stone formation. For example, urine pH below 6.0 may help reduce the tendency for calcium phosphate stones and pH greater than 6.0 may reduce the tendency for uric acid stone formation. Source: [facility] [employer] Current Interpretive Data was last revised on 2017 Protein, ur ql Negative Negative [facility] Glucose, ur ql Negative Negative [facility] Ketones, ur Negative Negative [facility] Bilirubin, ur Negative Negative [facility] Blood, ur 1+(A) Negative [facility] Urobilinogen, ur <2.0 <2.0 mg/dL [facility] Nitrite, ur Negative Negative [facility] Leukocyte esterase, ur 4+(A) Negative [facility] UA reflex comment Reflex to microscopic UA will be performed. [facility] Urine, clean voided 12/19/2024 10:15 AM ASSEMBLY LINE MACHINE OPERATOR 12/19/2024 12:42 PM ASSEMBLY LINE MACHINE OPERATOR Nayeli Bell NP LAB MICROBIOLOGY - GENERAL ORDRizwan KLEIN Final Result Performing Organization Address City/[facility] Co de Phone Number [facility] [phone] [employer]. [place] [address] * (ABNORMAL) Urinalysis, microscopic only (12/19/2024 10:15 AM ASSEMBLY LINE MACHINE OPERATOR) WBC, ur >50(A) 0 - 5 /HPF RBC, ur 6-10(A) 0 - 2 /HPF [facility] Epithelial cells, squamous, ur 1-5 0 - 5 /HPF [facility] Bacteria, ur 3+(A) [facility] Mucous, ur Present(A) [facility] Culture Reflex Comment Reflex to urine culture will be performed. [facility] Urine, clean voided 12/19/2024 10:15 AM ASSEMBLY LINE MACHINE OPERATOR 12/19/2024 12:42 PM ASSEMBLY LINE MACHINE OPERATOR Nayeli Bell NP LAB URINE ORDERABLES Final Resu lt Performing Organization Address [facility]/ZIP Co de Phone Number [facility] [address] [employer] [place] [employer] [place] [address] * (ABNORMAL) Urine culture Urine, clean voided (12/19/2024 10:15 AM ASSEMBLY LINE MACHINE OPERATOR) Report Final Report: Greater than or equal to 100,000 colonies/ml of Escherichia coli (.) Comment:Testing performed by : [facility], [address] [place] [address], [place]., [address] Organism [facility] Urine, clean voided 12/19/2024 10:15 AM ASSEMBLY LINE MACHINE OPERATOR 12/19/2024 6:33 PM ASSEMBLY LINE MACHINE OPERATOR Narrative [facility] - 12/21/2024 7:25 AM ASSEMBLY LINE MACHINE OPERATOR Urine culture reflexed based upon urinalysis results. Organism Antibiotic Method Susceptibility Escherichia coli Ampicillin with Sulbactam (SHAW) INTER PRETATION Susceptible Escherichia coli Cefazolin (SHAW) INTERPRETATION Susceptible Escherichia coli Ciprofloxacin (SHAW) INTERPRETATION Susceptible Escherichia coli Gentamicin (SHAW) INTERPRETATION Susceptible Escherichia coli Levofloxacin (SHAW) INTERPRETATION Susceptible Escherichia coli Meropenem (SHAW) INTERPRETATION Susceptible Escherichia coli Nitrofurantoin (SHAW) INTERPRETATION Susceptible Escherichia coli Piperacillin/Tazobactam (SHAW) INTERPR ETATION Susceptible Escherichia coli Trimethoprim with Sulfamethoxazole (SHAW) INTERPRETATION Susceptible Nayeli Bell NP LAB MICROBIOLOGY - GENERAL ORDE RABLES Final Result Performing Organization Address [facility]/ZIP Co de Phone Number [facility] [address] [employer] [facility] [place] [address] * (ABNORMAL) Urinalysis reflex to microscopic and culture Urine (11/12/2024 12:19 PM ASSEMBLY LINE MACHINE OPERATOR) Color, ur Yellow Yellow Clarity, ur Turbid(A) Clear [facility] Specific gravity, ur 1.021 1.003 - 1.030 [facility] pH, urine 6.0 [facility] Comment: Interpretive Data U rine pH is affected by diet, medications, systemic acid-base disturbances, and renal tubular function. pH may affect urinary stone formation. For example, urine pH below 6.0 may help reduce the tendency for calcium phosphate stones and pH greater than 6.0 may reduce the tendency for uric acid stone formation. Source: [facility] Current Interpretive Data was last revised on 2017 Protein, ur ql Trace Negative [facility] Glucose, ur ql Negative Negative [facility] Ketones, ur Negative Negative [facility] Bilirubin, ur Negative Negative [facility] Blood, ur Negative Negative [facility] Urobilinogen, ur <2.0 <2.0 mg/dL [facility] Nitrite, ur Negative Negative [facility] Leukocyte esterase, ur 4+(A) Negative [facility] UA reflex comment Reflex to microscopic UA will be performed. [facility] Urine 11/12/2024 12:1 9 PM ASSEMBLY LINE MACHINE OPERATOR 11/12/2024 4:16 PM ASSEMBLY LINE MACHINE OPERATOR Salbador Monroe NP LAB MICROBIOLOGY - GENERAL ORDER ARIEL Final Result [facility] [address] [facility]. [facility] [place] [address] * (ABNORMAL) Urinalysis, microscopic only (11/12/2024 12:19 PM ASSEMBLY LINE MACHINE OPERATOR) WBC, ur >50(A) 0 - 5 /HPF RBC, ur 11-20(A) 0 - 2 /HPF [facility] Epithelial cells, squamous, ur 21-50(A) 0 - 5 /HPF [facility] Bacteria, ur 1+(A) [facility] Mucous, ur Present(A) [facility] Hyaline casts, ur 11-20(A) 0 - 10 /LPF [facility] Culture Reflex Comment Reflex to urine culture will be performed. [facility] Urine 11/12/2024 12:1 9 PM ASSEMBLY LINE MACHINE OPERATOR 11/12/2024 4:16 PM ASSEMBLY LINE MACHINE OPERATOR Salbador Monroe NP LAB URINE ORDERABLES Final Resul t Performing Organization Address [facility] Co de Phone Number [facility] [address] [place] [address] * (ABNORMAL) Urine culture Urine (11/12/2024 12:19 PM ASSEMBLY LINE MACHINE OPERATOR) Report Final Report: Greater than or equal to 100,000 colonies/ml of Escherichia coli (.) Comment:Testing performed by : [facility], [address] [place] [address], [place]., [address] Organism ESCHERICHIA COLI HORACE DARDENW Urine 11/12/2024 12:1 9 PM ASSEMBLY LINE MACHINE OPERATOR 11/12/2024 8:17 PM ASSEMBLY LINE MACHINE OPERATOR Narrative [facility] - 11/15/2024 7:38 AM ASSEMBLY LINE MACHINE OPERATOR Urine culture reflexed based upon urinalysis results. Organism Antibiotic Method Susceptibility Escherichia coli Ampicillin with Sulbactam (SHAW) INTER PRETATION Susceptible Escherichia coli Cefazolin (SHAW) INTERPRETATION Susceptible Escherichia coli Ciprofloxacin (SHAW) INTERPRETATION Susceptible Escherichia coli Gentamicin (SHAW) INTERPRETATION Susceptible Escherichia coli Levofloxacin (SHAW) INTERPRETATION Susceptible Escherichia coli Meropenem (SHAW) INTERPRETATION Susceptible Escherichia coli Nitrofurantoin (SHAW) INTERPRETATION Susceptible Escherichia coli Piperacillin/Tazobactam (SHAW) INTERPR ETATION Susceptible Escherichia coli Trimethoprim with Sulfamethoxazole (SHAW) INTERPRETATION Susceptible Salbador Monroe NP LAB MICROBIOLOGY - GENERAL ORDER ARIEL Final Result Performing Organization Address [facility]/ZIP Co de Phone Number HORACE WILDE [address] [place] [address] * (ABNORMAL) POCT urinalysis dipstick (11/12/2024 11:20 AM ASSEMBLY LINE MACHINE OPERATOR) Color, Urine, POC Dark Tammi Clarity, ur, POC Cloudy(A) Clear Glucose, ur, POC Negative Negative MG/DL Bilirubin, ur, POC Negative Negative, Small, Moderate, Large Ketones, ur, POC Trace(A) Negative Specific [place], POC 1.020 1.003 - 1.030 Blood, ur, POC Small(A) Negative pH, ur, POC 6.0 5.0 - 8.0 Protein, ur, POC Negative Negative Urobilinogen, urine, POC 0.2 0.2 - 1.0 mg/dL Nitrite, ur, POC Positive(A) Negative Leukocytes, ur, POC Moderate(A) Negative Lot Number [id number] Urine 11/12/2024 11:2 0 AM ASSEMBLY LINE MACHINE OPERATOR Salbador Monroe NP POINT OF CARE TEST ORDERABLES nal Result from Last 3 [place] [address] [facility] MEDICARE [facility] MEDICARE [facility] MEDICARE [facility] FEDERAL Care Teams Tubular Products Fabricator Relationship Specialty Start Date End Date Duncan Dobbs MD PCP - General Internal Medicine 08/25/21 Nayeli Bell NP [address] [address] Nurse Practitioner Internal Medicine 12/20/24
--- OUTSIDE RECORDS SUMMARY | 2025-01-12 03:47 | XMS_ITS | Encounter Summary ---
Author Organization [facility] Address [address] [place] [address] Care Team Providers Care Salesperson Trailers And Motor Homes Name Role Phone Brian Day DO Primary Care Provider Encounter Details Date Type Department Care Team (Latest Contact Info) Description 07/21/2005 Outpatient Historical HIS [facility] MICHAEL Navarro, Fernie Walden MD NO ADDRESS ON FILE HYPERLIPIDEMIA NEC/NOS (Primary Dx) Social History Tobacco Use Types Packs/Day Years Used Date Smoking Tobacco: Never Assessed Comments Unknown Sex and Gender Information Value Date Recorded Sex Assigned at Not on file Legal Sex Female 3:34 AM PRODUCTION 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 Gender Identity Not on file Sexual Orientation Not on file documented as of this encounter Plan of Treatment Not on file documented as of this encounter Procedures Procedure Name Priority Date/Time Associated Diagnosis Comments HEPATIC FUNCTION PANEL Routine 07/21/2005 11:12 AM CDT LIPID PANEL Routine 07/21/2005 11:12 AM CDT documented in this encounter Results * HEPATIC FUNCTION PANEL (07/21/2005 11:12 AM CDT) AST 23 12 - 32 U/L INTERFACE SYSTEM ALKALINE PHOSPHATASE 58 35 - 104 U/L INTERFACE SYSTEM BILIRUBIN TOTAL 0.5 0.2 - 1.0 mg/dL INTERFACE SYSTEM ALBUMIN 4.4 3.4 - 4.8 g/dL INTERFACE SYSTEM TOTAL PROTEIN 7.4 6.3 - 8.6 g/dL INTERFACE SYSTEM ALT 19 0 - 31 U/L INTERFACE SYSTEM BILIRUBIN DIRECT 0.1 0.0 - 0.3 mg/dL INTERFACE SYSTEM 07/21/2005 11:1 2 AM CDT us Fernie Navarro MD CHEMISTRY ORDERABLES Final Re hneryt Performing Organization Address City/[facility]/ZIP Co de Phone Number INTERFACE SYSTEM Refer to clinic/hospital department * (ABNORMAL) LIPID PANEL (07/21/2005 11:12 AM CDT) CHOLESTEROL 141 100 - 199 mg/dL INTERFACE SYSTEM TRIGLYCERIDE 91 10 - 149 mg/dL INTERFACE SYSTEM HDL 60(H) 40 - 59 mg/dL INTERFACE SYSTEM LDL CALCULATED 63 <=99 mg/dL INTERFACE SYSTEM CHOL/HDL RATIO 2.4 2.0 - 5.0 INTER FACE SYSTEM Comment:See interpretive xiao a section for risk classifications. LIPID PANEL COMMENT See below INTERFACE SYSTEM [...] <110 Borderline 110 - 129 High >=130 07/21/2005 11:1 2 AM CDT us Fernie Navarro MD CHEMISTRY ORDERABLES Final Re sult Performing Organization Address City/[facility] Co de Phone Number INTERFACE SYSTEM Refer to clinic/hospital department documented in this encounter Visit Diagnoses Diagnosis Other and unspecified hyperlipidemia- Primary documented in this encounter Care Teams Salesperson Trailers And Motor Homes Relationship Specialty Start Date End Date Brian Day DO PCP - General 03/07/08 documented as of this encounter
--- OUTSIDE RECORDS SUMMARY | 2025-01-12 03:47 | XMS_ITS | Encounter Summary ---
Author Organization [facility] Address 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
--- OUTSIDE RECORDS SUMMARY | 2025-01-12 03:47 | XMS_ITS | Encounter Summary ---
Author Organization [facility] Address [address] [place] [address] Care Team Providers Care Bag Shaker Name Role Phone Brian Day DO Primary Care Provider Encounter Details Date Type Department Care Team (Late st Contact Info) Description 06/25/1999 Outpatient Historical [facility] Natan Pederson MD [address] [address] Lumbago (Primary Dx) Social History Tobacco Use Types Packs/Day Years Used Date Smoking Tobacco: Never Assessed Comments Unknown Sex and Gender Information Value Date Recorded Sex Assigned at Not on file Legal Sex Female 3:34 AM VALIDATION ARCHITECT Gender Identity Not on file Sexual Orientation Not on file documented as of this encounter Plan of Treatment Not on file documented as of this encounter Visit Diagnoses Diagnosis Lumbago- Primary documented in this encounter Care Teams Bag Shaker Relationship Specialty Start Date End Date Brian Day DO PCP - General 03/07/08 documented as of this encounter
--- OUTSIDE RECORDS SUMMARY | 2025-01-12 03:47 | XMS_ITS | Encounter Summary ---
Author Organization [facility] Address [address] [place] [address] Care Team Providers Care Meter Repairer Helper Name Role Phone Duncan Dobbs MD Primary Care Provider Nayeli Bell INDUSTRIAL MAINTENANCE TECH Unavailable [phone] Reason for Visit * Reason Onset Date Comments Medical Question/Miscellaneous 12/23/2024 Encounter Details Date Type Department Care Team (Late st Contact Info) Description 12/23/2024 Telephone [facility] [address] [facility] [address] [place] [address] Duncan Dobbs MD [address] [facility] [address] [place] [address] Medical Question/Miscellaneous Social History Tobacco Use Types Packs/Day Years Used Date Smoking Tobacco: Never Smokeless Tobacco: Never Alcohol Use Standard Drinks/Week Comments Yes 0 [...] materials from doctor or pharmacy Never 12/25/2024 [facility] Utilities Answer Date Recorded In the past 12 months has th e [employer], gas, oil, or water company threatened to [...] often do you attend chur ch or nondenominational services? 1 to 4 times per year 05/06/2024 Do you belong to any clubs o r organizations such as jehovah's witness groups, unions, fraternal or athletic groups, or [...] any time in the past 12 m onths, were you homeless or living in a custodial (including now)? No 05/06/2024 Personal Safety Answer Date Recorded Have you ever been in or are you currently in a harmful physical or emotional relationship or is someone making you feel afraid or unsafe? Denies 10/20/2023 Comments No Sex and Gender Information Value Date Recorded Sex Assigned at Not on file Legal Sex Female 8:40 AM AZURE ARCHITECT Gender Identity Female 10/20/2023 2:21 PM AZURE ARCHITECT Sexual Orientation Not on file documented as of this encounter Miscellaneous Notes * Telephone Encounter - Danni Romo MA - 12/23/2024 11:16 AM CST Called and lvm giving a verbal ok for [facility] Home Care. E ARCHITECT * Telephone Encounter - Juanita Oseguera - 12/23/2024 11:03 AM CST Medical Question/Miscellaneous Caller???s Concern: Vickie [facility] Home care - is needing a Verbal ok for a delayed start day of 12.25.2024 instead of today for Nursing and Physical Therapy. Patient is agreeable to start date of 12.25. Verbal ok is needed Does message need to be routed? Yes-Action Needed E ARCHITECT documented in this encounter Plan of Treatment Not on file documented as of this encounter Visit Diagnoses Not on filedocumented in this encounter Care Teams Meter Repairer Helper Relationship Specialty Start Date End Date Duncan Dobbs MD PCP - General Internal Medicine 08/25/21 Nayeli Bell NP [address] [address] Nurse Practitioner Internal Medicine 12/20/24 documented as of this encounter
--- OUTSIDE RECORDS SUMMARY | 2025-01-12 03:47 | XMS_ITS | Encounter Summary ---
Author Organization [facility] Address [address] [place] [address] Care Team Providers Care Supervisor Quality Control Name Role Phone Brian Day DO Primary Care Provider Encounter Details Date Type Department Care Team (Late st Contact Info) Description 08/08/2005 Outpatient Historical HIS [facility] Fernie Navarro MD NO ADDRESS ON FILE Social History Tobacco Use Types Packs/Day Years Used Date Smoking Tobacco: Never Assessed Comments Unknown Sex and Gender Information Value Date Recorded Sex Assigned at Not on file Legal Sex Female 3:34 AM FLASH OVEN OPERATOR Gender Identity Not on file Sexual Orientation Not on file documented as of this encounter Plan of Treatment Not on file documented as of this encounter Visit Diagnoses Not on filedocumented in this encounter Care Teams Supervisor Quality Control Relationship Specialty Start Date End Date Brian Day DO PCP - General 03/07/08 documented as of this encounter
--- OUTSIDE RECORDS SUMMARY | 2025-01-12 03:47 | XMS_ITS | Encounter Summary ---
Author Organization [facility] Address [address] [place] [address] Care Team Providers Care Gas Leak Inspector Helper Name Role Phone Brian Day DO Primary Care Provider Encounter Details Date Type Department Care Team (Late st Contact Info) Description 06/14/2001 Outpatient Historical HIS [facility] Fernie Navarro MD NO ADDRESS ON FILE Social History Tobacco Use Types Packs/Day Years Used Date Smoking Tobacco: Never Assessed Comments Unknown Sex and Gender Information Value Date Recorded Sex Assigned at Not on file Legal Sex Female 3:34 AM LINUX SUPPORT ENGINEER Gender Identity Not on file Sexual Orientation Not on file documented as of this encounter Plan of Treatment Not on file documented as of this encounter Visit Diagnoses Not on filedocumented in this encounter Care Teams Gas Leak Inspector Helper Relationship Specialty Start Date End Date Brian Day DO PCP - General 03/07/08 documented as of this encounter
--- OUTSIDE RECORDS SUMMARY | 2025-01-12 03:47 | XMS_ITS | Encounter Summary ---
Author Organization [employer] Address [address] [place] [address] Care Team Providers Care Director Of Marketing Operations Name Role Phone Brian Day DO Primary Care Provider Encounter Details Date Type Department Care Team (Latest Contact Info) Description 2005 Outpatient Historical [facility] Fernie Navarro MD NO ADDRESS ON FILE MENOPAUSAL DISORDER NEC (Primary Dx) Social History Tobacco Use Types Packs/Day Years Used Date Smoking Tobacco: Never Assessed Comments Unknown Sex and Gender Information Value Date Recorded Sex Assigned at Not on file Legal Sex Female 3:34 AM PROP SAWYER Gender Identity Not on file Sexual Orientation Not on file documented as of this encounter Plan of Treatment Not on file documented as of this encounter Visit Diagnoses Diagnosis Other specified menopausal and postmenopausal disorder- Primary documented in this encounter Care Teams Director Of Marketing Operations Relationship Specialty Start Date End Date Brian Day DO PCP - General 03/07/08 documented as of this encounter
--- OUTSIDE RECORDS SUMMARY | 2025-01-12 03:47 | XMS_ITS | Encounter Summary ---
Author Organization [place] [facility] Address [address] [place] [address] Care Team Providers Care Section Supervisor Name Role Phone Brian Day DO Primary Care Provider Encounter Details Date Type Department Care Team (Late st Contact Info) Description 08/08/2005 Outpatient Historical HIS [facility] Fernie Navarro MD NO ADDRESS ON FILE Social History Tobacco Use Types Packs/Day Years Used Date Smoking Tobacco: Never Assessed Comments Unknown Sex and Gender Information Value Date Recorded Sex Assigned at Not on file Legal Sex Female 3:34 AM EQUIPMENT PLANNER Gender Identity Not on file Sexual Orientation Not on file documented as of this encounter Plan of Treatment Not on file documented as of this encounter Visit Diagnoses Not on filedocumented in this encounter Care Teams Section Supervisor Relationship Specialty Start Date End Date Brian Day DO PCP - General 03/07/08 documented as of this encounter
--- OUTSIDE RECORDS SUMMARY | 2025-01-12 03:47 | XMS_ITS | Encounter Summary ---
Author Organization [facility] Address [address] [place] [address] Care Team Providers Care Engineering Group Manager Name Role Phone Brian Dya DO Primary Care Provider Encounter Details Date Type Department Care Team (Late st Contact Info) Description 08/28/2001 Outpatient Historical HIS [facility] Lisa Roque MD [address] [facility] [address] [place] [address] Other symptoms involving digestive system(787.99) (Primary Dx) Social History Tobacco Use Types Packs/Day Years Used Date Smoking Tobacco: Never Assessed Comments Unknown Sex and Gender Information Value Date Recorded Sex Assigned at Not on file Legal Sex Female 3:34 AM ORACLE APPLICATION CONSULTANT Gender Identity Not on file Sexual Orientation Not on file documented as of this encounter Plan of Treatment Not on file documented as of this encounter Visit Diagnoses Diagnosis Other symptoms involving digestive system(787.99)- Primary Other symptoms involving digestive system documented in this encounter Care Teams Engineering Group Manager Relationship Specialty Start Date End Date Brian Day DO PCP - General 03/07/08 documented as of this encounter
--- OUTSIDE RECORDS SUMMARY | 2025-01-12 03:47 | XMS_ITS | Encounter Summary ---
Author Organization [employer] Address [address] [place] [address] Care Team Providers Care Director Of Social Media Marketing Name Role Phone Brian Day DO Primary Care Provider Encounter Details Date Type Department Care Team (Latest Contact Info) Description 11/01/2002 Outpatient Historical HIS CARDIOPULMONARY Aamir Gonzalez MD NO ADDRESS ON FILE JOINT PAIN-PELVIS (Primary Dx) Social History Tobacco Use Types Packs/Day Years Used Date Smoking Tobacco: Never Assessed Comments Unknown Sex and Gender Information Value Date Recorded Sex Assigned at Not on file Legal Sex Female 3:34 AM PRIMARY HEALTH CARE NURSE Gender Identity Not on file Sexual Orientation Not on file documented as of this encounter Plan of Treatment Not on file documented as of this encounter Visit Diagnoses Diagnosis Pain in joint, pelvic region and thigh- Primary documented in this encounter Care Teams Director Of Social Media Marketing Relationship Specialty Start Date End Date Brian Day DO PCP - General 03/07/08 documented as of this encounter
--- OUTSIDE RECORDS SUMMARY | 2025-01-12 03:47 | XMS_ITS | Encounter Summary ---
Author Organization [facility] Address [address] [place] [address] Care Team Providers Care In Service Education Teacher Name Role Phone Brian Day DO Primary Care Provider Encounter Details Date Type Department Care Team (Late st Contact Info) Description 08/10/2006 Outpatient Historical [facility] [place] [address] [facility] [place] [address] Rafy Albarado MD [address] [facility] [address] [place] [address] Social History Tobacco Use Types Packs/Day Years Used Date Smoking Tobacco: Never Assessed Comments Unknown Sex and Gender Information Value Date Recorded Sex Assigned at Not on file Legal Sex Female 3:34 AM RESPIRATORY THERAPY AIDE Gender Identity Not on file Sexual Orientation Not on file documented as of this encounter Plan of Treatment Not on file documented as of this encounter Visit Diagnoses Not on filedocumented in this encounter Care Teams In Service Education Teacher Relationship Specialty Start Date End Date Brian Day DO PCP - General 03/07/08 documented as of this encounter
--- OUTSIDE RECORDS SUMMARY | 2025-01-12 03:47 | XMS_ITS | Encounter Summary ---
Author Organization [facility] Address [address] [place] [address] Care Team Providers Care Space Planner Name Role Phone Brian Day DO Primary Care Provider Encounter Details Date Type Department Care Team (Late st Contact Info) Description 04/22/2004 Outpatient Historical HIS [facility] Fernie Navarro MD NO ADDRESS ON FILE Social History Tobacco Use Types Packs/Day Years Used Date Smoking Tobacco: Never Assessed Comments Unknown Sex and Gender Information Value Date Recorded Sex Assigned at Not on file Legal Sex Female 3:34 AM TEXTILE SLITTING MACHINE OPERATOR Gender Identity Not on file Sexual Orientation Not on file documented as of this encounter Plan of Treatment Not on file documented as of this encounter Visit Diagnoses Not on filedocumented in this encounter Care Teams Space Planner Relationship Specialty Start Date End Date Brian Day DO PCP - General 03/07/08 documented as of this encounter
--- OUTSIDE RECORDS SUMMARY | 2025-01-12 03:47 | XMS_ITS | Encounter Summary ---
Author Organization [facility] Address [address] [place] [address] Care Team Providers Care Binder And Box Builder Name Role Phone Brian Day DO Primary Care Provider Encounter Details Date Type Department Care Team (Latest Contact Info) Description 12/05/2008 Outpatient Historical HIS [facility] MICHAEL BLDG Conversion, History Other and Unspecified Hyperlipidemia Social History Tobacco Use Types Packs/Day Years Used Date Smoking Tobacco: Never Alcohol Use Standard Drinks/Week Comments No 0 (1 standard drink = 0.6 oz pur e alcohol) Comments No Sex and Gender Information Value Date Recorded Sex Assigned at Not on file Legal Sex Female 3:34 AM EXTERNAL RELATIONS MANAGER Gender Identity Not on file Sexual Orientation Not on file documented as of this encounter Plan of Treatment Not on file documented as of this encounter Procedures Procedure Name Priority Date/Time Associated Diagnosis Comments LIPID PANEL Routine 12/05/2008 7:14 AM EXTERNAL RELATIONS MANAGER documented in this encounter Results * LIPID PANEL (12/05/2008 7:14 AM EXTERNAL RELATIONS MANAGER) CHOLESTEROL 171 100 - 199 mg/dL [facility] CHOL/HDL RATIO 3.3 2.0 - 5.0 [facility] TRIGLYCERIDE 105 10 - 149 mg/dL [facility] HDL 52 40 - 59 mg/dL [facility] LDL CALCULATED 98 <=99 mg/dL [facility] LIPID PANEL COMMENT See Below [facility] Comment: The adult ATP and pediatric NCEP classifications for lipids are available on the [facility] Intranet at: [email or web address] Select: Lab Policies and Procedures,Current Select: Lipid Panel Interpretation Blood specimen (specimen) 12/05/2008 7:14 AM EXTERNAL RELATIONS MANAGER 12/05/2008 7:39 AM EXTERNAL RELATIONS MANAGER Narrative INTERFACE SYSTEM - 12/05/2008 11:23 AM EXTERNAL RELATIONS MANAGER results to Dr. Jerald Lorenz fax:[phone] results faxed 12/05/08 11:23 AM dl us History Conversion CHEMISTRY ORDERABLES Edited INTERFACE SYSTEM Refer to clinic/hospital department [facility] CLIA# [id number] [address] [place] [address] documented in this encounter Visit Diagnoses Diagnosis Other and unspecified hyperlipidemia documented in this encounter Care Teams Binder And Box Builder Relationship Specialty Start Date End Date Brian Day DO PCP - General 03/07/08 documented as of this encounter
--- OUTSIDE RECORDS SUMMARY | 2025-01-12 03:47 | XMS_ITS | Data Portability ---
Author Organization [place] - [facility] OFFICE Address [address] [place] [address] Care Team Providers Care Network Field Engineer Name Role Phone CHLOE CORTEZ Primary Care Provider [phone] Assessment No assessment recorded. Plan of Treatment Reminders Order Date Submit Date Provider Last Modified By Organization Details Last Modified Time Details Appointments None recorded. Lab None recorded. Referral None recorded. Procedures None recorded. Surgeries None recorded. Imaging electrocar diogram 2017 018 ELY Not available 8 14:25:24 electrocar diogram 2017 018 [email or web address] Not available 8 13:27:48 Medication Orders Xarelto 20 mg tablet 2018 019 INTERFACE [id number], [address] [place], [address], 9 12:19:26 Lasix 20 mg tablet 2017 018 INTERFACE [id number], [address] [place], [address], 8 17:45:41 Patient TargetsNo targets recorded. Patient Instructions Encounter Date Encounter Id Patient Instructions Last Modified By Organization Details Last Modified Time 05/01/2018 [id number] Exercise advised Low cholesterol diet advised Low sodium diet advised. [email or web address] Not available 05/01/2018 11:23:28 08/21/2018 [id number] Weight loss, 10 pounds Exercise advised Low cholesterol diet advised Low sodium diet advised. This document was scribed by Juani [email or web address] Not available 08/21/2018 17:38:00 09/25/2018 [id number] Weight loss 20 pounds Exercise advised Low cholesterol diet advised Low sodium diet advised. Scribed by Bruna COCHRAN-C dior Not available 09/25/2018 13:00:33 11/07/2018 [id number] Exercise advised Low cholesterol diet advised Low sodium diet advised. [email or web address] Not available 11/07/2018 16:14:44 Reason for Referral None Reported. Results Created Date Observation Date Name Description Value Unit Range Abnormal Flag Note LastModifiedBy Organization Detail LastModifiedTime 05/01/20 18 05/01/2018 elect rocar diogr am Result Low voltag e chest leads Probab ly old anteri or myocar dial infarc tion Not Available Mac Iglesias MD [address] [place], [place], [address], 05/01/2018 11:01:33 04/04/20 18 04/02/2018 stab phleb ectom y of varic ose veins , one extre mity (PROC ) No observ ation record ed. [email or web address] Not Available 2017 14:21:58 05/02/20 18 04/15/2018 elect rocar diogr am No observ ation record ed. [email or web address] Not Available 2017 13:40:57 08/22/20 18 08/21/2018 elect rocar diogr am No observ ation record ed. [email or web address] Not Available 2017 06:58:01 08/24/20 18 08/21/2018 elect rocar diogr am No observ ation record ed. [email or web address] Not Available 2017 00:58:13 09/16/20 18 09/12/2018 US, echoc ardio gram No observ ation record ed. [email or web address] Not Available 2017 14:04:00 09/25/20 18 09/25/2018 elect rocar diogr am No observ ation record ed. [email or web address] Not Available 2017 14:24:01 12/12/19 19 12/04/2018 US, doppl er, venou s No observ ation record ed. [email or web address] Not Available 12/12 18:45:21 Result Notes None recorded. Problems Name Problem SNOMED Code Status Onset Date Resolution Date Notes Provider Name and Address Organization Details Recorded Time Essential hypertensio n 48063705 Active 2016 Kelvin Newberry null, [place] - [facility] 7 17:37:43 Electrocard iogram abnormal 799750725 Active 2016 Kristal [place] [facility] 04:16:28 Hyperlipide chava 12445820 Completed 201610/30/2017 Novayara [place] [facility] 7 17:55:54 Fatigue 75863383 Active 2016 Halmelinda MichelleTorey [place] [facility] 7 04:16:53 Rosacea 913671315 Active 2016 Halmelinda MichelleTorey [place] [facility] 7 04:17:01 Body mass index 30+ - obesity 742592460 Active 2016 Halmelinda [place] [facility] 7 04:17:15 Deep venous thrombosis 519269760 Active 2016 Halmelinda Michelle[place] [facility] 04:17:23 Active or passive immunizatio n Active 2016 Kristal [place] [facility] 7 04:17:29 Screening for malignant neoplasm of colon Active 2016 Hala [place] [facility] 7 04:17:46 Screening for malignant neoplasm of breast Active 2016 Kristal [place] [facility] 7 04:17:57 Screening for malignant neoplasm of cervix Active 2016 Hala [place] [facility] 7 04:18:20 Menopause Active 2016 Halmel[place] [facility] 7 04:18:34 Antiplatele t agent therapy Active 2016 Halmelinda [place] [facility] 7 04:19:50 Obstructive sleep apnea syndrome 26327599 Active 2016 Kelvin New[place] [facility] 7 14:39:17 Peripheral venous insufficien cy 34829131 Active 2016 Kelvin Newberry null, [place] - [facility] 7 14:39:32 Dyslipidemi a 990034263 Active 2016 Nova Mi null[place] - [facility] 7 17:56:00 Edema of lower extremity 533072734 Active 2017 Juani Leo null, [place] - [facility] 8 17:25:45 Atypical chest pain 487825141 Active 2017 Kelvin Newberry null, [facility] 8 11:11:53 Varicose veins of lower extremity 79178990 Active 2018 Kristal Lema [facility], [facility] 9 12:24:59 Problem Notes None recorded. Procedures Surgical History None recorded. Imaging Results Imaging Date Name Status LastModified by Organization Details LastModified Time 04/02/2018 stab phlebectomy of varicose veins, one extremity (PROC) completed [email or web address] Information not available 06/13/2018 14:21:58 04/15/2018 electrocardiogram completed [email or web address] Informa tion not available 05/02/2018 13:40:57 08/21/2018 electrocardiogram completed [email or web address] Informa tion not available 08/25/2018 00:58:13 08/21/2018 electrocardiogram completed Informa tion not available 09/30/2018 06:58:01 09/12/2018 US, echocardiogram completed Inform ation not available 09/22/2018 14:04:00 09/25/2018 electrocardiogram completed Informa tion not available 09/25/2018 14:24:01 12/04/2018 US, doppler, venous completed [email or web address] Infor mation not available 12/12/2018 18:45:21 Procedure Notes None recorded. Medical Equipment None Reported. Allergies Allergen ID Allergen Name Allergen Category Reaction Reaction Severity Criticality Documentation Date Start Date Code Code System Note Provider Name and Address Organization Details Recorded Time 7435 chlorphen iramine medicatio n Not available Not available Not available 12/04/2018 2400 RxNorm Kristal casillas, [facility] 9 12:21:16 7436 codeine medicatio n Not available Not available Not available 12/04/2018 2670 [facility] 9 12:21:35 7437 crab allergeni c extract food Not available Not available Not available 12/04/2018 68591 0 RxNorm Kristal casillas, [facility] 9 12:21:47 7438 phenyleph rine medicatio n Not available Not available Not available 12/04/2018 8163 RxNorm Kristal casillas, [facility] 9 12:23:09 Medications Name Sig Start Date Stop Date Status Note LastModified by Organization Details LastModified Time lisinopril 20 mg tablet Take every day by oral route for 90 days. 10/31 completed Not Available Not Available Not Available lisinopril 10 mg tablet TAKE 1 TABLET BY MOUTH EVERY DAY active Not Available Not Available No t Available Valtrex 1 gram tablet Take 1 tablet every 12 hours by oral route as needed. active Not Available Not Available No t Available furosemide 20 mg tablet TAKE 1 TABLET BY MOUTH DAILY 2018 active Not Available Not Available Not Avai lable Restasis 0.05 % eye drops in a dropperette INSTILL 1 DROP INTO AFFECTED EYE(S) BY OPHTHALMI C ROUTE EVERY 12 HOURS active Not Available Not Available No t Available rosuvastati n 5 mg tablet TAKE 1 TABLET BY MOUTH EVERY DAY active Not Available Not Available No t Available Vitamin B-12 1 qd active Not Available Not Available Not Available aspirin 325 mg qd active Not Available Not Av ailable Not Available apple cider vinegar active Not Available Not Available Not Available Prevnar 13 (PF) 0.5 mL intramuscul ar syringe 01/17 completed Not Available Not Available Not Available Xarelto 15 mg tablet active Not Available Not Available No t Available Xarelto 20 mg tablet Take 1 tablet every day by oral route as directed. 2018 active Not Available Not Available Not Avai lable Eliquis 5 mg tablet Take 1 tablet twice a day by oral route as directed. 02/14 completed Not Available Not Available Not Available Soolantra 1 % topical cream APPLY A PEA-SIZED AMOUNT BY TOPICAL ROUTE ONCE DAILY TO COVER AREAS OF FACE WITH THIN LAYER AVOIDING THE EYES AND LIPS active Not Available Not Available No t Available Restasis MultiDose 0.05 % eye drops 02/14 completed Not Available Not Available Not Available Vitals Date Recorded Body height Body mass index (BMI) Body weight Heart rate Oxygen saturation Oxygen saturation in Arterial blood by Pulse oximetry Systolic blood pressure Diastolic blood pressure Provider Name and Address Organization Details Last Updated DateTime 8 167.64 cm 33.2 kg/m2 35972.0 3 g 78 /min 98 % 98 % 130 mm[Hg] 76 mm[Hg] Beth Denneybrandin [facility] 8 11:01:07 Date Recorded Body height Body mass index (BMI) Body weight Heart rate Oxygen saturation Oxygen saturation in Arterial blood by Pulse oximetry Systolic blood pressure Diastolic blood pressure Provider Name and Address Organization Details Last Updated DateTime 8 167.64 cm 33.1 kg/m2 14017.4 4 g 77 /min 98 % 98 % 136 mm[Hg] 74 mm[Hg] Juani Felipa [facility] 8 17:00:25 Date Recorded Body height Body mass index (BMI) Body weight Heart rate Oxygen saturation Oxygen saturation in Arterial blood by Pulse oximetry Systolic blood pressure Diastolic blood pressure Provider Name and Address Organization Details Last Updated DateTime 8 167.64 cm 33.1 kg/m2 01818.4 4 g 87 /min 95 % 95 % 122 mm[Hg] 68 mm[Hg] ABIEL Altman [facility] 8 12:36:23 Date Recorded Body height Body mass index (BMI) Body weight Heart rate Oxygen saturation Oxygen saturation in Arterial blood by Pulse oximetry Systolic blood pressure Diastolic blood pressure Provider Name and Address Organization Details Last Updated DateTime 8 167.64 cm 33.1 kg/m2 78238.4 4 g 99 /min 93 % 93 % 128 mm[Hg] 78 mm[Hg] ABIEL Altman [facility] 8 15:32:58 Date Recorded Body height Body mass index (BMI) Body weight Heart rate Oxygen saturation Oxygen saturation in Arterial blood by Pulse oximetry Systolic blood pressure Diastolic blood pressure Provider Name and Address Organization Details Last Updated DateTime 9 167.64 cm 32.8 kg/m2 01710.2 5 g 80 /min 98 % 98 % 120 mm[Hg] 68 mm[Hg] Catalina Holley [place] - [facility] 9 12:13:45 Social History Question Answer Notes LastModified by Organizat ion Details LastModified Time Tobacco Smoking Status Never Smoker Not Available [employer] 09/29/2020 03:30:42 What Is Your Level Of Alcohol Consumption? None [id number] Information not available 09/29/2020 What Is Your Occupation? Retired [id number] Information not available 09/29/2020 Marital Status [email or web address] Informatio n not available 09/21/2017 What Was The Date Of Your Most Recent Tobacco Screening? 12/04/2018 [id number] Information not available 09/29/2020 How Many Children Do You Have? 5 [id number] Information not available 09/29/2020 How Many Years Have You Smoked Tobacco? 0 [id number] Information not available 09/29/2020 Sex: Unknown Functional Status None recorded. Mental Status None recorded. Family History Nothing Reported. Medical History Condition Response Sleep Apnea Y Hyperlipidemia Y Hypertension Y Gynecological HistoryNo gynecological history recorded. Obstetrics History GPAL:G 0 P 0 0 0 0 Past Encounters Encounter ID Performer Location Encounter Start Date Encounter Closed Date Diagnosis/Indication Diagnosis SNOMED-CT Code Diagnosis ICD10 Code Diagnosis Note [id number] MD [facility] [address] [place] [address] 09/25/2017 09:06:44 09/27/2017 12:16:31 Essential hypertension 93131254 I10 Atypical chest pain 1025 82370 R07.89 Had a positive stress testThe patient will be scheduled for left heart catheteriz ation, with coronary angiogram, and possible PTCA/Stent . The procedure was discussed with the patient, and risks, benefits, and alternativ e options were explained. The patient was given informatio n about heart catheteriz ation and interventi onal procedures . The patient agrees to proceed. Peripheral venous insufficiency 46272145 I87.2 Venous duplex and reflux studyHad Compressio n stockings trial Dyslipidemia 363212610 E 78.5 Needs to keep LDL less than 70, and HDL more than 40 Will get lipid profile results from PCP Benign hypertension 1072 5009 I10 Obstructiv e sleep apnea syndrome 43194344 G47.33 on Cpap [id number] MD [facility] [address] [place] [address] 10/04/2017 14:41:04 10/04/2017 18:00:58 Essential hypertension 41965430 I10 Atypical chest pain 1025 93284 R07.89 Angiogram 09/27/17 WAS ok WITH MILD Coronary Artery Disease Peripheral venous insufficiency 21956619 I87.2 Venous duplex and reflux study WAS VERY ABNORMAL will arrange for venous IVUS and possible stent Had Compressio n stockings trial Dyslipidemia 894256792 E 78.5 Needs to keep LDL less than 70, and HDL more than 40 Will get lipid profile results from PCP On Rosuvastat in Benign hypertension 1072 5009 I10 Obstructiv e sleep apnea syndrome 51207224 G47.33 on Cpap Deep venou s thrombosis 457097551 I82.409 [id number] Mac Iglesias MD [place] [facility] [address] [place] [address] 10/31/2017 10:11:03 10/31/2017 16:37:52 Essential hypertension 09598666 I10 Atypical chest pain 1025 82877 R07.89 Angiogram 09/27/17 WAS ok WITH MILD Coronary Artery Disease Peripheral venous insufficiency 67111442 I87.2 Venous duplex and reflux study WAS VERY ABNORMALPt had Left Iliac Stent placed. Had Compressio n stockings trialFU in a month may still need EVLT Dyslipidemia 094710485 E 78.5 Needs to keep LDL less than 70, and HDL more than 40 Will get lipid profile results from PCP On Rosuvastat in Obstructiv e sleep apnea syndrome 19018631 G47.33 On Cpap, seems to be well controlled now Deep venou s thrombosis 842306024 I82.409 Venous duplex and reflux study FUCompress ion stockings trial MD [facility] [address] [place] [address] 12/06/2017 14:49:25 12/06/2017 16:30:34 Essential hypertension 21179435 I10 Atypical chest pain 1025 15140 R07.89 Angiogram 09/27/17 WAS ok WITH MILD Coronary Artery Disease Peripheral venous insufficiency 80221134 I87.2 Venous duplex and reflux study WAS VERY ABNORMALPt had Left Iliac Stent placed. Had Compressio n stockings trialwill need EVLT Dyslipidemia 208983542 E 78.5 Needs to keep LDL less than 70, and HDL more than 40 Will get lipid profile results from PCP On Rosuvastat in Obstructiv e sleep apnea syndrome 59910816 G47.33 On Cpap, seems to be well controlled now [id number] Mac Iglesias MD [facility] Office [address] [place] [facility] [address] 01/17/2018 15:13:16 01/18/2018 17:36:09 Essential hypertension 27100081 I10 Pt reports taking her BP meds today at 4am Atypical chest pain 1025 86797 R07.89 Angiogram 09/27/17 WAS ok WITH MILD Coronary Artery Disease Peripheral venous insufficiency 91432157 I87.2 Venous duplex and reflux study WAS VERY ABNORMAL Pt had Left Iliac Stent placed.Had Compressio n stockings trialwill need Clarivein to RT and left GSVthen phlebectom y to left groin vein Dyslipidemia 458936049 E 78.5 Needs to keep LDL less than 70, and HDL more than 40 Will get lipid profile results from PCP On Rosuvastat in Obstructiv e sleep apnea syndrome 89790327 G47.33 On Cpap, seems to be well controlled now [id number] Mac Iglesias MD [place] [facility] [address] [place] [address] 01/30/2018 09:17:34 02/13/2018 19:31:39 Essential hypertension 61257369 I10 Pt reports taking her BP meds today at 4am Atypical chest pain 1025 85539 R07.89 Angiogram 09/27/17 WAS ok WITH MILD Coronary Artery Disease Peripheral venous insufficiency 87994931 I87.2 Venous duplex and reflux study WAS VERY ABNORMAL Pt had Left Iliac Stent placed.Had Compressio n stockings trialwill need Clarivein to RT and left GSVthen phlebectom y to left groin vein Dyslipidemia 475005579 E 78.5 Needs to keep LDL less than 70, and HDL more than 40 Will get lipid profile results from PCP On Rosuvastat in Obstructiv e sleep apnea syndrome 91242213 G47.33 On Cpap, seems to be well controlled now [id number] MD [facility] [address] [place] [address] 02/14/2018 13:45:18 02/14/2018 14:45:14 Essential hypertension 44616898 I10 Well controlled on current regimen. She has not taking her BP medication s today. Normally takes between 4 and 5 pm. Atypical chest pain 1025 02767 R07.89 Improved.H ad Angiogram 09/27/17 was ok WITH MILD Coronary Artery Disease Peripheral venous insufficiency 13844929 I87.2 Venous duplex and reflux study WAS VERY ABNORMAL Pt had Left Iliac Stent placed.Had Compressio n stockings trialWill need Clarivein to RT and left GSVthen phlebectom y to left groin vein Dyslipidemia 262304380 E 78.5 Needs to keep LDL less than 70, and HDL more than 40 Will get lipid profile results from PCP On Rosuvastat in Obstructiv e sleep apnea syndrome 17834571 G47.33 On Cpap, seems to be well controlled now [id number] Mac Iglesias MD [place] [facility] [place] [address] 03/13/2018 14:43:55 03/14/2018 10:42:06 Essential hypertension 17402556 I10 Well controlled on current regimen. She has not taking her BP medication s today. Normally takes between 4 and 5 pm. Atypical chest pain 1025 83704 R07.89 Improved.H ad Angiogram 09/27/17 was ok with mild coronary artery disease. Peripheral venous insufficiency 46902851 I87.2 Venous duplex and reflux study WAS VERY ABNORMAL Pt had Left Iliac Stent placed.Had Compressio n stockings trial s/p right leg phlebectom y, will need left side ant veins phlebectom y Dyslipidemia 444310386 E 78.5 Needs to keep LDL less than 70, and HDL more than 40 11/01/17: LDL 55 On Rosuvastat in Obstructiv e sleep apnea syndrome 66961167 G47.33 On Cpap, seems to be well controlled now [id number] Mac Iglesias MD [place] [address] [place] [address] 03/20/2018 09:21:49 03/20/2018 14:37:50 Essential hypertension 90369031 I10 Well controlled on current regimen. Normally takes between 4 and 5 pm. Atypical chest pain 1025 89947 R07.89 Improved. Had Angiogram 09/27/17 was ok with mild coronary artery disease. Peripheral venous insufficiency 54234946 I87.2 Venous duplex and reflux study WAS VERY ABNORMAL Pt had Left Iliac Stent placed.Had Compressio n stockings trial Had Angiogram done in 03/05/18 showed Right lower extremity phlebectom y with no complicati ons Will need left side ant veins phlebectom y. Dyslipidemia 458504291 E 78.5 Needs to keep LDL less than 70, and HDL more than 40 11/01/17: LDL 55 On Rosuvastat in Obstructiv e sleep apnea syndrome 55944874 G47.33 On Cpap, seems to be well controlled now [id number] Mac Iglesias MD [address] [address] 04/10/2018 10:12:12 04/11/2018 10:13:27 Essential hypertension 49545800 I10 Well controlled on current regimen. Normally takes between 4 and 5 pm. Atypical chest pain 1025 29486 R07.89 Improved. Had Angiogram 09/27/17 was ok with mild coronary artery disease. Peripheral venous insufficiency 88083727 I87.2 Improved swelling and varicose veins. Pt had Left Iliac Stent placed 09/2017. Had Compressio n stockings trial Had Angiogram done in 03/05/18 showed Right lower extremity phlebectom y with no complicati ons Had Angiogram done in 04/02/18 showed Left lower extremity multiple phlebectom ies with no complicati ons. Dyslipidemia 946458682 E 78.5 Needs to keep LDL less than 70, and HDL more than 40 11/01/17: LDL 55 On Rosuvastat in. Obstructiv e sleep apnea syndrome 20218065 G47.33 On Cpap, seems to be well controlled now Electrocar diogram abnormal 388675905 R94.31 [id number] Mac Iglesias MD [place] [facility] [place] [address] 05/01/2018 10:20:30 05/02/2018 13:27:48 Essential hypertension 45769336 I10 Well controlled on current regimen. Normally takes between 4 and 5 pm. Atypical chest pain 1025 63318 R07.89 Improved. Had Angiogram 09/27/17 was ok with mild coronary artery disease. Peripheral venous insufficiency 64058742 I87.2 Improved swelling and varicose veins. Pt had Left Iliac Stent placed 09/2017. Had procedure done in 04/02/18 showed Left lower extremity multiple phlebectom ies with no complicati ons. Dyslipidemia 043910603 E 78.5 Needs to keep LDL less than 70, and HDL more than 40 11/01/17: LDL 55 On Rosuvastat in. Obstructiv e sleep apnea syndrome 03051286 G47.33 On Cpap, seems to be well controlled now Electrocar diogram abnormal 322984100 R94.31 [id number] Mac Iglesias MD [place] [facility] [address] [place] [address] 08/21/2018 15:45:39 08/21/2018 17:46:21 Essential hypertension 90267404 I10 Well controlled on current regimen. Normally takes between 4 and 5 pm. Atypical chest pain 1025 66590 R07.89 Improved. Had Angiogram 09/27/17 was ok with mild coronary artery disease. Peripheral venous insufficiency 64931186 I87.2 Improved swelling and varicose veins. Pt had Left Iliac Stent placed 09/2017. Had procedure done in 04/02/18 showed Left lower extremity multiple phlebectom ies with no complicati ons. Dyslipidemia 322149756 E 78.5 Needs to keep LDL less than 70, and HDL more than 40 11/01/17: LDL 55 On Rosuvastat in. Obstructiv e sleep apnea syndrome 45764070 G47.33 On Cpap, seems to be well controlled now Edema of l ower extremity 228219006 R60.0 Increased swelling. Obtain echo to evaluate for structural /functiona l disease. [id number] Mac Iglesias MD [place] [address] [place] [address] 09/25/2018 11:57:08 09/25/2018 13:01:09 Edema of lower extremity 349772688 R60.0 09/12/18 ECHO: LV chamber size is normal. LV wall thickness is mildly increased. There is normal global systolic function and contractil ity. The estimated left ventricle ejection fraction is 60-65%(nor mal). LV relaxation is impaired. Left atrium chamber is mildly dilated. The aortic valve is mildly calcified. There is mild aortic regurgitat ion. There is mild mitral regurgitat ion. There is trivial pulmonic regurgitat ion. Improved on Lasix. Peripheral venous insufficiency 18351545 I87.2 Improved swelling and varicose veins. Pt had Left Iliac Stent placed 09/2017. Had procedure done in 04/02/18 showed Left lower extremity multiple phlebectom ies with no complicati ons. Essential hypertension 41776433 I10 Well controlled on current regimen. Normally takes between 4 and 5 pm. Dyslipidemia 563661603 E 78.5 Needs to keep LDL less than 70, and HDL more than 40 11/01/17: LDL 55 On Rosuvastat in. Obstructiv e sleep apnea syndrome 92849868 G47.33 On Cpap, seems to be well controlled now Atypical chest pain 1025 20555 R07.89 Improved. Had Angiogram 09/27/17 was ok with mild coronary artery disease. [id number] MD [facility] [address] [place] [address] 11/07/2018 14:54:14 11/07/2018 17:00:06 Edema of lower extremity 102785210 R60.0 09/12/18 ECHO: LV chamber size is normal. LV wall thickness is mildly increased. There is normal global systolic function and contractil ity. The estimated left ventricle ejection fraction is 60-65%(nor mal). LV relaxation is impaired. Left atrium chamber is mildly dilated. The aortic valve is mildly calcified. There is mild aortic regurgitat ion. There is mild mitral regurgitat ion. There is trivial pulmonic regurgitat ion. Improved on Lasix. Ok to use extra Lasix PRNVenous duplex FU Peripheral venous insufficiency 16158650 I87.2 Improved swelling and varicose veins. Pt had Left Iliac Stent placed 09/2017. Had procedure done in 04/02/18 showed Left lower extremity multiple phlebectom ies with no complicati ons. Essential hypertension [id number] I10 Well controlled on current regimen. Normally takes between 4 and 5 pm. Dyslipidemia [id number] E 78.5 Needs to keep LDL less than 70, and HDL more than 40 11/01/17: LDL 55 On Rosuvastat in. Obstructiv e sleep apnea syndrome [id number] G47.33 On Cpap, seems to be well controlled now Atypical chest pain 1025 98211 R07.89 Improved. Had Angiogram 09/27/17 was ok with mild coronary artery disease. [id number] Mac Iglesias MD [place] [facility] [place] [address] 12/04/2018 11:42:57 12/04/2018 12:20:06 Edema of lower extremity [id number] R60.0 Duplex done today, negative Peripheral venous insufficiency [id number] I87.2 Improved swelling and varicose veins. Pt had Left Iliac Stent placed 09/2017. Had procedure done in 04/02/18 showed Left lower extremity multiple phlebectom ies with no complicati ons. Essential hypertension [id number] I10 Well controlled on current regimen. Normally takes between 4 and 5 pm. Dyslipidemia [id number] E 78.5 Needs to keep LDL less than 70, and HDL more than 40 11/01/17: LDL 55 On Rosuvastat in. Obstructiv e sleep apnea syndrome 29264138 G47.33 On Cpap, seems to be well controlled now Atypical chest pain 1025 89061 R07.89 Improved. Had Angiogram 09/27/17 was ok with mild coronary artery disease. Deep venou s thrombosis of lower extremity [id number] I82.409 Health Concerns Section Related Observation LastModified by Organization Detai ls LastModified Time None Recorded Concern Status LastModified by Organization Details LastModified Time None Recorded Advance Directives Directive None Recorded Payers Encounter Date Sequence Insurance Name Policy Number Policy Sullivan Covered Member ID Sullivan Member ID Guarantor Name 05/01/2018 2 [place] 104 Gianna Amaral [id number] Gianna Amaral 05/01/2018 1 [place] Gianna Amaral [id number] Gianna Amaral 08/21/2018 2 [place] 104 Gianna Amaral [id number] Gianna Amaral 08/21/2018 [place] Amaral [id number] Gianna Amaral 09/25/2018 2 [place] 104 Gianna Amaral [id number] Gianna Amaral 09/25/2018 1 [place] Gian[place] Amaral [id number] Gianna Amaral 11/07/2018 2 [place] 104 Gianna Amaral [id number] Gianna Amaral 11/07/2018 1 [place] Gianna Amaral [id number] Gianna Amaral 12/04/2018 2 [place] 104 Gianna Amaral [id number] Gianna Amaral 12/04/2018 1 [place] Gianna Amaral [id number] Gianna Amaral Notes Date Note Type Note Provider Name and Address Organization Details Recorded Time 05/01/2018 text/html 04/10/18 CC: Follow-up chest pain 82 year-old woman with history of HTN, STAURT, DVT, PVD, and dyslipidemia presents for follow-up. She had left vein ablation on 04/02/18 without complications. She reports bruising and steristrips are still present. Denies much pain or swelling. Had Angiogram done in 03/05/18 showed right lower extremity phlebectomy with no complications by Dr. Dumont. She now has mild skin tenderness, Varicose veins are gone now No new complaints, feeling well overall. She has been active, walking in her basement. Reports getting more tired than normal. Has been active in the house but not exercising. Denies chest pain. Denies shortness of breath at rest. Reports dyspnea on exertion when walking up and down steps. No orthopnea. No PNDs. Denies heart palpitations. Denies dizziness. Denies syncope or near syncope. Reports ankle or leg edema. No major bleeding events. No reported side effects from medications. Taking medications as prescribed with no missed doses. Had Angiogram done in 03/05/18 showed Right lower extremity phlebectomy with no complications. US, Doppler, Venous 11/28/17 : Negative left-sided venous doppler study Venous mapping, lower extremity 11/28/17: Mild left sided reflux disease noted. Pt recently had a Stent placed to L Iliac Vein 10/25/17. She feels much better now, the leg pain is gone. Had Angiogram done in 04/02/18 showed Left lower extremity multiple phlebectomies with no complications. Had Angiogram on 03/05/18 : Right lower extremity phlebectomy with no complications by Dr. Dumont. Had Angiogram done in 09/27/17 showed No significant obstructive coronary artery disease. One vessel mild coronary artery disease, with distal 40% stenosis. Normal left ventricular size and systolic function. Pt reports wound to right groin is healing well, minimal bruising noted. Had negative venous US doppler done in 09/26/17. She has STUART and she is on Cpap now tolerating medications without difficulty. Results from this visit, or from the past: 03/05/18 :Na 137 ,K 4.1 ,CL 103 ,CO2 25 ,GLU 116 , BUN 27 ,CR 1.1 ,HB 12.2 , HT 35.5TSH 11/01/17: TSH 2.23, T4 1.1 CBC 11/01/17: WBC 5.0, Hgb 12.2, Hct 36.3, Plt 262 01/17/18: ECG: Possible left bundle branch block. Low voltage. Angiogram 04/02/18 : Left lower extremity multiple phlebectomies with no complications. The patient with follow with [facility] office in [place]. Angiogram 03/05/18 : Right lower extremity phlebectomy with no complications. The patient will follow in [facility] office in [place]. Mac Iglesias MD [address] [place], [address], [facility] - [facility] 05/01/2018 11:24:11 08/21/2018 text/html 08/21/18 CC: Follow-up chest pain 83 year-old woman with history of HTN, STUART, DVT, PVD, and dyslipidemia presents for follow-up. She was last in our office 3 months ago. Since then, she is feeling well. She reports worsening leg swelling. She was seen by Dr. Cortez and sent to [facility] and had an outpatient venous doppler which she states showed inconclusive results. She has improvement with elevation. She is not currently on a diuretics. She does not check the BP at home regularly, only when she gets a headache. She had left vein ablation on 04/02/18 without complications. She reports bruising and steristrips are still present. Denies much pain or swelling. Had Angiogram done in 03/05/18 showed right lower extremity phlebectomy with no complications by Dr. Dumont. She now has mild skin tenderness, Varicose veins are gone now She is currently going to physical therapy for her right leg pain which occurred after she fell on her right knee. She has been active, walking in her basement. She has been busy recently and feels fatigued. Has been active in the house but not strenuous exercising. Denies chest pain. Denies shortness of breath at rest. Reports improved dyspnea on exertion when walking up and down steps. No orthopnea. No PNDs. Denies heart palpitations. Denies dizziness. Denies syncope or near syncope. Reports worsening ankle or leg edema. No major bleeding events. No reported side effects from medications. Taking medications as prescribed with no missed doses. Had Right lower extremity phlebectomy with no complications by Dr. Dumont. Had Venous Doppler on 11/28/17 : Negative left-sided venous doppler study Had Venous mapping on lower extremities 11/28/17: Mild left sided reflux disease noted. Pt recently had a Stent placed to L Iliac Vein 10/25/17. She feels much better now, the leg pain is gone. Had Angiogram done in 09/27/17 showed No significant obstructive coronary artery disease. One vessel mild coronary artery disease, with distal 40% stenosis. Normal left ventricular size and systolic function. Pt reports wound to right groin is healing well, minimal bruising noted. 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 Low voltage. Phlebectomy 04/02/18 : Left lower extremity multiple phlebectomies with no complications. The patient with follow with [facility] office in [place]. Angiogram 04/02/18 : Left lower extremity multiple phlebectomies with no complications. The patient with follow with [facility] office in [place]. Angiogram 03/05/18 : Right lower extremity phlebectomy with no complications. The patient will follow in [facility] office in [place]. Mac Iglesias MD [address] [place], [address], [place] - [facility] 08/21/2018 17:46:18 09/25/2018 text/html 09/25/18 CC: leg edema 83 year-old woman with history of HTN, STUART, DVT, PVD, and dyslipidemia presents for follow-up. She reports worsening leg swelling. She was seen by Dr. Cortez and sent to [facility] and had an outpatient venous doppler which she states showed inconclusive results. She has improvement with elevation. She has been taking her blood pressure at home and it has been running well. She had left vein ablation on 04/02/18 without complications. She reports bruising and steri strips are still present. Denies much pain or swelling. Had Angiogram done in 03/05/18 showed right lower extremity phlebectomy with no complications by Dr. Dumont. She now has mild skin tenderness, Varicose veins are gone now Denies chest pain. Denies shortness of breath at rest. Reports improved dyspnea on exertion when walking up and down steps. No orthopnea. No PNDs. Denies heart palpitations. Denies dizziness. Denies syncope or near syncope. Reports worsening ankle or leg edema. No major bleeding events. No reported side effects from medications. Taking medications as prescribed with no missed doses. 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 Low voltage. Phlebectomy 04/02/18 : Left lower extremity multiple phlebectomies with no complications. The patient with follow with [facility] office in [place]. Angiogram 04/02/18 : Left lower extremity multiple phlebectomies with no complications. The patient with follow with [facility] office in [place]. Angiogram 03/05/18 : Right lower extremity phlebectomy with no complications. The patient will follow in [facility] office in [place]. Had Venous Doppler on 11/28/17 : Negative left-sided venous doppler study Had Venous mapping on lower extremities 11/28/17: Mild left sided reflux disease noted. Had Angiogram done in 09/27/17 showed No significant obstructive coronary artery disease. One vessel mild coronary artery disease, with distal 40% stenosis. Normal left ventricular size and systolic function. Pt reports wound to right groin is healing well, minimal bruising noted. 09/12/18 ECHO: LV chamber size is normal. LV wall thickness is mildly increased. There is normal global systolic function and contractility. The estimated left ventricle ejection fraction is 60-65%(normal). LV relaxation is impaired. Left atrium chamber is mildly dilated. The aortic valve is mildly calcified. There is mild aortic regurgitation. There is mild mitral regurgitation. There is trivial pulmonic regurgitation. Mac Iglesias MD [address] [place], [address], [facility] - [facility] 09/25/2018 13:01:07 11/07/2018 text/html 11/07/18 CC: leg edema 83 year-old woman with history of HTN, STUART, DVT, PVD, and dyslipidemia presents for follow-up. She has knee pain and swelling She has been taking her blood pressure at home and it has been running well. She had left vein ablation on 04/02/18 without complications. She reports bruising and steri strips are still present. Denies much pain or swelling. Had Angiogram done in 03/05/18 showed right lower extremity phlebectomy with no complications by Dr. Dumont. She now has mild skin tenderness, Varicose veins are gone now Denies chest pain. Denies shortness of breath at rest. Reports improved dyspnea on exertion when walking up and down steps. No orthopnea. No PNDs. Denies heart palpitations. Denies dizziness. Denies syncope or near syncope. Reports worsening ankle or leg edema. No major bleeding events. No reported side effects from medications. Taking medications as prescribed with no missed doses. Results from this visit, or from the past: 03/05/18 :Na 137 ,K 4.1 ,CL 103 ,CO2 25 ,GLU 116 , BUN 27 ,CR 1.1 ,HB 12.2 , HT 35.5 TSH 11/01/17: TSH 2.23, T4 1.1 11/01/17: Na 138 ,K 4.6 ,CL 104 ,CO2 26 ,GLU 124 ,BUN 21 ,CR 1.19 ,CK 150 ,TC 124 ,TG 103 ,HDL 50 ,LDL 55 ,AST 16,ALT 11 09/25/17 :PTT 28,PT 13.8,INR 1.07. 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 EKG 08/21/18:Low voltage,probably old anterior myocardial infarction. 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 Low voltage. Phlebectomy 04/02/18 : Left lower extremity multiple phlebectomies with no complications. The patient with follow with [facility] office in [place]. Angiogram 04/02/18 : Left lower extremity multiple phlebectomies with no complications. The patient with follow with [facility] office in [place]. Angiogram 03/05/18 : Right lower extremity phlebectomy with no complications. The patient will follow in [facility] office in [place]. Had Venous Doppler on 11/28/17 : Negative left-sided venous doppler study Had Venous mapping on lower extremities 11/28/17: Mild left sided reflux disease noted. Had Angiogram done in 09/27/17 showed No significant obstructive coronary artery disease. One vessel mild coronary artery disease, with distal 40% stenosis. Normal left ventricular size and systolic function. Pt reports wound to right groin is healing well, minimal bruising noted. 09/12/18 ECHO: LV chamber size is normal. LV wall thickness is mildly increased. There is normal global systolic function and contractility. The estimated left ventricle ejection fraction is 60-65%(normal). LV relaxation is impaired. Left atrium chamber is mildly dilated. The aortic valve is mildly calcified. There is mild aortic regurgitation. There is mild mitral regurgitation. There is trivial pulmonic regurgitation. Mac Iglesias MD [address] [place], [address], [facility] - [facility] 11/07/2018 16:15:13 12/04/2018 text/html CC: leg edema 83 year-old woman with history of HTN, STUART, DVT, PVD, and dyslipidemia presents for follow-up. She has knee pain and swelling, had DVT and now on Xarelto, had duplex today, showed no more clots, and Iliac stent is PK She has been taking her blood pressure at home and it has been running well. She had left vein ablation on 04/02/18 without complications. She reports bruising and steri strips are still present. Denies much pain or swelling. Had Angiogram done in 03/05/18 showed right lower extremity phlebectomy with no complications by Dr. Dumont. She now has mild skin tenderness, Varicose veins are gone now Denies chest pain. Denies shortness of breath at rest. Reports improved dyspnea on exertion when walking up and down steps. No orthopnea. No PNDs. Denies heart palpitations. Denies dizziness. Denies syncope or near syncope. Reports worsening ankle or leg edema. No major bleeding events. No reported side effects from medications. Taking medications as prescribed with no missed doses. Results from this visit, or from the past: 03/05/18 :Na 137 ,K 4.1 ,CL 103 ,CO2 25 ,GLU 116 , BUN 27 ,CR 1.1 ,HB 12.2 , HT 35.5 TSH 11/01/17: TSH 2.23, T4 1.1 11/01/17: Na 138 ,K 4.6 ,CL 104 ,CO2 26 ,GLU 124 ,BUN 21 ,CR 1.19 ,CK 150 ,TC 124 ,TG 103 ,HDL 50 ,LDL 55 ,AST 16,ALT 11 09/25/17 :PTT 28,PT 13.8,INR 1.07. 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 EKG 08/21/18:Low voltage,probably old anterior myocardial infarction. 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 Low voltage. Phlebectomy 04/02/18 : Left lower extremity multiple phlebectomies with no complications. The patient with follow with [facility] office in [place]. Angiogram 04/02/18 : Left lower extremity multiple phlebectomies with no complications. The patient with follow with [facility] office in [place]. Angiogram 03/05/18 : Right lower extremity phlebectomy with no complications. The patient will follow in [facility] office in [place]. Had Venous Doppler on 11/28/17 : Negative left-sided venous doppler study Had Venous mapping on lower extremities 11/28/17: Mild left sided reflux disease noted. Had Angiogram done in 09/27/17 showed No significant obstructive coronary artery disease. One vessel mild coronary artery disease, with distal 40% stenosis. Normal left ventricular size and systolic function. Pt reports wound to right groin is healing well, minimal bruising noted. 09/12/18 ECHO: LV chamber size is normal. LV wall thickness is mildly increased. There is normal global systolic function and contractility. The estimated left ventricle ejection fraction is 60-65%(normal). LV relaxation is impaired. Left atrium chamber is mildly dilated. The aortic valve is mildly calcified. There is mild aortic regurgitation. There is mild mitral regurgitation. There is trivial pulmonic regurgitation. Mac Iglesias MD [address] [place], [address], [facility] - [facility] 12/04/2018 12:20:04 OBGyn Episode No OBEpisode recorded.
--- OUTSIDE RECORDS SUMMARY | 2025-01-12 03:47 | XMS_ITS | Encounter Summary ---
Author Organization [facility] Address 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
--- OUTSIDE RECORDS SUMMARY | 2025-01-12 03:47 | XMS_ITS | Encounter Summary ---
Author Organization [facility] Address 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
--- OUTSIDE RECORDS SUMMARY | 2025-01-12 03:47 | XMS_ITS | Encounter Summary ---
Author Organization [facility] Address [address] [place] [address] Care Team Providers Care Metal Riveter Name Role Phone Brian Day DO Primary Care Provider Encounter Details Date Type Department Care Team (Late st Contact Info) Description 11/14/2002 Outpatient Historical 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
--- OUTSIDE RECORDS SUMMARY | 2025-01-12 03:47 | XMS_ITS | Encounter Summary ---
Author Organization [employer] Address 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
--- OUTSIDE RECORDS SUMMARY | 2025-01-12 03:47 | XMS_ITS | Encounter Summary ---
Author Organization [facility] Address 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
--- OUTSIDE RECORDS SUMMARY | 2025-01-12 03:47 | XMS_ITS | Encounter Summary ---
Author Organization [facility] Address 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
--- OUTSIDE RECORDS SUMMARY | 2025-01-12 03:47 | XMS_ITS | Encounter Summary ---
[facility] Organization [facility] Address 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
--- OUTSIDE RECORDS SUMMARY | 2025-01-12 03:47 | XMS_ITS | Encounter Summary ---
Author Organization [facility] Address [address] [place] [address] Care Team Providers Care Barrel Marker Name Role Phone Duncan Dobbs MD Primary Care Provider [phone] Nayeli Bell RELAY SHOP SUPERVISOR Unavailable [phone] Reason for Visit * Reason Onset Date Comments Lab Results 12/11/2024 Encounter Details Date Type Department Care Team (Late st Contact Info) Description 12/11/2024 [facility] [address] [place] [address] [address] [place] [address] Duncan Dobbs MD [address] [place] [id number] Lab Results Social History Tobacco Use Types Packs/Day Years [...] materials from doctor or pharmacy Never 12/25/2024 [facility] Utilities Answer Date Recorded In the past 12 months has e [employer], gas, oil, or water [email or web address] threatened to shut off services in your [...] often do you attend chur ch or spiritism services? 1 to 4 times per year 05/06/2024 Do you belong to any clubs o r organizations such as druze groups, unions, fraternal or athletic groups, or [...] any time in the past 12 m [facility], were you homeless or living in a chcf (including now)? No 05/06/2024 Personal Safety Answer Date Recorded Have you ever been in or are you currently in a harmful physical or emotional relationship or is someone making you feel afraid or unsafe? 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 May return to repeat for persisting sx. ER LABOR * Telephone Encounter - Danni Romo MA - 12/11/2024 9:27 AM CST Lab is calling because they could not results patients urine, she did not have enough in her cup. ER LABOR documented in this encounter Plan of Treatment Not on file documented as of this encounter Visit Diagnoses Not on filedocumented in this encounter Care Teams Barrel Marker Relationship Specialty Start Date End Date Duncan Dobbs MD PCP - General Internal Medicine 08/25/21 Nayeli Bell NP [address] [place] [id number] Nurse Practitioner Internal Medicine 12/20/24 documented as of this encounter
--- OUTSIDE RECORDS SUMMARY | 2025-01-12 03:47 | XMS_ITS | Continuity of Care Document ---
Author Organization [facility] Address [address] [place] [address] [place] [address] Phone Care Team Providers Care Billing Spec Name Role Phone Naveed Blair Unavailable Unavailable Procedures Procedure Date Office/outpatient Visit, Est Office/outpatient Visit, Est IOLMaster Eye Exam Established Pt No Script Eye Exam Established Pt Office/outpatient Visit, Est No Script Office/outpatient Visit, Est Office/outpatient Visit, Est Refraction Visual Functional Status Assessed Advance Directives Directive Yes / No Effective Date File Name No Information Encounters Encounter Description Practice Location Reason(s) For Visit Diagnoses Date Provider Providers Copied on Encounter [place] [facility] [place] [address] [place] [address] [address], [place], [place], [id number], tel:[phone] [facility] No Information 0 Johnnie Lucio. [address] [facility] [place] , [address], [place], [address], [place]. tel:[phone] [place]pat [place] [facility] [address] [place] [address] [address], [place], [place], [id number], tel:[phone] [facility] No Information 4-201 0 Johnnie Lucio. [address] [facility], [address], [place], [address], [place]. tel:[phone] Referring Provider: Naveed Morgan, [address] [facility] [address], [place], [place], [facility]. tel:[phone] [facility] Eye [facility], [address], [place], [place], [id number], [place] tel:[phone] [facility] No Information Oct-2 2-200 9 Becerra OD [address]. [address] [facility] [address] , [address], [place], [place], [facility], [place]. tel:[phone] [facility] Eye [facility], [address] [place] [address] [address], [place], [place], [id number], [place] tel:[phone] [facility] No Information Oct-1 5-200 9 Kilpatrick Shania. [address] [facility] , [address], [place], [facility], . tel:[phone] Office/outpat ient Visit, [facility] Eye [facility], [address] [place] [address] [address], [place], [place], [id number], [place] tel:[phone] [facility] No Information Jd-3 1-200 9 Johnnie Lucio. [facility] , [address], [place], [facility], [place]. tel:[phone] Office/outpat ient Visit, [facility] [address] [place] [address] [address], [place], [place], [id number], [place] tel:[phone] [facility] No Information Aug-2 7-200 8 Johnnie Lucio. [facility] , [address], [place], [facility], [place]. tel:[phone] Office/outpat ient Visit, [facility] Eye [facility], [address], [place], [place], [address], [place] tel:[phone] [facility] No Information Sep-0 7-200 7 Johnnie Lucio. [address] [facility] [address] , [address], [place], [address], [place]. tel:[phone] Family History Family Member Type Diagnosis Age At Onset No Information Payers Payer name Insurance type Covered libertarian ID Authoriza tion(s) Medicare [facility] [id number] BCBS [facility] [id number] Social History Type Description Quantity Date Captured Comments Sex Female Smoking Status No Information Chief Complaint And Reason For Visit No Information Reason For Referral Reason For Referral No Information History Of Present Illness Encounter Date Complaint History Of Prese nt Illness No Information Functional Status Date Functional Assessmen t No Information Instructions Date Instruction Additional Infor mation No Information Assessments Type Assessment Date No Information Patient Care Teams Name Effective Dates (start - stop) Status Members No Information
--- OUTSIDE RECORDS SUMMARY | 2025-01-12 03:47 | XMS_ITS | Encounter Summary ---
Author Organization [facility] Address 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
--- OUTSIDE RECORDS SUMMARY | 2025-01-12 03:47 | XMS_ITS | Encounter Summary ---
Author Organization [facility] Address [address] [place] [address] Care Team Providers Care Database Programmer Name Role Phone Brian Day DO Primary Care Provider Encounter Details Date Type Department Care Team (Latest Contact Info) Description 02/27/2002 Outpatient Historical [facility] MICHAEL B[place], [place] [address] [facility] [address] [place] [address] SCREENING MAMM-MAILG NEOPL-OTHER (Primary Dx) Social History Tobacco Use Types Packs/Day Years Used Date Smoking Tobacco: Never Assessed Comments Unknown Sex and Gender Information Value Date Recorded Sex Assigned at Not on file Legal Sex Female 3:34 AM YARN TWISTER Gender Identity Not on file Sexual Orientation Not on file documented as of this encounter Plan of Treatment Not on file documented as of this encounter Visit Diagnoses Diagnosis Other screening mammogram- Primary documented in this encounter Care Teams Database Programmer Relationship Specialty Start Date End Date Brian Day DO PCP - General 03/07/08 documented as of this encounter
--- OUTSIDE RECORDS SUMMARY | 2025-01-12 03:47 | XMS_ITS | Referral Summary ---
Author Organization [facility] Healthcare Address [address] [place] [address] Care Team Providers Care Silver Plater Name Role Phone Duncan Dobbs MD Primary Care Provider Nayeli Bell NP Unavailable [phone] Encounters Date Type Department Care Team Description 01/07/2025 11:15 AM SENIOR TAX ACCOUNTANT Home Care Visit [address] [place] [address] Nova Jones, NABILA PT HOME VISIT 01/06/2025 10:00 AM SENIOR TAX ACCOUNTANT Home Care Visit [address] [place] [address] Steven Gibson EPIDEMIOLOGY INTERN OEM SALES MANAGER INITIAL EVAL 01/05/2025 Home Care Visit [address] [place] [address] Steven Gibson LCSW CASE COMMUNICATION 12/31/2024 Home Care Visit [address] [place] [address] Bruna Brewer, PT CARE CONFERENCE 12/31/2024 1:30 PM SENIOR TAX ACCOUNTANT Home Care Visit [address] [place] [address] Nova Jones, COMPRESSOR MECHANIC PT HOME VISIT 12/27/2024 9:00 AM SENIOR TAX ACCOUNTANT Home Care Visit [address] [place] [address] Bruna Brewer, PT PT INITIAL EVALUATION 12/26/2024 Plan of Care Documentation [address] [address] [address] [place] [address] 12/25/2024 12:00 PM SENIOR TAX ACCOUNTANT Home Care Visit [address] [address] [address] [place] [address] Maria R Barboza SN OASIS START OF CARE 12/23/2024 Home Care Visit [address] [address] [address] [place] [address] Leona Durbin, RN TELEPHONE ENCOUNTER 12/23/2024 Telephone [facility] [address] [place] [address] [place] [phone] Duncan Dobbs MD Medical Question/Miscellaneou s 12/22/2024 Telephone [facility] [address] [place] [address] Mela Lal RN 12/22/2024 Travel 12/21/2024 Home Care Visit [address] [address] [address] [place] [address] Brett Zamora RN SN TRIAGE ENCOUNTER 12/19/2024 3:33 PM SENIOR TAX ACCOUNTANT - 12/19/2024 11:59 PM SENIOR TAX ACCOUNTANT Hospital Encounter [facility] [address] [place] [address] Discharge Disposition: Discharge to home or self care 12/19/2024 10:00 AM SENIOR TAX ACCOUNTANT Office Visit [facility] [address] [place] [address] [place] [phone] Nayeli Bell NP Medicare annual wellness visit, [...] for pneumococcal 20-valent conjugate vaccination 12/11/2024 Telephone [facility] [address] [place] [phone] Duncan Dobbs MD Lab Results 12/09/2024 6:05 PM SENIOR TAX ACCOUNTANT - 12/09/2024 11:59 PM SENIOR TAX ACCOUNTANT Hospital Encounter [address] [address] Discharge Disposition: Discharge to home or self care 12/09/2024 2:00 PM SENIOR TAX ACCOUNTANT Office Visit [facility] [address] [place] [phone] Nayeli Bell NP Dysuria (Primary Dx); Needs flu shot; BMI 23.0-23.9, adult 12/09/2024 Nurse Triage [facility] [address] [place] [phone] Duncan Dobbs MD 11/12/2024 4:59 PM SENIOR TAX ACCOUNTANT - 11/12/2024 11:59 PM SENIOR TAX ACCOUNTANT Hospital Encounter [address] [address] Discharge Disposition: Discharge to home or self care 11/12/2024 11:00 AM SENIOR TAX ACCOUNTANT Office Visit [facility] [address] [place] [phone] Salbador Monroe NP Urinary tract infection without hematuria, site unspecified (Primary Dx); Urge incontinence of urine; 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 Encouraged to use cranberry extract daily and D-Mannose for prevention. Good genital /perineal hygiene, change depends more often. Status post fall 03/11/2024 Assessment & Plan (03/11/2024 12:36 PM CDT): Discussed fall precautions including adequate lighting to the bathroom, creating a clear path, changing positions slowly, getting rid of throw rugs, aftab chi/ working on balance, avoiding alcohol or other substances that can precipitate falling. Recommend Life Alert system. Home PT/ OT recommended. She was given information on [facility] assessment. Avoid driving until formal evaluation. Vitamin B12 deficiency 03/11/2024 Assessment & Plan (03/11/2024 12:35 PM CDT): Will check B12 today. Continue vitamin b12 1,000 mcg once daily. Basilar artery aneurysm ([facility]/HCC) 07/28/2023 Assessment & Plan (11/12/2024 12:04 PM SENIOR TAX ACCOUNTANT): Followed by [facility] neurosurgeon : CT head a year ago was stable. Assessment & Plan (07/28/2023 3:26 PM CDT): Follow-up with Neurosurgery. Continue tight blood pressure control. Would touch base with them again prior to any surgical intervention. BMI 22.0-22.9, adult 04/18/2023 Assessment & Plan (12/19/2024 9:57 AM SENIOR TAX ACCOUNTANT): BMI Follow-up includes: nutrition counseling, exercise counseling, and education provided. Assessment & Plan (12/09/2024 3:10 PM SENIOR TAX ACCOUNTANT): BMI Follow-up includes: nutrition counseling, exercise counseling, and education provided. Assessment & Plan (05/01/2024 2:23 PM CDT): BMI Follow-up includes: nutrition counseling, exercise counseling, and education provided. Assessment & Plan (03/11/2024 9:15 AM CDT): BMI Follow-up includes: nutrition counseling, exercise counseling, and education provided. Assessment & Plan (12/07/2023 8:09 AM SENIOR TAX ACCOUNTANT): BMI Follow-up includes: nutrition counseling, exercise counseling, and education provided. Assessment & Plan (10/25/2023 3:20 PM SENIOR TAX ACCOUNTANT): BMI Follow-up includes: nutrition counseling, exercise counseling, [...] this exam were completed as outlined by [facility]. The patient was screened for opioid use. Pseudophakia of both eyes 07/18/2022 Overview (07/18/2022): 2010- phaco/ intraocular lens (IOL) both eyes [...] 07/18 Assessment & Plan (12/07/2023 8:45 AM SENIOR TAX ACCOUNTANT): Recurrent symptoms. Identical to symptoms prompting exam [...] 05/05/2022 Assessment & Plan (11/12/2024 1:17 PM SENIOR TAX ACCOUNTANT): Fall precautions Use walker. She os on anticoagulation which put her at risk. 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 Patient is referred to [facility] or [facility] road oiling truck driver's evaluation center. Memory difficulties 05/05/2022 Assessment & Plan (05/01/2024 4:10 PM CDT): No longer driving secondary to poor vision. Intermittent short-term memory issues. Is able to take care of home reportedly but does have difficulties eating regular meals. Frequently orders take out. She has been considering assisted living facilities Assessment & Plan (10/26/2023 12:24 PM SENIOR TAX ACCOUNTANT): Repeated herself a few times during visit. Screen with [facility] next visit. Likely has symptoms of mild concussion presently Fall 09/16/2021 Assessment & Plan (10/26/2023 12:25 PM SENIOR TAX ACCOUNTANT): Slipped off pavement outside court house and [...] (01/05/2021): Added automatically from request for surgery [id number] Poor sleep hygiene 10/13/2020 Vitamin D deficiency [...] not have access to have x-rays at [facility] so the patient plans on retrieving [...] 01/10/2019 Assessment & Plan (11/12/2024 1:16 PM SENIOR TAX ACCOUNTANT): [place]x in the [place] in September while [...] 1996 Assessment & Plan (11/12/2024 1:48 PM SENIOR TAX ACCOUNTANT): I discussed with Dr. Dobbs ;She has [...] incontinence Assessment & Plan (11/12/2024 1:47 PM SENIOR TAX ACCOUNTANT): Uses depends, changes 3 x day. Has frequency of urine Continue Myrbetriq Assessment & Plan (07/28/2023 3:25 PM CDT): Continue mirabegron Assessment & Plan (09/03/2021 11:48 AM CDT): Following with urology Rosacea 09/08/2014 Overview (03/04/2017): Rosacea Constipation 09/08/2014 Overview (03/04/2017): Constipation Edema 09/08/2014 Overview (03/04/2017): Edema Varicose veins of bilateral lower extremities with other complications 03/20/2013 Assessment & Plan (11/12/2024 1:17 PM SENIOR TAX ACCOUNTANT): Recommended to buy compression stockings and keep [...] major depressive disorder without prior episode 05/05/2022 2 Persistent insomnia 10/02/2015 05/05/20 Overview (03/04/2017): Persistent disorder of initiating or maintaining sleep Deep vein thrombosis (DVT) o f lower extremity (CMS/HCC) 10/30/2014 09/03/2021 Overview (06/30/2021): Deep vein thrombosis [...] (03/04/2017): Back pain Sore throat 12/08/2011 07/28/2023 Immunizations Immunization Administration Dates Next Due Influenza, Quad, Adjuvantate d, Intramuscular 10/18/2021 Influenza, Quadrivalent, Hig h Dose, Preservative Free, Intrr 10/25/2023,08/27/2022,07/27/2020 Influenza, Trivalent, High D ose, Split, Preservative Free, Intramuscular 12/09/2024,08/24/2019 Influenza, Unspecified 11/27/2022(Deferr ed: Patient Refused),08/27/2021 Pneumococcal Conjugate Pcv20 12/19/2024 Pneumococcal Polysaccharide PPV23 09/05/2018 Tdap 10/20/2023,11/08/2022,03/19/2019 Social History Tobacco Use Types Packs/Day Years [...] materials from doctor or pharmacy Never 12/25/2024 [facility] Utilities Answer Date Recorded In the [...] often do you attend chur ch or church services? 1 to 4 times per year 05/06/2024 Do you belong to any clubs o r organizations such as baptism groups, unions, fraternal or athletic groups, or [...] any time in the past 12 m [facility], were you homeless or living in a retirement (including now)? No 05/06/2024 Personal Safety Answer Date Recorded Have you ever been in or are you currently in a harmful physical or emotional relationship or is someone making you feel afraid or unsafe? Denies 10/20/2023 Comments No Sex and Gender Information Value Date Recorded Sex Assigned at Not on file Legal Sex Female 8:40 AM SENIOR TAX ACCOUNTANT Gender Identity Female 10/20/2023 2:21 PM SENIOR TAX ACCOUNTANT Sexual Orientation Not on file Last Filed Vital Signs Vital Sign Reading Time Taken Comments Blood Pressure 110/58 01/07/2025 11:22 AM SENIOR TAX ACCOUNTANT Pulse 87 01/07/2025 11:22 AM SENIOR TAX ACCOUNTANT Temperature 36.7 C (98 F) 01/07/2025 11:22 AM SENIOR TAX ACCOUNTANT Respiratory Rate 18 01/07/2025 11:22 AM SENIOR TAX ACCOUNTANT Oxygen Saturation 97% 01/07/2025 11:22 AM SENIOR TAX ACCOUNTANT Inhaled Oxygen Concentration - - Weight 66.2 kg (146 lb) 12/25/2024 12:56 PM SENIOR TAX ACCOUNTANT Height 167.6 cm (5' 6 ) 12/25/2024 12:56 PM SENIOR TAX ACCOUNTANT Body Mass Index 23.57 12/25/2024 12:56 PM SENIOR TAX ACCOUNTANT Plan of Treatment Not on file Procedures Procedure Name Priority Date/Time Associated Diagnosis Comments EGFR Routine 12/19/2024 11:09 AM SENIOR TAX ACCOUNTANT Medicare annual wellness visit, subsequent Primary hypertension IRON PROFILE W/ IBC Routine 12/19/2024 1 1:09 AM SENIOR TAX ACCOUNTANT Medicare annual wellness visit, subsequent VITAMIN B12 Routine 12/19/2024 11:09 AM SENIOR TAX ACCOUNTANT Medicare annual wellness visit, subsequent Memory difficulties COMPREHENSIVE METABOLIC PANEL Routine 12/19/2024 11:09 AM SENIOR TAX ACCOUNTANT Medicare annual wellness visit, subsequent Primary hypertension VITAMIN D 25 HYDROXY Routine 12/19/2024 11:09 AM SENIOR TAX ACCOUNTANT Medicare annual wellness visit, subsequent Vitamin D deficiency LIPID PANEL Routine 12/19/2024 11:09 AM SENIOR TAX ACCOUNTANT Medicare annual wellness visit, subsequent Primary hypertension Hyperlipidemia, unspecified hyperlipidemia type THYROID FUNCTION CASCADE Routine 12/19/2024 11:09 AM SENIOR TAX ACCOUNTANT Medicare annual wellness visit, subsequent Memory difficulties CBC WITHOUT DIFFERENTIAL Routine 12/19/2024 11:01 AM SENIOR TAX ACCOUNTANT Medicare annual wellness visit, subsequent URINALYSIS, MICROSCOPIC ONLY Routine 12/19/2024 10:15 AM SENIOR TAX ACCOUNTANT Medicare annual wellness visit, subsequent Urinary frequency URINE CULTURE Routine 12/19/2024 10:15 AM SENIOR TAX ACCOUNTANT URINALYSIS AND REFLEX TO MICROSCOPIC AND CULTURE Routine 12/19/2024 10:15 AM SENIOR TAX ACCOUNTANT Medicare annual wellness visit, subsequent Urinary frequency URINALYSIS, MICROSCOPIC ONLY Routine 11/12/2024 12:19 PM SENIOR TAX ACCOUNTANT Urge incontinence of urine URINE CULTURE Routine 11/12/2024 12:19 PM SENIOR TAX ACCOUNTANT URINALYSIS AND REFLEX TO MICROSCOPIC AND CULTURE Routine 11/12/2024 12:19 PM SENIOR TAX ACCOUNTANT Urge incontinence of urine POCT URINALYSIS DIPSTICK Routine 11/12/2024 11:20 AM SENIOR TAX ACCOUNTANT Urge incontinence of urine from Last 3 Months Results * (ABNORMAL) eGFR (12/19/2024 11:09 AM SENIOR TAX ACCOUNTANT) eGFR 49(L) >=60 mL/min/1. 73 m2 Comment: [...] reviewed 2021. Blood 12/19/2024 11:0 9 AM SENIOR TAX ACCOUNTANT 12/19/2024 12:42 PM SENIOR TAX ACCOUNTANT Nayeli Bell MARKET INTELLIGENCE CONSULTANT LAB BLOOD ORDERABLES Final Resu lt Performing Organization Address City/[facility]/ZIP Co de Phone Number HORACE BJWCH [address] [address] [facility] [employer] [place], [place] [id number] * Thyroid Function [place] (12/19/2024 11:09 AM SENIOR TAX ACCOUNTANT) TSH 2.71 0.30 - 4.20 mcIUnit/mL Blood 12/19/2024 11:0 9 AM SENIOR TAX ACCOUNTANT 12/19/2024 12:42 PM SENIOR TAX ACCOUNTANT [facility] LAB BLOOD ORDERABLES Final Resu lt Performing Organization Address [facility]/ZIP Co de Phone Number HORAEC BJWCH [address] [address] [facility] [place] [address] * (ABNORMAL) Iron profile w/ IBC (12/19/2024 11:09 AM SENIOR TAX ACCOUNTANT) Iron 84 35 - 145 mcg/dL Comment:Testing performed by : [facility], [address] [place] [address]., [id number] TIBC 234(L) 250 - 400 mcg/dL HORACE RAMSEY Comment:Testing performed by : [facility], [address] [place] [address]., [id number] Transferrin saturation 36 20 - 50 % HORACE RAMSEY Comment:Testing performed by : [facility], [address] [place] [address]., [id number] Blood 12/19/2024 11:0 9 AM SENIOR TAX ACCOUNTANT 12/19/2024 2:41 PM SENIOR TAX ACCOUNTANT Nayeli Bell MARKET INTELLIGENCE CONSULTANT LAB BLOOD ORDERABLES Final Resu lt [facility] [address] [facility] [place] [address] * Vitamin D 25 hydroxy (12/19/2024 11:09 AM SENIOR TAX ACCOUNTANT) Vitamin D 25-OH 59 30 - 80 ng/mL Blood 12/19/2024 11:0 9 AM SENIOR TAX ACCOUNTANT 12/19/2024 12:42 PM SENIOR TAX ACCOUNTANT Nayeli Bell NP LAB BLOOD ORDERABLES Final Resu lt [facility] [address] [facility] [place] [address] * Vitamin B12 (12/19/2024 11:09 AM SENIOR TAX ACCOUNTANT) Vitamin B12 363 230 - 1,250 pg/mL Comment:Testing performed by : [facility], [address] [place] [address]., [id number] Blood 12/19/2024 11:0 9 AM SENIOR TAX ACCOUNTANT 12/19/2024 2:41 PM SENIOR TAX ACCOUNTANT Nayeli Bell MARKET INTELLIGENCE CONSULTANT LAB BLOOD ORDERABLES Final Resu lt [facility] [address] [facility]. Department [place] [address] * Lipid panel (12/19/2024 11:09 AM SENIOR TAX ACCOUNTANT) Cholesterol 134 30 - 199 mg/dL Comment: [...] 3. Brayden Gaxiola et al. PANKAJ Cardiol. 2019March 27;5(5):540-548. doi: 10.1001/jamacardio.2020.0013 Current Interpretive Data was [...] last revised on 2018. Chol/HDL ratio 2 HORACE RAMSEY Blood 12/19/2024 11:0 9 AM SENIOR TAX ACCOUNTANT 12/19/2024 12:42 PM SENIOR TAX ACCOUNTANT Nayeli Bell NP LAB BLOOD ORDERABLES Final Resu lt MAGUIJOSE ADELSOWCH [address] [facility]. Department [place] [address] * Comprehensive metabolic panel (12/19/2024 11:09 AM SENIOR TAX ACCOUNTANT) Sodium 139 135 - 145 mmol/L Potassium, [...] classification and Diagnosis of Diabetes Diabetes Care 2021; 46: S19-S40. Current interpretive data was last [...] BJWCH AST 17 10 - 45 Units/L CERNER BJWCH Blood 12/19/2024 11:0 9 AM SENIOR TAX ACCOUNTANT 12/19/2024 12:42 PM SENIOR TAX ACCOUNTANT us Nayeli Bell NP LAB BLOOD ORDERABLES Final Resu lt HORACE RAMSEY [address] [facility]. Department [place] [address] * (ABNORMAL) CBC without differential (12/19/2024 11:01 AM SENIOR TAX ACCOUNTANT) WBC 5.6 3.8 - 9.9 K/cumm Hgb 11.3(L) 11.9 - 15.5 g/dL [facility] Hct 34.2(L) 35.6 - 45.5 % [facility] Plt 245 150 - 400 K/cumm [facility] MPV 9.8 9.1 - 12.3 fL [facility] RBC 3.68(L) 3.90 - 5.20 M/cumm [facility] MCV 92.9 81.3 - 96.4 fL [facility] MCH 30.7 27.1 - 33.3 pg [facility] MCHC 33.0 32.3 - 35.7 g/dL [facility] RDW CV 13.6 11.1 - 14.9 % [facility] RDW SD 47.0 35.7 - 48.1 fL [facility] NRBC abs 0.00 0.00 - 0.01 K/cumm [facility] Blood 12/19/2024 11:0 1 AM SENIOR TAX ACCOUNTANT 12/19/2024 12:42 PM SENIOR TAX ACCOUNTANT Nayeli Bell NP LAB BLOOD ORDERABLES Final Resu lt HORACE WILDECH [address] [facility]. Department [place] [address] * (ABNORMAL) Urinalysis reflex to microscopic and culture Urine, clean voided (12/19/2024 10:15 AM SENIOR TAX ACCOUNTANT) Pathologist [facility] Color, ur Straw Yellow Clarity, ur Turbid(A) Clear [facility] Specific gravity, ur 1.013 1.003 - 1.030 [facility] pH, urine 7.0 [facility] Comment: Interpretive Data U rine pH is affected by diet, medications, systemic acid-base disturbances, and renal tubular function. pH may affect urinary stone formation. For example, urine pH below 6.0 may help reduce the tendency for calcium phosphate stones and pH greater than 6.0 may reduce the tendency for uric acid stone formation. Source: [facility] Current Interpretive Data was last revised on [...] BJWCH Urine, clean voided 12/19/2024 10:15 AM SENIOR TAX ACCOUNTANT 12/19/2024 12:42 PM SENIOR TAX ACCOUNTANT Nayeli Bell NP LAB MICROBIOLOGY - GENERAL ORDE [facility] Final Result Performing Organization Address [facility] Co de Phone Number HORACE DARDENCH [address] [address] [employer] [place], [place] [id number] * (ABNORMAL) Urinalysis, microscopic only (12/19/2024 10:15 AM SENIOR TAX ACCOUNTANT) WBC, ur >50(A) 0 - 5 /HPF RBC, ur 6-10(A) 0 - 2 /HPF [facility] Epithelial cells, squamous, ur 1-5 0 - 5 /HPF [facility] Bacteria, ur 3+(A) C[facility] Mucous, ur Present(A) CERNER B[facility] Culture Reflex Comment Reflex to urine culture will be performed. CERNER BJW[facility] Urine, clean voided 12/19/2024 10:15 AM SENIOR TAX ACCOUNTANT 12/19/2024 12:42 PM SENIOR TAX ACCOUNTANT Nayeli Bell NP LAB URINE ORDERABLES Final Resu lt Performing Organization Address [facility]/ZIP Co de Phone Number HORACE DARDENCH [address] [address] [facility] [employer] [place], [place] [phone] * (ABNORMAL) Urine culture Urine, clean voided (12/19/2024 10:15 AM SENIOR TAX ACCOUNTANT) Report Final Report: Greater than or equal to 100,000 colonies/ml of Escherichia coli (.) Comment:Testing performed by : [facility], [address] [place] [address]., [id number] Organism ESCHERICHIA COLI HORACE RAMSEY Urine, clean voided 12/19/2024 10:15 AM SENIOR TAX ACCOUNTANT 12/19/2024 6:33 PM SENIOR TAX ACCOUNTANT Narrative HORACE RAMSEY - 12/21/2024 7:25 AM SENIOR TAX ACCOUNTANT Urine culture reflexed based upon urinalysis results. [...] with Sulfamethoxazole (SHAW) INTERPRETATION Susceptible Nayeli Bell MARKET INTELLIGENCE CONSULTANT LAB MICROBIOLOGY - GENERAL ORDRizwan KLEIN Final Result [facility] [address] [facility]. Department [place] [address] * (ABNORMAL) Urinalysis reflex to microscopic and culture Urine (11/12/2024 12:19 PM SENIOR TAX ACCOUNTANT) Color, ur Yellow Yellow Clarity, ur Turbid(A) Clear [facility] Specific gravity, ur 1.021 1.003 - 1.030 [facility] pH, urine 6.0 [facility] Comment: Interpretive Data U rine pH is affected by diet, medications, systemic acid-base disturbances, and renal tubular function. pH may affect urinary stone formation. For example, urine pH below 6.0 may help reduce the tendency for calcium phosphate stones and pH greater than 6.0 may reduce the tendency for uric acid stone formation. Source: [facility] [employer] Current Interpretive Data was last revised on [...] microscopic UA will be performed. CERNER B[facility] Urine 11/12/2024 12:1 9 PM SENIOR TAX ACCOUNTANT 11/12/2024 4:16 PM SENIOR TAX ACCOUNTANT Salbador Monroe NP LAB MICROBIOLOGY - GENERAL ORDER ARIEL Final Result Performing Organization Address [facility] de Phone Number HORACE RAMSEY [address] [facility] [employer] [place], [place] [phone] * (ABNORMAL) Urinalysis, microscopic only (11/12/2024 12:19 PM SENIOR TAX ACCOUNTANT) WBC, ur >50(A) 0 - 5 /HPF [...] CERNER B[facility] Urine 11/12/2024 12:1 9 PM SENIOR TAX ACCOUNTANT 11/12/2024 4:16 PM SENIOR TAX ACCOUNTANT Salbador Monroe NP LAB URINE ORDERABLES Final Resul t Performing Organization Address [facility] de Phone Number HORACE RAMSEY [address] [facility] [employer] [place], [place] [phone] * (ABNORMAL) Urine culture Urine (11/12/2024 12:19 PM SENIOR TAX ACCOUNTANT) Report Final Report: Greater than or equal to 100,000 colonies/ml of Escherichia coli (.) Comment:Testing performed by : [facility], [facility], [place]., [address] Organism ESCHERICHIA COLI HORACE ADELSOAleciaCH Urine 11/12/2024 12:1 9 PM SENIOR TAX ACCOUNTANT 11/12/2024 8:17 PM SENIOR TAX ACCOUNTANT Narrative HORACE DARDENWCH - 11/15/2024 7:38 AM SENIOR TAX ACCOUNTANT Urine culture reflexed based upon urinalysis results. [...] GENERAL ORDER ARIEL Final Result HORACE DARDENCH [address] [facility] Department of Laboratories [place], [place] [phone] * (ABNORMAL) POCT urinalysis dipstick (11/12/2024 11:20 AM SENIOR TAX ACCOUNTANT) Color, Urine, POC Dark Tammi Clarity, ur, POC Cloudy(A) Clear Glucose, ur, POC Negative Negative MG/DL Bilirubin, ur, POC Negative Negative, Small, Moderate, Large Ketones, ur, POC Trace(A) Negative Specific [place], POC 1.020 1.003 - 1.030 Blood, ur, POC Small(A) Negative pH, ur, POC 6.0 5.0 - 8.0 Protein, ur, POC Negative Negative Urobilinogen, urine, POC 0.2 0.2 - 1.0 mg/dL Nitrite, ur, POC Positive(A) Negative Leukocytes, ur, POC Moderate(A) Negative Lot Number [id number] Urine 11/12/2024 11:2 0 AM SENIOR TAX ACCOUNTANT Salbador Monroe NP POINT OF CARE TEST ORDERABLES Fi nal Result from Last 3 Months Insurance MEDICARE [employer] OR MEDICARE [facility] MEDICARE [facility] MEDICARE [facility] Care Teams Silver Plater Relationship Specialty Start Date End Date DobbsDuncan MD PCP - General Internal Medicine 08/25/21 Nayeli Bell NP [address] [place], [place] [id number] Nurse Practitioner Internal Medicine 12/20/24
--- OUTSIDE RECORDS SUMMARY | 2025-01-12 03:48 | XMS_ITS | Referral Summary ---
Author Organization [facility] Address [address] [place] [address] Care Team Providers Care Sap Architect Name Role Phone Naldo Toribio MD Primary Care Provider [phone] Source Comments [facility],non-owned Affiliates and Associated Physician Practices is amultiple site organization consisting of ambulatory clinics and hospital sitesin [place], [place], [place] and [place]. This disclosure is being madepursuant to the Care Everywhere program and may not contain all information available regarding this patient. Last updated 18.[facility] Allergies Active Allergy Reactions Criticality Noted Date Comments Codeine Urticaria Medium 06/18/2021 Medications * Be aware that medications may not be up to date on this document. Alwaysverify current medications with the patient. Medication Sig Dispensed Refills Start Date End Date Status lisinopril (PRINIVIL; ZESTRIL) 10 MG tablet Take 10 mg by mouth once daily 03/31/2021 Active rosuvastatin (CRESTOR) 5 MG tablet Take 5 mg by mouth once daily Active Cyanocobalamin (B-12 PO) Take 1 tablet by mouth once daily 2500 mcg Active Apoaequorin (PREVAGEN PO) Take 1 tablet by mouth once daily Active Multiple Vitamins-Minerals (MEGAVITE FRUITS & VEGGIES PO) Take 1 tablet by mouth once daily Active vitamin D, ergocalciferol, (DRISDOL) 1.25 MG (94770 UT) capsule TAKE 1 CAPSULE BY MOUTH ONE TIME PER WEEK 07/21/2021 Active MYRBETRIQ 25 MG tablet Take 25 mg by mouth once daily 03/30/2021 Active pneumococcal 13-Elvira Conj (PREVNAR 13) vaccine Prevnar 13 (PF) 0.5 mL intramuscular syringe Active rivaroxaban (XARELTO) 15 MG tablet Xarelto 15 mg tablet Acti ve rivaroxaban (XARELTO) 20 MG tablet every 24 hours Active solifenacin (VESICARE) 10 MG tablet Take 10 mg by mouth once daily 08/19/2020 Active valACYclovir (VALTREX) 1 GM tablet every 12 hours Active cycloSPORINE (RESTASIS) 0.05 % ophthalmic suspension Instill 1 (one) drop into both eyes 2 times daily 180 Each 11 12/24/2021 Active Active Problems No known active problems Social History Tobacco Use Types Packs/Day Years Used Date Smoking Tobacco: Never Smokeless Tobacco: Never Tobacco Cessation:Counseling Given: No Alcohol Use Standard Drinks/Week Comments Not Currently 0 (1 standard drink = 0.6 oz pur e alcohol) rarely Sex and Gender Information Value Date Recorded Sex Assigned at Not on file Gender Identity Not on file Sexual Orientation Not on file Last Filed Vital Signs Vital Sign Reading Time Taken Comments Blood Pressure 128/85 08/18/2021 8:52 AM CDT Pulse 93 08/18/2021 8:52 AM CDT Temperature 36.5 C (97.7 F) 08/18/2021 8:52 AM CDT Respiratory Rate - - Oxygen Saturation 96% 08/18/2021 8:52 AM CDT Inhaled Oxygen Concentration - - Weight 88.5 kg (195 lb) 08/18/2021 8:52 AM CDT Height 168.9 cm (5' 6.5 ) 08/18/2021 8:52 AM CDT Body Mass Index 31 08/18/2021 8:52 AM CDT Plan of Treatment Not on file Care Teams Sap Architect Relationship Specialty Start Date End Date Naldo Toribio MD [address] [place] [id number] PCP - General 03/17/21
--- OUTSIDE RECORDS SUMMARY | 2025-01-12 03:48 | XMS_ITS | Clinical Summary ---
Author Organization [facility] Address [address] [place] [address] Care Team Providers Care Precision Market Insights Name Role Phone Unavailable Primary Care Provider Unavailabl e Social History Tobacco Use Types Packs/Day Years Used Date Smoking Tobacco: Never Assessed Comments Unknown Sex and Gender Information Value Date Recorded Sex Assigned at Not on file Legal Sex Female 11:27 AM CDT Gender Identity Not on file Sexual Orientation Not on file Plan of Treatment Health Maintenance Due Date Last Done Comments DTaP, Tdap and Td Vaccines ( 1 - Tdap) 1956 Zoster Vaccines (1 of 2) 1987 Annual Medicare Wellness Visit 2002 Pneumococcal Vaccine: 65+ Ye ars (1 of 1 - PCV) 2002 RSV Immunization or 60+ Years (1 - 1-dose 75+ series) 2012 COVID-19 Vaccine (2023-2 5 season) 2024 Influenza Adult (#1) 2024 Meningococcal B Vaccine Aged Out No l onger eligible based on patient's age to complete this topic Meningococcal Vaccine Aged Out No kyung josefa eligible based on patient's age to complete this topic RSV Immunizations Under 20 Months Aged Out No longer eligible based on patient's age to complete [place] [address] MEDICARE [facility]
--- OUTSIDE RECORDS SUMMARY | 2025-01-12 03:48 | XMS_ITS | Encounter Summary ---
Author Organization [facility] Address [address] [place] [address] Care Team Providers Care Inspector Welded Parts Name Role Phone Brian Day DO Primary Care Provider Encounter Details Date Type Department Care Team (Latest Contact Info) Description 06/23/2008 Outpatient Historical HIS [facility] MICHAEL DUNCANDG Brian Day DO [address] [place] [address] Other and Unspecified Hyperlipidemia Social History Tobacco Use Types Packs/Day Years Used Date Smoking Tobacco: Never Alcohol Use Standard Drinks/Week Comments Not Asked 0 (1 standard drink = 0.6 oz pur e alcohol) Comments No Sex and Gender Information Value Date Recorded Sex Assigned at Not on file 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
--- OUTSIDE RECORDS SUMMARY | 2025-01-12 03:48 | XMS_ITS | Encounter Summary ---
Author Organization [facility] Address 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
--- OUTSIDE RECORDS SUMMARY | 2025-01-12 03:48 | XMS_ITS | Encounter Summary ---
Author Organization [facility] Address 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 [address] [email or web address] Stress Study Patient: Gianna Forbes MRN: Study ID: Gender: Joanna : 1935 Age: 72 years Race: 1 Room: Bed: Height: Study Date: February 08, 2008 Patient status: Outpatient Weight: Access. #: [id number] POC: Ordering: Kali Attending MD: Kali Admitting MD: aKli Study Conclusions: SUMMARY - Stress results : There was no chest pain during stress. The stress ECG was non-diagnostic due to baseline left bundle branch block. IMPRESSIONS - Equivocal study after vasodilation and low level exercise without reproduction of symptoms. Nuclear imaging performed.Report to follow. History and indications - Detection of coronary artery disease. REST ECG - The ECG showed left bundle branch block. Stress results Adenosine protocol HR bpm SBP mmHg DBP mmHg Symptoms ST change Rhythm/conduct Baseline 79 150 90 none none LBBB Infusion 1 96 170 85 none none LBBB Infusion 2 -- -- -- none none same as above Infusion 3 107 145 75 none none same as above Infusion 4 103 175 75 none none same as above Recovery 1 89 160 75 none none same as above STRESS RESULTS - Duration of pharmacologic stress was 4 min. - There was no chest pain during stress. - The stress test was terminated due to protocol completion. - There were no stress arrhythmias or conduction abnormalities. - The stress ECG was non-diagnostic due to baseline left bundle branch block. Prepared and Electronically Authenticated Aamir Gonzalez MD Confirmed February 08, 2008 08:59:23 Procedure Note Provider, Historical - 02/08/2008 [address] [place] [address] [email or web address] Patient: Gianna Forbes MRN: Study ID: Gender: F : 1935 Age: 72 years Race: 1 Room: Bed: Height: Study Date: February 08, 2008 Patient status: Outpatient Weight: Access. #: [id number] POC: Ordering: Kali Attending MD: Kali Admitting MD: Kali Study Conclusions: SUMMARY - Stress results : There was no chest pain during stress. The stressECG was non-diagnostic due to baseline left bundle branch block. IMPRESSIONS - Equivocal study after vasodilation and low level exercise without reproduction of symptoms. Nuclear imaging performed.Report to follow. History and indications - Detection of coronary artery disease. REST ECG - The ECG showed left bundle branch block. Stress results Adenosine protocol HR bpm SBP mmHg DBP mmHg Symptoms ST change Rhythm/conduct Baseline 79 150 90 none none LBBB Infusion 1 96 170 85 none none LBBB Infusion 2 -- -- -- none none same as above Infusion 3 107 145 75 none none same as above Infusion 4 103 175 75 none none same as above Recovery 1 89 160 75 none none same as above STRESS RESULTS - Duration of pharmacologic stress was 4 min. - There was no chest pain during stress. - The stress test was terminated due to protocol completion. - There were no stress arrhythmias or conduction abnormalities. - The stress ECG was non-diagnostic due to baseline left bundle branch block. Prepared and Electronically Authenticated Aamir Gonzalez MD Confirmed February 08, 2008 08:59:23 us Brian Yanez DO US ORDERABLES Final Result INTERFACE SYSTEM Refer to clinic/hospital department * NM MYOCARDIAL PERFUSION EF (02/08/2008 7:30 AM CDT) 02/08/2008 7:30 AM CDT Narrative INTERFACE SYSTEM - 02/08/2008 6:05 PM CDT [facility] [address] [place], [place] [address] Admit Date: 02/08/2008 GIANNA FORBES Sex: F Admit Prov: BRIAN YANEZ Date: 1935 Primary Care Prov: BRIAN YANEZ CMRN: [id number] Room: [facility] SSN: [id number] IMAGING SERVICES Ordering Prov: N/A Accession Number: [id number] Interpretation Date of Procedure: 02/08/2008 Procedure Type: 1 Day Adenosine Stress Myocardial Perfusion Study Clinical Indications: 72-year-old female with shortness of breath. She has an abnormal ECG with left bundle-branch block. Prior cardiac catheterizations in 2000, 2001 and 2005 have not demonstrated severe obstructive coronary artery disease. Medications: No cardiovascular medications Pharmacologic Stress Procedure: The patient performed a chemical stress test with low level exercise using 51 mg IV adenosine at a rate of 140 ug/mg/min for 4 minutes. The blood pressure was 169 / 105 at baseline and 176 / 78 at peak infusion, demonstrating a normal response to adenosine. The patient developed no symptoms during the procedure. ECG: Normal sinus rhythm. Left bundle-branch block. ECG assessment for myocardial ischemia during the adenosine infusion is indeterminate due to left bundle-branch block. There were no arrhythmias. Nuclear Imaging Protocol: Myocardial perfusion imaging was performed at rest approximately 60 minutes following the intravenous injection of 11 mCi TC99m tetrofosmin. At 2 minutes of adenosine infusion, the patient was injected intravenously with 42 mCi TC99m tetrofosmin and infusion was continued for 2 more minutes. Gated post-stress tomographic imaging was performed approximately 60 minutes later in same manner. SPECT reconstruction was performed in the short, vertical long and horizontal axis views in both rest and stress image sets. Findings: There is a small size, mild intensity perfusion defect in the mid and apical anteroseptal segments on stress imaging. This defect normalizes rest imaging. Gated SPECT examination reveals normal left ventricular cavity size. There is normal left ventricular wall motion. LVEF 65 %. Impression: 1. Mildly abnormal myocardial perfusion study. Small size, mild intensity, reversible perfusion defect in the mid and apical anteroseptal segments suggesting a region of myocardial ischemia. The specificity of reversible septal perfusion defects for myocardial ischemia is reduced in the presence of left bundle-branch block. 2. Normal gated SPECT examination. Normal left ventricular wall motion. LVEF 65 %. 3. ECG assessment for myocardial ischemia during adenosine infusion is indeterminate due to left bundle-branch block. 4. The overall quality of the study is good. 5. No prior study available for comparison. Recommendations: Clinical correlation . Dictated by: OSMIN ROBERT 02/08/2008 17:53 Electronically signed by: OSMIN ROBERT 02/08/2008 18:05 Procedure Note Osmin Robert MD - 02/08/2008 [facility] [address] [place], [place] [address] Admit Date: 02/08/2008 GIANAN FORBES Sex: F Admit Prov: BRIAN YANEZ Date: 1935 Primary Care Prov: BRIAN YANEZ CMRN: [id number] Room: [facility] SSN: [id number] IMAGING SERVICES Ordering Prov: N/A Interpretation Date of Procedure: 02/08/2008 Procedure Type: 1 Day Adenosine Stress Myocardial Perfusion Study Clinical Indications: 72-year-old female with shortness of breath.She has an abnormal ECG with left bundle-branch block. Prior cardiac catheterizations in 2000, 2001 and 2005 have not demonstratedsevere obstructive coronary artery disease. Medications: No cardiovascular medications Pharmacologic Stress Procedure: The patient performed a chemical stress test with low level exerciseusing 51 mg IV adenosine at a rate of 140 ug/mg/min for 4 minutes. Theblood pressure was 169 / 105 at baseline and 176 / 78 at peak infusion, demonstrating a normal response to adenosine. The patient developedno symptoms during the procedure. ECG: Normal sinus rhythm. Left bundle-branch block. ECG assessment for myocardial ischemia during the adenosine infusion is indeterminatedue to left bundle-branch block. There were no arrhythmias. Nuclear Imaging Protocol: Myocardial perfusion imaging was performed at rest approximately 60minutes following the intravenous injection of 11 mCi TC99m tetrofosmin. At2 minutes of adenosine infusion, the patient was injected intravenouslywith 42 mCi TC99m tetrofosmin and infusion was continued for 2 moreminutes. Gated post-stress tomographic imaging was performed [id number] minutes later in same manner. SPECT reconstruction was performed inthe short, vertical long and horizontal axis views in both rest andstress image sets. Findings: There is a small size, mild intensity perfusion defect in the midand apical anteroseptal segments on stress imaging. This defectnormalizes rest imaging. Gated SPECT examination reveals normal left ventricularcavity size. There is normal left ventricular wall motion. LVEF 65 %. Impression: 1. Mildly abnormal myocardial perfusion study. Small size, mildintensity, reversible perfusion defect in the mid and apical anteroseptalsegments suggesting a region of myocardial ischemia. The specificity ofreversible septal perfusion defects for myocardial ischemia is reduced in thepresence of left bundle-branch block. 2. Normal gated SPECT examination. Normal left ventricular wallmotion. LVEF 65 %. 3. ECG assessment for myocardial ischemia during adenosine infusionis indeterminate due to left bundle-branch block. 4. The overall quality of the study is good. 5. No prior study available for comparison. Recommendations: Clinical correlation . Dictated by: OSMIN ROBERT 02/08/2008 17:53 Electronically signed by: OSMIN ROBERT 02/08/2008 18:05 Brian Yanez DO RI ORDERABLES Final Result Performing Organization Address City/State/[facility] Co de Phone Number INTERFACE SYSTEM Refer to clinic/hospital department documented in this encounter Visit Diagnoses Diagnosis Nonspecific abnormal electrocardiogram (ECG) (EKG) documented in this encounter Care Teams Ground Support Agent Relationship Specialty Start Date End Date Brian Yanez DO PCP - General 03/07/08 documented as of this encounter
--- OUTSIDE RECORDS SUMMARY | 2025-01-12 03:48 | XMS_ITS | Encounter Summary ---
Author Organization [facility] Address [address] [place] [address] Care Team Providers Care Track Laborer Name Role Phone Brian Day DO Primary Care Provider Encounter Details Date Type Department Care Team (Late st Contact Info) Description 02/29/2008 Outpatient Historical [facility] Internal Medicine [address] [place] [address] Brian Day DO [address] [place] [address] Social History Tobacco Use Types Packs/Day Years Used Date Smoking Tobacco: Never Assessed Comments Unknown Sex and Gender Information Value Date Recorded Sex Assigned at Not on file 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
--- OUTSIDE RECORDS SUMMARY | 2025-01-12 03:48 | XMS_ITS | Encounter Summary ---
Author Organization [facility] Address [address] [place] [address] Phone Care Team Providers Care Assembler Movement Name Role Phone Reina Robles MD Primary Care Provider Isidoro Chairez MD Primary Care Provider No, Physician Primary Care Provider Isidoro Chairez MD Unavailable Digna, Physician Primary Care Provider Naldo Toribio MD Primary Care Provider Jonathan Brown MD Unavailable Densiha Membreno MD Primary Care Provider Maxwell Nieves MD Primary Care Provider Naldo Toribio MD Primary Care Provider Digna, Physician Primary Care Provider [phone] Duncan Dobbs MD Primary Care Provider Lilia Rae CMA Unavailable Kayla SchofieldW Unavailable Nayeli Bell NP Unavailable [phone] Encounter Details Date Type Department Care Team (Latest Contact Info) Description 09/25/2017 Orders Only [facility] Scanning, Provider Social History Tobacco Use Types Packs/Day Years Used Date Smoking Tobacco: Never Smokeless Tobacco: Never Alcohol Use Standard Drinks/Week Comments Yes 0 (1 standard drink = 0.6 oz pur e alcohol) Comments Unknown Sex and Gender Information Value Date Recorded Sex Assigned at Not on file 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 Female 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 Gender Identity Female 10/20/2023 2:21 PM MASTER OCEAN YACHT Sexual Orientation Not on file documented as of this encounter Plan of Treatment Not on file documented as of this encounter Procedures Procedure Name Priority Date/Time Associated Diagnosis Comments SCAN - LABS 09/25/2017 documented in this encounter Results * SCAN - LABS (09/25/2017) us Provider Scanning Final Result documented in this encounter Visit Diagnoses Not on filedocumented in this encounter Care Teams Assembler Movement Relationship Specialty Start Date End Date Reina Robles MD [address] [place] [address] PCP - General 06/21/17 06/17/18 Isidoro Chairez MD [address] [facility] [address] [place] [address] PCP - General Internal Medicine 06/18/18 07/02/18 No, Physician PCP - General 07/03/18 11/07/18 No, Physician PCP - General 11/08/18 01/15/19 Naldo Toribio MD PCP - General Emergency Medicine 01/16/19 09/19/19 Denisha Membreno MD [address] [facility] [address] [place] [address] PCP - General Geriatric Medicine 09/20/19 10/14/19 Maxwell Nieves MD [address] [facility] [address] [facility] [address] [place] [address] PCP - General Family Medicine 10/15/19 01/06/20 Naldo Toribio MD [address] [facility] [address] [place] [address] PCP - General Emergency Medicine 01/07/20 02/08/21 No, Physician PCP - General 02/09/21 08/24/21 Duncan Dobbs MD PCP - General Internal Medicine 08/25/21 Isidoro Chairez MD [address] [facility] [address] [place] [address] Internal Medicine 07/03/18 01/20/19 Jonathan Brown MD Medical Oncologist/Boulevard Glassware Replacer Hematology and Oncology 06/11/19 02/08/21 Lilia Rae, [facility] [address] [facility] [address] [place] [address] ACO Care Paving Inspector 02/24/23 02/27/23 Kayla Schofield, [facility] [address] [facility] [place] [address] Vocational Psychologist 05/06/24 06/13/24 Nayeli Bell NP [address] [facility] [address] [place] [address] Nurse Practitioner Internal Medicine 12/20/24 documented as of this encounter
--- OUTSIDE RECORDS SUMMARY | 2025-01-12 03:48 | XMS_ITS | Patient Health Summary ---
Author Organization [facility] Address [address] [place] [address] Care Team Providers Care Home Health Caregiver Name Role Phone Naldo Toribio MD Primary Care Provider [phone] Note from [facility],non-owned Affiliates and Associated Physician Practices is amultiple site organization consisting of ambulatory clinics and hospital sitesin [place], [place], [place] and [place]. This disclosure is being madepursuant to the Care Everywhere program and may not contain all information available regarding this patient. Last updated 18.[facility] Allergies * Codeine(Urticaria) -Medium Criticality Medications * Be aware that medications may not be up to date on this document. Alwaysverify current medications with the patient. * lisinopril (PRINIVIL; ZESTRIL) 10 MG tablet(Started 03/31/2021) Take 10 mg by mouth once daily * rosuvastatin (CRESTOR) 5 MG tablet Take 5 mg by mouth once daily * Cyanocobalamin (B-12 PO) Take 1 tablet by mouth once daily 2500 mcg * Apoaequorin (PREVAGEN PO) Take 1 tablet by mouth once daily * Multiple Vitamins-Minerals (MEGAVITE FRUITS & VEGGIES PO) Take 1 tablet by mouth once daily * vitamin D, ergocalciferol, (DRISDOL) 1.25 MG (93603 UT) capsule(Started 07/21/2021) TAKE 1 CAPSULE BY MOUTH ONE TIME PER WEEK * MYRBETRIQ 25 MG tablet(Started 03/30/2021) Take 25 mg by mouth once daily * pneumococcal 13-Elvira Conj (PREVNAR 13) vaccine Prevnar 13 (PF) 0.5 mL intramuscular syringe * rivaroxaban (XARELTO) 15 MG tablet Xarelto 15 mg tablet * rivaroxaban (XARELTO) 20 MG tablet every 24 hours * solifenacin (VESICARE) 10 MG tablet(Started 08/19/2020) Take 10 mg by mouth once daily * valACYclovir (VALTREX) 1 GM tablet every 12 hours * cycloSPORINE (RESTASIS) 0.05 % ophthalmic suspension(Started 12/24/2021) Instill 1 (one) drop into both eyes 2 times daily 11 refills by 12/24/2022 Active Problems No known active problems Social [...] Mass Index 31 08/18/2021 8:52 AM CDT Procedures * OPH VISUAL FIELD TEST [facility](Performed 02/08/2023) Performed for Subjective visual disturbance * DERMATOPATHOLOGY(Performed 09/21/2022) * CULTURE URINE(Performed 08/24/2021) Performed for Urinary incontinence, unspecified type * PATHOLOGY/CYTOLOGY REPORT ORDER(Performed 08/20/2021) * URINALYSIS AUTO - POINT OF CARE (AMB) [facility](Performed 08/18/2021) Performed for Urinary incontinence, unspecified type * DE MSR PVR U&/BLADD CAPCTY US NON(Performed 08/18/2021) Performed for Urinary incontinence, unspecified type * OPH OCT TEST [facility](Performed 06/18/2021) Performed for Blurred vision, bilateral Results * Visual Castro (02/08/2023 2:49 PM CDT) Anatomical Region Laterality Modality Other 02/08/2023 2:49 PM CDT Rolando Colon OD OPHTHALMOLOGY SERVIC ES ORDERABLES * DERMATOPATHOLOGY (09/21/2022 12:00 AM CDT) Case Report Dermatopathology Report Case: [id number] Authorizing Provider: Grady Foster MD Collected: 09/21/2022 12:00 AM Ordering Location: [facility] DermPath Lab Received: 09/22/2022 09:03 AM Pathologist: Yaquelin Clancy MD Specimen: Skin, left breast 1:11 PM CDT DERMATOPATHOLOGY LABORATORY Final Diagnosis Specimen A. SKIN, left breast: EPIDERMOID CYST WITH SCAR (L72.0) NOT PRESENT AT SAMPLED MARGIN 1:11 PM CDT DERMATOPATHOLOGY LABORATORY Clinical History Previously Inflamed Cyst. Please Check Margins. Path# [id number] 1:11 PM CDT DERMATOPATHOLOGY LABORATORY Gross Description Specimen A: Received is one formalin filled container labeled with the patient's name and designated left breast. The specimen consists of a non-oriented ellipse of skin measuring [id number] and it is inked. The epidermal surface is unremarkable. The margin is inked green. The 12 o'clock and 6 o'clock tips are submitted in cassette 1. The remainder of the ellipse is serially sectioned and submitted in cassette 2. Jar 0. 1:11 PM CDT DERMATOPATHOLOGY LABORATORY Microscopic Description Specimen A. SKIN, left breast: Within the dermis, there is a space lined by epithelium that resembles normal epidermis and the infundibular portion of the hair follicle. There are fibroblasts and collagen bundles oriented parallel to one another. This lesion is not present at the sampled margin of the specimen. 1:11 PM CDT DERMATOPATHOLOGY LABORATORY Disclaimer An external and internal positive and negative controls are appropriate for the histochemical, immunohistochemical and immunofluorescence stain(s) in this case (if any), except where stated explicitly. The performance characteristics of the stain(s) cited in this report were developed and its performance characteristic determined by the Dermatopathology Laboratory at [facility], directed by Dr. Ana Agosto. These tests need not be, and therefore are not, approved by the [place] Food and Drug Administration. The tests are used for clinical purposes. Billing Codes Specimen Charges Stain Charges 62463 1 2 1:11 PM CDT DERMATOPATHOLOGY LABORATORY Embedded Images 2 1:11 PM CDT DERMATOPATHOLOGY LABORATORY Pathology/Cytolog y TISSUE SPECIMEN FROM SKIN / Unknown 09/21/2022 09/22/2022 9:03 AM CDT Grady Foster MD LAB - PATHOLOGY/CYTO LOGY ORDERABLES DERMATOPATHOLOGY LABORATORY [facility] - Department of Dermatology [address], [address] [phone] * (ABNORMAL) CULTURE URINE (08/24/2021 4:00 PM CDT) Culture Urine >100,000 CFU/mL Escherichia coli(A) SHAW 08/26/2021 12:31 AM CDT [facility] MICRO[facility]OLOG[facility] Urine URINE SPECIMEN OBTAINED BY CLEAN CATCH PROCEDURE / Unknown Collection / Unknown 08/24/2021 4:00 PM CDT 08/24/2021 4:41 PM CDT Narrative Organism Antibiotic Method Susceptibility Escherichia coli Amikacin SHAW <=2 ug/mL: Susceptible Escherichia coli Ampicillin SHAW <=2 ug/mL: Susceptible Escherichia coli Ampicillin-sulbactam SHAW <=2 ug/mL: Susceptible Escherichia coli Cefazolin SHAW <=4 ug/mL: Susceptible Escherichia coli Cefepime SHAW <=1 ug/mL: Susceptible Escherichia coli Ceftriaxone SHAW <=1 ug/mL: Susceptible Escherichia coli Ciprofloxacin SHAW <=0.25 ug/mL: Susceptible Escherichia coli Extended-Spectrum Beta-Lactamase SHAW NEG ug/mL: Neg Escherichia coli Gentamicin SHAW <=1 ug/mL: Susceptible Escherichia coli Meropenem SHAW <=0.25 ug/mL: Susceptible Escherichia coli Nitrofurantoin SHAW <=16 ug/mL: Susceptible Escherichia coli Piperacillin-tazobactam SHAW <=4 ug/mL: Susceptible Escherichia coli Tobramycin SHAW <=1 ug/mL: Susceptible Escherichia coli Trimethoprim-sulfame thoxaz ole SHAW <=20 ug/mL: Susceptible Comment: Interpretive criteria are for cefazolin when cefazolin is used for therapy of uncomplicated UTI due to E. coli, K. pneumoniae, and P. mirabilis. May also be used to predict results for the oral agents cefaclor, cefdinir, cefpodoxime, cefprozil, cefuroxime, cephalexin, and lorcarbef when used to treat uncomplicated UTI due to E. coli, K. pneumoniae, and P. mirabilis. Brianna Buckner DO LAB - MICROBIOLOGY ORDERABLES [facility] MICRO[facility] [address] [place] [address], [facility] [phone] * PATHOLOGY/CYTOLOGY REPORT ORDER (08/20/2021) 08/20/2021 Narrative 08/20/2021 Ordered by an unspecified provider. Scanned Document LAB - PATHOLOGY/CYTO LOGY ORDERABLES * URINALYSIS AUTO - POINT OF CARE (AMB) [facility] (08/18/2021 10:41 AM CDT) Glucose UA neg Bilirubin UA POCT neg Ketones UA POCT neg Specific Imperial UA 1.010 Blood Urine POCT 25 Scot/uL pH UA 6.0 Protein UA neg Urobilinogen UA 0.2 mg/dL Nitrite UA neg WBC UA neg Urine URINE / Unknown 08/18/2021 1 0:41 AM CDT Brianna Buckner DO LAB - POINT OF CAR E ORDERABLES * DE MSR PVR U&/BLADD CAPCTY US NON (08/18/2021 8:59 AM CDT) Narrative Roc Osorio RN - 08/18/2021 8:59 AM CDT Roc Osorio RN 08/23/2021 9:39 PM PVR= 133 mL. Brianna Buckner DO PROCEDURE/MINOR GOULD RGICAL ORDERABLES * OPH OCT TEST [facility] (06/18/2021 8:39 AM CDT) Anatomical Region Laterality Modality Other 06/18/2021 8:39 AM CDT Jeovany Reagan MD OPHTHALMOLO GY SERVICES ORDERABLES Care Teams Home Health Caregiver Relationship Specialty Start Date End Date Naldo Toribio MD [address] [facility] [facility] [address] [place] [address] PCP - General 03/17/21
--- OUTSIDE RECORDS SUMMARY | 2025-01-12 03:48 | XMS_ITS | Encounter Summary ---
Author Organization [facility] Address [address] [place] [address] Care Team Providers Care Tubing Mill Operator Name Role Phone Brian Day DO Primary Care Provider Encounter Details Date Type Department Care Team (Latest Contact Info) Description 06/24/1999 Outpatient Historical [facility] Darrell Parada MD [address] [place] [address] Lumbago (Primary Dx) Social History Tobacco Use Types Packs/Day Years Used Date Smoking Tobacco: Never Assessed Comments Unknown Sex and Gender Information Value Date Recorded Sex Assigned at Not on file Legal Sex Female 3:34 AM MANAGEMENT ACCOUNTS MANAGER Gender Identity Not on file Sexual Orientation Not on file documented as of this encounter Plan of Treatment Not on file documented as of this encounter Visit Diagnoses Diagnosis Lumbago- Primary documented in this encounter Care Teams Tubing Mill Operator Relationship Specialty Start Date End Date Brian Day DO PCP - General 03/07/08 documented as of this encounter
--- OUTSIDE RECORDS SUMMARY | 2025-01-12 03:48 | XMS_ITS | Encounter Summary ---
Author Organization [facility] Address 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
--- OUTSIDE RECORDS SUMMARY | 2025-01-12 03:48 | XMS_ITS | Encounter Summary ---
Author Organization [id number] Address [address] [place] [address] Care Team Providers Care Repair Armature Winder Helper Name Role Phone Brian Day DO Primary Care Provider Encounter Details Date Type Department Care Team (Late st Contact Info) Description 02/29/2008 Outpatient Historical [facility] [address] [place] [address] Brian Day DO [address] [place] [id number] Social History Tobacco Use Types Packs/Day Years Used Date Smoking Tobacco: Never Assessed Comments Unknown Sex and Gender Information Value Date Recorded Sex Assigned at Not on file Legal Sex Female 3:34 AM HELPER COORDINATOR Gender Identity Not on file Sexual Orientation Not on file documented as of this encounter Plan of Treatment Not on file documented as of this encounter Visit Diagnoses Not on filedocumented in this encounter Care Teams Repair Armature Winder Helper Relationship Specialty Start Date End Date Brian Day DO PCP - General 03/07/08 documented as of this encounter
--- OUTSIDE RECORDS SUMMARY | 2025-01-12 03:48 | XMS_ITS | Encounter Summary ---
Author Organization [facility] Address [address] [place] [address] Phone Care Team Providers Care Mri Supervisor Name Role Phone No, Physician Primary Care Provider Isidoro Chairez MD Unavailable Digna, Physician Primary Care Provider Naldo Toribio MD Primary Care Provider Jonathan Brown MD Unavailable [phone] Denisha Membreno MD Primary Care Provider Maxwell Nieves MD Primary Care Provider Naldo Toribio MD Primary Care Provider Digna, Physician Primary Care Provider [phone] Duncan Dobbs MD Primary Care Provider Lilia Rae CMA Unavailable Kayla SchofieldW Unavailable Nayeli Bell NP Unavailable [phone] Encounter Details Date Type Department Care Team (Latest Contact Info) Description 09/12/2018 Orders Only [facility] Scanning, Provider Social History Tobacco Use Types Packs/Day Years Used Date Smoking Tobacco: Never Smokeless Tobacco: Never Alcohol Use Standard Drinks/Week Comments Yes 0 (1 standard drink = 0.6 oz pur e alcohol) Comments Unknown Sex and Gender Information Value Date Recorded Sex Assigned at Not on file Legal Sex Female 8:40 AM BOARD ATTENDANT Gender Identity Female 10/20/2023 2:21 PM BOARD ATTENDANT Sexual Orientation Not on file documented as of this encounter Plan of Treatment Not on file documented as of this encounter Procedures Procedure Name Priority Date/Time Associated Diagnosis Comments CARDIOLOGY DOCUMENT SCAN 09/12/2018 documented in this encounter Results * SCAN - CARDIOLOGY (09/12/2018) Anatomical Region Laterality Modality Other Provider Scanning CV CARDIAC SERVICES PROCEDURES Final Result documented in this encounter Visit Diagnoses Not on filedocumented in this encounter Care Teams Mri Supervisor Relationship Specialty Start Date End Date No, Physician PCP - General 07/03/18 11/07/18 No, Physician PCP - General 11/08/18 01/15/19 Naldo Toribio MD [address] [facility] [address] [place] [address] PCP - General Emergency Medicine 01/16/19 09/19/19 Denisha Membreno MD [address] [place] [address] PCP - General Geriatric Medicine 09/20/19 10/14/19 Maxwell Nieves MD [address] [facility] [address] [place] [address] PCP - General Family Medicine 10/15/19 01/06/20 Naldo Toribio MD [address] [place] [address] PCP - General Emergency Medicine 01/07/20 02/08/21 No, Physician PCP - General 02/09/21 08/24/21 Duncan Dobbs MD PCP - General Internal Medicine 08/25/21 Isidoro Chairez MD [address] [facility] [address] [place] [address] Internal Medicine 07/03/18 01/20/19 Jonathan Brown MD [address] [facility] [address] [place] [address] Medical Oncologist/Lap Hand Tool Hematology and Oncology 06/11/19 02/08/21 Lilia Rae, [facility] [address] [place] [address] ACO Care Supervisor Steel Division 02/24/23 02/27/23 Kayla Schofield, PHILATELIC CONSULTANT [address] [place] [address] Director Of Institutional Research 05/06/24 06/13/24 Nayeli Bell NP [address] [place] [address] Nurse Practitioner Internal Medicine 12/20/24 documented as of this encounter
--- OUTSIDE RECORDS SUMMARY | 2025-01-12 03:48 | XMS_ITS | Encounter Summary ---
Author Organization [facility] Address [address] [facility] [place] [address] Care Team Providers Care Production Painter Name Role Phone Naldo Toribio MD Primary Care Provider [phone] Encounter Details Date Type Department Care Team (Late st Contact Info) Description 09/22/2022 Lab Requisition [facility] DermPath Lab [address] [facility] [place] [address] Grady Foster MD [address] [place] [address] Social History Tobacco Use Types Packs/Day Years Used Date Smoking Tobacco: Never Smokeless Tobacco: Never Alcohol Use Standard Drinks/Week Comments Not Currently [...] Procedure Name Priority Date/Time Associated Diagnosis Comments DERMATOPATHOLOGY Routine 09/21/2022 12:0 0 AM CDT documented in this encounter Results * DERMATOPATHOLOGY (09/21/2022 12:00 AM CDT) Case Report Dermatopathology Report Case: [id number] Authorizing Provider: Grady Foster MD Collected: 09/21/2022 12:00 AM Ordering Location: [facility] DermPath Lab Received: 09/22/2022 09:03 AM Pathologist: Yaquelin Clancy MD Specimen: Skin, left breast 1:11 PM CDT DERMATOPATHOLOGY LABORATORY Final Diagnosis Specimen A. SKIN, left breast: EPIDERMOID CYST WITH SCAR (L72.0) NOT PRESENT AT SAMPLED MARGIN 1:11 PM CDT DERMATOPATHOLOGY LABORATORY Clinical History Previously Inflamed Cyst. Please Check Margins. Path# [id number] 1:11 PM CDT DERMATOPATHOLOGY LABORATORY Gross Description Specimen A: Received is one formalin filled container labeled with the patient's name and designated left breast. The specimen consists of a non-oriented ellipse of skin measuring [id number] and it is inked. The epidermal surface [...] characteristic determined by the Dermatopathology Laboratory at [facility], directed by Dr. Aan Agosto. These tests need not be, and therefore are not, approved by the [place] Food and Drug Administration. The tests are used for clinical purposes. Billing Codes Specimen Charges Stain Charges 72310 1 1:11 PM CDT DERMATOPATHOLOGY LABORATORY Embedded Images 1:11 PM CDT DERMATOPATHOLOGY LABORATORY Pathology/Cytolog y TISSUE SPECIMEN FROM SKIN / Unknown 09/21/2022 09/22/2022 9:03 AM CDT Grady Foster MD LAB - PATHOLOGY/CYTO LOGY ORDERABLES DERMATOPATHOLOGY LABORATORY [facility] - Department of Dermatology [facility] Specialized Medicine [facility] [facility], 3rd Floor [address] [phone] documented in this encounter Visit Diagnoses Not on filedocumented in this encounter Care Teams Production Painter Relationship Specialty Start Date End Date Naldo Toribio MD [address] [place] [address] PCP - General 03/17/21 documented as of this encounter
--- OUTSIDE RECORDS SUMMARY | 2025-01-12 03:48 | XMS_ITS | Clinical Summary ---
Author Organization [facility] [employer] Address [address] [place] [address] Care Team Providers Care Sampling Expert Name Role Phone Naldo Toribio MD Primary Care Provider Source Comments [facility] [employer],non-owned Affiliates and Associated Physician Practices is amultiple site organization consisting of ambulatory clinics and hospital sitesin [place], [place], [place] and [place]. This disclosure is being madepursuant to the Care Everywhere program and may not contain all information available regarding this patient. Last updated 18.[facility] [employer] Allergies Active Allergy Reactions Criticality Noted Date [...] Active vitamin D, ergocalciferol, (DRISDOL) 1.25 MG (02481 UT) capsule TAKE 1 CAPSULE BY MOUTH [...] 08/18/2021 8:52 AM CDT Plan of Treatment Health Maintenance Due Date Last Done Comments BONE DENSITY TESTING 1935 MEDICARE AWV 12 MONTHS 1935 DTAP/TDAP/TD VACCINES (1 - Tdap) 1956 PNEUMOCOCCAL VACCINE 50+ (1 of 1 - PCV) 1987 ZOSTER VACCINE (1 of 2) 1987 Respiratory Syncytial Virus (RSV) Vaccine Pt: or over 60 yrs (1 - 1-dose 75+ series) 2012 COVID-19 VACCINE ( - 2023-2 5 season) 2024 INFLUENZA VACCINE (#1) 2024 DEPRESSION SCREENING 11/27/2024 HEPATITIS B VACCINE Aged Out No longe r eligible based on patient's age to complete this topic HIB VACCINE Aged Out No longer eligi ble based on patient's age to complete this topic HPV VACCINE Aged Out No longer eligi ble based on patient's age to complete this topic MENINGOCOCCAL (Group B) VACCINE Aged Out No longer eligible based on patient's age to complete this topic MENINGOCOCCAL VACCINE Aged Out No kyung josefa eligible based on patient's age to complete this topic Care Teams Sampling Expert Relationship Specialty Start Date End Date Naldo Toribio MD [address] [facility] [address] [place] [address] PCP - General 03/17/21
--- OUTSIDE RECORDS SUMMARY | 2025-01-12 03:48 | XMS_ITS | Encounter Summary ---
Author Organization [facility] Address [address] [place] [address] Phone Care Team Providers Care Food Preparer Name Role Phone Isidoro Chairez MD Unavailable No, Physician Primary Care Provider Naldo Toribio MD Primary Care Provider Jonathan Brown MD Unavailable [phone] Denisha Membreno MD Primary Care Provider Maxwell Nieves MD Primary Care Provider Naldo Toribio MD Primary Care Provider [phone] Digna, Physician Primary Care Provider Duncan Dobbs MD Primary Care Provider Lilia Rae CMA Unavailable Kayla SchofieldW Unavailable Nayeli Bell NP Unavailable [phone] Encounter Details Date Type Department Care Team (Latest Contact Info) Description 12/14/2018 Orders Only [facility] Scanning, Provider Social History Tobacco Use Types Packs/Day Years Used Date Smoking Tobacco: Never Smokeless Tobacco: Never Alcohol Use Standard Drinks/Week Comments Yes 0 (1 standard drink = 0.6 oz pur e alcohol) Comments Unknown Sex and Gender Information Value Date Recorded Sex Assigned at Not on file Legal Sex Female 8:40 AM MURAL ARTIST Gender Identity Female 10/20/2023 2:21 PM MURAL ARTIST Sexual Orientation Not on file documented as of this encounter Plan of Treatment Not on file documented as of this encounter Procedures Procedure Name Priority Date/Time Associated Diagnosis Comments CARDIOLOGY DOCUMENT SCAN 12/14/2018 documented in this encounter Results * SCAN - CARDIOLOGY (12/14/2018) Anatomical Region Laterality Modality Other us Provider Scanning CV CARDIAC SERVICES PROCEDURES Final Result documented in this encounter Visit Diagnoses Not on filedocumented in this encounter Care Teams Food Preparer Relationship Specialty Start Date End Date No, Physician PCP - General 11/08/18 01/15/19 Naldo Toribio MD PCP - General Emergency Medicine 01/16/19 09/19/19 Denisha Membreno MD [address] [facility] [address] [place] [address] PCP - General Geriatric Medicine 09/20/19 10/14/19 Maxwell Nieves MD [address] [facility] [address] [place] [address] PCP - General Family Medicine 10/15/19 01/06/20 Naldo Toribio MD [address] [facility] [address] [place] [address] PCP - General Emergency Medicine 01/07/20 02/08/21 No, Physician PCP - General 02/09/21 08/24/21 Duncan Dobbs MD PCP - General Internal Medicine 08/25/21 Isidoro Chairez MD [address] [facility] [address] [place] [address] Internal Medicine 07/03/18 01/20/19 Jonathan Brown MD Medical Oncologist/Ladle Repairman Hematology and Oncology 06/11/19 02/08/21 Lilia Rae, [facility] [address] [place] [address] ACO Care Poultry Eviscerator 02/24/23 02/27/23 Kayla Schofield, [facility] [address] [place] [address] Mail Order Sorter 05/06/24 06/13/24 Nayeli Bell NP [address] [facility] [address] [place] [address] Nurse Practitioner Internal Medicine 12/20/24 documented as of this encounter
--- OUTSIDE RECORDS SUMMARY | 2025-01-12 03:48 | XMS_ITS | Encounter Summary ---
Author Organization [facility] Address [address] [place] [address] Phone Care Team Providers Care Dry Cleaner Helper Name Role Phone Isidoro Cahirez MD Unavailable No, Physician Primary Care Provider Naldo Toribio MD Primary Care Provider Jonathan Brown MD Unavailable [phone] Denisha Membreno MD Primary Care Provider Maxwell Nieves MD Primary Care Provider Naldo Toribio MD Primary Care Provider [phone] Digna, Physician Primary Care Provider Duncan Dobbs MD Primary Care Provider Lilia Rae CMA Unavailable Kayla SchofieldW Unavailable Nayeli Bell NP Unavailable [phone] Encounter Details Date Type Department Care Team (Latest Contact Info) Description 11/28/2018 Orders Only [facility] Scanning, Provider Social History Tobacco Use Types Packs/Day Years Used Date Smoking Tobacco: Never Smokeless Tobacco: Never Alcohol Use Standard Drinks/Week Comments Yes 0 (1 standard drink = 0.6 oz pur e alcohol) Comments Unknown Sex and Gender Information Value Date Recorded Sex Assigned at Not on file Legal Sex Female 8:40 AM PIGMENT PRESSER Gender Identity Female 10/20/2023 2:21 PM PIGMENT PRESSER Sexual Orientation Not on file documented as of this encounter Plan of Treatment Not on file documented as of this encounter Procedures Procedure Name Priority Date/Time Associated Diagnosis Comments CARDIOLOGY DOCUMENT SCAN 11/28/2018 documented in this encounter Results * SCAN - CARDIOLOGY (11/28/2018) Anatomical Region Laterality Modality Other us Provider Scanning CV CARDIAC SERVICES PROCEDURES Final Result documented in this encounter Visit Diagnoses Not on filedocumented in this encounter Care Teams Dry Cleaner Helper Relationship Specialty Start Date End Date No, Physician PCP - General 11/08/18 01/15/19 Naldo Toribio MD PCP - General Emergency Medicine 01/16/19 09/19/19 Denisha Membreno MD [address] [facility] [address] [place] [address] PCP - General Geriatric Medicine 09/20/19 10/14/19 Maxwell Nieves MD [address] [facility] [address] [place] [address] PCP - General Family Medicine 10/15/19 01/06/20 Naldo Toribio MD [address] [facility] [address] [place] [address] PCP - General Emergency Medicine 01/07/20 02/08/21 No, Physician PCP - General 02/09/21 08/24/21 Duncan Dobbs MD PCP - General Internal Medicine 08/25/21 Isidoro Chairez MD [address] [facility] [address] [place] [address] Internal Medicine 07/03/18 01/20/19 Jonathan Brown MD Medical Oncologist/Software Engineer Backend Hematology and Oncology 06/11/19 02/08/21 Lilia Rae, [facility] [address] [facility] [address] [place] [address] ACO Care Modeling Analyst 02/24/23 02/27/23 Kayla Schofield, [facility] [address] [facility] [place] [address] Stem Sizer 05/06/24 06/13/24 Nayeli Bell NP [address] [facility] [address] [place] [address] Nurse Practitioner Internal Medicine 12/20/24 documented as of this encounter
--- OUTSIDE RECORDS SUMMARY | 2025-01-12 03:48 | XMS_ITS | Encounter Summary ---
Author Organization [facility] Address [address] [place] [address] Phone Care Team Providers Care Appeals Specialist Name Role Phone Reina Robles MD Primary Care Provider Isidoro Chairez MD Primary Care Provider No, Physician Primary Care Provider [phone] Isidoro Chairez MD Unavailable Digna, Physician Primary Care Provider [phone] Naldo Toribio MD Primary Care Provider Jonathan Brown MD Unavailable [phone] Denisha Membreno MD Primary Care Provider Maxwell Nieves MD Primary Care Provider aNldo Toribio MD Primary Care Provider [phone] Digna, Physician Primary Care Provider [phone] Duncan Dobbs MD Primary Care Provider Lilia Rae CMA Unavailable [phone] Kayla SchofieldW Unavailable Nayeli Bell NP Unavailable [phone] Encounter Details Date Type Department Care Team (Latest Contact Info) Description 09/26/2017 Orders Only [facility] Scanning, Provider Social History Tobacco Use Types Packs/Day Years Used Date Smoking Tobacco: Never Smokeless Tobacco: Never Alcohol Use Standard Drinks/Week Comments Yes 0 (1 standard drink = 0.6 oz pur e alcohol) Comments Unknown Sex and Gender Information Value Date Recorded Sex Assigned at Not on file Legal Sex Female 8:40 AM GROOVING 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 TENDER Gender Identity Female 10/20/2023 2:21 PM GROOVING LATHE TENDER Sexual Orientation Not on file documented as of this encounter Plan of Treatment Not on file documented as of this encounter Procedures Procedure Name Priority Date/Time Associated Diagnosis Comments CARDIOLOGY DOCUMENT SCAN 09/26/2017 documented in this encounter Results * SCAN - CARDIOLOGY (09/26/2017) Anatomical Region Laterality Modality Other us Provider Scanning CV CARDIAC SERVICES PROCEDURES Final Result documented in this encounter Visit Diagnoses Not on filedocumented in this encounter Care Teams Appeals Specialist Relationship Specialty Start Date End Date Reina Robles MD [address] [place] [address] PCP - General 06/21/17 06/17/18 Isidoro Chairez MD [address] [facility] [address] [place] [address] PCP - General Internal Medicine 06/18/18 07/02/18 No, Physician PCP - General 07/03/18 11/07/18 No, Physician PCP - General 11/08/18 01/15/19 Naldo Toribio MD PCP - General Emergency Medicine 01/16/19 09/19/19 Denisha Membreno MD [address] [facility] [address] [place] [address] PCP - General Geriatric Medicine 09/20/19 10/14/19 Maxwell Nieves MD [address] [facility] [address] [place] [address] PCP - General Family Medicine 10/15/19 01/06/20 Naldo Toribio MD [address] [place] [address] PCP - General Emergency Medicine 01/07/20 02/08/21 No, Physician PCP - General 02/09/21 08/24/21 Duncan Dobbs MD PCP - General Internal Medicine 08/25/21 Isidoro Chairez MD [address] [facility] [address] [place] [address] Internal Medicine 07/03/18 01/20/19 Jonathan Brown MD Medical Oncologist/Law Reporter Hematology and Oncology 06/11/19 02/08/21 Lilia Rae, [address] [place] [address] ACO Care Creative Arts Therapist 02/24/23 02/27/23 Kayla Schofield, [address] [place] [address] Optometric Tech 05/06/24 06/13/24 Nayeli Bell NP [address] [facility] [address] [place] [address] Nurse Practitioner Internal Medicine 12/20/24 documented as of this encounter
--- OUTSIDE RECORDS SUMMARY | 2025-01-12 03:48 | XMS_ITS | Encounter Summary ---
Author Organization [facility] Address [address] [place] [address] Care Team Providers Care Governor Assembler Hydraulic Name Role Phone Brian Day DO Primary Care Provider Encounter Details Date Type Department Care Team (Late st Contact Info) Description 03/14/2008 Outpatient Historical [facility] Rafy Albarado MD [address] [facility] [address] [place] [address] Precordial Pain Social History Tobacco Use Types Packs/Day Years Used Date Smoking Tobacco: Never Assessed Comments Unknown Sex and Gender Information Value Date Recorded Sex Assigned at Not on file Legal Sex Female 3:34 AM EMERGENCY COMMUNICATIONS OPERATOR Gender Identity Not on file Sexual Orientation Not on file documented as of this encounter Plan of Treatment Not on file documented as of this encounter Visit Diagnoses Diagnosis Precordial pain documented in this encounter Care Teams Governor Assembler Hydraulic Relationship Specialty Start Date End Date Brian Day DO PCP - General 03/07/08 documented as of this encounter
--- OUTSIDE RECORDS SUMMARY | 2025-01-12 03:48 | XMS_ITS | Encounter Summary ---
Author Organization [facility] Address [address] [place] [address] Care Team Providers Care Oracle Specialist Name Role Phone Brian Day DO Primary Care Provider Encounter Details Date Type Department Care Team (Latest Contact Info) Description 02/07/2001 Outpatient Historical HIS [facility] MICHAEL Baca II, [place] [address] [facility] [address] [place] [address] Other screening mammogram (Primary Dx) Social History Tobacco Use Types Packs/Day Years Used Date Smoking Tobacco: Never Assessed Comments Unknown Sex and Gender Information Value Date Recorded Sex Assigned at Not on file Legal Sex Female 3:34 AM DROP FORGE OPERATOR Gender Identity Not on file Sexual Orientation Not on file documented as of this encounter Plan of Treatment Not on file documented as of this encounter Visit Diagnoses Diagnosis Other screening mammogram- Primary documented in this encounter Care Teams Oracle Specialist Relationship Specialty Start Date End Date Brian Day DO PCP - General 03/07/08 documented as of this encounter
--- OUTSIDE RECORDS SUMMARY | 2025-01-12 03:48 | XMS_ITS | Encounter Summary ---
Author Organization [facility] Address [address] [place] [address] Care Team Providers Care Barrel Rifler Broach Name Role Phone Brian Day DO Primary Care Provider Encounter Details Date Type Department Care Team (Latest Contact Info) Description 02/11/2000 Outpatient Historical HIS [facility] MICHAEL Baca II, [place] [address] [facility] [address] [place] [address] Other screening mammogram (Primary Dx) Social History Tobacco Use Types Packs/Day Years Used Date Smoking Tobacco: Never Assessed Comments Unknown Sex and Gender Information Value Date Recorded Sex Assigned at Not on file Legal Sex Female 3:34 AM CNA PER DIEM Gender Identity Not on file Sexual Orientation Not on file documented as of this encounter Plan of Treatment Not on file documented as of this encounter Visit Diagnoses Diagnosis Other screening mammogram- Primary documented in this encounter Care Teams Barrel Rifler Broach Relationship Specialty Start Date End Date Brian Day DO PCP - General 03/07/08 documented as of this encounter
--- OUTSIDE RECORDS SUMMARY | 2025-01-12 03:48 | XMS_ITS | Encounter Summary ---
Author Organization [employer] Address [address] [place] [address] Care Team Providers Care Training Associate Name Role Phone Brian Yanez DO Primary Care Provider Encounter Details Date Type Department Care Team (Late st Contact Info) Description 02/29/2008 Orders Only [facility] Internal Medicine [address] [place] [address] Brian Yanez DO [address] [place] [address] Social History Tobacco Use Types Packs/Day Years Used Date Smoking Tobacco: Never Assessed Comments Unknown Sex and Gender Information Value Date Recorded Sex Assigned at Not on file Legal Sex Female 3:34 AM OFFBEARER Gender Identity Not on file Sexual Orientation Not on file documented as of this encounter Progress Notes * Brian Yanez DO - 05/02/2008 9:16 AM CDT SPECIALIST REFERRAL REQUEST DATE: FEB 29, 2008 Note created by: Lupe Long 10:29 a Patient Name : GIANNA FORBES [address]: [address] [place] [address] [place] [address] D.O.B: 1935 SSN: [id number] Parent/Guardian if applicable: Patient Insurance: MEDICARE Policy#: [id number] Group #: May We Leave Message At That Number : YES, LEAVE MESSAGE. Referring to: ADULT CARDIOLOGY Dr. Rafy Albarado fax: [phone]. PLEASE SCHEDULE FOR: OV. Reason for referral: Abnormal stress thallium (SJ 02/08/2008) and chest pain. PATIENT DIAGNOSIS: . 786.50-CHEST PAIN UNSPECIFIED 794.31-ABNORMAL EKG ORDERING PHYSICIAN : BRIAN YANEZ DO PRIORITY OF REFERRAL: As soon as he is able. The ordering provider is requesting the following document(s) be sent to the specialist. Other documentation to be included (specify type & the date): 02/08/2008 stress test and nuclear stress. 02/01/2008 EKG. OFFICE FOOT MITER OPERATOR & PHONE: Lupe Long FOR SCHEDULING USE ONLY FIRST ATTEMPT Date:MAR 03, 2008 Ondina Rader D 01:04 p Spoke with Patient. L/M on Dr. Albarado's voicemail. Pt will call back w/appt date SECOND ATTEMPT: Date:MAR 04, 2008 Gail Colbert D 09:19 a Spoke with Patient. APPOINTMENT DATE : 03/07/2008 ( @ 8:30 W/ Dr. Albarado) [place] 03/04/08 09:21 am Referral number: Medicare NN FINAL ACTION : Spoke with patient. * Brian Yanez DO - 05/02/2008 9:16 AM CDT WEIGHT: 199lbs NURSE NAME: Erin Bailey ALLERGIES: Allergies are as listed. TOBACCO USE Patient does not currently use tobacco. MEDICATIONS: Medication list current. heart med? 2 po bid CHIEF COMPLAINT f/u on BP HISTORY: HISTORY: 401.1-HYPERTENSION ESSENTIAL BENIGN The patient`s weight is the same. The patient is somewhat compliant with diet. The patient`s exercise is the same. The blood pressure readings taken outside the office since the last visit are as follows: the systolic range has [id number]. The diastolic range has been 60's. 786.50-CHEST PAIN UNSPECIFIED The chest pain is worsening with occasional episodes since the last visit. The patient has shortness of breath. recent stress thal was mildly abnl CURRENT PROBLEM LIST: 466.0 BRONCHITIS ACUTE 794.31 ABNORMAL EKG CURRENT MEDICATION LIST: CALCIUM ALGINATE POWDER, mixes with 2 ozs water qd MINERAL COMPLEX ORAL CAPSULE CONVENTIONAL, powder form qd EYE VITAMINS ORAL CAPSULE CONVENTIONAL, 5 po bid RA WHOLE SOURCE DIETARY ORAL TABLET, 4 po bid NUTRITIONAL SUPPLEMENTS ORAL TABLET, qd FISH OIL ORAL CAPSULE CONVENTIONAL 1000 MG, 2 po bid GINKOBA ORAL TABLET 40 MG, 1 po bid GARRICK OIL OIL, capsules 1 po bid CURRENT ALLERGY LIST: CODEINE COUGH FORMULA CRAB ROS: GENERAL: Normal activity and energy level, no change in appetite. No major weight gain or loss. No malaise, chills, fever, diaphoresis. CARDIAC: MILD CHEST DISCOMFORT NOTED, NOTES MILD CHEST PAIN, MILD DYSPNEA ON EXERTION NOTED. RESPIRATORY: No dyspnea, cough, hemoptysis or wheezing. GI: No abdominal pain, nausea, vomiting, diarrhea, constipation, melena, or hematochezia. SOCIAL HISTORY: TOBACCO USE: Has no significant smoking history. PHYSICAL EXAMINATION: CONSTITUTIONAL: GENERAL APPEARANCE: Healthy appearing patient in no distress. EARS, NOSE, MOUTH AND THROAT: ORAL: Inspection of gums, lips, palate, and teeth normal. No scars, lesions, or masses. Oral mucosaunremarkable with non-inflamed posterior pharynx. NECK/THYROID: Trachea midline. No thyroid enlargement, tenderness, or mass. No supraclavicular or cervical adenopathy. RESPIRATORY: Clear to auscultation and percussion. Normal respiratory effort. CARDIOVASCULAR: CARDIAC: Regular rhythm. No murmurs, rubs, or gallops. ARTERIAL: No aortic bruits. EDEMA/VARICOSITIES OF EXTREMITIES: No edema or varicosities. GASTROINTESTINAL: ABDOMEN: Soft, non-tender, without masses. Bowel sounds active. LIVER/SPLEEN/KIDNEY: No hepatosplenomegaly, tenderness or nodularity. Kidneys not palpable. ASSESSMENT/PLAN: 401.1-HYPERTENSION ESSENTIAL BENIGN ASSESSMENT: The blood pressure has worsened. Will start medication for better control. MEDICATIONS: LISINOPRIL ORAL TABLET 10 MG, 1 po qd, 30 Dispensed, 3 Fills, status: NEW PRESCRIPTION, 02/29/2008. 786.50-CHEST PAIN UNSPECIFIED ASSESSMENT: The chest pain has worsened. Will start medication for better control. ASA 81 mg qd REPEAT VITAL SIGNS: BLOOD PRESSURE: 140/80. Right Arm Sitting RETURN VISIT : 1 month for BP. crs for G Dr Albarado for anbl steress test and cp Electronically Signed by: Brian Yanez DO on Friday, February 29, 2008 documented in this encounter Plan of Treatment Not on file documented as of this encounter Visit Diagnoses Not on filedocumented in this encounter Care Teams Training Associate Relationship Specialty Start Date End Date Brian Yanez DO PCP - General 03/07/08 documented as of this encounter
--- OUTSIDE RECORDS SUMMARY | 2025-01-12 03:48 | XMS_ITS | Encounter Summary ---
Author Organization [facility] Address [address] [place] [address] Care Team Providers Care Human Resources Associate Name Role Phone Brian Day DO Primary Care Provider Encounter Details Date Type Department Care Team (Late st Contact Info) Description 05/19/2000 Outpatient Historical [facility],NON-PATIENT Fernie Navarro MD NO ADDRESS ON FILE Social History Tobacco Use Types Packs/Day Years Used Date Smoking Tobacco: Never Assessed Comments Unknown Sex and Gender Information Value Date Recorded Sex Assigned at Not on file Legal Sex Female 3:34 AM BODY MECHANIC Gender Identity Not on file Sexual Orientation Not on file documented as of this encounter Plan of Treatment Not on file documented as of this encounter Visit Diagnoses Not on filedocumented in this encounter Care Teams Human Resources Associate Relationship Specialty Start Date End Date Brian Day DO PCP - General 03/07/08 documented as of this encounter
--- OUTSIDE RECORDS SUMMARY | 2025-01-12 03:48 | XMS_ITS | Encounter Summary ---
Author Organization [facility] Address [address] [place] [address] Care Team Providers Care Inspector Dials Name Role Phone Brian Day DO Primary Care Provider Encounter Details Date Type Department Care Team (Late st Contact Info) Description 03/03/2008 Outpatient Historical [facility] Internal Medicine [address] [place] [address] Brian Day DO [address] [place] [address] Social History Tobacco Use Types Packs/Day Years Used Date Smoking Tobacco: Never Assessed Comments Unknown Sex and Gender Information Value Date Recorded Sex Assigned at Not on file Legal Sex Female 3:34 AM 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
--- OUTSIDE RECORDS SUMMARY | 2025-01-12 03:48 | XMS_ITS | Encounter Summary ---
Author Organization [facility] Address [address] [place] [address] Care Team Providers Care Washer Carcass Name Role Phone Brian Day DO Primary Care Provider Encounter Details Date Type Department Care Team (Latest Contact Info) Description 03/07/2008 Outpatient Historical [facility] Rafy Albarado MD [address] 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
--- OUTSIDE RECORDS SUMMARY | 2025-01-12 03:48 | XMS_ITS | Encounter Summary ---
Author Organization [facility] Address [address] [place] [address] Care Team Providers Care Residential Sales Executive Name Role Phone Brian Day DO Primary Care Provider Encounter Details Date Type Department Care Team (Latest Contact Info) Description 02/07/2001 Outpatient Historical HIS [facility] MICHAEL Dahl, Duncan Campa MD NO ADDRESS ON FILE Other anaphylactic reaction (Primary Dx) Social History Tobacco Use Types Packs/Day Years Used Date Smoking Tobacco: Never Assessed Comments Unknown Sex and Gender Information Value Date Recorded Sex Assigned at Not on file Legal Sex Female 3:34 AM SKY LINE YARDER Gender Identity Not on file Sexual Orientation Not on file documented as of this encounter Plan of Treatment Not on file documented as of this encounter Visit Diagnoses Diagnosis Other anaphylactic reaction- Primary documented in this encounter Care Teams Residential Sales Executive Relationship Specialty Start Date End Date Brian aDy DO PCP - General 03/07/08 documented as of this encounter
--- OUTSIDE RECORDS SUMMARY | 2025-01-12 03:48 | XMS_ITS | Encounter Summary ---
Author Organization [facility] Address [address] [place] [address] Phone Care Team Providers Care Converting Operator Name Role Phone Reina Robles MD Primary Care Provider [phone] Isidoro Chairez MD Primary Care Provider No, Physician Primary Care Provider [phone] Isidoro Chairez MD Unavailable No, Physician Primary Care Provider Naldo Toribio MD Primary Care Provider Jonathan Brown MD Unavailable Denisha Membreno MD Primary Care Provider Maxwell Nieves MD Primary Care Provider Naldo Toribio MD Primary Care Provider [phone] No, Physician Primary Care Provider Duncan Dobbs MD Primary Care Provider Lilia Rae CMA Unavailable Kayla SchofieldW Unavailable Nayeli Bell NP Unavailable [phone] Encounter Details Date Type Department Care Team (Latest Contact Info) Description 06/28/2017 Orders Only [facility] Scanning, Provider Social History Tobacco Use Types Packs/Day Years Used Date Smoking Tobacco: Never Alcohol Use Standard Drinks/Week Comments Yes 0 (1 standard drink = 0.6 oz pur e alcohol) Comments Unknown Sex and Gender Information Value Date Recorded Sex Assigned at Not on file Legal Sex Female 8:40 AM CASE PLANNER Gender Identity Female 10/20/2023 2:21 PM CASE PLANNER Sexual Orientation Not on file documented as of this encounter Plan of Treatment Not on file documented as of this encounter Procedures Procedure Name Priority Date/Time Associated Diagnosis Comments CARDIOLOGY DOCUMENT SCAN 06/28/2017 documented in this encounter Results * SCAN - CARDIOLOGY (06/28/2017) Anatomical Region Laterality Modality Other us Provider Scanning CV CARDIAC SERVICES PROCEDURES Final Result documented in this encounter Visit Diagnoses Not on filedocumented in this encounter Care Teams Converting Operator Relationship Specialty Start Date End Date Reina Robles MD [address] [place] [address] PCP - General 06/21/17 06/17/18 Isidoro Chairez MD [address] [place] [address] [address] [place] [address] PCP - General Internal Medicine 06/18/18 07/02/18 No, Physician PCP - General 07/03/18 11/07/18 No, Physician PCP - General 11/08/18 01/15/19 Naldo Toribio MD PCP - General Emergency Medicine 01/16/19 09/19/19 Denisha Membreno MD [address] [facility] [address] [place] [address] PCP - General Geriatric Medicine 09/20/19 10/14/19 Maxwell Nieves MD [address] [facility] [address] [facility] [address] [place] [address] PCP - General Family Medicine 10/15/19 01/06/20 Naldo Toribio MD [address] [place] [address] PCP - General Emergency Medicine 01/07/20 02/08/21 No, Physician PCP - General 02/09/21 08/24/21 Duncan Dobbs MD PCP - General Internal Medicine 08/25/21 Isidoro Chairez MD [address] [facility] [address] [place] [address] Internal Medicine 07/03/18 01/20/19 Jonathan Brown MD Medical Oncologist/Agent Contract Clerk Hematology and Oncology 06/11/19 02/08/21 Lilia Rae, [facility] [address] [facility] [address] [place] [address] ACO Care Maintenance Advisor 02/24/23 02/27/23 Kayla Schofield, [facility] [address] [facility] [place] [address] Wood Web Weaving Machine Operator 05/06/24 06/13/24 Nayeli Bell NP [address] [facility] [facility] [address] [place] [address] Nurse Practitioner Internal Medicine 12/20/24 documented as of this encounter
--- OUTSIDE RECORDS SUMMARY | 2025-01-12 03:48 | XMS_ITS | Encounter Summary ---
Author Organization [facility] Address 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 Gender Identity Not on file Sexual Orientation Not on file documented as of this encounter Plan of Treatment Not on file documented as of this encounter Procedures Procedure Name Priority Date/Time Associated Diagnosis Comments CTA CHEST W WO CONTRAST Timed Study 03/18/2008 8:35 AM CDT documented in this encounter Results * CTA CHEST W WO CONTRAST (03/18/2008 8:35 AM CDT) Anatomical Region Laterality Modality Chest Other 03/18/2008 8:35 AM CDT Narrative 03/18/2008 10:00 AM CDT [facility] [address] [place], [place] [address] Admit Date: 03/18/2008 GIANNA FORBES Sex: F Admit Prov: SHIREEN ALBARADO Date: 1935 Primary Care Prov: BRIAN YANEZ CMRN: [id number] Room: [place] [address] SSN: [id number] IMAGING SERVICES Ordering Prov: N/A Accession Number: [id number] Interpretation Coronary CT Angiography (CPT code 0146T) History: 72-year-old female with left bundle-branch block and shortness of breath. Myocardial perfusion imaging 02/08/2008 suggested a questionable zone of ischemia involving the distal anteroseptal wall. Three previous coronary catheterizations for significant only for mild stenosis of the proximal left anterior descending artery. Procedure: The patient was premedicated with 100 mg of oral metoprolol the day before the procedure. 18 gauge intravenous line was placed in the right antecubital vein. An additional 100 mg of oral metoprolol was given prior to the study. The patient's baseline cardiac rhythm was sinus bradycardia. Baseline heart rate was 54 BPM with no ventricular or atrial ectopy noted. 85 cc of Ioversol 320 was administered in a triple phase contrast protocol. Helical, gated contrast CT imaging was performed from the jelena to 2-3 cm below the diaphragm. Images were reconstructed at 75 % of the R-R interval. A limited but full izmcl-jx-auqf contrast CT of the chest was performed for review of noncardiac pathology. Axial data, three- view MPR images and curved vessel reformat views of the coronary arteries were reviewed. Findings: Noncardiac findings on limited full tvzyq-qe-nnpu reconstructed CT: Small pleural plaques are seen in the midposterior right thoracic space. Significant kyphosis of the mid lumbar spine. Small hiatal hernia. Cardiac CT angiographic findings: Pericardium: Normal pericardial thickness with no effusion. Aorta: Normal size and morphology of the visualized portions of the ascending and descending thoracic aorta. Pulmonary Arteries: Normal size and morphology of the pulmonary arterial trunk and left and right PAs. Pulmonary Veins: Normal number, size and morphology of the left and right pulmonary veins. Right Atrium: Normal chamber size with no pathology visualized. Left Atrium: Normal chamber size with no pathology visualized. Right Ventricle: Normal chamber size and wall thickness. Left Ventricle: Normal chamber size and wall thickness. Definitions: Minimal < 20% stenosis Mild 20 - 40% stenosis Moderate 40 - 70% stenosis Severe > 70% stenosis The Right Coronary Artery is dominant. Right Coronary Artery: Normal sized vessel with a maximal luminal diameter of 3.5 mm. There is mild osteal stenosis of the right coronary artery. Small conus branch. Right coronary artery gives rise to 2 small acute marginal branches before giving off the AV gallito branch and the posterior descending artery. No significant atherosclerosis is seen beyond the ostium. Left Main Coronary Artery: Normal sized vessel with a maximal luminal diameter of 5.0 mm. No atherosclerosis in a long left main. Left Anterior Descending Coronary Artery: Normal sized vessel with a maximal luminal diameter of 4.0 mm. Mild soft plaque involving the proximal left anterior descending artery. Two small diagonal branches are seen with minimal atherosclerosis at their origins. A moderate sized third diagonal branch is seen at the takeoff of the second septal laboratory specialist. No significant atherosclerosis in the mid or distal left anterior descending or third diagonal branches. Circumflex Coronary Artery: Normal sized vessel with a maximal luminal diameter of 3.0 mm. Minimal atherosclerosis is seen in the origin of the proximal circumflex. Small first, second and third obtuse marginal branches are seen which are below the limits of CT characterization. A large fourth obtuse marginal branch is free of atherosclerosis. A moderate sized fifth obtuse marginal branch appears free of atherosclerosis. The distal circumflex is a small vessel. Impressions: Noncardiac pathology: No significant pathology identified. Cardiac Anatomy: Normal cardiac chambers, aorta and pulmonary vasculature. Coronary Arteries: Minimal atherosclerosis with that most mild stenosis of the proximal left anterior descending artery and mild ostial right coronary stenosis. Conclusions: No significant atherosclerosis is seen to explain the previously described myocardial perfusion imaging defect from the study dated 02/08/2008 and suggests that this was a false positive finding from breast attenuation. Thank you for this referral. . Dictated by: ORLANDO JEONG 03/18/2008 09:48 Electronically signed by: ORLANDO JEONG 03/18/2008 10:00 Procedure Note Orlando Jeong MD - 03/18/2008 [facility] [address] [place], [place] [address] Admit Date: 03/18/2008 GIANNA FORBES Sex: F Admit Prov: SHIREEN ALBARADO Date: 1935 Primary Care Prov: BRIAN YANEZ CMRN: [id number] Room: [place] [address] SSN: [id number] IMAGING SERVICES Ordering Prov: N/A Interpretation Coronary CT Angiography (CPT code 0146T) History: 72-year-old female with left bundle-branch block andshortness of breath. Myocardial perfusion imaging 02/08/2008 suggested aquestionable zone of ischemia involving the distal anteroseptal wall. Threeprevious coronary catheterizations for significant only for mild stenosis ofthe proximal left anterior descending artery. Procedure: The patient was premedicated with 100 mg of oralmetoprolol the day before the procedure. 18 gauge intravenous line was placed inthe right antecubital vein. An additional 100 mg of oral metoprololwas given prior to the study. The patient's baseline cardiac rhythm wassinus bradycardia. Baseline heart rate was 54 BPM with no ventricular oratrial ectopy noted. 85 cc of Ioversol 320 was administered in a triplephase contrast protocol. Helical, gated contrast CT imaging was performedfrom the jelena to 2-3 cm below the diaphragm. Images were reconstructedat 75 % of the R-R interval. A limited but full krpnl-fd-xpoq contrast CT ofthe chest was performed for review of noncardiac pathology. Axial data,three- view MPR images and curved vessel reformat views of the coronaryarteries were reviewed. Findings: Noncardiac findings on limited full uvtrb-cs-lxct reconstructed CT:Small pleural plaques are seen in the midposterior right thoracic space. Significant kyphosis of the mid lumbar spine. Small hiatal hernia. Cardiac CT angiographic findings: Pericardium: Normal pericardial thickness with no effusion. Aorta: Normal size and morphology of the visualized portions of the ascending and descending thoracic aorta. Pulmonary Arteries: Normal size and morphology of the pulmonaryarterial trunk and left and right PAs. Pulmonary Veins: Normal number, size and morphology of the left andright pulmonary veins. Right Atrium: Normal chamber size with no pathology visualized. Left Atrium: Normal chamber size with no pathology visualized. Right Ventricle: Normal chamber size and wall thickness. Left Ventricle: Normal chamber size and wall thickness. Definitions: Minimal < 20% stenosis Mild 20 - 40% stenosis Moderate 40 - 70% stenosis Severe > 70% stenosis The Right Coronary Artery is dominant. Right Coronary Artery: Normal sized vessel with a maximal luminaldiameter of 3.5 mm. There is mild osteal stenosis of the right coronaryartery. Small conus branch. Right coronary artery gives rise to 2 smallacute marginal branches before giving off the AV gallito branch and theposterior descending artery. No significant atherosclerosis is seen beyondthe ostium. Left Main Coronary Artery: Normal sized vessel with a maximalluminal diameter of 5.0 mm. No atherosclerosis in a long left main. Left Anterior Descending Coronary Artery: Normal sized vessel witha maximal luminal diameter of 4.0 mm. Mild soft plaque involving theproximal left anterior descending artery. Two small diagonal branches are seenwith minimal atherosclerosis at their origins. A moderate sized thirddiagonal branch is seen at the takeoff of the second septal laboratory specialist. No significant atherosclerosis in the mid or distal left anteriordescending or third diagonal branches. Circumflex Coronary Artery: Normal sized vessel with a maximalluminal diameter of 3.0 mm. Minimal atherosclerosis is seen in the origin ofthe proximal circumflex. Small first, second and third obtuse marginalbranches are seen which are below the limits of CT characterization. A largefourth obtuse marginal branch is free of atherosclerosis. A moderate sizedfifth obtuse marginal branch appears free of atherosclerosis. The distal circumflex is a small vessel. Impressions: Noncardiac pathology: No significant pathology identified. Cardiac Anatomy: Normal cardiac chambers, aorta and pulmonaryvasculature. Coronary Arteries: Minimal atherosclerosis with that most mildstenosis of the proximal left anterior descending artery and mild ostial rightcoronary stenosis. Conclusions: No significant atherosclerosis is seen to explain the previously described myocardial perfusion imaging defect from thestudy dated 02/08/2008 and suggests that this was a false positive findingfrom breast attenuation. Thank you for this referral. . Dictated by: ROLANDO JEONG 03/18/2008 09:48 Electronically signed by: ORLANDO JEONG 03/18/2008 10:00 us Shireen Albarado MD CT ORDERABLES Final Result documented in this encounter Visit Diagnoses Not on filedocumented in this encounter Care Teams Cross Tie Cutter Relationship Specialty Start Date End Date Brian Yanez DO PCP - General 03/07/08 documented as of this encounter
--- OUTSIDE RECORDS SUMMARY | 2025-01-12 03:48 | XMS_ITS | Encounter Summary ---
Author Organization [facility] Address [address] [place] [address] Phone Care Team Providers Care Developer Automatic Name Role Phone Isidoro Chairez MD Unavailable No, Physician Primary Care Provider Naldo Toribio MD Primary Care Provider Jonathan Brown MD Unavailable Denisha Mebmreno MD Primary Care Provider Maxwell Nieves MD Primary Care Provider Naldo Toribio MD Primary Care Provider [phone] Digna, Physician Primary Care Provider Duncan Dobbs MD Primary Care Provider Lilia Rae CMA Unavailable Kayla SchofieldW Unavailable [phone] Nayeli Bell NP Unavailable [phone] Encounter Details Date Type Department Care Team (Latest Contact Info) Description 12/04/2018 Orders Only [facility] Scanning, Provider Social History Tobacco Use Types Packs/Day Years Used Date Smoking Tobacco: Never Smokeless Tobacco: Never Alcohol Use Standard Drinks/Week Comments Yes 0 (1 standard drink = 0.6 oz pur e alcohol) Comments Unknown Sex and Gender Information Value Date Recorded Sex Assigned at Not on file 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 Gender Identity Female 10/20/2023 2:21 PM FURNITURE MOVER HELPER Sexual Orientation Not on file documented as of this encounter Plan of Treatment Not on file documented as of this encounter Procedures Procedure Name Priority Date/Time Associated Diagnosis Comments CARDIOLOGY DOCUMENT SCAN 12/04/2018 documented in this encounter Results * SCAN - CARDIOLOGY (12/04/2018) Anatomical Region Laterality Modality Other us Provider Scanning [facility] CARDIAC SERVICES PROCEDURES Final Result documented in this encounter Visit Diagnoses Not on filedocumented in this encounter Care Teams Developer Automatic Relationship Specialty Start Date End Date No, Physician PCP - General 11/08/18 01/15/19 Nalod Toribio MD PCP - General Emergency Medicine 01/16/19 09/19/19 Denisha Membreno MD [address] [facility] [address] [place] [address] PCP - General Geriatric Medicine 09/20/19 10/14/19 Maxwell Nieves MD [address] [facility] [address] [place] [address] PCP - General Family Medicine 10/15/19 01/06/20 Naldo Toribio MD [address] [facility] [address] [place] [address] PCP - General Emergency Medicine 01/07/20 02/08/21 No, Physician PCP - General 02/09/21 08/24/21 Duncan Dobbs MD PCP - General Internal Medicine 08/25/21 Isidoro Chairez MD [address] [facility] [address] [place] [address] Internal Medicine 07/03/18 01/20/19 Jonathan Brown MD Medical Oncologist/Fiber Optics Engineer Hematology and Oncology 06/11/19 02/08/21 Lilia Rae, [facility] [address] [place] [address] ACO Care Rail Loader 02/24/23 02/27/23 Kayla Schofield, [facility] [address] [place] [address] Entrepreneurial Finance Professor 05/06/24 06/13/24 Nayeli Bell NP [address] [facility] [address] [place] [address] Nurse Practitioner Internal Medicine 12/20/24 documented as of this encounter
--- OUTSIDE RECORDS SUMMARY | 2025-01-12 03:48 | XMS_ITS | Encounter Summary ---
Author Organization [facility] Address 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
--- OUTSIDE RECORDS SUMMARY | 2025-01-12 03:48 | XMS_ITS | Encounter Summary ---
Author Organization [facility] Address 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
--- NOTE | 2025-01-12 04:28 | ED_ITS ---
HPI - General Adult General Chief complaint: Extremity Injury, Lower Stated complaint: LEFT HIP PAIN X 3 WEEKS S/P FALL History of Present Illness HPI narrative: This is an 89-year-old female presenting 3 weeks after a fall with a lump over her left greater trochanter. Patient did not seek medical care after the fall. She has been ambulatory since the incident. She came in today because she has a lump and has not gone away. Related Data Home Medications ?Medication ?Instructions ?Recorded ?Confirmed ?Last Taken ?Type rosuvastatin 5 mg tablet 5 mg PO DAILY 07/29/20 10/02/24 09/27/21 History cholecalciferol (vitamin D3) 1,250 1,250 mcg PO WEEKLY 08/06/24 10/02/24 Unknown History mcg (50,000 unit) capsule mecobalamin (vitamin B12) 10,000 mcg subcut WEEKLY 08/06/24 10/02/24 Unknown History mcg solution for injection Allergies Allergy/AdvReac Type Severity Reaction Status Date / Time chlorpheniramine Allergy Mild Unknown Verified 09/17/24 07:45 codeine Allergy Mild Unknown Verified 09/17/24 07:45 phenylephrine Allergy Mild Unknown Verified 09/17/24 07:45 shellfish derived Allergy Hives Verified 09/17/24 07:45 PMFSH Past Medical History Medical History Hyperlipidemia Hypertension History of kidney stones History of blood clots H/O fracture of radius H/O fracture of humerus Surgical History Surgical History History of cholecystectomy History of hysterectomy History of appendectomy Family History Family History Mother Polio Sibling , brother Sleep apnea Sibling , Sister Heart disease, Onset Age: 90 after having heart surgery Social History Social History Smoking status: Never smoker Second hand tobacco smoke exposure: No Alcohol intake: never Substance use: never Substance use type: does not use Do You Feel Safe in your Home?: Yes Lack of Transportation: No Lack of Food: Never True Current Housing: I Have Housing Concerned About Future Housing: No Difficulty Paying Gas/Electric Bills: No Difficulty Paying for Meds: No Currently Unemployed: No Education: Don't Know Difficulty w/ Childcare or Family Care: No Occupation/Education: retired 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 Head: atraumatic. EYES: EOMI, NOSE: Atraumatic NECK: Trachea midline RESPIRATORY: No increased rate of breathing CARDIOVASCULAR: RRR, ABDOMINAL: Non-distended MUSCULOSKELETAl: Focal exam of the left lower extremity revealed no pain with internal-external rotation of the hip. No pain in the knee or in the foot. She does have a palpable mass outside the greater trochanter consistent with hematoma. NEURO: Alert. Moving 4/4 extremities SKIN:: Warm, dry. Normal color PSYCHIATRIC: Normal affect Course Vital Signs Vital signs: Vital Signs Temperature 98.5 F 01/12/25 03:20 Pulse Rate 78 01/12/25 03:20 Respiratory Rate 16 01/12/25 03:20 Blood Pressure 131/67 01/12/25 03:20 Pulse Oximetry 100 01/12/25 03:20 Temperature 98.5 F 01/12/25 03:20 Pulse Rate 78 01/12/25 03:20 Respiratory Rate 16 01/12/25 03:20 Blood Pressure 131/67 01/12/25 03:20 Pulse Oximetry 100 01/12/25 03:20 Medical Decision Making MDM Narrative Medical decision making narrative: -Course: 89-year-old female presenting for a lump in her outer thigh after a fall. X-rays negative for fracture. Findings consistent with hematoma. Patient be discharged. Given return precautions -DDX includes but is not limited to: Hematoma, avulsion of the greater trochanter, hip fracture Vital Signs Vital Signs: Vital Signs Temperature 98.5 F 01/12/25 03:20 Pulse Rate 78 01/12/25 03:20 Respiratory Rate 16 01/12/25 03:20 Blood Pressure 131/67 01/12/25 03:20 Pulse Oximetry 100 01/12/25 03:20 Temperature 98.5 F 01/12/25 03:20 Pulse Rate 78 01/12/25 03:20 Respiratory Rate 16 01/12/25 03:20 Blood Pressure 131/67 01/12/25 03:20 Pulse Oximetry 100 01/12/25 03:20 Discharge Plan Discharge Clinical Impression: Hematoma and contusion Patient Disposition: Home, Self-Care Condition: Stable Instructions: Antibiotic Form, Hematoma (ED) Additional Instructions: You were seen in the lump on your left thigh. This will resolve on its own over time. If you develop fevers or any new symptoms you can return to the ED for re-evaluation. Patient Language: [place] Prescriptions: No Action cholecalciferol (vitamin D3) 1,250 mcg (50,000 unit) capsule 1,250 mcg PO WEEKLY mecobalamin (vitamin B12) 10,000 mcg recon soln subcut WEEKLY rosuvastatin 5 mg tablet 5 mg PO DAILY aspirin 81 mg Tablet,Delayed Release (Dr/Ec) 81 mg PO Q12HR 28 Days Qty: 56 0RF citalopram [Celexa] 20 mg Tablet 10 mg PO QAM Qty: 30 0RF tramadol 50 mg tablet 50 mg PO Q6H PRN (Reason: pain) Qty: 90 0RF acetaminophen 325 mg Tablet 650 mg PO Q6H PRN (Reason: Mild Pain (1-3) Or Fever) Qty: 0 0RF polyethylene glycol 3350 [Miralax] 17 gram Powder In Packet 17 g PO QAM PRN (Reason: Constipation - 1st Line) Qty: 0 0RF lisinopril 20 mg Tablet 20 mg PO DAILY Qty: 30 0RF sennosides-docusate sodium [Senokot-S] 8.6-50 mg Tablet 1 tab PO BID Qty: 0 0RF Follow-up/Referrals: UNKNOWN,DOCTOR [Primary Care Provider] -
== END 2025-01-12 04:50 | disposition home or self-care (01) ==
PROVIDERS: Emergency Provider Emergency Medicine
DX: S70.02XA Contusion of left hip, initial encounter (principal); I10 Essential (primary) hypertension; E78.5 Hyperlipidemia, unspecified; Z87.442 Personal history of urinary calculi; Z90.49 Acquired absence of other specified parts of digestive tract; Z90.710 Acquired absence of both cervix and uterus; W19.XXXA Unspecified fall, initial encounter
CPT/HCPCS: 73502; 99283

== ENCOUNTER 2025-02-24 18:05 | Emergency (ER) | payer MEDICARE, BC, SELFPAY ==
--- NOTE | ~2025-02-24 | CT_ITS ---
History: Fall PROCEDURE: CT cervical spine and facial bones without intravenous contrast. COMPARISON: 01/30/2024 TECHNIQUE: Multiple contiguous axial images of the cervical spine and facial bones were performed without the ad ministration of intravenous contrast. DLP: 605 mGy-cm FINDINGS: Preservation of the normal curvature of the cervical spine is identified. No acute fractures are present within the cervical spine. Biapical scarring. No soft tissue abnormality is appreciated. The airway is patent. No acute fractures are identified within the facial bones. Impression: No acute fracture within the cervical spine or facial bones, as detailed above. Reviewed, dictated and finalized at location A. Impression: No acute fracture within the cervical spine or facial bones, as detailed above.
--- NOTE | ~2025-02-24 | XR_ITS ---
CHEST RADIOGRAPH CLINICAL HISTORY: fall . COMPARISON: 01/30/2024 TECHNIQUE: Single portable view of the chest. FINDINGS The cardiomediastinal silhouette is unremarkable. The lungs are clear. IMPRESSION: No focal infiltrate or effusion. Reviewed, dictated and finalized at location A.
--- NOTE | ~2025-02-24 | CT_ITS ---
History: Fall with head injury. Altered mental status PROCEDURE: CT head without contrast. COMPARISON: 06/19/2024 TECHNIQUE: Axial imaging of the head performed from the skull base to the vertex without IV contrast. Sagittal a nd coronal reformations obtained. DLP: 605 mGy-cm FINDINGS: The ventricles are enlarged. The dilatation of the ventricles is proportional to the degree of sulcal prominence, not uncommon in the senescent brain. 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 There is no mass, mass effect or midline shift. There is no abnormal extra-axial fluid collection or intracranial hemorrhage. Visualized paranasal sinuses are clear. The mastoid air cells are well aerated. No acute displaced fractures within the overlying cranium. Impression: No acute intracranial hemorrhage or suspicious mass effect. Reviewed, dictated and finalized at location A. Impression: No acute intracranial hemorrhage or suspicious mass effect.
--- NOTE | ~2025-02-24 | XR_ITS ---
HISTORY: fall COMPARISON: 01/12/2025 TECHNIQUE: Frontal view of the pelvis is performed FINDINGS: Age-appropriate demineralization is noted. Significant degenerative disease within the visualized portion of the lumbar spine. Superior lateral joint space narrowing and sclerosis is identified within the bilateral femoral aceta bular joint spaces. Number No acute fracture or dislocation is appreciated. Fecal stasis is present . Vascular stent within the left common iliac vein. IMPRESSION: Degenerative disease, without acute fracture or dislocation, as detailed above. Reviewed, dictated and finalized at location A.
[2025-02-24 18:04] VITALS: BP 142/76; PULSE 82; RESP 16; TEMP 36.7; O2SAT 100
--- NOTE | 2025-02-24 18:16 | PC.NURSE ---
Pt declines wearing gown.
--- OUTSIDE RECORDS SUMMARY | 2025-02-24 18:35 | XMS_ITS | Continuity of Care Document ---
Author Organization [facility] Address [address] [place] [address] [address] [place] [address] Phone Care Team Providers Care Driving Teacher Name Role Phone Brian Mendez MD, MD Unavailable Unavailab le Allergies, Adverse Reactions, Alerts Substance Reaction Status Criticality codeine Active No Information Medications Medication Instructions Dosage Effective Dates (start - stop) Status Comments Vitamins & Minerals Tab - Active Aspir-81 81 mg Tab take 1 tablet (81MG) by ORAL route every day - Active Vitamin D 50,000 unit Cap take 1 capsule ([id number]) by ORAL route every week - Active [...] Provider Providers Copied on Encounter [facility], [address] [place] [address], [id number], tel:[phone] OPH CONSULT [facility] No Information 0 Vanessa Torres. [address] [facility], [address] [place] [address], [id number] , [place]. tel:[phone] Referring Provider: [place], [address] [facility] [address], [place], [address]. tel:[phone] [facility], [address] [place] [address], [id number], tel:[phone] Oph Consult [facility] No Information 0 Vanessa Torres. [address] [facility], [address] [place] [address], [id number] , [place]. tel:[phone] Referring Provider: [place], [address] [facility] [address], [place], [address]. tel:[phone] [facility], [address] [place] [address], [id number], tel:[phone] Oph Consult [facility] No Information 0 Vanessa Torres. [address] [facility], [address], [place], [place], [id number] , [place]. tel:[phone] Referring [place]: [place], [address] [facility] [address], [place], [address]. tel:[phone] [facility], [address] [place] [address], [id number], tel:[phone] OPH CONSULT [facility] No Information 0 Vanessa Torres. [address] , [address], [id number] , [place]. tel:[phone] Referring Provider: [place], [address] [facility] [address], [place], [address]. tel:[phone] [facility], [address] [place] [address], [id number], tel:[phone] [facility] [place] No Information 0 Vanessa Torres. [address], [address], [place], [place], [id number] , [place]. tel:[phone] [place]: [place], [address] [facility] [address], [place], [address]. tel:[phone] [facility], [address] [place] [address], [id number], tel:[phone] [facility] No Information 0 Salvatore Ortiz. [address], [address], [place], [place], [id number] , [place]. tel:[phone] Referring [place]: [place], [address] [facility] [address], [place], [address]. tel:[phone] [facility], [address] [place] [address], [id number], tel:[phone] Oph Consult [facility] No Information 0 Vanessa Torres. [address], [address], [place], [place], [id number] , [place]. tel:[phone] Referring [place]: [place], [address] [facility] [address], [place], [address]. tel:[phone] Family History Family Member Type Diagnosis Age At Onset No Information Payers Payer name Insurance type Covered libertarian ID Authoriza tion(s) MEDIC[place] OF [place] MB [id number] [facility] Federal BL [id number] Social History Type Description Quantity Date Captured Comments Alcohol Use Details No Caffeine Use Details Tobacco Use Status No Information Smoking Status No Information Sex Female Chief Complaint And Reason For Visit No [...] astigmatism. Assessments Type Assessment Date No Information Patient Care Teams Name Effective Dates (start - stop) Status Members No Information
--- OUTSIDE RECORDS SUMMARY | 2025-02-24 18:35 | XMS_ITS | Encounter Summary ---
Author Organization [facility] Address 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
--- OUTSIDE RECORDS SUMMARY | 2025-02-24 18:35 | XMS_ITS | Encounter Summary ---
Author Organization [employer] Address 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
--- OUTSIDE RECORDS SUMMARY | 2025-02-24 18:35 | XMS_ITS | Encounter Summary ---
Author Organization [employer] Address [address] [place] [address] Care Team Providers Care Icer Machine Operator Name Role Phone Brian Day [...] on file Legal Sex Female 3:34 AM POT SANDER Gender Identity Not on file Sexual Orientation Not on file documented as of this encounter Plan of Treatment Not on file documented as of this encounter Visit Diagnoses Diagnosis Symptomatic menopausal or female climacteric states- Primary documented in this encounter Care Teams Icer Machine Operator Relationship Specialty Start Date End Date Brian Day DO PCP - General 03/07/08 documented as of this encounter
--- OUTSIDE RECORDS SUMMARY | 2025-02-24 18:35 | XMS_ITS | Encounter Summary ---
Author Organization [facility] Address 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
--- OUTSIDE RECORDS SUMMARY | 2025-02-24 18:35 | XMS_ITS | Encounter Summary ---
Author Organization [facility] Address 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
--- OUTSIDE RECORDS SUMMARY | 2025-02-24 18:35 | XMS_ITS | Encounter Summary ---
Author Organization [facility] Address [address] [place] [address] Care Team Providers Care Cigar Machine Feeder Name Role Phone Brian Day DO Primary Care Provider Encounter Details Date Type Department Care Team (Latest Contact Info) Description 05/16/2003 Outpatient Historical HIS [facility] MICHAEL [place], [place] [address] [facility] [address] [place] [address] SCREENING MAMM-MAILG NEOPL-OTHER (Primary Dx) Social History Tobacco Use Types Packs/Day Years Used Date Smoking Tobacco: Never Assessed Comments Unknown Sex and Gender Information Value Date Recorded Sex Assigned at Not on file Legal Sex Female 3:34 AM MOVEMENT ASSEMBLER Gender Identity Not on file Sexual Orientation Not on file documented as of this encounter Plan of Treatment Not on file documented as of this encounter Visit Diagnoses Diagnosis Other screening mammogram- Primary documented in this encounter Care Teams Cigar Machine Feeder Relationship Specialty Start Date End Date Brian Day DO PCP - General 03/07/08 documented as of this encounter
--- OUTSIDE RECORDS SUMMARY | 2025-02-24 18:35 | XMS_ITS | Encounter Summary ---
Author Organization [facility] Address [address] [place] [address] Care Team Providers Care Sports Statistician Name Role Phone Brian Day DO Primary Care Provider Encounter Details Date Type Department Care Team (Late st Contact Info) Description 08/23/2005 Outpatient Historical [facility] Support Serv. (Adt Cardiology-[facility]) [address] 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
--- OUTSIDE RECORDS SUMMARY | 2025-02-24 18:35 | XMS_ITS | Encounter Summary ---
Author Organization [facility] Address 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
--- OUTSIDE RECORDS SUMMARY | 2025-02-24 18:35 | XMS_ITS | Encounter Summary ---
Author Organization [facility] Address [address] [place] [address] Care Team Providers Care Cherry Dipper Name Role Phone Brian Day DO Primary Care Provider Encounter Details Date Type Department Care Team (Latest Contact Info) Description 07/21/2005 Outpatient Historical HIS [facility] MICHAEL Navarro, Fernie Walden MD NO ADDRESS ON FILE HYPERLIPIDEMIA NEC/NOS (Primary Dx) Social History Tobacco Use Types Packs/Day Years Used Date Smoking Tobacco: Never Assessed Comments Unknown Sex and Gender Information Value Date Recorded Sex Assigned at Not on file Legal Sex Female 3:34 AM RELIEF CHARGE NURSE Gender Identity Not on file Sexual [...] ORDERABLES Final Re henryt Performing Organization Address City/[facility]/ZIP Co de Phone Number INTERFACE SYSTEM Refer [...] ORDERABLES Final Re sult Performing Organization Address City/[facility]/[place] Co de Phone Number INTERFACE SYSTEM Refer to clinic/hospital department documented in this encounter Visit Diagnoses Diagnosis Other and unspecified hyperlipidemia- Primary documented in this encounter Care Teams Cherry Dipper Relationship Specialty Start Date End Date Brian Day DO PCP - General 03/07/08 documented as of this encounter
--- OUTSIDE RECORDS SUMMARY | 2025-02-24 18:35 | XMS_ITS | Encounter Summary ---
Author Organization [facility] Address [address] [place] [address] Care Team Providers Care Infection Control Coordinator Name Role Phone Brian Day DO Primary Care Provider Encounter Details Date Type Department Care Team (Late st Contact Info) Description 08/08/2005 Outpatient Historical HIS [facility] INTERNISTS Fernie Navarro MD NO ADDRESS ON FILE Social History Tobacco Use Types Packs/Day Years Used Date Smoking Tobacco: Never Assessed Comments Unknown Sex and Gender Information Value Date Recorded Sex Assigned at Not on file Legal Sex Female 3:34 AM PASSENGER SERVICE MANAGER Gender Identity Not on file Sexual Orientation Not on file documented as of this encounter Plan of Treatment Not on file documented as of this encounter Visit Diagnoses Not on filedocumented in this encounter Care Teams Infection Control Coordinator Relationship Specialty Start Date End Date Brian Day DO PCP - General 03/07/08 documented as of this encounter
--- OUTSIDE RECORDS SUMMARY | 2025-02-24 18:35 | XMS_ITS | Continuity of Care Document ---
Author Organization [facility] Address [address] [place] [address] [place] [address] Phone Care Team Providers Care Layout Worker Name Role Phone Naveed Blair Unavailable Unavailable [...] Providers Copied on Encounter Office/outpat ient Visit, [facility], [address] [place] [address] [address], [place], [place], [id number], tel:[phone] [facility] No Information 0 Johnnie Lucio. [address] , [address], [place], [address], [place]. tel:[phone] Office/outpat ient Visit, [facility], [address] [place] [address] [address], [place], [place], [id number], tel:[phone] SEC [facility] No Information 4-201 0 Johnnie Lucio. [address] , [address], [place], [address], [place]. tel:[phone] Referring Provider: Naveed Morgan, [address], [place], [place], [facility]. tel:[phone] [facility], [address], [place], [place], [id number], [place] tel:[phone] [facility] No Information Oct-2 2-200 9 Becerra OD Tree. [address] , [address], [place], [place], [facility], [place]. tel:[phone] [facility], [address] [place] [address] [address], [place], [place], [id number], [place] tel:[phone] [facility] No Information Oct-1 5-200 9 Kilpatrick Shania. [address] , [address], [place], [place], [facility], . tel:[phone] Office/outpat ient Visit, [facility], [address] [place] [address] [address], [place], [place], [id number], [place] tel:[phone] [facility] No Information Jd-3 1-200 9 Johnnie Lucio. [facility] , [address], [place], [place], [facility], [place]. tel:[phone] Office/outpat ient Visit, [facility], [address] [place] [address] [address], [place], [place], [id number], [place] tel:[phone] [facility] No Information Aug-2 7-200 8 Johnnie Lucio. [facility] [address] , [address], [place], [place], [facility], [place]. tel:[phone] Office/outpat ient Visit, [facility], [address], [place], [place], [id number], [place] tel:[phone] [facility] No Information Sep-0 7-200 7 Johnnie Lucio. [address] , [address], [place], [address], [place]. tel:[phone] Family History Family Member Type Diagnosis Age At Onset No Information Payers Payer name Insurance type Covered alliance party ID Authoriza tion(s) Medicare [facility] [id number] BCBS [facility] BL [id number] Social History Type Description Quantity Date Captured [...]
--- OUTSIDE RECORDS SUMMARY | 2025-02-24 18:35 | XMS_ITS | Encounter Summary ---
Author Organization [facility] Address [address] [place] [address] Care Team Providers Care Double Cutter Name Role Phone Brian Day DO Primary Care Provider Encounter Details Date Type Department Care Team (Late st Contact Info) Description 07/15/2002 Outpatient Historical HIS [facility] INTERNISTS Fernie Navarro MD NO ADDRESS ON FILE Social History Tobacco Use Types Packs/Day Years Used Date Smoking Tobacco: Never Assessed Comments Unknown Sex and Gender Information Value Date Recorded Sex Assigned at Not on file Legal Sex Female 3:34 AM ASSET ADMINISTRATOR Gender Identity Not on file Sexual Orientation Not on file documented as of this encounter Plan of Treatment Not on file documented as of this encounter Visit Diagnoses Not on filedocumented in this encounter Care Teams Double Cutter Relationship Specialty Start Date End Date Brian Day DO PCP - General 03/07/08 documented as of this encounter
--- OUTSIDE RECORDS SUMMARY | 2025-02-24 18:35 | XMS_ITS | Encounter Summary ---
Author Organization [facility] Address [address] [place] [address] Care Team Providers Care Trade Mark Examiner Name Role Phone Brian Day DO Primary Care Provider Encounter Details Date Type Department Care Team (Late st Contact Info) Description 08/08/2005 Outpatient Historical HIS [facility] INTERNISTS Fernie Navarro MD NO ADDRESS ON FILE Social History Tobacco Use Types Packs/Day Years Used Date Smoking Tobacco: Never Assessed Comments Unknown Sex and Gender Information Value Date Recorded Sex Assigned at Not on file Legal Sex Female 3:34 AM NEWS AGENT Gender Identity Not on file Sexual Orientation Not on file documented as of this encounter Plan of Treatment Not on file documented as of this encounter Visit Diagnoses Not on filedocumented in this encounter Care Teams Trade Mark Examiner Relationship Specialty Start Date End Date Brian Day DO PCP - General 03/07/08 documented as of this encounter
--- OUTSIDE RECORDS SUMMARY | 2025-02-24 18:35 | XMS_ITS | Encounter Summary ---
Author Organization [facility] Address 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
--- OUTSIDE RECORDS SUMMARY | 2025-02-24 18:35 | XMS_ITS | Encounter Summary ---
Author Organization [facility] Address 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
--- OUTSIDE RECORDS SUMMARY | 2025-02-24 18:35 | XMS_ITS | Encounter Summary ---
Author Organization [facility] Address 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
--- OUTSIDE RECORDS SUMMARY | 2025-02-24 18:35 | XMS_ITS | Encounter Summary ---
Author Organization [facility] Address 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
--- OUTSIDE RECORDS SUMMARY | 2025-02-24 18:35 | XMS_ITS | Encounter Summary ---
Author Organization [facility] Address [address] [place] [address] Care Team Providers Care Vehicle Calibration Engineer Name Role Phone Brian Day DO Primary Care Provider Encounter Details Date Type Department Care Team (Latest Contact Info) Description 10/25/2005 Outpatient Historical HIS [facility] MICHAEL Navarro, Fernie Walden MD NO ADDRESS ON FILE HYPERLIPIDEMIA NEC/NOS (Primary Dx) Social History Tobacco Use Types Packs/Day Years Used Date Smoking Tobacco: Never Assessed Comments Unknown Sex and Gender Information Value Date Recorded Sex Assigned at Not on file Legal Sex Female 3:34 AM CHILDREN'S LITERATURE PROFESSOR Gender Identity Not on file Sexual Orientation Not on file documented as of this encounter Plan of Treatment Not on file documented as of this encounter Procedures Procedure Name Priority Date/Time Associated Diagnosis Comments HEPATIC FUNCTION PANEL Routine 10/25/2005 2:54 PM CHILDREN'S LITERATURE PROFESSOR LIPID PANEL Routine 10/25/2005 2:54 PM CHILDREN'S LITERATURE PROFESSOR documented in this encounter Results * HEPATIC FUNCTION PANEL (10/25/2005 2:54 PM CHILDREN'S LITERATURE PROFESSOR) AST 19 12 - 32 U/L INTERFACE SYSTEM ALKALINE PHOSPHATASE 60 35 - 104 U/L INTERFACE SYSTEM BILIRUBIN TOTAL 0.3 0.2 - 1.0 mg/dL INTERFACE SYSTEM ALBUMIN 4.5 3.4 - 4.8 g/dL INTERFACE SYSTEM TOTAL PROTEIN 7.5 6.3 - 8.6 g/dL INTERFACE SYSTEM ALT 19 0 - 31 U/L INTERFACE SYSTEM BILIRUBIN DIRECT 0.1 0.0 - 0.3 mg/dL INTERFACE SYSTEM 10/25/2005 2:54 PM CHILDREN'S LITERATURE PROFESSOR Fernie Navarro MD CHEMISTRY ORDERABLES Final Coral kirkland Performing Organization Address City/[facility] Co de Phone Number INTERFACE SYSTEM Refer to clinic/hospital department * (ABNORMAL) LIPID PANEL (10/25/2005 2:54 PM CHILDREN'S LITERATURE PROFESSOR) LIPID PANEL COMMENT See below INTERFACE SYSTEM [...] section for risk classifications. 10/25/2005 2:54 PM CHILDREN'S LITERATURE PROFESSOR Fernie Navarro MD CHEMISTRY ORDERABLES Final Coral kirkland Performing Organization Address City/[facility] Co de Phone Number INTERFACE SYSTEM Refer to clinic/hospital department documented in this encounter Visit Diagnoses Diagnosis Other and unspecified hyperlipidemia- Primary documented in this encounter Care Teams Vehicle Calibration Engineer Relationship Specialty Start Date End Date Brian Day DO PCP - General 03/07/08 documented as of this encounter
--- OUTSIDE RECORDS SUMMARY | 2025-02-24 18:35 | XMS_ITS | Encounter Summary ---
Author Organization [facility] Address [address] [place] [address] Care Team Providers Care Storyboard Artist Name Role Phone Brian Day DO Primary Care Provider Encounter Details Date Type Department Care Team (Latest Contact Info) Description 10/28/2004 Outpatient Historical HIS [facility] MICHAEL Navarro, Fernie Walden MD NO ADDRESS ON FILE HYPERLIPIDEMIA NEC/NOS (Primary Dx) Social History Tobacco Use Types Packs/Day Years Used Date Smoking Tobacco: Never Assessed Comments Unknown Sex and Gender Information Value Date Recorded Sex Assigned at Not on file Legal Sex Female 3:34 AM ORACLE DATABASE CONSULTANT Gender Identity Not on file Sexual Orientation Not on file documented as of this encounter Plan of Treatment Not on file documented as of this encounter Visit Diagnoses Diagnosis Other and unspecified hyperlipidemia- Primary documented in this encounter Care Teams Storyboard Artist Relationship Specialty Start Date End Date Brian Day DO PCP - General 03/07/08 documented as of this encounter
--- OUTSIDE RECORDS SUMMARY | 2025-02-24 18:35 | XMS_ITS | Encounter Summary ---
Author Organization [facility] Address [address] [place] [address] Care Team Providers Care Unarmed Security Officer Name Role Phone Brian Day DO Primary Care Provider Encounter Details Date Type Department Care Team (Late st Contact Info) Description 11/14/2002 Outpatient Historical HIS [facility] Fernie Navarro MD NO ADDRESS ON FILE Social History Tobacco Use Types Packs/Day Years Used Date Smoking Tobacco: Never Assessed Comments Unknown Sex and Gender Information Value Date Recorded Sex Assigned at Not on file Legal Sex Female 3:34 AM ADVERTISING ASSOCIATE Gender Identity Not on file Sexual Orientation Not on file documented as of this encounter Plan of Treatment Not on file documented as of this encounter Visit Diagnoses Not on filedocumented in this encounter Care Teams Unarmed Security Officer Relationship Specialty Start Date End Date Brian Day DO PCP - General 03/07/08 documented as of this encounter
--- OUTSIDE RECORDS SUMMARY | 2025-02-24 18:35 | XMS_ITS | Encounter Summary ---
Author Organization [facility] Address [address] [place] [address] Care Team Providers Care Electrician Substation Name Role Phone Brian Day DO Primary [...] on file Legal Sex Female 3:34 AM TICKET COLLECTOR OR USHER Gender Identity Not on file Sexual Orientation Not on file documented as of this encounter Plan of Treatment Not on file documented as of this encounter Visit Diagnoses Diagnosis Diverticulosis of colon (without mention of hemorrhage)- Primary documented in this encounter Care Teams Electrician Substation Relationship Specialty Start Date End Date Brian Day DO PCP - General 03/07/08 documented as of this encounter
--- OUTSIDE RECORDS SUMMARY | 2025-02-24 18:35 | XMS_ITS | Encounter Summary ---
Author Organization [facility] Address [address] [place] [address] Care Team Providers Care Ethernet Network Architect Name Role Phone Brian Day DO Primary Care Provider Encounter Details Date Type Department Care Team (Late st Contact Info) Description 07/15/2002 Outpatient Historical HIS [facility] MICHAEL Navarro, Fernie Walden MD NO ADDRESS ON FILE Social History Tobacco Use Types Packs/Day Years Used Date Smoking Tobacco: Never Assessed Comments Unknown Sex and Gender Information Value Date Recorded Sex Assigned at Not on file Legal Sex Female 3:34 AM NEUROPSYCHOLOGY DIVISION CHIEF Gender Identity Not on file Sexual Orientation Not on file documented as of this encounter Plan of Treatment Not on file documented as of this encounter Visit Diagnoses Not on filedocumented in this encounter Care Teams Ethernet Network Architect Relationship Specialty Start Date End Date Brian Day DO PCP - General 03/07/08 documented as of this encounter
--- OUTSIDE RECORDS SUMMARY | 2025-02-24 18:35 | XMS_ITS | Encounter Summary ---
Author Organization [employer] Address [address] [place] [address] Care Team Providers Care Recreation Facility Attendant Name Role Phone Brian Day DO [...] on file Legal Sex Female 3:34 AM LICENSED PHYSICAL THERAPIST ASSISTANT Gender Identity Not on file Sexual Orientation Not on file documented as of this encounter Plan of Treatment Not on file documented as of this encounter Visit Diagnoses Diagnosis Pain in joint, pelvic region and thigh- Primary documented in this encounter Care Teams Recreation Facility Attendant Relationship Specialty Start Date End Date Brian Day DO PCP - General 03/07/08 documented as of this encounter
--- OUTSIDE RECORDS SUMMARY | 2025-02-24 18:35 | XMS_ITS | Encounter Summary ---
Author Organization [facility] Address [address] [place] [address] Care Team Providers Care Actuarial Assistant Name Role Phone Brian Day DO Primary Care Provider Encounter Details Date Type Department Care Team (Late st Contact Info) Description 06/15/2001 Outpatient Historical HIS [facility] MICHAEL Navarro, Fernie Walden MD NO ADDRESS ON FILE Social History Tobacco Use Types Packs/Day Years Used Date Smoking Tobacco: Never Assessed Comments Unknown Sex and Gender Information Value Date Recorded Sex Assigned at Not on file Legal Sex Female 3:34 AM SAW OFFBEARER Gender Identity Not on file Sexual Orientation Not on file documented as of this encounter Plan of Treatment Not on file documented as of this encounter Visit Diagnoses Not on filedocumented in this encounter Care Teams Actuarial Assistant Relationship Specialty Start Date End Date Brian Day DO PCP - General 03/07/08 documented as of this encounter
--- OUTSIDE RECORDS SUMMARY | 2025-02-24 18:35 | XMS_ITS | Encounter Summary ---
Author Organization [facility] Address [address] [place] [address] Care Team Providers Care Stringed Instrument Tuner Name Role Phone Brian Day DO Primary Care Provider Encounter Details Date Type Department Care Team (Late st Contact Info) Description 07/15/2002 Outpatient Historical HIS [facility] Fernie Navarro MD NO ADDRESS ON FILE Social History Tobacco Use Types Packs/Day Years Used Date Smoking Tobacco: Never Assessed Comments Unknown Sex and Gender Information Value Date Recorded Sex Assigned at Not on file Legal Sex Female 3:34 AM COAL TRAM DRIVER Gender Identity Not on file Sexual Orientation Not on file documented as of this encounter Plan of Treatment Not on file documented as of this encounter Visit Diagnoses Not on filedocumented in this encounter Care Teams Stringed Instrument Tuner Relationship Specialty Start Date End Date Brian Day DO PCP - General 03/07/08 documented as of this encounter
--- OUTSIDE RECORDS SUMMARY | 2025-02-24 18:35 | XMS_ITS | Encounter Summary ---
Author Organization [facility] Address [address] [place] [address] Care Team Providers Care Dress Operator Name Role Phone Brian Day DO Primary Care Provider Encounter Details Date Type Department Care Team (Late st Contact Info) Description 08/10/2006 Outpatient Historical HIS [facility] Fernie Navarro MD NO ADDRESS ON FILE Social History Tobacco Use Types Packs/Day Years Used Date Smoking Tobacco: Never Assessed Comments Unknown Sex and Gender Information Value Date Recorded Sex Assigned at Not on file Legal Sex Female 3:34 AM DOG BOARDER Gender Identity Not on file Sexual Orientation Not on file documented as of this encounter Plan of Treatment Not on file documented as of this encounter Visit Diagnoses Not on filedocumented in this encounter Care Teams Dress Operator Relationship Specialty Start Date End Date Brian Day DO PCP - General 03/07/08 documented as of this encounter
--- OUTSIDE RECORDS SUMMARY | 2025-02-24 18:35 | XMS_ITS | Encounter Summary ---
Author Organization [facility] Address [address] [place] [address] Care Team Providers Care Set Up Mechanic Automatic Line Name Role Phone Brian Day DO Primary Care Provider Encounter Details Date Type Department Care Team (Latest Contact Info) Description 02/27/2002 Outpatient Historical HIS [facility] [place]HAEL B[place] II, [place] [id number] [facility] [address] [place] [address] SCREENING MAMM-MAILG NEOPL-OTHER (Primary Dx) Social History Tobacco Use Types Packs/Day Years Used Date Smoking Tobacco: Never Assessed Comments Unknown Sex and Gender Information Value Date Recorded Sex Assigned at Not on file Legal Sex Female 3:34 AM RN TRANSPLANT Gender Identity Not on file Sexual Orientation Not on file documented as of this encounter Plan of Treatment Not on file documented as of this encounter Visit Diagnoses Diagnosis Other screening mammogram- Primary documented in this encounter Care Teams Set Up Mechanic Automatic Line Relationship Specialty Start Date End Date Brian Dya DO PCP - General 03/07/08 documented as of this encounter
--- OUTSIDE RECORDS SUMMARY | 2025-02-24 18:35 | XMS_ITS | Encounter Summary ---
Author Organization [facility] Address [address] [place] [address] Care Team Providers Care Electrical Line Splicer Name Role Phone Brian Day DO Primary Care Provider Encounter Details Date Type Department Care Team (Late st Contact Info) Description 09/13/2002 Outpatient Historical HIS [facility] Fernie Navarro MD NO ADDRESS ON FILE Social History Tobacco Use Types Packs/Day Years Used Date Smoking Tobacco: Never Assessed Comments Unknown Sex and Gender Information Value Date Recorded Sex Assigned at Not on file Legal Sex Female 3:34 AM SENIOR WATER/WASTEWATER ENGINEER Gender Identity Not on file Sexual Orientation Not on file documented as of this encounter Plan of Treatment Not on file documented as of this encounter Visit Diagnoses Not on filedocumented in this encounter Care Teams Electrical Line Splicer Relationship Specialty Start Date End Date Brian Day DO PCP - General 03/07/08 documented as of this encounter
--- OUTSIDE RECORDS SUMMARY | 2025-02-24 18:35 | XMS_ITS | Encounter Summary ---
Author Organization [facility] Address [address] [place] [address] Care Team Providers Care Timber Hand Name Role Phone Brian Day DO Primary Care Provider Encounter Details Date Type Department Care Team (Late st Contact Info) Description 12/13/2001 Outpatient Historical HIS [facility] Fernie Navarro MD NO ADDRESS ON FILE Social History Tobacco Use Types Packs/Day Years Used Date Smoking Tobacco: Never Assessed Comments Unknown Sex and Gender Information Value Date Recorded Sex Assigned at Not on file Legal Sex Female 3:34 AM SENIOR ENTERPRISE ARCHITECT Gender Identity Not on file Sexual Orientation Not on file documented as of this encounter Plan of Treatment Not on file documented as of this encounter Visit Diagnoses Not on filedocumented in this encounter Care Teams Timber Hand Relationship Specialty Start Date End Date Brian Day DO PCP - General 03/07/08 documented as of this encounter
--- OUTSIDE RECORDS SUMMARY | 2025-02-24 18:35 | XMS_ITS | Encounter Summary ---
Author Organization [facility] Address [address] [place] [address] Care Team Providers Care Bee Raiser Name Role Phone Brian Day DO Primary Care Provider Encounter Details Date Type Department Care Team (Latest Contact Info) Description 08/08/2005 Outpatient Historical HIS [facility] MICHAEL Navarro, Fernie Walden MD NO ADDRESS ON FILE ABNORMAL WEIGHT GAIN (Primary Dx) Social History Tobacco Use Types Packs/Day Years Used Date Smoking Tobacco: Never Assessed Comments Unknown Sex and Gender Information Value Date Recorded Sex Assigned at Not on file Legal Sex Female 3:34 AM MANAGER PACKAGE Gender Identity Not on file Sexual Orientation [...] ORDERABLES Final R esult Performing Organization Address City/[facility] de Phone Number INTERFACE SYSTEM Refer to [...] ORDERABLES Final R esult Performing Organization Address City/[facility] Co de Phone Number INTERFACE SYSTEM Refer to clinic/hospital department * TSH (08/08/2005 2:55 PM CDT) TSH 2.36 0.27 - 4.20 uU/mL INTERFACE SYSTEM 08/08/2005 2:55 PM CDT Fernie Navarro MD CHEMISTRY ORDERABLES Final Re sult Performing Organization Address City/[facility] Co mi Phone Number INTERFACE SYSTEM Refer to clinic/hospital [...] ORDERABLES Final Re sult Performing Organization Address [facility] Phone Number INTERFACE SYSTEM Refer to [...] Primary documented in this encounter Care Teams Bee Raiser Relationship Specialty Start Date End Date Brian Day DO PCP - General 03/07/08 documented as of this encounter
--- OUTSIDE RECORDS SUMMARY | 2025-02-24 18:35 | XMS_ITS | Encounter Summary ---
Author Organization [facility] Address [address] [place] [address] Care Team Providers Care After School Coordinator Name Role Phone Brian Day DO Primary Care Provider Encounter Details Date Type Department Care Team (Late st Contact Info) Description 08/28/2001 Outpatient Historical HIS [facility] Lisa Roque MD [address] [facility] [address] [place] [address] Other symptoms involving digestive system(787.99) (Primary Dx) Social History Tobacco Use Types Packs/Day Years Used Date Smoking Tobacco: Never Assessed Comments Unknown Sex and Gender Information Value Date Recorded Sex Assigned at Not on file Legal Sex Female 3:34 AM TELEVISION REPORTER Gender Identity Not on file Sexual Orientation Not on file documented as of this encounter Plan of Treatment Not on file documented as of this encounter Visit Diagnoses Diagnosis Other symptoms involving digestive system(787.99)- Primary Other symptoms involving digestive system documented in this encounter Care Teams After School Coordinator Relationship Specialty Start Date End Date Brian Day DO PCP - General 03/07/08 documented as of this encounter
--- OUTSIDE RECORDS SUMMARY | 2025-02-24 18:35 | XMS_ITS | Encounter Summary ---
Author Organization [employer] Address [address] [place] [address] Care Team Providers Care Mining Manager Name Role Phone Brian Day DO [...] on file Legal Sex Female 3:34 AM STRESS TEST TECHNICIAN Gender Identity Not on file Sexual Orientation Not on file documented as of this encounter Plan of Treatment Not on file documented as of this encounter Visit Diagnoses Diagnosis Other chest pain- Primary documented in this encounter Care Teams Mining Manager Relationship Specialty Start Date End Date Brian Day DO PCP - General 03/07/08 documented as of this encounter
--- OUTSIDE RECORDS SUMMARY | 2025-02-24 18:35 | XMS_ITS | Encounter Summary ---
Author Organization [facility] Address [address] [place] [address] Care Team Providers Care Supervisor Lump Room Name Role Phone Brian Day DO Primary Care Provider Encounter Details Date Type Department Care Team (Late st Contact Info) Description 09/13/2005 Outpatient Historical HIS [facility] Fernie Navarro MD NO ADDRESS ON FILE Social History Tobacco Use Types Packs/Day Years Used Date Smoking Tobacco: Never Assessed Comments Unknown Sex and Gender Information Value Date Recorded Sex Assigned at Not on file Legal Sex Female 3:34 AM POT BUILDER Gender Identity Not on file Sexual Orientation Not on file documented as of this encounter Plan of Treatment Not on file documented as of this encounter Visit Diagnoses Not on filedocumented in this encounter Care Teams Supervisor Lump Room Relationship Specialty Start Date End Date Brian Day DO PCP - General 03/07/08 documented as of this encounter
--- OUTSIDE RECORDS SUMMARY | 2025-02-24 18:35 | XMS_ITS | Encounter Summary ---
Author Organization [facility] Address [address] [place] [address] Care Team Providers Care Filteration Operator Name Role Phone Brian Day DO Primary Care Provider Encounter Details Date Type Department Care Team (Latest Contact Info) Description 05/07/2004 Outpatient Historical HIS [facility] MICHAEL Navarro, Fernie Walden MD NO ADDRESS ON FILE SCREENING MAMM-MAILG NEOPL-OTHER (Primary Dx) Social History Tobacco Use Types Packs/Day Years Used Date Smoking Tobacco: Never Assessed Comments Unknown Sex and Gender Information Value Date Recorded Sex Assigned at Not on file Legal Sex Female 3:34 AM HALF SECTION IRONER Gender Identity Not on file Sexual Orientation Not on file documented as of this encounter Plan of Treatment Not on file documented as of this encounter Visit Diagnoses Diagnosis Other screening mammogram- Primary documented in this encounter Care Teams Filteration Operator Relationship Specialty Start Date End Date Brian Day DO PCP - General 03/07/08 documented as of this encounter
--- OUTSIDE RECORDS SUMMARY | 2025-02-24 18:35 | XMS_ITS | Encounter Summary ---
Author Organization [facility] Address [address] [place] [address] Care Team Providers Care Primer Inspector Name Role Phone Brian Day DO Primary Care Provider Encounter Details Date Type Department Care Team (Late st Contact Info) Description 04/22/2004 Outpatient Historical HIS [facility] Fernie Navarro MD NO ADDRESS ON FILE Social History Tobacco Use Types Packs/Day Years Used Date Smoking Tobacco: Never Assessed Comments Unknown Sex and Gender Information Value Date Recorded Sex Assigned at Not on file Legal Sex Female 3:34 AM OPERATION SHIFT SUPERVISOR Gender Identity Not on file Sexual Orientation Not on file documented as of this encounter Plan of Treatment Not on file documented as of this encounter Visit Diagnoses Not on filedocumented in this encounter Care Teams Primer Inspector Relationship Specialty Start Date End Date Brian Day DO PCP - General 03/07/08 documented as of this encounter
--- OUTSIDE RECORDS SUMMARY | 2025-02-24 18:35 | XMS_ITS | Encounter Summary ---
Author Organization [facility] Address [address] [place] [address] Care Team Providers Care Deck Scaler Name Role Phone Brian Day DO Primary [...] on file Legal Sex Female 3:34 AM MARSH BUGGY OPERATOR Gender Identity Not on file Sexual Orientation Not on file documented as of this encounter Plan of Treatment Not on file documented as of this encounter Visit Diagnoses Diagnosis Edema- Primary documented in this encounter Care Teams Deck Scaler Relationship Specialty Start Date End Date Brian Day DO PCP - General 03/07/08 documented as of this encounter
--- OUTSIDE RECORDS SUMMARY | 2025-02-24 18:35 | XMS_ITS | Encounter Summary ---
Author Organization [facility] Address [address] [place] [address] Care Team Providers Care Protection Agent Name Role Phone Brian Day DO Primary Care Provider Encounter Details Date Type Department Care Team (Late st Contact Info) Description 06/02/2006 Outpatient Historical HIS [facility] Fernie Navarro MD NO ADDRESS ON FILE Social History Tobacco Use Types Packs/Day Years Used Date Smoking Tobacco: Never Assessed Comments Unknown Sex and Gender Information Value Date Recorded Sex Assigned at Not on file Legal Sex Female 3:34 AM TRACTOR TRAILER DRIVER Gender Identity Not on file Sexual Orientation Not on file documented as of this encounter Plan of Treatment Not on file documented as of this encounter Visit Diagnoses Not on filedocumented in this encounter Care Teams Protection Agent Relationship Specialty Start Date End Date Brian Day DO PCP - General 03/07/08 documented as of this encounter
--- OUTSIDE RECORDS SUMMARY | 2025-02-24 18:35 | XMS_ITS | Encounter Summary ---
Author Organization [facility] Address [address] [place] [address] Care Team Providers Care Director Of Promotions Name Role Phone Brian Day DO Primary Care Provider Encounter Details Date Type Department Care Team (Late st Contact Info) Description 01/24/2003 Outpatient Historical [facility] Fernie Navarro MD NO ADDRESS ON FILE Social History Tobacco Use Types Packs/Day Years Used Date Smoking Tobacco: Never Assessed Comments Unknown Sex and Gender Information Value Date Recorded Sex Assigned at Not on file Legal Sex Female 3:34 AM PATHOLOGY TEACHER Gender Identity Not on file Sexual Orientation Not on file documented as of this encounter Plan of Treatment Not on file documented as of this encounter Visit Diagnoses Not on filedocumented in this encounter Care Teams Director Of Promotions Relationship Specialty Start Date End Date Brian Day DO PCP - General 03/07/08 documented as of this encounter
--- OUTSIDE RECORDS SUMMARY | 2025-02-24 18:35 | XMS_ITS | Encounter Summary ---
Author Organization [facility] Address [address] [place] [address] Care Team Providers Care Earth Boring Machine Operator Name Role Phone Brian Day DO Primary Care Provider Encounter Details Date Type Department Care Team (Latest Contact Info) Description 07/16/2004 Outpatient Historical HIS [facility] Navarro, Fernie Walden MD NO ADDRESS ON FILE HYPERLIPIDEMIA NEC/NOS (Primary Dx) Social History Tobacco Use Types Packs/Day Years Used Date Smoking Tobacco: Never Assessed Comments Unknown Sex and Gender Information Value Date Recorded Sex Assigned at Not on file Legal Sex Female 3:34 AM MERCHANDISE SUPERVISOR Gender Identity Not on file Sexual Orientation Not on file documented as of this encounter Plan of Treatment Not on file documented as of this encounter Visit Diagnoses Diagnosis Other and unspecified hyperlipidemia- Primary documented in this encounter Care Teams Earth Boring Machine Operator Relationship Specialty Start Date End Date Brian Day DO PCP - General 03/07/08 documented as of this encounter
--- OUTSIDE RECORDS SUMMARY | 2025-02-24 18:35 | XMS_ITS | Encounter Summary ---
Author Organization [facility] Address 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
--- OUTSIDE RECORDS SUMMARY | 2025-02-24 18:35 | XMS_ITS | Encounter Summary ---
Author Organization [employer] Address [address] [place] [address] Care Team Providers Care Hand Stoner Name Role Phone Brian Day DO Primary Care Provider Encounter Details Date Type Department Care Team (Late st Contact Info) Description 08/10/2006 Outpatient Historical [facility] [address] [facility] [place] [address] Rafy Albarado MD [address] [facility] [facility] [address] [place] [address] Social History Tobacco Use Types Packs/Day Years Used Date Smoking Tobacco: Never Assessed Comments Unknown Sex and Gender Information Value Date Recorded Sex Assigned at Not on file Legal Sex Female 3:34 AM BRIEFCASE SEWER Gender Identity Not on file Sexual Orientation Not on file documented as of this encounter Plan of Treatment Not on file documented as of this encounter Visit Diagnoses Not on filedocumented in this encounter Care Teams Hand Stoner Relationship Specialty Start Date End Date Brian Day DO PCP - General 03/07/08 documented as of this encounter
--- OUTSIDE RECORDS SUMMARY | 2025-02-24 18:35 | XMS_ITS | Encounter Summary ---
Author Organization [email or web address] Address 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
--- NOTE | 2025-02-24 18:36 | ED.FALL ---
HPI - Fall General Chief Complaint: Fall Stated Complaint: fall Time Seen by Provider: 02/24/25 18:28 Source: patient Mode of arrival: EMS Limitations: no limitations History of Present Illness HPI Narrative: This is an 89-year-old female that presents to the emergency department after a fall today with head injury. Reports she tripped and fell. Hit her head on a chair. Presents for evaluation. No further complaints. Related Data Home Medications ?Medication ?Instructions ?Recorded ?Confirmed ?Last Taken ?Type rosuvastatin 5 mg tablet 5 mg PO DAILY 07/29/20 10/02/24 09/27/21 History cholecalciferol (vitamin D3) 1,250 1,250 mcg PO WEEKLY 08/06/24 10/02/24 Unknown History mcg (50,000 unit) capsule mecobalamin (vitamin B12) 10,000 mcg subcut WEEKLY 08/06/24 10/02/24 Unknown History mcg solution for injection Allergies Allergy/AdvReac Type Severity Reaction Status Date / Time chlorpheniramine Allergy Mild Unknown Verified 09/17/24 07:45 codeine Allergy Mild Unknown Verified 09/17/24 07:45 phenylephrine Allergy Mild Unknown Verified 09/17/24 07:45 shellfish derived Allergy Hives Verified 09/17/24 07:45 Review of Systems Review of Systems: CONSTITUTIONAL: Denies fever CARDIOVASCULAR: Denies chest pain GASTROINTESTINAL: Denies abdominal pain, nausea, vomiting MUSCULOSKELETAL: Denies back pain, joint pain, or myalgia. NEUROLOGIC: Denies headache, numbness, or weakness. All systems reviewed & are unremarkable except as noted in HPI and below PMFSH Past Medical History Medical History Hyperlipidemia Hypertension History of kidney stones History of blood clots H/O fracture of radius H/O fracture of humerus Surgical History Surgical History History of cholecystectomy History of hysterectomy History of appendectomy Family History Family History Mother Polio Sibling , brother Sleep apnea Sibling , Sister Heart disease, Onset Age: 90 after having heart surgery Social History Social History Smoking status: Never smoker Second hand tobacco smoke exposure: No Alcohol intake: never Substance use: never Substance use type: does not use Do You Feel Safe in your Home?: Yes Lack of Transportation: No Lack of Food: Never True Current Housing: I Have Housing Concerned About Future Housing: No Difficulty Paying Gas/Electric Bills: No Difficulty Paying for Meds: No Currently Unemployed: No Education: Don't Know Difficulty w/ Childcare or Family Care: No Occupation/Education: retired 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 HEAD: Normocephalic, atraumatic. EYES: PERRLA and EOMI. ENT: Nares clear, no rhinorrhea or epistaxis. Mucous membranes moist. Oropharynx without tonsillar hypertrophy exudate or other lesions. Bilateral TMs pearly bahena non-bulging NECK: Supple. No adenopathy or masses. CHEST: Clear to auscultation. No respiratory distress. No wheezes rales or rhonchi HEART: Regular rate and rhythm. No murmur heard. Normal peripheral pulses. ABDOMEN: Soft, nontender, nondistended, normal active bowel sounds. BACK: No midline spinal tenderness EXTREMITIES: Normal range of motion. No edema or obvious deformity. SKIN: Warm, dry, no rash. NEURO: No focal deficits. Alert and oriented x3. CN II-XII grossly intact PSYCH: Normal mood and affect Course Course Emergency Course: patient updated on her workup and agrees with plan of care Vital Signs Vital signs: Vital Signs Temperature 98.1 F 02/24/25 18:04 Pulse Rate 82 02/24/25 18:04 Respiratory Rate 16 02/24/25 18:04 Blood Pressure 142/76 H 02/24/25 18:04 Pulse Oximetry 100 02/24/25 18:04 Oxygen Delivery Room Air 02/24/25 18:04 Temperature 98.1 F 02/25/25 00:00 Pulse Rate 72 02/25/25 07:30 Respiratory Rate 16 02/25/25 07:30 Blood Pressure 136/70 02/25/25 07:30 Pulse Oximetry 100 02/25/25 07:30 Oxygen Delivery Room Air 02/24/25 18:04 MDM - Fall MDM Narrative Medical decision making narrative: Patient presents the emergency department after a fall today with head injury. Patient is neurologically intact. Her vitals are stable. CT brain, cervical spine, facial bones without acute findings. Chest and pelvic x-rays also without acute findings. Patient updated on her workup and agrees with plan of care. She is to follow up with primary provider. She was given warnings to return to the ER Differential Diagnosis Differential diagnosis: Likely compression fracture, concussion with loss of consciousness and other (contusion, subdural hematoma, facial bone fracture) Imaging Data Radiologist's impression: ITS Impressions Head CT 02/24/25 19:12 Impression: No acute intracranial hemorrhage or suspicious mass effect. Head/Cervical Spine/Facial Bones CT 02/24/25 19:19 Impression: No acute fracture within the cervical spine or facial bones, as detailed above. Chest X-Ray 02/24/25 19:28 IMPRESSION: No focal infiltrate or effusion. Pelvis X-Ray 02/24/25 19:33 IMPRESSION: Degenerative disease, without acute fracture or dislocation, as detailed above. Critical Care Time Critical Care Time Critical Care Time: No Discharge Plan Discharge Clinical Impression: Fall Qualifiers: Encounter type: initial encounter Qualified Code(s): W19.XXXA - Unspecified fall, initial encounter Head injury Qualifiers: Encounter type: initial encounter Qualified Code(s): S09.90XA - Unspecified injury of head, initial encounter Patient Disposition: Home, Self-Care Condition: Stable Instructions: Head Injury (ED), Contusion in Adults (ED) Additional Instructions: Return to the emergency department if you experience fever, chest pain, shortness of breath, abdominal pain with nausea and vomiting, weakness, numbness, or any other symptoms that are concerning to you. Rest. Ice to the area. Over the counter pain medication as needed Follow up with primary care doctor Patient Language: Citizen Of [place] Prescriptions: No Action cholecalciferol (vitamin D3) 1,250 mcg (50,000 unit) capsule 1,250 mcg PO WEEKLY mecobalamin (vitamin B12) 10,000 mcg recon soln subcut WEEKLY rosuvastatin 5 mg tablet 5 mg PO DAILY aspirin 81 mg Tablet,Delayed Release (Dr/Ec) 81 mg PO Q12HR 28 Days Qty: 56 0RF citalopram [Celexa] 20 mg Tablet 10 mg PO QAM Qty: 30 0RF tramadol 50 mg tablet 50 mg PO Q6H PRN (Reason: pain) Qty: 90 0RF acetaminophen 325 mg Tablet 650 mg PO Q6H PRN (Reason: Mild Pain (1-3) Or Fever) Qty: 0 0RF polyethylene glycol 3350 [Miralax] 17 gram Powder In Packet 17 g PO QAM PRN (Reason: Constipation - 1st Line) Qty: 0 0RF lisinopril 20 mg Tablet 20 mg PO DAILY Qty: 30 0RF sennosides-docusate sodium [Senokot-S] 8.6-50 mg Tablet 1 tab PO BID Qty: 0 0RF Follow-up/Referrals: UNKNOWN,DOCTOR [Primary Care Provider] -
--- OUTSIDE RECORDS SUMMARY | 2025-02-24 18:36 | XMS_ITS | Encounter Summary ---
Author Organization [facility] Address [address] [place] [address] Care Team Providers Care Care Advocate Name Role Phone Brian Day DO Primary Care Provider Encounter Details Date Type Department Care Team (Late st Contact Info) Description 08/25/2005 Outpatient Historical [facility] Espinoza Crain, DPM [address] [facility] [place] [place] [address] OTHER HAMMER TOE (Primary Dx) Social History Tobacco Use Types Packs/Day Years Used Date Smoking Tobacco: Never Assessed Comments Unknown Sex and Gender Information Value Date Recorded Sex Assigned at Not on file Legal Sex Female 3:34 AM COLLECTIONS REPRESENTATIVE Gender Identity Not on file Sexual Orientation Not on file documented as of this encounter Plan of Treatment Not on file documented as of this encounter Visit Diagnoses Diagnosis Other hammer toe (acquired)- Primary documented in this encounter Care Teams Care Advocate Relationship Specialty Start Date End Date Brian Day DO PCP - General 03/07/08 documented as of this encounter
--- OUTSIDE RECORDS SUMMARY | 2025-02-24 18:36 | XMS_ITS | Encounter Summary ---
Author Organization [facility] Address [address] [place] [address] Care Team Providers Care Net Software Developer Name Role Phone Brian Day DO Primary Care Provider Encounter Details Date Type Department Care Team (Late st Contact Info) Description 07/02/1999 Outpatient Historical HIS [facility] Fernie Navarro MD NO ADDRESS ON FILE Backache, unspecified (Primary Dx) Social History Tobacco Use Types Packs/Day Years Used Date Smoking Tobacco: Never Assessed Comments Unknown Sex and Gender Information Value Date Recorded Sex Assigned at Not on file Legal Sex Female 3:34 AM FRYLINE ATTENDANT Gender Identity Not on file Sexual Orientation Not on file documented as of this encounter Plan of Treatment Not on file documented as of this encounter Visit Diagnoses Diagnosis Backache, unspecified- Primary documented in this encounter Care Teams Net Software Developer Relationship Specialty Start Date End Date Brian Day DO PCP - General 03/07/08 documented as of this encounter
--- OUTSIDE RECORDS SUMMARY | 2025-02-24 18:36 | XMS_ITS | Encounter Summary ---
Author Organization [facility] Address [address] [place] [address] Care Team Providers Care Political Science Research Assistant Name Role Phone Brian Day DO Primary Care Provider Encounter Details Date Type Department Care Team (Latest Contact Info) Description 02/07/2001 Outpatient Historical HIS [facility] Dahl, Duncan Campa MD NO ADDRESS ON FILE Other anaphylactic reaction (Primary Dx) Social History Tobacco Use Types Packs/Day Years Used Date Smoking Tobacco: Never Assessed Comments Unknown Sex and Gender Information Value Date Recorded Sex Assigned at Not on file Legal Sex Female 3:34 AM CERTIFIED NURSE PRACTITIONER Gender Identity Not on file Sexual Orientation Not on file documented as of this encounter Plan of Treatment Not on file documented as of this encounter Visit Diagnoses Diagnosis Other anaphylactic reaction- Primary documented in this encounter Care Teams Political Science Research Assistant Relationship Specialty Start Date End Date Brian Day DO PCP - General 03/07/08 documented as of this encounter
--- OUTSIDE RECORDS SUMMARY | 2025-02-24 18:36 | XMS_ITS | Encounter Summary ---
Author Organization [facility] Address [address] [place] [address] Care Team Providers Care Ornamental Metal Erector Apprentice Name Role Phone Brian Day DO Primary Care Provider Encounter Details Date Type Department Care Team (Late st Contact Info) Description 06/22/1999 Outpatient Historical [facility] Fernie Navarro MD NO ADDRESS ON FILE Social History Tobacco Use Types Packs/Day Years Used Date Smoking Tobacco: Never Assessed Comments Unknown Sex and Gender Information Value Date Recorded Sex Assigned at Not on file Legal Sex Female 3:34 AM MANAGEMENT SUPERVISOR Gender Identity Not on file Sexual Orientation Not on file documented as of this encounter Plan of Treatment Not on file documented as of this encounter Visit Diagnoses Not on filedocumented in this encounter Care Teams Ornamental Metal Erector Apprentice Relationship Specialty Start Date End Date Brian Day DO PCP - General 03/07/08 documented as of this encounter
--- OUTSIDE RECORDS SUMMARY | 2025-02-24 18:36 | XMS_ITS | Encounter Summary ---
Author Organization [facility] Address 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
--- OUTSIDE RECORDS SUMMARY | 2025-02-24 18:36 | XMS_ITS | Encounter Summary ---
Author Organization [facility] Address [address] [facility] Attn: Epic Prelude [address]T [place] [address] Care Team Providers Care Insole Taper Name Role Phone Brian Day DO Primary [...] on file Legal Sex Female 3:34 AM DIRECTOR OF BUSINESS CONTINUITY Gender Identity Not on file Sexual Orientation Not on file documented as of this encounter Plan of Treatment Not on file documented as of this encounter Visit Diagnoses Not on filedocumented in this encounter Care Teams Insole Taper Relationship Specialty Start Date End Date Brian Day DO PCP - General 03/07/08 documented as of this encounter
--- OUTSIDE RECORDS SUMMARY | 2025-02-24 18:36 | XMS_ITS | Encounter Summary ---
Author Organization [employer] Address [address] [place] [address] Care Team Providers Care Coatings Inspector Name Role Phone Brian Yanez DO Primary Care Provider Encounter Details Date Type Department Care Team (Late st Contact Info) Description 02/29/2008 Orders Only [facility] Internal Medicine [address] [place] [address] Brian Yanez DO [address] [place] [address] Social History Tobacco Use Types Packs/Day Years Used Date Smoking Tobacco: Never Assessed Comments Unknown Sex and Gender Information Value Date Recorded Sex Assigned at Not on file Legal Sex Female 3:34 AM RESULTS TECHNICIAN Gender Identity Not on file Sexual Orientation Not on file documented as of this encounter Progress Notes * Brian Yanez DO - 05/02/2008 9:16 AM CDT SPECIALIST REFERRAL REQUEST DATE: FEB 29, 2008 Note created by: Lupe Long 10:29 a Patient Name : GIANNA FORBES [address]: [address] [place] [address] [place] [address] D.O.B: 1935 SSN: [id number] Parent/Guardian if applicable: Patient Insurance: MEDICARE Policy#: [id number] Group #: May We Leave Message At That Number : YES, LEAVE MESSAGE. Referring to: ADULT CARDIOLOGY Dr. Rafy Albarado fax: [phone]. PLEASE SCHEDULE FOR: OV. Reason for referral: [...] test and nuclear stress. 02/01/2008 EKG. OFFICE SIGNAL TOWER OPERATOR & PHONE: Lupe Long FOR SCHEDULING [...] are as follows: the systolic range has eet501's. The diastolic range has been 60's. 786.50-CHEST [...] on filedocumented in this encounter Care Teams Coatings Inspector Relationship Specialty Start Date End Date Brian Yanez DO PCP - General 03/07/08 documented as of this encounter
--- OUTSIDE RECORDS SUMMARY | 2025-02-24 18:36 | XMS_ITS | Encounter Summary ---
Author Organization [facility] Address [address] [place] [address] Care Team Providers Care Cafe Associate Name Role Phone Brian Day DO Primary Care Provider Encounter Details Date Type Department Care Team (Latest Contact Info) Description 06/24/1999 Outpatient Historical [facility] Darrell Parada MD [address] [place] [address] Lumbago (Primary Dx) Social History Tobacco Use Types Packs/Day Years Used Date Smoking Tobacco: Never Assessed Comments Unknown Sex and Gender Information Value Date Recorded Sex Assigned at Not on file Legal Sex Female 3:34 AM MEDICAL STAFF COORDINATOR Gender Identity Not on file Sexual Orientation Not on file documented as of this encounter Plan of Treatment Not on file documented as of this encounter Visit Diagnoses Diagnosis Lumbago- Primary documented in this encounter Care Teams Cafe Associate Relationship Specialty Start Date End Date Brian Day DO PCP - General 03/07/08 documented as of this encounter
--- OUTSIDE RECORDS SUMMARY | 2025-02-24 18:36 | XMS_ITS | Encounter Summary ---
Author Organization [facility] Address [address] [place] [address] Care Team Providers Care Cray Fishing Hand Name Role Phone Brian Day DO Primary Care Provider Encounter Details Date Type Department Care Team (Latest Contact Info) Description 12/05/2008 Outpatient Historical [facility] BLDG Conversion, History Other and Unspecified Hyperlipidemia Social History Tobacco Use Types Packs/Day Years Used Date Smoking Tobacco: Never Alcohol Use Standard Drinks/Week Comments No 0 (1 standard drink = 0.6 oz pur e alcohol) Comments No Sex and Gender Information Value Date Recorded Sex Assigned at Not on file Legal Sex Female 3:34 AM HUSBANDRY PERSON Gender Identity Not on file Sexual Orientation Not on file documented as of this encounter Plan of Treatment Not on file documented as of this encounter Procedures Procedure Name Priority Date/Time Associated Diagnosis Comments LIPID PANEL Routine 12/05/2008 7:14 AM HUSBANDRY PERSON documented in this encounter Results * LIPID PANEL (12/05/2008 7:14 AM HUSBANDRY PERSON) CHOLESTEROL 171 100 - 199 mg/dL [facility] CHOL/HDL RATIO 3.3 2.0 - 5.0 [facility] TRIGLYCERIDE 105 10 - 149 mg/dL [facility] HDL 52 40 - 59 mg/dL [facility] LDL CALCULATED 98 <=99 mg/dL [facility] LIPID PANEL COMMENT See Below [facility] Comment: The adult ATP and pediatric NCEP classifications for lipids are available on the [facility] Intranet at: [email or web address] Select: Lab Policies and Procedures,Current Select: Lipid Panel Interpretation Blood specimen (specimen) 12/05/2008 7:14 AM HUSBANDRY PERSON 12/05/2008 7:39 AM HUSBANDRY PERSON Narrative INTERFACE SYSTEM - 12/05/2008 11:23 AM HUSBANDRY PERSON results to Dr. Jerald Lorenz fax:[phone] results faxed 12/05/08 11:23 AM dl us History Conversion CHEMISTRY ORDERABLES Edited INTERFACE SYSTEM Refer to clinic/hospital department [facility] CLIA# [id number] [address] [place] [address] documented in this encounter Visit Diagnoses Diagnosis Other and unspecified hyperlipidemia documented in this encounter Care Teams Cray Fishing Hand Relationship Specialty Start Date End Date Brian Day DO PCP - General 03/07/08 documented as of this encounter
--- OUTSIDE RECORDS SUMMARY | 2025-02-24 18:36 | XMS_ITS | Encounter Summary ---
Author Organization [facility] Address [address] [place] [address] Care Team Providers Care Writing Manager Name Role Phone Brian Day DO Primary Care Provider Encounter Details Date Type Department Care Team (Late st Contact Info) Description 08/10/2006 Outpatient Historical [facility] [address] [place] [address] Duncan Robert MD [address] [place] [address] Social History Tobacco Use Types Packs/Day Years Used Date Smoking Tobacco: Never Assessed Comments Unknown Sex and Gender Information Value Date Recorded Sex Assigned at Not on file Legal Sex Female 3:34 AM OPERATIONS PLANNER Gender Identity Not on file Sexual Orientation Not on file documented as of this encounter Plan of Treatment Not on file documented as of this encounter Visit Diagnoses Not on filedocumented in this encounter Care Teams Writing Manager Relationship Specialty Start Date End Date Brian Day DO PCP - General 03/07/08 documented as of this encounter
--- OUTSIDE RECORDS SUMMARY | 2025-02-24 18:36 | XMS_ITS | Encounter Summary ---
Author Organization [facility] Address [address] [place] [address] Care Team Providers Care Brick Off Bearer Name Role Phone Brian Yanez DO Primary Care Provider Encounter Details Date Type Department Care Team (Latest Contact Info) Description 02/08/2008 Outpatient Historical [facility] Brian Yanez DO [address] [place] [address] Nonspecific Abnormal Electrocardiogram (ECG) (EKG) Social History Tobacco Use Types Packs/Day Years Used Date Smoking Tobacco: Never Assessed Comments Unknown Sex and Gender Information Value Date Recorded Sex Assigned at Not on file Legal Sex Female 3:34 AM RECOATER Gender Identity Not on file Sexual Orientation [...] INTERFACE SYSTEM - 02/08/2008 9:14 AM CDT [address] [place] [address] [email or web address] Patient: Gianna Forbes MRN: Study ID: Gender: Joanna : 1935 Age: 72 years Race: 1 Room: Bed: Height: Study Date: February 08, 2008 Patient status: Outpatient Weight: Access. #: [id number] POC: Ordering: Kali Attending MD: Kali Admitting [...] 08:59:23 Procedure Note Provider, Historical - 02/08/2008 [address] [address] [place] [address] [email or web address] Study Patient: Gianna Forbes MRN: Study ID: Gender: F : 1935 Age: 72 years Race: 1 Room: Bed: Height: Study Date: February 08, 2008 Patient status: Outpatient Weight: Access. #: [id number] POC: Ordering: Kali Attending MD: Kali Admitting [...] INTERFACE SYSTEM - 02/08/2008 6:05 PM CDT [facility] [address] [place], [place] [address] Admit Date: 02/08/2008 GIANNA FORBES Sex: F Admit Prov: BRIAN YANEZ Date: 1935 Primary Care Prov: BRIAN YANEZ CMRN: [id number] Room: [facility] SSN: [id number] IMAGING SERVICES Ordering Prov: N/A Accession Number: [id number] Interpretation Date of Procedure: 02/08/2008 Procedure Type: [...] Procedure Note Osmin Robert MD - 02/08/2008 [facility] [address] [place], [place] [address] Admit Date: 02/08/2008 GIANNA FORBES Sex: F Admit Prov: BRIAN YANEZ Date: 1935 Primary Care Prov: BRIAN YANEZ CMRN: [id number] Room: [facility] SSN: [id number] IMAGING SERVICES Ordering Prov: N/A Interpretation Date [...] moreminutes. Gated post-stress tomographic imaging was performed [id number] minutes later in same manner. SPECT reconstruction [...] OSMIN ROBERT 02/08/2008 18:05 Brian Yanez DO MD ORDERABLES Final Result Performing Organization Address City/State/[facility] Co de Phone Number INTERFACE SYSTEM Refer to clinic/hospital department documented in this encounter Visit Diagnoses Diagnosis Nonspecific abnormal electrocardiogram (ECG) (EKG) documented in this encounter Care Teams Brick Off Bearer Relationship Specialty Start Date End Date Brian Yanez DO PCP - General 03/07/08 documented as of this encounter
--- OUTSIDE RECORDS SUMMARY | 2025-02-24 18:36 | XMS_ITS | Encounter Summary ---
Author Organization [facility] Address [address] [place] [address] Care Team Providers Care Antique Clock Repairer Name Role Phone Brian Day DO Primary Care Provider Encounter Details Date Type Department Care Team (Latest Contact Info) Description 02/11/2000 Outpatient Historical HIS [facility] MICHAEL [place], [place] [address] [facility] [address] [place] [address] Other screening mammogram (Primary Dx) [...] Primary documented in this encounter Care Teams Antique Clock Repairer Relationship Specialty Start Date End Date Brian Day DO PCP - General 03/07/08 documented as of this encounter
--- OUTSIDE RECORDS SUMMARY | 2025-02-24 18:36 | XMS_ITS | Encounter Summary ---
Author Organization [facility] Address [address] [place] [address] Attn: Epic Prelude ADT [place] [address] Care Team Providers Care Snag Grinder Name Role Phone Brian Day DO Primary Care Provider Encounter Details Date Type Department Care Team (Late st Contact Info) Description 06/16/1989 Outpatient Historical [facility] Juan C HAYWARD MD [address] [place] [address] Social History Tobacco Use Types Packs/Day Years Used Date Smoking Tobacco: Never Assessed Comments Unknown Sex and Gender Information Value Date Recorded Sex Assigned at Not on file Legal Sex Female 3:34 AM SOLAR SALES ASSESSOR Gender Identity Not on file Sexual Orientation Not on file documented as of this encounter Plan of Treatment Not on file documented as of this encounter Visit Diagnoses Not on filedocumented in this encounter Care Teams Snag Grinder Relationship Specialty Start Date End Date Brian Day DO PCP - General 03/07/08 documented as of this encounter
--- OUTSIDE RECORDS SUMMARY | 2025-02-24 18:36 | XMS_ITS | Encounter Summary ---
Author Organization [employer] [facility] Address [address] [place] [address] Care Team Providers Care Charger Name Role Phone Brian Day DO Primary [...] on file Legal Sex Female 3:34 AM RUG HOOKER Gender Identity Not on file Sexual Orientation Not on file documented as of this encounter Plan of Treatment Not on file documented as of this encounter Visit Diagnoses Diagnosis Abdominal pain, unspecified site- Primary documented in this encounter Care Teams Charger Relationship Specialty Start Date End Date Brian Day DO PCP - General 03/07/08 documented as of this encounter
--- OUTSIDE RECORDS SUMMARY | 2025-02-24 18:36 | XMS_ITS | Encounter Summary ---
Author Organization [facility] Address [address] [place] [address] Care Team Providers Care Nuclear Plant Operator Name Role Phone Brian Day [...] on file Legal Sex Female 3:34 AM SHOP TAILOR APPRENTICE Gender Identity Not on file Sexual Orientation Not on file documented as of this encounter Plan of Treatment Not on file documented as of this encounter Visit Diagnoses Not on filedocumented in this encounter Care Teams Nuclear Plant Operator Relationship Specialty Start Date End Date Brian Day DO PCP - General 03/07/08 documented as of this encounter
--- OUTSIDE RECORDS SUMMARY | 2025-02-24 18:36 | XMS_ITS | Encounter Summary ---
Author Organization [facility] Address [address] [facility] Attn: Epic Prelude ADT [place] [address] Care Team Providers Care Textiles And Clothing Teacher Name Role Phone Brian Day DO [...] on file Legal Sex Female 3:34 AM DIGITAL LIBRARIAN Gender Identity Not on file Sexual Orientation Not on file documented as of this encounter Plan of Treatment Not on file documented as of this encounter Visit Diagnoses Not on filedocumented in this encounter Care Teams Textiles And Clothing Teacher Relationship Specialty Start Date End Date Brian Day DO PCP - General 03/07/08 documented as of this encounter
--- OUTSIDE RECORDS SUMMARY | 2025-02-24 18:36 | XMS_ITS | Encounter Summary ---
Author Organization [facility] Address [address] [place] [address] Care Team Providers Care Production Control Clerk Name Role Phone Brian Day DO Primary Care Provider Encounter Details Date Type Department Care Team (Late st Contact Info) Description 03/14/2008 Outpatient Historical HIS [facility] Rafy Rashid MD [address] [place] [address] Precordial Pain Social History Tobacco Use Types Packs/Day Years Used Date Smoking Tobacco: Never Assessed Comments Unknown Sex and Gender Information Value Date Recorded Sex Assigned at Not on file Legal Sex Female 3:34 AM CORPORATE LIBRARIAN Gender Identity Not on file Sexual Orientation Not on file documented as of this encounter Plan of Treatment Not on file documented as of this encounter Procedures Procedure Name Priority Date/Time Associated Diagnosis Comments TSH REFLEXIVE Routine 03/14/2008 8:08 AM CDT HEMOGLOBIN A1C Routine 03/14/2008 8:08 AM CDT LIPID PANEL Routine 03/14/2008 8:08 AM CDT COMPREHENSIVE METABOLIC PANEL Routine 03/14/2008 8:08 AM CDT documented in this encounter Results * TSH WITH REFLEX FT4 (03/14/2008 8:08 AM CDT) TSH 2.72 0.27 - 4.20 uU/mL [facility] Blood specimen (specimen) 03/14/2008 8:08 AM CDT 03/14/2008 8:38 AM CDT Rafy Albarado MD CHEMISTRY ORDERABLES Final Resul t Performing Organization Address City/[facility]/ZIP Co de Phone Number [facility] [address] [place] [address] * HEMOGLOBIN A1C (03/14/2008 8:08 AM CDT) GLUCOSE, MEAN BLOOD 122 mg/dL [facility] HEMOGLOBIN A1C 5.6 4.1 - 6.1 % of Hgb [facility] Blood specimen (specimen) 03/14/2008 8:08 AM CDT 03/14/2008 8:38 AM CDT Rafy Albarado MD CHEMISTRY ORDERABLES Final Resul t Performing Organization Address City/[facility]/ZIP Co de Phone Number [facility] [address] [place], [place] [address] * (ABNORMAL) LIPID PANEL (03/14/2008 8:08 AM CDT) CHOLESTEROL 184 100 - 199 mg/dL [facility] CHOL/HDL RATIO 3.0 2.0 - 5.0 [facility] TRIGLYCERIDE 82 10 - 149 mg/dL [facility] HDL 61(H) 40 - 59 mg/dL [facility] LDL CALCULATED 107(H) <=99 mg/dL [facility] LIPID PANEL COMMENT See Below [facility] Comment: The adult ATP and pediatric NCEP classifications for lipids are available on the [facility] at: [email or web address] Select: Lab Policies and Procedures,Current Select: Lipid Panel Interpretation Blood specimen (specimen) 03/14/2008 8:08 AM CDT 03/14/2008 8:38 AM CDT Rafy Albarado MD CHEMISTRY ORDERABLES Edited [facility] [address] [place] [address] * (ABNORMAL) COMPREHENSIVE METABOLIC PANEL (03/14/2008 8:08 AM CDT) GLUCOSE 105(H) 65 - 99 mg/dL [facility] AST 20 12 - 32 U/L [facility] BUN 25(H) 6 - 20 mg/dL [facility] CALCIUM 9.2 8.4 - 10.2 mg/dL [facility] ALBUMIN 4.1 3.4 - 4.8 g/dL [facility] CHLORIDE 104 96 - 108 mmol/L [facility] CREATININE 1.01(H) 0.51 - 0.95 mg/dL [facility] ALT 16 0 - 31 U/L [facility] SODIUM 139 135 - 145 mmol/L [facility] ALKALINE PHOSPHATASE 43 35 - 104 U/L [facility] CO2 26 22 - 30 mmol/L [facility] BILIRUBIN TOTAL 0.3 0.2 - 1.0 mg/dL [facility] POTASSIUM 4.4 3.5 - 4.9 mmol/L [facility] TOTAL PROTEIN 7.1 6.3 - 8.6 g/dL [facility] GFR, >60 >=60 mL/min/1. 7 sq meter [facility] GFR 54(L) >=60 mL/min/1. 7 sq meter [facility] Comment: Estimated GFR rate interpretative information for both Americans and non- Americans is available on the [facility] at: [email or web address] Select: Lab Policies and Procedures Select: Reference Ranges - GFR Blood specimen (specimen) 03/14/2008 8:08 AM CDT 03/14/2008 8:38 AM CDT Rafy Albarado MD CHEMISTRY ORDERABLES Edited [facility] [address] [facility] [place] [address] documented in this encounter Visit Diagnoses Diagnosis Precordial pain documented in this encounter Care Teams Production Control Clerk Relationship Specialty Start Date End Date Brian Day DO PCP - General 03/07/08 documented as of this encounter
--- OUTSIDE RECORDS SUMMARY | 2025-02-24 18:36 | XMS_ITS | Encounter Summary ---
Author Organization [employer] Address [address] [place] [address] Care Team Providers Care Impregnating Tank Operator Name Role Phone Brian Day DO Primary Care Provider Encounter Details Date Type Department Care Team (Late st Contact Info) Description 07/10/2000 Outpatient Historical [facility] Rolando Haji MD NO ADDRESS ON FILE Er, Authorized P NO ADDRESS ON FILE Urticaria, unspecified (Primary Dx) Social History Tobacco Use Types Packs/Day Years Used Date Smoking Tobacco: Never Assessed Comments Unknown Sex and Gender Information Value Date Recorded Sex Assigned at Not on file Legal Sex Female 3:34 AM CONVENTION PLANNER Gender Identity Not on file Sexual Orientation Not on file documented as of this encounter Plan of Treatment Not on file documented as of this encounter Visit Diagnoses Diagnosis Urticaria, unspecified- Primary documented in this encounter Care Teams Impregnating Tank Operator Relationship Specialty Start Date End Date Brian Day DO PCP - General 03/07/08 documented as of this encounter
--- OUTSIDE RECORDS SUMMARY | 2025-02-24 18:36 | XMS_ITS | Encounter Summary ---
Author Organization [facility] Address [address] [place] [address] Care Team Providers Care Chief Controller Tower Name Role Phone Brian Day DO Primary Care Provider Encounter Details Date Type Department Care Team (Late st Contact Info) Description 06/14/2000 Outpatient Historical HIS [facility] Fernie Navarro MD NO ADDRESS ON FILE Social History Tobacco Use Types Packs/Day Years Used Date Smoking Tobacco: Never Assessed Comments Unknown Sex and Gender Information Value Date Recorded Sex Assigned at Not on file Legal Sex Female 3:34 AM DRAW FRAME TENDER Gender Identity Not on file Sexual Orientation Not on file documented as of this encounter Plan of Treatment Not on file documented as of this encounter Visit Diagnoses Not on filedocumented in this encounter Care Teams Chief Controller Tower Relationship Specialty Start Date End Date Brian Day DO PCP - General 03/07/08 documented as of this encounter
--- OUTSIDE RECORDS SUMMARY | 2025-02-24 18:36 | XMS_ITS | Encounter Summary ---
Author Organization [facility] Address [address] [place] [address] Care Team Providers Care Canvas Cutter Machine Name Role Phone Brian Day DO Primary Care Provider Encounter Details Date Type Department Care Team (Late st Contact Info) Description 03/03/2008 Outpatient Historical [facility] Internal Medicine [address] [place] [address] Brian Day DO [address] [place] [phone] Social History Tobacco Use Types Packs/Day Years Used Date Smoking Tobacco: Never Assessed Comments Unknown Sex and Gender Information Value Date Recorded Sex Assigned at Not on file Legal Sex Female 3:34 AM BACKER UP Gender Identity Not on file Sexual Orientation Not on file documented as of this encounter Plan of Treatment Not on file documented as of this encounter Visit Diagnoses Not on filedocumented in this encounter Care Teams Canvas Cutter Machine Relationship Specialty Start Date End Date Brian Day DO PCP - General 03/07/08 documented as of this encounter
--- OUTSIDE RECORDS SUMMARY | 2025-02-24 18:36 | XMS_ITS | Encounter Summary ---
Author Organization [facility] Address [address] [place] [address] Care Team Providers Care Traffic Or System Dispatcher Name Role Phone Brian Day DO Primary Care Provider Encounter Details Date Type Department Care Team (Late st Contact Info) Description 03/14/2008 Outpatient Historical [facility] Rafy Albarado MD [address] [facility] [address] [place] [address] Precordial Pain Social History Tobacco Use Types Packs/Day Years Used Date Smoking Tobacco: Never Assessed Comments Unknown Sex and Gender Information Value Date Recorded Sex Assigned at Not on file Legal Sex Female 3:[address] Gender Identity Not on file Sexual Orientation Not on file documented as of this encounter Plan of Treatment Not on file documented as of this encounter Visit Diagnoses Diagnosis Precordial pain documented in this encounter Care Teams Traffic Or System Dispatcher Relationship Specialty Start Date End Date Brian Day DO PCP - General 03/07/08 documented as of this encounter
--- OUTSIDE RECORDS SUMMARY | 2025-02-24 18:36 | XMS_ITS | Encounter Summary ---
Author Organization [facility] Address [address] [place] [address] Attn: Epic Prelude ADT [place] [address] Care Team Providers Care Shed Workers Supervisor Name Role Phone Brian Day DO Primary Care Provider Encounter Details Date Type Department Care Team (Late st Contact Info) Description 12/07/1991 Outpatient Historical [facility] Juan C HAYWARD MD [address] [place] [address] Social History Tobacco Use Types Packs/Day Years Used Date Smoking Tobacco: Never Assessed Comments Unknown Sex and Gender Information Value Date Recorded Sex Assigned at Not on file Legal Sex Female 3:34 AM COMPOSING ROOM MACHINIST APPRENTICE Gender Identity Not on file Sexual Orientation Not on file documented as of this encounter Plan of Treatment Not on file documented as of this encounter Visit Diagnoses Not on filedocumented in this encounter Care Teams Shed Workers Supervisor Relationship Specialty Start Date End Date Brian Day DO PCP - General 03/07/08 documented as of this encounter
--- OUTSIDE RECORDS SUMMARY | 2025-02-24 18:36 | XMS_ITS | Encounter Summary ---
Author Organization [facility] Address [address] [place] [address] Care Team Providers Care Distiller Name Role Phone Brian Day DO Primary Care Provider Encounter Details Date Type Department Care Team (Late st Contact Info) Description 06/14/2001 Outpatient Historical [facility] Fernie Navarro MD NO ADDRESS ON FILE Social History Tobacco Use Types Packs/Day Years Used Date Smoking Tobacco: Never Assessed Comments Unknown Sex and Gender Information Value Date Recorded Sex Assigned at Not on file Legal Sex Female 3:34 AM MECHANICAL SOUND TECHNICIAN Gender Identity Not on file Sexual Orientation Not on file documented as of this encounter Plan of Treatment Not on file documented as of this encounter Visit Diagnoses Not on filedocumented in this encounter Care Teams Distiller Relationship Specialty Start Date End Date Brian Day DO PCP - General 03/07/08 documented as of this encounter
--- OUTSIDE RECORDS SUMMARY | 2025-02-24 18:36 | XMS_ITS | Encounter Summary ---
Author Organization [facility] Address [address] [place] [address] Care Team Providers Care Insurance Sales Agent Name Role Phone Brian Day DO Primary Care Provider Encounter Details Date Type Department Care Team (Late st Contact Info) Description 02/29/2008 Outpatient Historical [facility] Internal Medicine [address] [place] [address] Brian Day DO [address] [place] [phone] Social History Tobacco Use Types Packs/Day Years Used Date Smoking Tobacco: Never Assessed Comments Unknown Sex and Gender Information Value Date Recorded Sex Assigned at Not on file Legal Sex Female 3:34 AM MEDIA LIBRARIAN Gender Identity Not on file Sexual Orientation Not on file documented as of this encounter Plan of Treatment Not on file documented as of this encounter Visit Diagnoses Not on filedocumented in this encounter Care Teams Insurance Sales Agent Relationship Specialty Start Date End Date Brian Day DO PCP - General 03/07/08 documented as of this encounter
--- OUTSIDE RECORDS SUMMARY | 2025-02-24 18:36 | XMS_ITS | Encounter Summary ---
Author Organization [facility] Address [address] [place] [address] Care Team Providers Care Vest Maker Name Role Phone Brian Day DO Primary Care Provider Encounter Details Date Type Department Care Team (Late st Contact Info) Description 05/19/2000 Outpatient Historical [facility] Fernie Navarro MD NO ADDRESS ON FILE Social History Tobacco Use Types Packs/Day Years Used Date Smoking Tobacco: Never Assessed Comments Unknown Sex and Gender Information Value Date Recorded Sex Assigned at Not on file Legal Sex Female 3:34 AM SCRAP DROP OPERATOR Gender Identity Not on file Sexual Orientation Not on file documented as of this encounter Plan of Treatment Not on file documented as of this encounter Visit Diagnoses Not on filedocumented in this encounter Care Teams Vest Maker Relationship Specialty Start Date End Date Brian Day DO PCP - General 03/07/08 documented as of this encounter
--- OUTSIDE RECORDS SUMMARY | 2025-02-24 18:36 | XMS_ITS | Clinical Summary ---
Author Organization [facility] Address [address] [facility] [place] [address] Phone Care Team Providers Care Wheel Filler Name Role Phone Brian Day Jessica Primary Care Provider Allergies Active Allergy Reactions Criticality Noted Date Comments Codeine 02/01/2008 Medications 0mega-3 fatty acids-vitamin E (FISH OIL) 1,000 mg Oral Cap Take 1,000 mg by mouth. 1 po qd Active aspirin (TELMA) 81 mg Oral Tab Take 81 mg [...] on file Legal Sex Female 3:34 AM PLASTIC PANEL INSTALLER Gender Identity Not on file Sexual Orientation [...] VACCINE (1 of 2) 1987 PNEUMOCOCCAL VACCINE 50+ YEA RS (2 of 2 - PCV) [...] follow. Dictated by Dr. Tree Jeong MD [facility] Narrative 04/19/2010 9:22 AM CDT Examination: Bone [...] follow. Dictated by Dr. Tree Jeong MD [facility] Brian Day DO DIAGNOSTIC IMAGING ORD ERABLES Final Result from Last 3 Months or Most Recently Relevant to Health Maintenance Insurance MEDICARE PART A AND B [facility] Care Teams Wheel Filler Relationship Specialty Start Date End Date Brian Day DO PCP - General 03/07/08
--- OUTSIDE RECORDS SUMMARY | 2025-02-24 18:36 | XMS_ITS | Encounter Summary ---
Author Organization [facility] Address [address] [place] [address] Care Team Providers Care Color Mixer Name Role Phone Brian Day DO Primary Care Provider Encounter Details Date Type Department Care Team (Latest Contact Info) Description 03/07/2008 Outpatient Historical [facility] AM[facility] Rafy Albarado MD [address] [facility] [address] [place] [address] Essential Hypertension, Benign Social History Tobacco Use Types Packs/Day Years Used Date Smoking Tobacco: Never Assessed Comments Unknown Sex and Gender Information Value Date Recorded Sex Assigned at Not on file Legal Sex Female 3:34 AM PHOTO TECHNICIAN Gender Identity Not on file Sexual Orientation Not on file documented as of this encounter Plan of Treatment Not on file documented as of this encounter Visit Diagnoses Diagnosis Essential hypertension, benign documented in this encounter Care Teams Color Mixer Relationship Specialty Start Date End Date Brian Day DO PCP - General 03/07/08 documented as of this encounter
--- OUTSIDE RECORDS SUMMARY | 2025-02-24 18:36 | XMS_ITS | Encounter Summary ---
Author Organization [facility] Address [address] [place] [address] Care Team Providers Care Life Manager Name Role Phone Brian Day DO Primary Care Provider Encounter Details Date Type Department Care Team (Latest Contact Info) Description 02/07/2001 Outpatient Historical HIS [facility] [place], [place] [address] [facility] [address] [place] [address] Other screening mammogram (Primary Dx) Social History Tobacco Use Types Packs/Day Years Used Date Smoking Tobacco: Never Assessed Comments Unknown Sex and Gender Information Value Date Recorded Sex Assigned at Not on file Legal Sex Female 3:34 AM CLINICAL DENTAL TECHNICIAN Gender Identity Not on file Sexual Orientation Not on file documented as of this encounter Plan of Treatment Not on file documented as of this encounter Visit Diagnoses Diagnosis Other screening mammogram- Primary documented in this encounter Care Teams Life Manager Relationship Specialty Start Date End Date Brian Day DO PCP - General 03/07/08 documented as of this encounter
--- OUTSIDE RECORDS SUMMARY | 2025-02-24 18:36 | XMS_ITS | Encounter Summary ---
Author Organization [facility] Address [address] [place] [address] Care Team Providers Care Outsole Cementer Machine Name Role Phone Brian Day DO Primary Care Provider Encounter Details Date Type Department Care Team (Late st Contact Info) Description 06/25/1999 Outpatient Historical [facility] Natan Pederson MD [address] [address] Lumbago (Primary Dx) Social History Tobacco Use Types Packs/Day Years Used Date Smoking Tobacco: Never Assessed Comments Unknown Sex and Gender Information Value Date Recorded Sex Assigned at Not on file Legal Sex Female 3:34 AM CERTIFIED INDUSTRIAL HYGIENIST Gender Identity Not on file Sexual Orientation Not on file documented as of this encounter Plan of Treatment Not on file documented as of this encounter Visit Diagnoses Diagnosis Lumbago- Primary documented in this encounter Care Teams Outsole Cementer Machine Relationship Specialty Start Date End Date Brian Day DO PCP - General 03/07/08 documented as of this encounter
--- OUTSIDE RECORDS SUMMARY | 2025-02-24 18:36 | XMS_ITS | Encounter Summary ---
Author Organization [facility] Address [address] [place] [address] Care Team Providers Care Data Migration Consultant Name Role Phone Brian Day DO Primary Care Provider Encounter Details Date Type Department Care Team (Late st Contact Info) Description 03/16/1999 Outpatient Historical [facility] MRI DEPT Naatn Pederson MD [address] [address] Hematuria (Primary Dx) Social History Tobacco Use Types Packs/Day Years Used Date Smoking Tobacco: Never Assessed Comments Unknown Sex and Gender Information Value Date Recorded Sex Assigned at Not on file Legal Sex Female 3:[address] Gender Identity Not on file Sexual Orientation Not on file documented as of this encounter Plan of Treatment Not on file documented as of this encounter Visit Diagnoses Diagnosis Hematuria- Primary documented in this encounter Care Teams Data Migration Consultant Relationship Specialty Start Date End Date Brian Day DO PCP - General 03/07/08 documented as of this encounter
--- OUTSIDE RECORDS SUMMARY | 2025-02-24 18:36 | XMS_ITS | Encounter Summary ---
Author Organization [facility] Address [address] [facility] Attn: Epic Prelude ADT [place] [address] Care Team Providers Care Band Presser Name Role Phone Brian Day DO Primary [...] on file Legal Sex Female 3:34 AM PULPER TENDER Gender Identity Not on file Sexual Orientation Not on file documented as of this encounter Plan of Treatment Not on file documented as of this encounter Visit Diagnoses Not on filedocumented in this encounter Care Teams Band Presser Relationship Specialty Start Date End Date Brian Day DO PCP - General 03/07/08 documented as of this encounter
--- OUTSIDE RECORDS SUMMARY | 2025-02-24 18:36 | XMS_ITS | Clinical Summary ---
Author Organization [facility] Address [address] [facility] [address] [place] [address] Phone Care Team Providers Care Shot Fireman Name Role Phone Unavailable Primary Care Provider [...] Maintenance Due Date Last Done Comments Hepatitis C Virus (HCV) Screening 1935 Pneumococcal [...] patient's age to complete this topic Insurance MEDICARE [facility] [place] [address]
--- OUTSIDE RECORDS SUMMARY | 2025-02-24 18:36 | XMS_ITS | Encounter Summary ---
Author Organization [facility] Address [address] [place] [address] Care Team Providers Care Instrument Designer Name Role Phone Brian Day DO Primary Care Provider Encounter Details Date Type Department Care Team (Late st Contact Info) Description 02/29/2008 Outpatient Historical [facility] Internal Medicine [address] [place] [address] Brian Day DO [address] [place] [phone] Social History Tobacco Use Types Packs/Day Years Used Date Smoking Tobacco: Never Assessed Comments Unknown Sex and Gender Information Value Date Recorded Sex Assigned at Not on file Legal Sex Female 3:34 AM INDUSTRIAL YARD BRAKE COUPLER Gender Identity Not on file Sexual Orientation Not on file documented as of this encounter Plan of Treatment Not on file documented as of this encounter Visit Diagnoses Not on filedocumented in this encounter Care Teams Instrument Designer Relationship Specialty Start Date End Date Brian Day DO PCP - General 03/07/08 documented as of this encounter
--- OUTSIDE RECORDS SUMMARY | 2025-02-24 18:36 | XMS_ITS | Encounter Summary ---
Author Organization [facility] Address [address] [place] [address] Care Team Providers Care Cutting And Splicing Supervisor Name Role Phone Brian Day DO Primary Care Provider Encounter Details Date Type Department Care Team (Late st Contact Info) Description 06/22/1999 Outpatient Historical [facility] Fernie Navarro MD NO ADDRESS ON FILE Social History Tobacco Use Types Packs/Day Years Used Date Smoking Tobacco: Never Assessed Comments Unknown Sex and Gender Information Value Date Recorded Sex Assigned at Not on file Legal Sex Female 3:34 AM SKEIN BANDER Gender Identity Not on file Sexual Orientation Not on file documented as of this encounter Plan of Treatment Not on file documented as of this encounter Visit Diagnoses Not on filedocumented in this encounter Care Teams Cutting And Splicing Supervisor Relationship Specialty Start Date End Date Brian Day DO PCP - General 03/07/08 documented as of this encounter
--- OUTSIDE RECORDS SUMMARY | 2025-02-24 18:37 | XMS_ITS | Encounter Summary ---
Author Organization [facility] Address [address] [place] [address] Care Team Providers Care Sales Director Name Role Phone Brian Day DO Primary Care Provider Encounter Details Date Type Department Care Team (Latest Contact Info) Description 01/04/2007 Outpatient Historical HIS [facility] MICHAEL Navarro, Fernie Walden MD NO ADDRESS ON FILE Other and Unspecified Hyperlipidemia (Primary Dx) Social History Tobacco Use Types Packs/Day Years Used Date Smoking Tobacco: Never Assessed Comments Unknown Sex and Gender Information Value Date Recorded Sex Assigned at Not on file Legal Sex Female 3:34 AM CLINIC SCHEDULER Gender Identity Not on file Sexual Orientation Not on file documented as of this encounter Plan of Treatment Not on file documented as of this encounter Procedures Procedure Name Priority Date/Time Associated Diagnosis Comments URINALYSIS W/REFLEX MICROSCOPIC Routine 01/04/2007 12:15 PM CLINIC SCHEDULER HEPATIC FUNCTION PANEL Routine 01/04/2007 12:15 PM CLINIC SCHEDULER LIPID PANEL Routine 01/04/2007 12:15 PM CLINIC SCHEDULER documented in this encounter Results * URINALYSIS (01/04/2007 12:15 PM CLINIC SCHEDULER) COLOR UA Yellow INTERFACE SYSTEM CLARITY UA [...] Negative INTERFACE SYSTEM 01/04/2007 12:1 5 PM CLINIC SCHEDULER Fernie Navarro MD URINE ORDERABLES Edited Performing Organization Address [facility] de Phone Number INTERFACE SYSTEM Refer to clinic/hospital department * HEPATIC FUNCTION PANEL (01/04/2007 12:15 PM CLINIC SCHEDULER) ALKALINE PHOSPHATASE 57 35 - 104 U/L [...] mg/dL INTERFACE SYSTEM 01/04/2007 12:1 5 PM CLINIC SCHEDULER Fernie Navarro MD CHEMISTRY ORDERABLES Edited Performing Organization Address [facility] Phone Number INTERFACE SYSTEM Refer to clinic/hospital department * (ABNORMAL) LIPID PANEL (01/04/2007 12:15 PM CLINIC SCHEDULER) CHOLESTEROL 178 100 - 199 mg/dL INTERFACE SYSTEM TRIGLYCERIDE 76 10 - 149 mg/dL INTERFACE SYSTEM HDL 61(H) 40 - 59 mg/dL INTERFACE SYSTEM CHOL/HDL RATIO 2.9 2.0 - 5.0 INTER FACE SYSTEM LDL CALCULATED 102(H) <=99 mg/dL INTERFACE SYSTEM LIPID PANEL COMMENT See Below INTERFACE SYSTEM Comment: The adult ATP and pediatric NCEP classifications for lipids are available on the [facility] Intranet at: [email or web address] Select: Lab Policies and Procedures Select: Reference Ranges - Lipids 01/04/2007 12:1 5 PM CLINIC SCHEDULER us Fernie Navarro MD CHEMISTRY ORDERABLES Edited Performing Organization Address City/[facility] Co de Phone Number INTERFACE SYSTEM Refer to clinic/hospital department documented in this encounter Visit Diagnoses Diagnosis Other and unspecified hyperlipidemia- Primary documented in this encounter Care Teams Sales Director Relationship Specialty Start Date End Date Brian Day DO PCP - General 03/07/08 documented as of this encounter
--- OUTSIDE RECORDS SUMMARY | 2025-02-24 18:37 | XMS_ITS | Encounter Summary ---
Author Organization [facility] Address [address] [place] [address] Care Team Providers Care Fagoting Machine Operator Name Role Phone Brian Day DO Primary Care Provider Encounter Details Date Type Department Care Team (Late st Contact Info) Description 01/15/2008 Outpatient Historical [facility] [address] [place] [address] Brian Day DO [address] [place] [id number] Social History Tobacco Use Types Packs/Day Years Used Date Smoking Tobacco: Never Assessed Comments Unknown Sex and Gender Information Value Date Recorded Sex Assigned at Not on file Legal Sex Female 3:34 AM PLATE FURNACE OPERATOR Gender Identity Not on file Sexual Orientation Not on file documented as of this encounter Plan of Treatment Not on file documented as of this encounter Visit Diagnoses Not on filedocumented in this encounter Care Teams Fagoting Machine Operator Relationship Specialty Start Date End Date Brian Day DO PCP - General 03/07/08 documented as of this encounter
--- OUTSIDE RECORDS SUMMARY | 2025-02-24 18:37 | XMS_ITS | Clinical Summary ---
Author Organization [facility] ([facility]) Address [address] [place] [address] Care Team Providers Care Hay Stacker Name Role Phone Naldo Toribio MD Primary Care Provider [phone] Source Comments [facility] ([email or web address]),non-owned Affiliates and Associated Physician Practices is amultiple site organization consisting of ambulatory clinics and hospital sitesin [place], [place], [place] and [place]. This disclosure is being madepursuant to the Care Everywhere program and may not contain all information available regarding this patient. Last updated 18.[facility] ([facility]) Allergies Active Allergy Reactions Criticality Noted Date [...] Active vitamin D, ergocalciferol, (DRISDOL) 1.25 MG (39140 UT) capsule TAKE 1 CAPSULE BY MOUTH [...] to complete this topic MENINGOCOCCAL (Group B) VACC INE SHARED DECISION-MAKING Aged Out No longer eligibl e based on patient's age to complete this topic MENINGOCOCCAL GROUPS A/C/Y/W VACCINE Aged Out No longer eligible b ased on patient's age to complete this topic Care Teams Hay Stacker Relationship Specialty Start Date End Date Naldo Toribio MD [address] [place] [address] [address] [place] [address] PCP - General 03/17/21
--- OUTSIDE RECORDS SUMMARY | 2025-02-24 18:37 | XMS_ITS | Encounter Summary ---
Author Organization [employer] [facility] Address [address] [place] [address] Care Team Providers Care Registered Account Administrator Name Role Phone Brian Day DO Primary Care Provider Encounter Details Date Type Department Care Team (Latest Contact Info) Description 08/10/2006 Outpatient Historical HIS [place] [address] [place] [address] Cor Athrscl-Uns Vessel (Primary Dx) Social History Tobacco Use Types Packs/Day Years Used Date Smoking Tobacco: Never Assessed Comments Unknown Sex and Gender Information Value Date Recorded Sex Assigned at Not on file Legal Sex Female 3:34 AM POLICY CHANGE CLERK Gender Identity Not on file Sexual [...] ORDERABLES Final Resul t Performing Organization Address City/[facility]/ZIP Co de Phone Number INTERFACE SYSTEM Refer to clinic/hospital department * CKMB W/REFLEX CK (08/10/2006 12:15 PM CDT) CKMB 3.7 <=3.8 ng/mL INTERFACE SYSTEM CKMB INTERP Negative INTERFAC E SYSTEM 08/10/2006 12:1 5 PM CDT Rafy Albarado MD CHEMISTRY ORDERABLES Final Resul t Performing Organization Address [facility]/ZIP Co de Phone Number INTERFACE SYSTEM Refer [...] ORDERABLES Final Resu lt Performing Organization Address [facility] Phone Number INTERFACE SYSTEM Refer to [...] ORDERABLES Final Resu lt Performing Organization Address [facility] Number INTERFACE SYSTEM Refer to clinic/hospital department * PHOSPHORUS (08/10/2006 12:15 PM CDT) PHOSPHORUS 4.2 2.5 - 4.5 mg/dL INTERFACE SYSTEM 08/10/2006 12:1 5 PM CDT Rafy Albarado MD CHEMISTRY ORDERABLES Final Resul t Performing Organization Address [facility] Phone Number INTERFACE SYSTEM Refer to clinic/hospital department * MAGNESIUM LEVEL (08/10/2006 12:15 PM CDT) MAGNESIUM 2.1 1.5 - 2.5 mg/dL INTERFACE SYSTEM 08/10/2006 12:1 5 PM CDT Result [facility] Rafy Albarado MD CHEMISTRY ORDERABLES Final Resul t Performing Organization Address City/[facility] Phone Number INTERFACE SYSTEM Refer to clinic/hospital [...] SYSTEM 08/10/2006 12:1 5 PM CDT Result [facility] Rafy Albarado MD CHEMISTRY ORDERABLES Final Resul t Performing Organization Address [facility] Phone Number INTERFACE SYSTEM Refer to clinic/hospital [...] heparin 08/10/2006 12:1 5 PM CDT Result [facility] Rafy Albarado MD HEMATOLOGY ORDERABLES Final Resu lt Performing Organization Address City/State/[facility] Co de Phone Number INTERFACE SYSTEM [...] patients with mechanical heart valves or post NH. Pediatric (12 years and under): 1.5 - [...] ORDERABLES Final Resu lt Performing Organization Address City/[facility] Co de Phone Number INTERFACE SYSTEM Refer to clinic/hospital department documented in this encounter Visit Diagnoses Diagnosis Coronary atherosclerosis of unspecified type of vessel, [place] or graft- Primary documented in this encounter Care Teams Registered Account Administrator Relationship Specialty Start Date End Date Brian Day DO PCP - General 03/07/08 documented as of this encounter
--- OUTSIDE RECORDS SUMMARY | 2025-02-24 18:37 | XMS_ITS | Encounter Summary ---
Author Organization [facility] Address [address] [place] [address] Care Team Providers Care Crime Lab Technician Name Role Phone Shay Brain Jessica Primary Care Provider Encounter Details Date Type Department Care Team (Latest Contact Info) Description 11/08/2006 Outpatient Historical HIS [facility] MICHAEL Navarro, Fernie Walden MD NO ADDRESS ON FILE Edema (Primary Dx) Social History Tobacco Use Types Packs/Day Years Used Date Smoking Tobacco: Never Assessed Comments Unknown Sex and Gender Information Value Date Recorded Sex Assigned at Not on file Legal Sex Female 3:34 AM RN FLIGHT Gender Identity Not on file Sexual Orientation Not on file documented as of this encounter Plan of Treatment Not on file documented as of this encounter Procedures Procedure Name Priority Date/Time Associated Diagnosis Comments URINALYSIS W/REFLEX MICROSCOPIC Routine 11/08/2006 9:26 AM RN FLIGHT TSH Routine 11/08/2006 9:16 AM RN FLIGHT HEPATIC FUNCTION PANEL Routine 11/08/2006 9:16 AM RN FLIGHT LIPID PANEL Routine 11/08/2006 9:16 AM RN FLIGHT documented in this encounter Results * (ABNORMAL) URINALYSIS (11/08/2006 9:26 AM RN FLIGHT) COLOR UA Yellow INTERFACE SYSTEM CLARITY UA [...] 2-5 /HPF INTERFACE SYSTEM 11/08/2006 9:26 AM RN FLIGHT Fernie Navarro MD URINE ORDERABLES Final Result Performing Organization Address City/[facility]/ZIP Co de Phone Number INTERFACE SYSTEM Refer to clinic/hospital department * (ABNORMAL) HEPATIC FUNCTION PANEL (11/08/2006 9:16 AM RN FLIGHT) ALKALINE PHOSPHATASE 56 35 - 104 U/L INTERFACE SYSTEM AST 40(H) 12 - 32 U/L INTERFACE SYSTEM ALT 56(H) 0 - 31 U/L INTERFACE SYSTEM TOTAL PROTEIN 7.3 6.3 - 8.6 g/dL INTERFACE SYSTEM ALBUMIN 3.6 3.4 - 4.8 g/dL INTERFACE SYSTEM BILIRUBIN TOTAL 0.4 0.2 - 1.0 mg/dL INTERFACE SYSTEM BILIRUBIN DIRECT 0.1 0.0 - 0.3 mg/dL INTERFACE SYSTEM 11/08/2006 9:16 AM RN FLIGHT Fernie Navarro MD CHEMISTRY ORDERABLES Final Re sult Performing Organization Address [facility]/ZIP Co de Phone Number INTERFACE SYSTEM Refer to clinic/hospital department * (ABNORMAL) LIPID PANEL (11/08/2006 9:16 AM RN FLIGHT) CHOLESTEROL 110 100 - 199 mg/dL INTERFACE [...] available on the [facility] Intranet at: [email or web address] Select: Lab Policies and Procedures Select: Reference Ranges - Lipids 11/08/2006 9:16 AM RN FLIGHT us Fernie Navarro MD CHEMISTRY ORDERABLES Final Re marita Performing Organization Address [facility] de Phone Number INTERFACE SYSTEM Refer to clinic/hospital department * TSH (11/08/2006 9:16 AM RN FLIGHT) TSH 2.53 0.27 - 4.20 uU/mL INTERFACE SYSTEM 11/08/2006 9:16 AM RN FLIGHT us Fernie Navarro MD CHEMISTRY ORDERABLES Final Re henryt Performing Organization Address [facility] Phone Number INTERFACE SYSTEM Refer to clinic/hospital department documented in this encounter Visit Diagnoses Diagnosis Edema- Primary documented in this encounter Care Teams Crime Lab Technician Relationship Specialty Start Date End Date Brian Day DO PCP - General 03/07/08 documented as of this encounter
--- OUTSIDE RECORDS SUMMARY | 2025-02-24 18:37 | XMS_ITS | Encounter Summary ---
Author Organization [facility] Address [address] [place] [address] Care Team Providers Care Senior Mechanical Designer Name Role Phone Brian Day DO Primary Care Provider Encounter Details Date Type Department Care Team (Latest Contact Info) Description 09/27/2006 Outpatient Historical HIS [facility] MICHAEL Navarro, Fernie Walden MD NO ADDRESS ON FILE Other Screening Mammogram (Primary Dx) Social History Tobacco Use Types Packs/Day Years Used Date Smoking Tobacco: Never Assessed Comments Unknown Sex and Gender Information Value Date Recorded Sex Assigned at Not on file Legal Sex Female 3:34 AM SMELTER LINER Gender Identity Not on file Sexual Orientation Not on file documented as of this encounter Plan of Treatment Not on file documented as of this encounter Visit Diagnoses Diagnosis Other screening mammogram- Primary documented in this encounter Care Teams Senior Mechanical Designer Relationship Specialty Start Date End Date Brian Day DO PCP - General 03/07/08 documented as of this encounter
--- OUTSIDE RECORDS SUMMARY | 2025-02-24 18:37 | XMS_ITS | Encounter Summary ---
Author Organization [facility] Address [address] [place] [address] Care Team Providers Care Carpenter Foreman Name Role Phone Brian Day DO Primary Care Provider Encounter Details Date Type Department Care Team (Latest Contact Info) Description 06/23/2008 Outpatient Historical HIS [facility] MICHAEL DUNCANDG Brian Day DO [address] [place] [address] Other and Unspecified Hyperlipidemia Social History Tobacco Use Types Packs/Day Years Used Date Smoking Tobacco: Never Alcohol Use Standard Drinks/Week Comments Not Asked 0 (1 standard drink = 0.6 oz pur e alcohol) Comments No Sex and Gender Information Value Date Recorded Sex Assigned at Not on file Legal Sex Female 3:34 AM SUPERVISOR FABRICATION Gender Identity Not on file Sexual Orientation Not on file documented as of this encounter Plan of Treatment Not on file documented as of this encounter Visit Diagnoses Diagnosis Other and unspecified hyperlipidemia documented in this encounter Care Teams Carpenter Foreman Relationship Specialty Start Date End Date Brian Day DO PCP - General 03/07/08 documented as of this encounter
--- OUTSIDE RECORDS SUMMARY | 2025-02-24 18:37 | XMS_ITS | Encounter Summary ---
Author Organization [facility] Address [address] [place] [address] Care Team Providers Care Balance Staff Inspector Name Role Phone Naldo Toribio MD Primary Care Provider [phone] Encounter Details Date Type Department Care Team (Late st Contact Info) Description 09/22/2022 Lab Requisition [facility] [address] [place] [id number] Grady Foster MD [address] [place] [place] [address] Social History Tobacco Use Types [...] AM CDT) Case Report Dermatopathology Report Case: [id number] Authorizing Provider: Grady Foster MD Collected: 09/21/2022 12:00 AM Ordering Location: [facility] Received: 09/22/2022 09:03 AM Pathologist: Yaquelin Clancy MD Specimen: Skin, left breast 1:11 PM CDT DERMATOPATHOLOGY LABORATORY Final Diagnosis Specimen A. SKIN, left breast: EPIDERMOID CYST WITH SCAR (L72.0) NOT PRESENT AT SAMPLED MARGIN 1:11 PM CDT DERMATOPATHOLOGY LABORATORY Clinical History Previously Inflamed Cyst. Please Check Margins. Path# [id number] 1:11 PM CDT DERMATOPATHOLOGY LABORATORY Gross Description Specimen A: Received is one formalin filled container labeled with the patient's name and designated left breast. The specimen consists of a non-oriented ellipse of skin measuring [id number] and it is inked. The epidermal surface [...] characteristic determined by the Dermatopathology Laboratory at [facility], directed by Dr. Ana Agosto. These tests need not be, and therefore are not, approved by the [place] Food and Drug Administration. The tests are used for clinical purposes. Billing Codes Specimen Charges Stain Charges 85470 1 1:11 PM CDT DERMATOPATHOLOGY LABORATORY Embedded Images 1:11 PM CDT DERMATOPATHOLOGY LABORATORY Pathology/Cytolog y TISSUE SPECIMEN FROM SKIN / Unknown 09/21/2022 09/22/2022 9:03 AM CDT Grady Foster MD LAB - PATHOLOGY/CYTO LOGY ORDERABLES DERMATOPATHOLOGY LABORATORY [facility] - Department of Dermatology [facility] Specialized Medicine [facility] [facility], [address] [phone] documented in this encounter Visit Diagnoses Not on filedocumented in this encounter Care Teams Balance Staff Inspector Relationship Specialty Start Date End Date Naldo Toribio MD [address] [place] [id number] PCP - General 03/17/21 documented as of this encounter
--- OUTSIDE RECORDS SUMMARY | 2025-02-24 18:37 | XMS_ITS | Encounter Summary ---
Author Organization [facility] Address [address] [place] [address] Care Team Providers Care Dressing Room Porter Name Role Phone Brian Day DO Primary Care Provider Encounter Details Date Type Department Care Team (Late st Contact Info) Description 02/01/2008 Outpatient Historical [facility] [address] [place] [address] Brian Day DO [address] [place] [id number] Social History Tobacco Use Types Packs/Day Years Used Date Smoking Tobacco: Never Assessed Comments Unknown Sex and Gender Information Value Date Recorded Sex Assigned at Not on file Legal Sex Female 3:34 AM [employer]ER [employer]W OPERATOR Gender Identity Not on file Sexual Orientation Not on file documented as of this encounter Last Filed Vital Signs Vital Sign Reading Time Taken Comments Blood Pressure 120/70 02/01/2008 10:15 AM MITER SAW OPERATOR Pulse - - Temperature - - Respiratory Rate - - Oxygen Saturation - - Inhaled Oxygen Concentration - - Weight 90.7 kg (200 lb) 02/01/2008 10:15 AM MITER SAW OPERATOR Height - - Body Mass Index - - documented in this encounter Plan of Treatment Not on file documented as of this encounter Visit Diagnoses Not on filedocumented in this encounter Care Teams Dressing Room Porter Relationship Specialty Start Date End Date Brian Day DO PCP - General 03/07/08 documented as of this encounter
--- OUTSIDE RECORDS SUMMARY | 2025-02-24 18:37 | XMS_ITS | Data Portability ---
Author Organization [facility], [employer] Address [address] [address] Care Team Providers Care Software Tester Name Role Phone TAD VENTURA Cigarette Vendor BRENDON ESPINAL Sleep Medicine Assessment Encounter Date [...] (creatine kinase), total, serum 2017 018 lcallison [facility], [address], [place], [address], 8 08:41:28 ALT (alanine aminotrans ferase), serum or plasma 2017 018 lcallison [facility], [address], [place], [address], 8 08:41:28 lipid panel, serum 2017 018 lcallison [facility], [address], [place], [address], 8 08:41:28 fecal occult blood, immunoassa y, stool 2017 018 [facility], [address], [place], [address], 8 08:41:27 BMP, serum or plasma 2017 018 lcaBasharJobs [facility], [address], [place], [address], 8 08:41:28 microalbum in/creatin ine, mass ratio, urine 2017 018 lcaBasharJobs [facility], [address], [place], [address], 8 08:41:28 vitamin B12, serum 2017 018 [employer] [facility], [address], [place], [address], 8 11:54:21 BMP, serum or plasma 2017 018 [employer] [facility], [address], [place], [address], 8 11:54:19 microalbum in/creatin ine, mass ratio, urine 2017 018 [employer] [facility], [address], [place], [address], 8 11:54:20 CK (creatine kinase), total, serum 2017 018 [employer] [facility], [address], [place], [address], 8 11:54:20 ALT (alanine aminotrans ferase), serum or plasma 2017 018 [employer] [facility], [address], [place], [address], 8 11:54:19 lipid panel, serum 2017 018 [employer] [facility], [address], [place], [address], 8 11:54:19 HbA1c (hemoglobi n A1c), blood 2017 018 [facility], [address], [place], [address], 8 11:54:21 fecal occult blood, immunoassa y, stool 2017 018 [employer] [facility], [address], [place], [address], 8 15:19:30 vitamin B6 (pyridoxin e), plasma 2017 018 [facility], [address], [place], [address], 8 11:54:21 vitamin B1 (thiamine) , blood 2016 017 [employer] [facility], [address], [place], [address], 7 18:14:34 vitamin B6 (pyridoxin e), plasma 2016 017 [facility], [address], [place], [address], 7 18:14:33 vitamin B12 + folate, serum or blood 2016 017 [facility], [address], [place], [address], 7 18:14:32 CMP, serum or plasma 2016 017 [facility], [address], [place], [address], 7 18:14:30 microalbum in/creatin ine, mass ratio, urine 2016 017 [facility], [address], [place], [address], 7 18:14:31 HSV 1+2 IgG Ab, CSF 2016 017 [facility], [address], [place], [address], 08:46:55 lipid panel, serum 2016 017 [employer] [facility], [address], [place], [address], 18:14:29 CK (creatine kinase), total, serum 2016 017 [employer] [facility], [address], [place], [address], 18:14:30 CBC w/ auto diff 2016 017 [facility], [address], [place], [address], 7 18:14:31 fecal occult blood, immunoassa y, stool 2016 017 [employer] [facility], [address], [place], [address], 7 17:53:25 TSH + free T4, serum 2016 017 [employer] [facility], [address], [place], [address], 18:14:33 T3, free, serum or plasma 2016 017 [facility], [address], [place], [address], 18:14:33 vitamin B1 (thiamine) , blood 2016 017 [facility], [address], [place], [address], 7 10:25:32 vitamin B6 (pyridoxin e), plasma 2016 017 [facility], [address], [place], [address], 10:25:32 vitamin B12 + folate, serum or blood 2016 017 [facility], [address], [place], [address], 10:25:32 CMP, serum or plasma 2016 017 [facility], [address], [place], [address], 7 14:28:19 microalbum in/creatin ine, mass ratio, urine 2016 017 [facility], [address], [place], [address], 7 10:25:30 HSV 1+2 IgG Ab, CSF 2016 017 [facility], [address], [place], [address], 7 10:25:31 lipid panel, serum 2016 017 [facility], [address], [place], [address], 7 10:25:30 CK (creatine kinase), total, serum 2016 017 [facility], [address], [place], [address], 7 10:25:31 CBC w/ auto diff 2016 017 [facility] [facility], [address], [place], [address], 7 14:17:18 fecal occult blood, immunoassa y, stool 2016 017 [employer], [address], [place], [address], 7 12:49:14 TSH + free T4, serum 2016 017 [facility], [address], [place], [address], 7 10:25:31 T3, free, serum or plasma 2016 017 [employer], [address], [place], [address], 7 10:25:[address] referral 2017 018 irais De MD, [address], [address], 8 08:59:21 gastroente rologist referral 2017 018 ROSA Romo MD, [address] [place], [address], 8 14:25:12 gang boss referral 2017 018 irais Smith DPM, [address] [facility], [place], [place], [address], 8 08:59:[address] referral 2017 018 irais De MD, [address], [place], [address], 8 09:12:[address] referral 2017 018 irais Rodgers MD [facility], [address] [place] [address], [address], 8 09:12:43 gastroente rologist referral 2017 018 ROSA Romo MD, [address] [place], [address], 8 15:30:[address] referral 2016 017 irais De MD, [address], [place], [address], 8 08:57:56 gastroente rologist referral 2016 017 ROSA Romo MD, [address] [place], [address], 7 18:05:[address] referral 2016 017 irais De MD, [address], [place], [address], 7 08:33:[address] referral 2016 017 ELY Ventura MD, [address] [place], [address], 7 10:02:20 gastroente rologist referral 2016 017 ATHENADEON Romo MD, [address] [facility], [place], [address], 7 13:07:06 Procedures None recorded. Surgeries None recorded. Imaging XR, knee, 3 view 2017 018 [facility] (Imaging), [facility] [address], [address], 8 02:59:50 US, doppler, venous - STAT 2017 018 [facility] (Imaging), [facility] [address], [place], [address], 8 08:43:14 XR, ankle 2017 018 [facility] (Imaging), [address] [place] [address] [address], [address], 8 02:59:50 electrocar diogram 2016 017 [facility], [facility], [address], [place], [address], 7 18:00:11 US, duplex, venous, lower extremity 2016 017 [facility] (Imaging), [address] [place] [address] [address], [address], 7 08:39:49 bone density 2016 017 [facility], [facility], [address], [place], [address], 7 13:02:42 electrocar diogram 2016 017 [facility], [facility], [address], [place], [address], 7 16:16:21 US, duplex, venous, lower extremity 2016 017 [facility] ([facility]), [address], [place], [address], 08:38:10 Medication Orders None recorded. Patient TargetsNo targets recorded. Patient Instructions Encounter Date Encounter Id Patient Instructions Last Modified By Organization Details Last Modified Time 09/19/2017 [id number] rosacea: care instructions ELY Not available 09/21/2017 [...] records from PCP Dr Brian Dietrich in [facility] Not available 09/19/2017 12:53:05 I spent 45 minut e face to face time with this patient (> 50% spent on counseling), explaining the test result and counseling patient on pt's medical conditions. Not available 09/19/2017 12:58:07 10/31/2017 [id number] rosacea: care instructions ELY Not available 11/03/2017 [...] weight ELY Not available 11/03/2017 19:09:14 04/30/2018 [id number] rosacea: care instructions Not available 04/30/2018 15:18:59 high blood pressure: care instructions Not available 04/30/2018 15:18:59 learning about high blood pressure Not available 04/30/2018 15:18:59 advised to lose weight Not available 04/30/2018 15:18:59 07/16/2018 [id number] rosacea: care instructions Not available 07/16/2018 14:18:36 advised to lose weight Not available 07/16/2018 14:18:36 ankle: exercises Not available 07/16/2018 14:18:36 Reason for Referral System Support Technician Referral for Sc reening for malignant neoplasm of cervix Referring Physician: Zhanna Stoll, Encounter Date: 09/19/2017 Referring Physician: Zhanna Stoll, Encounter Date: 09/19/2017 Cigarette Vendor Referral for El ectrocardiogram abnormal Referring Physician: Zhanna Stoll, Encounter Date: 09/19/2017 System Support Technician Referral for Sc reening for malignant neoplasm of cervix Referring Physician: Zhanna Stoll, Encounter Date: 10/31/2017 Referring Physician: Zhanna Stoll, Encounter Date: 10/31/2017 System Support Technician Referral for Sc reening for malignant neoplasm of cervix Referring Physician: Zhanna Stoll, Encounter Date: 04/30/2018 Security Guards Dispatcher Referral for Screening for malignant neoplasm of colon Referring Physician: Zhanna Stoll, Encounter Date: 04/30/2018 Referring Physician: Zhanna Stoll, Encounter Date: 04/30/2018 Jewel Hole Driller Referral for Inju ry of ankle Referring Physician: Zhanna Stoll, Encounter Date: 07/16/2018 System Support Technician Referral for Sc reening for malignant neoplasm of cervix Referring Physician: Zhanna Stoll, Encounter Date: 07/16/2018 Security Guards Dispatcher Referral for Screening for malignant neoplasm of colon Referring Physician: Zhanna Stoll, Encounter Date: 07/16/2018 Results Created Date Observation Date Name Description Value Unit Range Abnormal Flag Note LastModifiedBy Organization Detail LastModifiedTime 11/01/20 17 11/04/2017 fecal occul t blood , stool fecal globin by immunochemis try SEE NOTE FECAL GLOBI N BY IMMUN OCHEM ISTRY MICRO NUMBE R: [id number] TEST STATU S: FINAL SPECI MEN SOURC E: INSUR E (TM) FOBT TEST CARD SPECI MEN QUALI TY: ADEQU ATE RESUL T: Not Detec virgil Not Available [facility] [address], [address], 11/04/2017 14:04:07 11/01/20 17 11/05/2017 lipid panel , serum cholesterol, total 124 mg/dL <200 normal Not Available [address], [address], 11/05/2017 18:14:29 11/01/20 17 11/05/2017 lipid panel , serum HDL cholesterol 50 mg/dL >50 low Not Available [facility] [address], [address], 11/05/2017 18:14:29 11/01/20 17 11/05/2017 lipid panel , serum triglyceride s 103 mg/dL <150 normal Not Available [facility] [address], [address], 11/05/2017 18:14:29 11/01/20 17 11/05/2017 lipid panel [...] Sharlene martin SS et al. PANKAJ. 2013; 310(3 0): 2061- 2068 (http ://ed ucati on.Qu estDi agnos tics. com/f aq/FA Q164) Not Available [address] [address] [place], [address], 11/05/2017 18:14:29 11/01/20 17 11/05/2017 lipid panel , serum chol/HDLC ratio 2.5 (calc ) <5.0 normal Not Available [address] [address] [place], [address], 11/05/2017 18:14:29 11/01/20 17 11/05/2017 lipid panel , serum non HDL cholesterol 74 mg/dL _(justus c) <130 normal For patie nts with diabe kanu plus 1 major ASCVD risk facto r, treat ing to a non-H DL-C goal of <100 mg/dL (LDL- C of <70 mg/dL ) is consi dered a thera peuti c optio n. Not Available [address] [place], [address], 11/05/2017 18:14:29 11/01/20 17 11/05/2017 CMP, serum or plasm a glucose 124 mg/dL 65-99 high Fasti ng refer ence inter daquan For someo ne witho ut known diabe kanu, a gluco se value betwe en 100 and 125 mg/dL is consi stent with predi abete s and shoul d be confi rmed with a follo w-up test. Not Available [address] [address] [address], [place], [address], 11/05/2017 18:14:30 11/01/20 17 11/05/2017 CMP, serum or plasm a urea nitrogen (BUN) 21 mg/dL 7-25 normal Not Available [address] [address] [place], [address], 11/05/2017 18:14:30 11/01/20 17 11/05/2017 CMP, serum or plasm a creatinine 1.19 mg/dL 0.60-0 .88 high For patie nts >49 years of age, the refer ence limit for Creat inine is appro xiayet yelitza 13% highe r for peopl e ident ified as Afric an-Am dale n. Not Available [address], [address], 11/05/2017 18:14:30 11/01/20 17 11/05/2017 CMP, serum or plasm a eGFR non-afr. angolan 43 mL/mi n/1.7 3m2 > or = 60 low Not Available [address] [address] [place], [address], 11/05/2017 18:14:30 11/01/20 17 11/05/2017 CMP, serum or plasm a eGFR 50 mL/mi n/1.7 3m2 > or = 60 low Not Available [facility] [address], [address], 11/05/2017 18:14:30 11/01/20 17 11/05/2017 CMP, serum or plasm a BUN/creatini ne ratio 18 (calc ) 6-22 normal Not Available [facility] [address], [address], 11/05/2017 18:14:30 11/01/20 17 11/05/2017 CMP, serum or plasm a sodium 138 mmol/ L 135-14 6 normal Not Available [facility] [address], [address], 11/05/2017 18:14:30 11/01/20 17 11/05/2017 CMP, serum or plasm a potassium 4.6 mmol/ L 3.5-5. 3 normal Not Available [facility] [address], [address], 11/05/2017 18:14:30 11/01/20 17 11/05/2017 CMP, serum or plasm a chloride 104 mmol/ L 98-110 normal Not Available [facility] [address], [address], 11/05/2017 18:14:30 11/01/20 17 11/05/2017 CMP, serum or plasm a carbon dioxide 26 mmol/ L 20-31 normal Not Available [address], [address], 11/05/2017 18:14:30 11/01/20 17 11/05/2017 CMP, serum or plasm a calcium 9.9 mg/dL 8.6-10 .4 normal Not Available [address], [address], 11/05/2017 18:14:30 11/01/20 17 11/05/2017 CMP, serum or plasm a protein, total 7.0 g/dL 6.1-8. 1 normal Not Available [address], [address], 11/05/2017 18:14:30 11/01/20 17 11/05/2017 CMP, serum or plasm a albumin 4.3 g/dL 3.6-5. 1 normal Not Available [address], [address], 11/05/2017 18:14:30 11/01/20 17 11/05/2017 CMP, serum or plasm a globulin 2.7 g/dL_ (calc ) 1.9-3. 7 normal Not Available [address], [address], 11/05/2017 18:14:30 11/01/20 17 11/05/2017 CMP, serum or plasm a albumin/glob ulin ratio 1.6 (calc ) 1.0-2. 5 normal Not Available [address], [address], 11/05/2017 18:14:30 11/01/20 17 11/05/2017 CMP, serum or plasm a bilirubin, total 0.7 mg/dL 0.2-1. 2 normal Not Available [address] [address] [place], [address], 11/05/2017 18:14:30 11/01/20 17 11/05/2017 CMP, serum or plasm a alkaline phosphatase 37 U/L 33-130 normal Not Available [address] [address] [place], [address], 11/05/2017 18:14:30 11/01/20 17 11/05/2017 CMP, serum or plasm a AST 16 U/L 10-35 normal Not Available [address] [address] [place], [address], 11/05/2017 18:14:30 11/01/20 17 11/05/2017 CMP, serum or plasm a ALT 11 U/L 6-29 normal Not Available [address], [address], 11/05/2017 18:14:30 11/01/20 17 11/05/2017 CK (crea dena kinas e), total , serum creatine kinase, total 150 U/L 29-143 high Not Available [address], [address], 11/05/2017 18:14:30 11/01/20 17 11/05/2017 micro album in/cr eatin ine, mass ratio , urine creatinine, random urine 261 mg/dL 20-320 normal Not Available [address] [address] [place], [address], 11/05/2017 18:14:31 11/01/20 17 11/05/2017 micro album in/cr eatin ine, mass ratio , urine microalbumin 1.4 mg/dL see note: normal Refer ence Range : Refer ence Range Not estab lishe d Not Available [address] [address] [place], [address], 11/05/2017 18:14:31 11/01/20 17 11/05/2017 micro album [...] a diagn ostic categ ory. Not Available [address], [address], 11/05/2017 18:14:31 11/01/20 17 11/05/2017 CBC w/ auto diff white blood cell count 5.0 thous and/u L 3.8-10 .8 normal Not Available [address], [address], 11/05/2017 18:14:31 11/01/20 17 11/05/2017 CBC w/ auto diff red blood cell count 3.90 lani on/uL 3.80-5 .10 normal Not Available [address], [address], 11/05/2017 18:14:31 11/01/20 17 11/05/2017 CBC w/ auto diff hemoglobin 12.2 g/dL 11.7-1 5.5 normal Not Available [facility] [address] [place], [address], 11/05/2017 18:14:31 11/01/20 17 11/05/2017 CBC w/ auto diff hematocrit 36.3 % 35.0-4 5.0 normal Not Available [facility] [address], [address], 11/05/2017 18:14:31 11/01/20 17 11/05/2017 CBC w/ auto diff MCV 93.1 fL 80.0-1 00.0 normal Not Available [address], [address], 11/05/2017 18:14:31 11/01/20 17 11/05/2017 CBC w/ auto diff MCH 31.3 pg 27.0-3 3.0 normal Not Available [address], [address], 11/05/2017 18:14:31 11/01/20 17 11/05/2017 CBC w/ auto diff MCHC 33.6 g/dL 32.0-3 6.0 normal Not Available [address], [address], 11/05/2017 18:14:31 11/01/20 17 11/05/2017 CBC w/ auto diff RDW 12.6 % 11.0-1 5.0 normal Not Available [address], [address], 11/05/2017 18:14:31 11/01/20 17 11/05/2017 CBC w/ auto diff platelet count 262 thous and/u L 140-40 0 normal Not Available [address], [address], 11/05/2017 18:14:31 11/01/20 17 11/05/2017 CBC w/ auto diff MPV 9.5 fL 7.5-12 .5 normal Not Available [address], [address], 11/05/2017 18:14:31 11/01/20 17 11/05/2017 CBC w/ auto diff absolute neutrophils 2980 cells /uL 1500-7 800 normal Not Available [address], [address], 11/05/2017 18:14:31 11/01/20 17 11/05/2017 CBC w/ auto diff absolute lymphocytes 1160 cells /uL 850-39 00 normal Not Available [address] [place], [address], 11/05/2017 18:14:31 11/01/20 17 11/05/2017 CBC w/ auto diff absolute monocytes 405 cells /uL 200-95 0 normal Not Available [address] [place], [address], 11/05/2017 18:14:31 11/01/20 17 11/05/2017 CBC w/ auto diff absolute eosinophils 405 cells /uL 15-500 normal Not Available [address], [address], 11/05/2017 18:14:31 11/01/20 17 11/05/2017 CBC w/ auto diff absolute basophils 50 cells /uL 0-200 normal Not Available [address], [address], 11/05/2017 18:14:31 11/01/20 17 11/05/2017 CBC w/ auto diff neutrophils 59.6 % normal Not Available [address], [address], 11/05/2017 18:14:31 11/01/20 17 11/05/2017 CBC w/ auto diff lymphocytes 23.2 % normal Not Available [address] [place], [address], 11/05/2017 18:14:31 11/01/20 17 11/05/2017 CBC w/ auto diff monocytes 8.1 % normal Not Available [address], [address], 11/05/2017 18:14:31 11/01/20 17 11/05/2017 CBC w/ auto diff eosinophils 8.1 % normal Not Available [address] [address] [place], [address], 11/05/2017 18:14:31 11/01/20 17 11/05/2017 CBC w/ auto diff basophils 1.0 % normal Not Available [address], [address], 11/05/2017 18:14:31 11/01/20 17 11/05/2017 hsv (1+2) igg, serum hsv 1 IgG, type specific Ab 5.59 index high Not Available [facility] [address] [address] [place], [address], 11/05/2017 18:14:32 11/01/20 17 11/05/2017 hsv (1+2) [...] or neona adrianne scree genna. Not Available [facility] [address] [address] [place], [address], 11/05/2017 18:14:32 11/01/20 17 11/05/2017 vitam in B12 + folat e, serum or blood vitamin B12 179 pg/mL 200-11 00 low Not Available [facility] [address] [address] [place], [address], 11/05/2017 18:14:32 11/01/20 17 11/05/2017 vitam in B12 + folat e, serum or blood folate, serum >24.0 NG/mL normal Refer ence Range Low: <3.4 Borde rline : 3.4-5 .4 Maria Isabel l: >5.4 Not Available [facility] [address] [address] [place], [address], 11/05/2017 18:14:32 11/01/20 17 11/05/2017 T3, free, serum or plasm a T3, free 3.2 pg/mL 2.3-4. 2 normal Not Available [facility] [address] [address] [place], [address], 11/05/2017 18:14:33 11/01/20 17 11/05/2017 TSH + free T4, serum TSH 2.23 mIU/L 0.40-4 .50 normal Not Available [facility] [address] [address] [place], [address], 11/05/2017 18:14:33 11/01/20 17 11/05/2017 TSH + free T4, serum T4, free 1.1 NG/dL 0.8-1. 8 normal Not Available [facility] [address] [address] [place], [address], 11/05/2017 18:14:33 11/01/20 17 11/05/2017 vitam in [...] for clini justus purpo ses. Not Available [facility] [address] [address] [place], [address], 11/05/2017 18:14:33 11/01/20 17 11/05/2017 vitam in B1 (thia mine) , blood vitamin B1 (thiamine), serum/plasma , lc/MS/MS 17 nmol/ L 8-30 Vitam in suppl ement ation withi n 24 hours prior to blood draw may affec t the accur acy of [facility] ts. This test was devel oped and its daniel tical perfo rmanc e zuleika cteri stics have been deter mined by [facility] Xavier cia. It has not been clear ed or appro janine by FDA. This assay has been valid ated pursu ant to the CLIA regul ation s and is used for clini justus purpo ses. Not Available [facility] [address] [address] [place], [address], 11/05/2017 18:14:34 05/02/20 18 05/06/2018 lipid panel , serum cholesterol, total 132 mg/dL <200 normal Not Available [facility] [address] [place], [address], 05/06/2018 11:54:18 05/02/20 18 05/06/2018 lipid panel , serum HDL cholesterol 43 mg/dL >50 low Not Available [facility] [address] [place], [address], 05/06/2018 11:54:18 05/02/2005/06/2018 lipid panel , serum triglyceride s 141 mg/dL <150 normal Not Available [facility] [address] [address] [place], [address], 05/06/2018 11:54:18 05/02/2005/06/2018 lipid panel , serum LDL-choleste rol 67 mg/dL _(justus c) normal Refer ence range : <100 Trupti able range <100 mg/dL for prima ry preve ntion ; <70 mg/dL for patie nts with CHD or diabe tic patie nts with > or = 2 CHD risk facto rs. LDL-C is now calcu lated using the [facility] kins tho friedman n, which is a valid ated novel piero lopez accur acy than the Fried amy equat ion in the estim ation of LDL-C . Sharlene martin SS et al. PANKAJ. 2013; 310(9 6): 2061- 2068 (http ://ed ucati on.Qu estDi OpinewsTVs. com/f aq/FA Q164) Not Available [facility] [address] [address] [place], [address], 05/06/2018 11:54:18 05/02/20 18 05/06/2018 lipid panel , serum chol/HDLC ratio 3.1 (calc ) <5.0 normal Not Available [facility] [address] [address] [facility] [place], [address], 05/06/2018 11:54:18 05/02/2005/06/2018 lipid panel , serum non HDL cholesterol 89 mg/dL _(justus c) <130 normal For patie nts with diabe kanu plus 1 major ASCVD risk facto r, treat ing to a non-H DL-C goal of <100 mg/dL (LDL- C of <70 mg/dL ) is consi dered a thera peoksana c optio n. Not Available [facility] [address] [place] [address] [place], [address], 05/06/2018 11:54:18 05/02/2005/06/2018 ALT (annette ine amino trans feras e), serum or plasm a ALT 12 U/L 6-29 normal Not Available [facility] [address] [address] [place], [address], 05/06/2018 11:54:19 05/02/20 18 05/06/2018 BMP, serum or plasm a glucose 117 mg/dL 65-99 high Fasti ng refer ence inter daquan For someo ne witho ut known diabe kanu, a gluco se value betwe en 100 and 125 mg/dL is consi stent with predi abete s and shoul d be confi rmed with a follo w-up test. Not Available [facility] [address], [address], 05/06/2018 11:54:19 05/02/20 18 05/06/2018 BMP, serum or plasm a urea nitrogen (BUN) 25 mg/dL 7-25 normal Not Available [facility] [address], [address], 05/06/2018 11:54:19 05/02/2005/06/2018 BMP, serum or plasm a creatinine 1.06 mg/dL 0.60-0 .88 high For patie nts >49 years of age, the refer ence limit for Creat inine is appro ximat yelitza 13% highe r for peopl e ident ified as Afric an-Am dale n. Not Available [facility] [address], [address], 05/06/2018 11:54:19 05/02/2005/06/2018 BMP, serum or plasm a eGFR non-afr. angolan 50 mL/mi n/1.7 3m2 > or = 60 low Not Available [facility] [address] [address] [place], [address], 05/06/2018 11:54:19 05/02/2005/06/2018 BMP, serum or plasm a eGFR 57 mL/mi n/1.7 3m2 > or = 60 low Not Available [facility] [address] [place] [address] [place], [address], 05/06/2018 11:54:19 05/02/2005/06/2018 BMP, serum or plasm a BUN/creatini ne ratio 24 (calc ) 6-22 high Not Available [facility] [address], [address], 05/06/2018 11:54:19 05/02/20 18 05/06/2018 BMP, serum or plasm a sodium 138 mmol/ L 135-14 6 normal Not Available [address], [address], 05/06/2018 11:54:19 05/02/20 18 05/06/2018 BMP, serum or plasm a potassium 5.0 mmol/ L 3.5-5. 3 normal Not Available [address], [address], 05/06/2018 11:54:19 05/02/20 18 05/06/2018 BMP, serum or plasm a chloride 103 mmol/ L 98-110 normal Not Available [address], [address], 05/06/2018 11:54:19 05/02/20 18 05/06/2018 BMP, serum or plasm a carbon dioxide 26 mmol/ L 20-31 normal Not Available [address], [address], 05/06/2018 11:54:19 05/02/20 18 05/06/2018 BMP, serum or plasm a calcium 9.7 mg/dL 8.6-10 .4 normal Not Available [address], [address], 05/06/2018 11:54:19 05/02/20 18 05/06/2018 CK (crea dena kinas e), total , serum creatine kinase, total 193 U/L 29-143 high Not Available [address], [address], 05/06/2018 11:54:20 05/02/20 18 05/06/2018 micro album in/cr eatin ine, mass ratio , urine creatinine, random urine 41 mg/dL 20-320 normal Not Available [address], [address], 05/06/2018 11:54:20 05/02/20 18 05/06/2018 micro album in/cr eatin ine, mass ratio , urine microalbumin <0.2 mg/dL see note: normal Refer ence Range : Refer ence Range Not estab lishe d Not Available [facility] [address] [address], [place], [address], 05/06/2018 11:54:20 05/02/20 18 05/06/2018 micro album [...] a diagn ostic categ ory. Not Available [facility] [address] [address], [place], [address], 05/06/2018 11:54:20 05/02/20 18 05/06/2018 vitam in B12, serum vitamin B12 1436 pg/mL 200-11 00 high Not Available [facility] [address] [address], [place], [address], 05/06/2018 11:54:21 05/02/20 18 05/06/2018 HbA1c (hemo globi n A1c), blood hemoglobin A1C 5.4 %_of_ total _HGB <5.7 normal For the purpo se of scree genan for the prese nce of diabe kanu: [...] Care in Diabe kanu(A DA). Not Available [facility] [address] [place], [address], 05/06/2018 11:54:21 05/02/20 18 05/06/2018 vitam in [...] for clini justus purpo ses. Not Available [facility] [address] [place], [address], 05/06/2018 11:54:21 09/19/20 17 06/28/2017 NM, myoca rdial perfu forrest scan No observ ation record ed. Not Available 2016 17:29:14 09/19/20 17 elect katy castrejon am No observ ation record ed. Not Available 2016 17:29:14 07/16/20 18 07/16/2018 US, doppl er, venou s No observ ation record ed. [address] (Imaging) [address] [place] [address] [address] [facility], [place], [address], 07/18/2018 00:48:10 07/17/20 18 07/16/2018 XR, ankle No observ ation record ed. [address] (Imaging) [address] [place] [address] [address] [facility], [place], [address], 07/18/2018 00:48:10 07/17/20 18 07/16/2018 XR, knee, 3 view No observ ation record ed. [address] (Imaging) [address] [place] [address] [address] [facility], [place], [address], 07/18/2018 00:48:10 07/27/20 18 07/27/2018 MAMMO , diagn ostic , bilat eral No observ ation record ed. [address] [facility] [place] [facility] [place], [address], 07/27/2018 10:45:24 Result Notes None recorded. Problems Name Problem SNOMED Code Status Onset Date Resolution Date Notes Provider Name and Address Organization Details Recorded Time Hypertensi ve disorder 71726676 Active 2016 Linda casillas [facility] 7 11:45:23 Immunizati on refused Active 2016 Alfreda casillas [facility] 7 18:33:38 Deep venous thrombosis of lower extremity 130194046 Active 2013 -- [facility] Isidoro Chairez MD [address], [place], [address], [place] [facility] 8 15:07:52 History of pulmonary embolus 058597382 Active 2017 -- [facility] Isidoro Chairez MD [address], [place], [address], [facility] 8 15:08:11 Atypical chest pain 375162750 Active 2017 improved- HAd angiogram on 09/27/2017 - was ok wiht mild coronary artery dz Isidoro Chairez MD [address], [place], [address], [facility] 8 11:08:06 Peripheral venous insufficie ncy 20754092 Active 2017 improved swelling and varicose veins Had iliac stent placed 09/2017 Had procedure done in 04/02/2018 showed LLE multiple phlebectom ies with no complicati ons Isidoro Chairez MD [address], [place], [address], [facility] 8 11:09:29 Problem Notes None recorded. Procedures Surgical History Date Name Laterality Status Provider Name and Address Organization Details Recorded Time 11/27/19 17 Date of Last Mammogram completed Linda Johnson [facility] 09/19/2017 11:44:05 09/05/20 01 Colonoscopy completed Isidoro Chairez MD [address], [place], [address], [facility] 09/23/2017 11:55:24 Eye Surgery completed Isidoro Chairez MD [address], [place], [address], [facility] 04/30/2018 15:09:10 Unlisted px vascular surgery completed Isidoro Chairez MD [address], [place], [address], [facility] 04/30/2018 15:06:25 Cholecystectomy completed Isidoro nicholson MD [address], [place], [address], [facility] 04/30/2018 15:00:30 Appendectomy completed Isidoro Chairez MD [address], [place], [address], [facility] 04/30/2018 14:59:19 Tonsillectomy completed Isidoro Chairez MD [address], [place], [address], [facility] 04/30/2018 15:00:49 Orthopedic Surgery completed Isidoro Chairez MD [address], [place], [address], [facility] 04/30/2018 15:05:25 Total Hysterectomy completed Isidoro Chairez MD [address], [place], [address], [facility] 04/30/2018 14:58:35 Cardiac Surgery completed Isidoro nicholson MD [address], [place], [address], [facility] 04/30/2018 15:03:55 Imaging Results Imaging Date Name Status LastModified by Organization Details LastModified Time 06/28/2017 NM, myocardial perfusion scan completed [facility] Information not available 10/31/2017 17:29:14 09/19/[address] [facility] Informa tion not available 10/31/2017 17:29:14 07/16/2018 US, doppler, venous completed [address] (Imaging) [address] [place] [address], [address], 07/18/2018 00:48:10 07/16/2018 XR, ankle completed [address] (Imaging) [address] [place] [address], [address], 07/18/2018 00:48:10 07/16/2018 XR, knee, 3 view completed [address] (Imaging) [address] [place] [address], [address], 07/18/2018 00:48:10 07/27/2018 MAMMO, diagnostic, bilateral completed [address] [place], [address], 07/27/2018 10:45:24 Procedure Notes None recorded. Medical Equipment None Reported. Allergies Allergen ID Allergen Name Allergen Category Reaction Reaction Severity Criticality Documentation Date Start Date Code Code System Note Provider Name and Address Organization Details Recorded Time 0298 crab allergeni c extract food hives rash Not available Not available Not available 09/19/2017 73430 0 [facility] 11:[facility]41 6309 codeine medicatio n hives rash Not available Not available Not available 09/19/2017 2670 RxNorm Linda casillas [facility] 7 11:42:55 Medications Name Sig Start Date [...] Updated DateTime 09/19/2017 167.64 cm 34.1 kg/m2 05809.99 g 77 /min 16 /min Linda Johnson [facility] 7 11:58:29 Date Recorded Systolic blood pressure Diastolic blood pressure Provider Name and Address Organization Details Last Updated DateTime 09/19/2017 137 mm[Hg] 80 mm[Hg] Isidoro Chairez MD [address], [place], [address] 09/19/2017 12:46:06 Date Recorded Body height Respiratory rate Heart rate Body mass index (BMI) Body weight Provider Name and Address Organization Details Last Updated DateTime 10/31/2017 167.64 cm 16 /min 84 /min 32.9 kg/m2 11854.84 g Linda Alex [facility] 7 16:58:45 Date Recorded Systolic blood pressure Diastolic blood pressure Provider Name and Address Organization Details Last Updated DateTime 10/31/2017 116 mm[Hg] 73 mm[Hg] Isidoro Chairez MD [address], [place], [address] [place] [address] 10/31/2017 17:52:09 Date Recorded Body height Heart rate Respiratory rate Body temperature Body mass index (BMI) Body weight Provider Name and Address Organization Details Last Updated DateTime 8 167.64 cm 71 /min 16 /min 97.2 [degF] 34.1 kg/m2 60583.9 9 g [facility] 8 14:19:55 Date Recorded Systolic blood pressure Diastolic blood pressure Provider Name and Address Organization Details Last Updated DateTime 04/30/2018 129 mm[Hg] 70 mm[Hg] Isidoro Chairez MD [address], [place], [address] [place] [address] 04/30/2018 15:17:10 Date Recorded Body height Respiratory rate Heart rate Provider Name and Address Organization Details Last Updated DateTime 07/16/2018 167.64 cm 16 /min 71 /min Linda [facility] 07/16/2018 13:44:05 Date Recorded Systolic blood pressure Diastolic blood pressure Provider Name and Address Organization Details Last Updated DateTime 07/16/2018 131 mm[Hg] 73 mm[Hg] Isidoro Chairez MD [address], [place], [address] [place] [address] 07/16/2018 14:17:07 Social History Question Answer Notes LastModified by Organizat ion Details LastModified Time Tobacco Smoking Status Never Smoker Linda Alex [facility] 09/19/2017 11:45:59 Do You Have An Advance [...] available 09/19/2017 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 Information not available 09/19/2017 Marital Status Informatio [...] SNOMED-CT Code Diagnosis ICD10 Code Diagnosis Note 69957 Isidoro Chairez MD [facility], [facility] [address] [place] [address] 09/19/2017 10:25:16 09/19/2017 13:02:41 Benign essential hypertension 4767926 I10 Hyperlipidemia 48382169 E78.5 Rosacea 545037353 L71.9 -- following w/ Dermatolog ist Nimco Causeyk Herpes simplex 96526692 B00.9 Body mass index 30+ - obesity 165559895 Z68.34 -- will advise weight loss-- pt's BMI today is 34.1 (ideal is between 20-25) Active or passive immunization 493868009 Z23 -- Patient does not want to be shots; but she will let me know if she changes her mind. Screening for malignant neoplasm of colon 713144463 Z12.11 -- Patient reports a last colonoscop y was about 15 years ago around 2001 Screening for malignant neoplasm of breast 564156300 Z12.31 -- Patient reports she had a normal mammogram at [facility] this year Summer 2016 Screening for malignant neoplasm of cervix 454880738 Z12.4 Deep venou s thrombosis of lower extremity 984788590 I82.543 (x 2; last episode was at [facility] around 2013) -- refer to Hematologi st by previous PCP Dr Robles Menopause 562574094 Z78. 0 -- last BONE density was around 2000 & pt reports it was good Antiplatel et agent therapy 737622032 Z79.02 -- currently on otc aspirin 81 mg daily Fatigue 71817848 R53.83 (x since Nov 2016) Electrocar diogram abnormal 067443546 R94.31 (asymptoma tic) -- refer pt to Cardiologi st Dr Ventura [address] Isidoro Chairez MD [facility], [facility] [address] [facility] [address] [place] [address] 10/31/2017 15:40:03 10/31/2017 18:00:10 Benign essential hypertension 4824567 I10 Hyperlipidemia 65471663 E78.5 Fatigue 34009966 R53.83 (x since Nov 2016) Rosacea 110690153 L71.9 -- following w/ Dermatolog ist Nimco Foster Herpes simplex 12811011 B00.9 Body mass index 30+ - obesity 557422752 Z68.32 -- will advise weight loss; pt lost 7 # since her last visit-- pt's BMI today is 32.9 (ideal is between 20-25) Deep venou s thrombosis of lower extremity 258271657 I82.543 (x 2; last episode was at [facility] around 2013) -- refer to Hematologi st by previous PCP Dr Robles Active or passive immunization 080037896 Z23 -- Patient does not want to be shots; but she will let me know if she changes her mind. Screening for malignant neoplasm of colon 243469724 Z12.11 -- Patient reports a last colonoscop y was about 15 years ago around 2001 Screening for malignant neoplasm of breast 016380955 Z12.31 -- Patient reports she had a normal mammogram at [facility] this year Summer 2016 Screening for malignant neoplasm of cervix 552861603 Z12.4 Menopause 122154763 Z78. 0 -- last BONE density was around 2000 & pt reports it was good-- will schedule DEXA for next visit Antiplatel et agent therapy 606342348 Z79.02 -- currently on Eliquis but Dr Ventura will switch to otc aspirin 325 mg daily in 4-6 weeks (per pt). 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) -- s/p stent at left Illiac vein placement by Dr Ventura on 10/25/17 -- currently on Eliquis [address]4318 Isidoro Chairez MD [facility], [facility] [address] [place] [address] 04/30/2018 14:10:51 04/30/2018 15:21:42 Benign essential hypertension 7170885 I10 -- last EKG was done on 09/19/17-- recheck lab on within 5 days from 04/30/18 Hyperlipidemia 69483428 E78.5 -- recheck lab on within 5 days from 04/30/18 Fatigue 09632299 R53.83 (x since Nov 2016) -- resolved since started on sublingual Vit B12 Obstructiv e sleep apnea of adult 6993558554 103 G47.33 -- on CPAP about 7 hours nightly Rosacea 560720669 L71.9 -- following w/ Dermatolog ist Nimco Cristian Herpes simplex 47757935 B00.9 (type 1; dx'd on 11/01/17) Body mass index 30+ - obesity 686593968 Z68.32 -- will advise weight loss; pt gained 7 # since her last visit-- pt's BMI today is 34.1 (ideal is between 20-25) Deep venou s thrombosis of lower extremity 380868798 I82.543 (x 2; last episode was at [facility] around 2013) -- refer to Hematologi st by previous PCP Dr Robles Occlusion of iliac vein 276545520 I82.429 (left Illiac vein) -- s/p stent at left Illiac vein placement by Dr Ventura on 10/25/17 -- currently on Aspirin [address] Ventura Active or passive immunization 438649830 Z23 -- Patient does not want to be shots; but she will let me know if she changes her mind. Screening for malignant neoplasm of colon 914412702 Z12.11 -- Patient reports a last colonoscop y was about 15 years ago around 2001 Screening for malignant neoplasm of breast 418074667 Z12.31 -- Patient reports she had a normal mammogram at [facility] this year Summer 2016 Screening for malignant neoplasm of cervix 224549595 Z12.4 Menopause 054300403 Z78. 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 -- Avoid any multi-alex min or any supplement s containing vit B6 (also known as Pyridoxine ). 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 -- also start otc sublingual Vit B12 2,500 mcg every morning (1 tab under tongue for 5 min then swallow).- - recheck lab on within 5 days from 04/30/18 Hyperglycemia 36096075 R 73.9 -- recheck lab on within 5 days from 04/30/18 Renal impairment 9672716 03 N28.9 ^Creatinin e (renal impairment ) -- informed pt to avoid any otc pain meds: like Ibuprofen /motrin /advil /Aleve /Naproxen /etc.-- increase and maintain fluids to over 64 fluid ounces daily; -- recheck lab on within 5 days from 04/30/18 [address] Isidoro Chairez MD [facility] [address] [facility] [address] [place] [address] 07/16/2018 11:29:21 07/16/2018 14:23:12 Injury of ankle 249433735 S99.911A (right ankle) -- sprained right ankle last Monday07/13/18 (pt denies falling to the ground). Renal impairment 5869582 03 N28.9 ^Creatinin e (renal impairment ) -- informed pt to avoid any otc pain meds: like Ibuprofen /motrin /advil /Aleve /Naproxen /etc.-- increase and maintain fluids to over 64 fluid ounces daily-- last Cr wa stable at 1.06 on 05/02/18 Hyperglycemia 68666690 R 73.9 -- A1c level of 5.4 on 05/02/18 Hypervitaminosis B6 2381 43573 E67.2 Excess vit B6 can cause nerve damage with neuropathi c sx like numbness and tingling. -- Avoid any multi-alex min or any supplement s containing vit B6 (also known as Pyridoxine ). -- Also avoid Liver (from any animal), [place] seeds, Pistachios , or Prunes, any Energy drinks which may contain Vit B6 (aka Pyridoxine ).-- resolved on lab testing on 05/02/18 Vitamin B1 2 deficiency (non anemic) 48055989 E53.8 --last B12 level of 1436 on 05/02/18 Benign ess ential hypertension 5547970 I10 -- last EKG was done on 05/01/[address] Ventura 's office-- recheck lab(s) on 11/01/18 Hyperlipidemia 01681361 E78.5 -- LDL well controlled at 67 on from 05/02/18 Obstructiv e sleep apnea of adult 9272822624 103 G47.33 -- on CPAP about 7 hours nightly (following w/ Dr Brendon Espinal) [place] 233518812 L71.9 -- following w/ Dermatolog ist Nimco Cristian Herpes simplex 09772498 B00.9 (type 1; dx'd on 11/01/17) Body mass index 30+ - obesity 203196984 Z68.32 -- will advise weight loss; pt gained 7 # since her last visit-- pt's BMI today is 34.1 (ideal is between 20-25) Deep venou s thrombosis of lower extremity 437491981 I82.543 (x 2; last episode was at [facility] around 2013)-- referred to Hematologi st & pt saw Dr Phu Rodgers in May 2018-- had vein ablation on 04/02/18 Occlusion of iliac vein 905836172 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 0 -- last BONE density was around 2000 & pt reports it was good-- DEXA scheduled for 05/01/18 Antiplatel et agent therapy 352231025 Z79.02 -- currently on aspirin [address] Ventura Active or passive immunization 706235359 Z23 -- Patient does not want to be shots; but she will let me know if she changes her mind. Screening for malignant neoplasm of colon 456074345 Z12.11 -- Patient reports a last colonoscop y was about 15 years ago around 2001 Screening for malignant neoplasm of breast 534485364 Z12.31 -- Patient reports she had a normal mammogram at [facility] around Aug 2017 Screening for malignant neoplasm of cervix 681264522 Z12.4 Pain in right knee 90520 98995 58942 M25.561 Health Concerns Section Related Observation LastModified by Organization Detai ls LastModified Time None Recorded Concern Status LastModified by Organization Details LastModified Time None Recorded Advance Directives Directive N: Payers Encounter Date Sequence Insurance Name Policy Number Policy Sullivan Covered Member ID Sullivan Member ID Guarantor Name 09/19/2017 2 [place] ([place]) 104 Gianna Be [id number] Gianna Boedeker 10/31/2017 2 [place] 104 Gianna Lockettyer [id number] Gianna Boedeker 04/30/2018 2 [place] 104 Gianna Lockettyer [id number] Gianna Boedeker 04/30/2018 1 [place] Gianna Homyer [id number] Gianna Boedeker 07/16/2018 2 [place] ([place] 104 Gianna Be [id number] Gianna Boedeker 07/16/2018 1 [place] Gianna Homyer [id number] Gianna Boedeker Notes Date Note Type Note Provider Name and Address Organization Details Recorded Time 09/19/2017 text/html Transferred care from Dr Robles Patient denies any headache/chest discomfort or pain/diaphoresis/b reathing problems/nausea/vo miting/any angina equivalent symptoms/visual changes Isidoro Chairez MD [address], [place], [address], [facility] 09/19/2017 12:58:16 10/31/2017 text/html Patient denies a ny headache/chest discomfort or pain/diaphoresis/b reathing problems/nausea/vo miting/any angina equivalent symptoms/visual changes Isidoro Chairez MD [address], [place], [address], [facility] 10/31/2017 17:56:10 04/30/2018 text/html Patient denies a ny headache/chest discomfort or pain/diaphoresis/b reathing problems/nausea/vo miting/any angina equivalent symptoms/visual changes Isidoro Chairez MD [address], [place], [address], [facility] 04/30/2018 15:21:08 07/16/2018 text/html Patient denies a ny headache/chest discomfort or pain/diaphoresis/b reathing problems/nausea/vo miting/any angina equivalent symptoms/visual changes Isidoro Chairez MD [address] [place] [address] [address], [place], [address], [facility] 07/16/2018 14:20:58 OBGyn Episode No OBEpisode recorded.
--- OUTSIDE RECORDS SUMMARY | 2025-02-24 18:37 | XMS_ITS | Encounter Summary ---
Author Organization [facility] Address 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 A limited but full qdxaq-ga-gkkc contrast CT of the chest was performed for review of noncardiac pathology. Axial data, three- view MPR images and curved vessel reformat views of the coronary arteries were reviewed. 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 No significant atherosclerosis in the mid or [...] Procedure Note Orlando Jeong MD - 03/18/2008 [facility] [address], [place] [address] Admit Date: 03/18/2008 GIANNA FORBES Sex: F Admit Prov: SHIREEN ALBARADO Date: 1935 Primary Care Prov: BRIAN YANEZ CMRN: [id number] Room: [place] [address] SSN: [id number] IMAGING SERVICES Ordering Prov: N/A Interpretation Coronary [...] the R-R interval. A limited but full vufco-hs-koou contrast CT ofthe chest was performed for review of noncardiac pathology. Axial data,three- view MPR images and curved vessel reformat views of the coronaryarteries were reviewed. 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 No significant atherosclerosis in the mid or [...] on filedocumented in this encounter Care Teams Orchid Worker Relationship Specialty Start Date End Date Brian Yanez DO PCP - General 03/07/08 documented as of this encounter
--- OUTSIDE RECORDS SUMMARY | 2025-02-24 18:37 | XMS_ITS | Encounter Summary ---
Author Organization [facility] Address 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
--- OUTSIDE RECORDS SUMMARY | 2025-02-24 18:37 | XMS_ITS | Clinical Summary ---
Author Organization [facility] Address [address] [place] [id number] Care Team Providers Care Battery Plate Remover Name Role Phone Unavailable Primary Care Provider [...] - 1-dose 75+ series) 2012 COVID-19 Vaccine ( - 2023-2 5 season) 2024 Meningococcal B Vaccine Aged Out No l onger eligible based on patient's age to complete this topic Meningococcal Vaccine Aged Out No kyung josefa eligible based on patient's age to complete this topic RSV Immunizations Under 20 Months Aged Out No longer eligible based on patient's age to complete this [place] [address] MEDICARE [facility]
[2025-02-24 19:11] VITALS: BP 158/72; PULSE 86; RESP 16; TEMP 37; O2SAT 100
--- NOTE | 2025-02-24 19:48 | PC.NURSE ---
Attempted to call contacts in patient's chart. Both numbers went to voicemail.
--- NOTE | 2025-02-24 20:01 | PC.NURSE ---
Patient states that she wants to go home by cab. PA present in the room and states that patient may need to be sent home by cab. Since patient is A&Ox2-3 (this nurse assessed patient as A&Ox3 with the patient answering the month is 20 ) the household appliances service technician advised that maybe family should by EMS. blood donor recruiter supervisor states that she will contact care coordination and see if patient is okay to go back home since she lives alone.
--- NOTE | 2025-02-24 20:07 | PC.NURSE ---
Spoke with Care Coordination, Lona Demarco, who advised that patient be sent home per EMS to ensure that she safely makes it to residence. Communicated with RN caring for pt.
--- NOTE | 2025-02-24 20:15 | PC.NURSE ---
Notified patient that EMS will be taking her back home. Patient agreed to have EMS take her home.
[2025-02-24 21:00] VITALS: BP 124/66; PULSE 77; RESP 18; O2SAT 99
[2025-02-25] VITALS: BP 132/77; PULSE 76; RESP 17; TEMP 36.7; O2SAT 99
--- NOTE | 2025-02-25 06:16 | PC.NURSE ---
this RN called pt's daughter at the number listed in her chart, no answer but left a voicemail with callback number.
--- NOTE | 2025-02-25 06:33 | PCCCNOTE ---
[id number]-Called the pt's son and LVM him to return a call in attempt to let him know pt is in house.julio
--- NOTE | 2025-02-25 06:56 | PCCCNOTE ---
0649-Called [place] [employer] at [phone] and spoke to dispatch. Let them know we have the pt in house, she is alert x1-2. Unable to get a hold of the family. Know child Brian whom has a address listed in [place] and unable to contact. Asked if a wellness check could be done in attempts to allow a safe discharge to home with family. [employer] electrical contacts information left for f/u call.-julio.
[2025-02-25 07:30] VITALS: BP 136/70; PULSE 72; RESP 16; O2SAT 100
--- NOTE | 2025-02-25 09:42 | PCCCNOTE ---
0942-Pt's son Brian Called from the pt's home number asking about his mother. Informed him she was here overnight d/t having a fall, being confused and unable to discharge safely until we were able to contact family. Stated, well you're telling me more than she does . Brian states she is confused and stubborn. Alerted him she had a fall last month as well which he did not know about. Offered to give community resources for extra help in the home, assisted living or to speak with her provider. Brian stated Oh they just pulled up so I'll talk to you later and the call was ended. Did verify his number of [phone].[email or web address]
== END 2025-02-25 09:20 | disposition home or self-care (01) ==
PROVIDERS: Emergency Provider Physician Assistant
DX: S09.90XA Unspecified injury of head, initial encounter (principal); E78.5 Hyperlipidemia, unspecified; I10 Essential (primary) hypertension; Z87.442 Personal history of urinary calculi; Z90.49 Acquired absence of other specified parts of digestive tract; Z90.710 Acquired absence of both cervix and uterus; M47.816 Spondylosis without myelopathy or radiculopathy, lumbar region; W01.190A Fall on same level from slipping, tripping and stumbling with subsequent striking against furniture, initial encounter
CPT/HCPCS: 70450; 70486; 71045; 72125; 72170; 99284; 99285